=== PATIENT | female | born 1970 | race Caucasian/White ===

== ENCOUNTER 2022-06-21 19:34 | Emergency (ER) | payer SELFPAY ==
[2022-06-21 20:41] LABS: Absolute Lymphocytes (CBC) 1.6 K/uL (0.7-4.9); Hematocrit 36.1 % (36.0-45.0); Lymphocytes % 35.1 % (15.3-44.8); MCV 93.4 fL (80-100); MPV 9.2 fL (7.6-11.3); RBC Red Blood Cell Count 3.87 M/uL (3.86-4.86)
[2022-06-21 20:46] LABS: Protime INR 1.03
[2022-06-21 21:02] LABS: SARS-CoV-2 Antigen Rapid Res Negative (Negative)
[2022-06-21] MEDS ORDERED: NA CHLORIDE 0.9% 1,000 ML ONE (23:21)
[2022-06-22 01:25] LABS: ALT/SGPT 16 U/L (13-56); AST/SGOT 13 U/L (15-37); Albumin 3.2 g/dL (3.4-5.0); Alkaline Phosphatase 39 U/L (45-117); BUN Blood Urea Nitrogen 18 mg/dL (7-18); Bicarbonate 27 mmol/L (21-32); Bilirubin Direct 0.1 mg/dL (0-0.2); Bilirubin Total 0.6 mg/dL (0.2-1.0); Glomerular Filtration Rate 82 ml/min (=/>90); Glucose Level 106 mg/dL (74-106); Potassium 3.5 mmol/L (3.5-5.1); Sodium Level 141 mmol/L (136-145)
[2022-06-22 01:29] LABS: Urine Blood Negative (Negative); Urine Glucose Negative (Negative); Urine Protein Negative (Negative); Urine Specific Gravity >=1.030 (1.005-1.030); Urine pH 5.5 (5.0-7.0)
[2022-06-22 01:37] LABS: Barbiturates NEGATIVE (NEGATIVE); Benzodiazepines NEGATIVE (NEGATIVE); Cocaine NEGATIVE (NEGATIVE); METHAMPHETAM NEGATIVE (NEGATIVE); Methadone NEGATIVE (NEGATIVE); Opiates NEGATIVE (NEGATIVE); Phencyclidine NEGATIVE (NEGATIVE); THC Cannibis POSITIVE (NEGATIVE)
--- NOTE | 2022-06-22 07:23 | EDPHYS ---
Physician Documentation [facility] – [place], [place] Name: Ewelina Hines Age: 51 yrs Sex: Female : 1970 Arrival Date: 06/21/2022 Time: 19:59 Bed 17 Private MD: ED Physician Torres Gallardo HPI: 06/21 21:23 This 51 yrs old Female presents to ER via EMS with complaints of Intentional overdose. rt 21:23 The patient presents to the emergency department with suicide ideation. Patient rt presents to the ED with an intentional overdose of 0.6 mg of clonidine at about 5 PM. Patient states that this was a suicide attempt. Patient states that she wishes to get help. She denies any physical complaints at this time. Denies other aggravating alleviating factors. Symptoms are moderate in severity.. 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 - Social history:: Smoking status: Reported history of juuling and/or vaping. - Family history:: not pertinent. ROS: 21:23 Constitutional: Negative for fever, chills, and weight loss, Eyes: Negative for injury, rt pain, redness, and discharge, Cardiovascular: Negative for chest pain, palpitations, and edema, Respiratory: Negative for shortness of breath, cough, wheezing, and pleuritic chest pain, Abdomen/GI: Negative for abdominal pain, nausea, vomiting, diarrhea, and constipation, MS/Extremity: Negative for injury and deformity, Skin: Negative for injury, rash, and discoloration, Neuro: Negative for headache, weakness, numbness, tingling, and seizure. 21:23 Psych: Positive for depression, suicide gesture, suicidal ideation. Exam: 21:23 Constitutional: This is a well developed, well nourished patient who is awake, alert, rt and in no acute distress. Head/Face: Normocephalic, atraumatic. Chest/axilla: Normal chest wall appearance and motion. Nontender with no deformity. No lesions are appreciated. Cardiovascular: Regular rate and rhythm with a normal S1 and S2. No gallops, murmurs, or rubs. Normal PMI, no JVD. No pulse deficits. Respiratory: Lungs have equal breath sounds bilaterally, clear to auscultation and percussion. No rales, rhonchi or wheezes noted. No increased work of breathing, no retractions or nasal flaring. Abdomen/GI: Soft, non-tender, with normal bowel sounds. No distension or tympany. No guarding or rebound. No evidence of tenderness throughout. Skin: Warm, dry with normal turgor. Normal color with no rashes, no lesions, and no evidence of cellulitis. MS/ Extremity: Pulses equal, no cyanosis. Neurovascular intact. Full, normal range of motion. Neuro: Awake and alert, GCS 15, oriented to person, place, time, and situation. Cranial nerves II-XII grossly intact. Motor strength 5/5 in all extremities. Sensory grossly intact. Cerebellar exam normal. Normal gait. 21:23 ECG was reviewed by the Attending Physician. 21:23 Psych: Positive for suicidal ideation, calm, cooperative. Vital Signs: 19:59 BP 123 / 77; Pulse 78; Resp 12 S; Temp 98.2(O); Pulse Ox 97% on R/A; Weight 65.77 kg as6 (R); Height 4 ft. 11 in. (149.86 cm) (R); Pain 0/10; 21:03 BP 104 / 56; Pulse 49; Resp 10 S; Pulse Ox 95% on R/A; as6 22:50 BP 88 / 63; Pulse 45; Resp 19 S; Pulse Ox 97% on R/A; ha1 23:30 BP 93 / 60; Pulse 45; Resp 12 S; Pulse Ox 97% on R/A; ha1 03/03 00:30 BP 104 / 60; Pulse 45; Resp 13 S; Pulse Ox 97% on R/A; ha1 01:17 BP 121 / 63; Pulse 45; Resp 13; Pulse Ox 98% on R/A; ha1 02:30 BP 101 / 62; Pulse 44; Resp 12 S; Pulse Ox 97% on R/A; ha1 03:30 BP 106 / 69; Pulse 45; Resp 12 S; Pulse Ox 97% on R/A; ha1 04:30 BP 106 / 62; Pulse 48; Resp 15 S; Pulse Ox 97% on R/A; ha1 05:30 BP 114 / 58; Pulse 43; Resp 13 S; Pulse Ox 97% on R/A; ha1 06:30 BP 107 / 65; Pulse 48; Resp 12 S; Pulse Ox 96% on R/A; ha1 07:20 BP 105 / 64; Pulse 73; Resp 14; Temp 97.2; Pulse Ox 96% on R/A; Pain 0/10; ko1 07:55 BP 110 / 71; Pulse 55; Resp 17; Pulse Ox 96% on R/A; ko1 08:22 BP 126 / 70; Pulse 57; Resp 12; Pulse Ox 96% ; ko1 09:30 BP 110 / 64; Pulse 58; Resp 16; Pulse Ox 96% ; ko1 10:00 BP 102 / 63; Pulse 49; Resp 18; Pulse Ox 97% ; ko1 11:00 BP 115 / 63; Pulse 45; Resp 16; Pulse Ox 95% ; ko1 12:00 BP 130 / 66; Pulse 49; Resp 16; Pulse Ox 96% ; ko1 06/21 19:59 Body Mass Index 29.29 (65.77 kg, 149.86 cm) as6 MDM: 06/21 20:36 Patient medically screened. rt 06/22 07:12 Transition of care: Care assumed from Jacobo Justice MD. ms3 15:42 Differential diagnosis: acute psychotic break, depression, Suicide attempt vs Substance ms3 abuse. Data reviewed: vital signs, nurses notes, lab test result(s), and as a result, I will transfer patient to psychiatric facility. Consideration of Admission/Observation Transfer. I considered the following discharge prescriptions or medication management in the emergency department Medications were administered in the Emergency Department. See MAR. 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 Counseling: I had a detailed discussion with the patient and/or guardian regarding: the historical points, exam findings, and any diagnostic results supporting the discharge/admit diagnosis, lab results, radiology results, the need to transfer to another facility. ED course: Discussed case with Dr Alvarenga and he accepts patient.. 06/21 20:04 Order name: Acetaminophen as6 06/21 20:04 Order name: Basic Metabolic Panel as6 /02 20:04 Order name: CBC with Diff 06/21 20:04 Order name: ETOH Level 06/21 20:04 Order name: Hepatic Function 06/21 20:04 Order name: PT-INR 06/21 20:04 Order name: Ptt, Activated 06/21 20:04 Order name: Salicylate 06/21 20:04 Order name: Urine Drug Screen 06/21 20:04 Order name: EKG; Complete Time: 20:05 as06/21 20:04 Order name: EKG - Nurse/Tech; Complete Time: 20:36 as06/21 20:04 Order name: IV Saline Lock; Complete Time: 20:36 as06/21 20:04 Order name: Labs collected and sent; Complete Time: 20:36 as06/21 20:04 Order name: Suicide Precautions; Complete Time: 01:49 as06/21 20:04 Order name: Suicide Screening ([place]); Complete Time: 01:49 as06/21 20:04 Order name: Urine Dipstick-Ancillary (obtain specimen); Complete Time: 01:49 as06/21 20:04 Order name: Urine Test (obtain specimen); Complete Time: 01:49 as06/21 20:04 Order name: SARS RAPID 06/21 20:44 Order name: CBC with Automated Diff; Complete Time: 23:21 EDMS 06/21 20:46 Order name: Protime (+INR); Complete Time: 23:21 EDMS 06/21 20:46 Order name: PTT, Activated Partial Thromb; Complete Time: 23:21 EDMS 06/21 20:58 Order name: Alcohol Serum/Plasma; Complete Time: 23:21 EDMS 06/21 20:58 Order name: Salicylates Level; Complete Time: 23:21 EDMS 06/21 21:02 Order name: SARS-COV-2 Antigen Rapid; Complete Time: 23:21 EDMS 06/22 01:25 Order name: Basic Metabolic Panel; Complete Time: 07:54 EDMS 06/22 01:25 Order name: Liver (Hepatic) Function; Complete Time: 07:54 EDMS 06/22 01:25 Order name: Acetaminophen Level; Complete Time: 07:54 EDMS 06/22 01:29 Order name: Urine Dipstick-Ancillary; Complete Time: 07:54 EDMN 06/22 01:37 Order name: Urine Drug Screen; Complete Time: 07:54 [facility] 06/22 07:06 Order name: Diet Finger Food; Complete Time: 07:06 [facility] 06/22 10:44 Order name: Diet Finger Food; Complete Time: 10:45 1 06/22 16:10 Order name: Diet Finger Food; Complete Time: 16:10 ko1 EC/02 21:23 Rate is 67 beats/min. Rhythm is regular, Normal Sinus Rhythm with No ectopy. Left axis rt deviation noted. MS interval is normal. QRS interval is normal. QT interval is normal. No Q waves. T waves are Normal. No ST changes noted. Administered Medications: 23:10 Drug: NS 0.9% 1000 ml Route: IV; Rate: 1000 ml; Site: right antecubital; [facility] 06/22 00:00 Follow up: Response: No adverse reaction; Marked relief of symptoms; IV Status: pf1 Completed infusion; IV Intake: 1000ml Disposition Summary: 06/22/22 07:23 Transfer Ordered Transfer Location: [facility] ms3 Reason: Higher level of care ms3 Condition: Stable ms3 Problem: new ms3 Symptoms: are unchanged ms3 Accepting Physician: Dr Alvarenga/ [facility](06/22/22 17:42) ld1 Diagnosis - Suicide attempt ms3 - Intentional overdose ms3 - Cannabis abuse ms3 Forms: - Medication Reconciliation Form ms3 - SBAR form ms3 Signatures: Dispatcher [employer] [facility] Farnaz Lindsey Torres Gallardo DO DO ms3 Yolanda Olivas RN RN ld1 Flako Roa RN RN as6 Gely Hopper RN RN ha1 Jacobo Justice MD MD rt Ivana hull RN pf1 Corrections: (The following items were deleted from the chart) 07:54 07:23 Dr lake3 ms3 16:34 07:54 ms3 eb 17:42 16:34 Dr Alvarenga/ [facility] eb ld1
--- NOTE | 2022-06-22 07:23 | ER ---
Nurse's Notes [facility] Name: Ewelina Hines Age: 51 yrs Sex: Female : 1970 Arrival Date: 06/21/2022 Time: 19:59 Bed 17 Private MD: Diagnosis: Suicide attempt;Intentional overdose;Cannabis abuse Presentation: 06/21 19:59 Chief complaint: EMS states: pt took 0.6 mg of clonidine with intent to fall asleep and as6 not wake up. pt reports her family not really speaking to her and that making her very sad and feel like no one loves her. Coronavirus screen: At this time, the client does not indicate any symptoms associated with coronavirus-19. Ebola Screen: No symptoms or risks identified at this time. Initial Sepsis Screen: Does the patient meet any 2 criteria? No. Patient's initial sepsis screen is negative. Does the patient have a suspected source of infection? No. Patient's initial sepsis screen is negative. Risk Assessment: Do you want to hurt yourself or someone else? Patient reports desire/thoughts of hurting themselves or someone else. Provider notified. Onset of symptoms was June 21, 2022. 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 - Social history:: Smoking status: Reported history of juuling and/or vaping. - Family history:: not pertinent. Screenin:[facility] ED Fall Risk Assessment (Adult) Score/Fall Risk Level 0 - 2 = Low Risk. Abuse as6 screen: Denies threats or abuse. Denies injuries from another. Nutritional screening: No deficits noted. Tuberculosis screening: No symptoms or risk factors identified. Assessment: 20:09 General: Appears in no apparent distress. Behavior is calm, cooperative, flat. Pain: as6 Denies pain. Neuro: Level of Consciousness is awake, alert, obeys commands, Oriented to person, place, time, situation. Respiratory: Respiratory effort is even, unlabored. 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 22:50 Reassessment: received report from HARDEEP Arriola. ha1 22:50 General: Appears comfortable, Behavior is calm, cooperative. Pain: Denies pain. Neuro: ha1 Level of Consciousness is awake, alert, obeys commands, Oriented to person, place, time, situation. Neuro: Reports weakness in right leg and left leg. Cardiovascular: Heart tones S1 S2 present Capillary refill < 3 seconds Patient's skin is warm and dry. Rhythm is sinus bradycardia. GI: Abdomen is flat, non-distended. : Reports incontinence, since 2 years ago. EENT: No signs and/or symptoms were reported regarding the EENT system. Derm: Skin is pink, warm \\T\\ dry. Musculoskeletal: Circulation, motion, and sensation intact. 23:30 Reassessment: Patient and/or family updated on plan of care and expected duration. Pain ha1 level reassessed. Patient is alert, oriented x 3, equal unlabored respirations, skin warm/dry/pink. notified care provider of low BP. 03/03 01:30 Reassessment: eyes closed. Respiratory: Respiratory effort is even, unlabored, ha1 Respiratory pattern is regular, symmetrical. 02:30 Reassessment: eyes closed. Respiratory: Airway is patent Respiratory effort is even, ha1 unlabored, Respiratory pattern is regular, symmetrical. 03:30 Reassessment: eyes closed. Respiratory: Airway is patent Respiratory effort is even, ha1 unlabored, Respiratory pattern is regular, symmetrical. 04:18 Reassessment: spoke to poison control . [facility] 04:41 Reassessment: eyes closed. Respiratory: Airway is patent Respiratory effort is even, ha1 unlabored, Respiratory pattern is regular, symmetrical. 05:50 General: Spoke with Ivana with [facility] to arrange for a screener to pf1 evaluate the patient.. 06:30 Reassessment: relative that can be contact in case of emergency Moy Perdomo 1 [phone]. 06:40 General: Cortney Aguilar with [facility] called to speak with patient via [facility] er1 cell phone. Patient to call Cortney Aguilar at [phone] once the cell phone charges. . 06:42 Reassessment: eyes closed. Respiratory: Airway is patent Respiratory effort is even, ha1 unlabored, Respiratory pattern is regular, symmetrical. 07:20 Reassessment: Patient appears in no apparent distress at this time. No changes from ko1 previously documented assessment. Patient and/or family updated on plan of care and expected duration. Pain level reassessed. Patient is alert, oriented x 3, equal unlabored respirations, skin warm/dry/pink. 15:29 Reassessment:. ko1 Psych: 06/21 20:37 [place] Suicide Severity Screening: In the past month, have you wished you were as6 or wished you could go to sleep and not wake up? Patient responds "yes." Based off the client's responses additional C-SSRS screening is required. "In the past month, have you actually had any thoughts of killing yourself?" Patient responds "yes." Based off the client's response additional [place] suicide severity screening questions to be further documented on paper forms. "In your lifetime, have you ever done anything, started to do anything, or prepared to do anything to end your life?" Patient responds "yes." Patient reports suicidal intent within 3 past months. Patient reports suicidal intent occurred greater than 3 months prior. Subjective: Patient's mood is sad, Delusions are denied, Hallucinations are denied Having thoughts of suicide. Plan for suicide is take medication. Objective: Patient is cooperative, Speech is normal, Affect is appropriate. 22:18 Pt denies substance abuse. as6 22:50 Safety Checks: Personal items have been removed. ha1 Vital Signs: 19:59 BP 123 / 77; Pulse 78; Resp 12 S; Temp 98.2(O); Pulse Ox 97% on R/A; Weight 65.77 kg as6 (R); Height 4 ft. 11 in. (149.86 cm) (R); Pain 0/10; 21:03 BP 104 / 56; Pulse 49; Resp 10 S; Pulse Ox 95% on R/A; as6 22:50 BP 88 / 63; Pulse 45; Resp 19 S; Pulse Ox 97% on R/A; ha1 23:30 BP 93 / 60; Pulse 45; Resp 12 S; Pulse Ox 97% on R/A; ha1 06/22 00:30 BP 104 / 60; Pulse 45; Resp 13 S; Pulse Ox 97% on R/A; ha1 01:17 BP 121 / 63; Pulse 45; Resp 13; Pulse Ox 98% on R/A; ha1 02:30 BP 101 / 62; Pulse 44; Resp 12 S; Pulse Ox 97% on R/A; ha1 03:30 BP 106 / 69; Pulse 45; Resp 12 S; Pulse Ox 97% on R/A; ha1 04:30 BP 106 / 62; Pulse 48; Resp 15 S; Pulse Ox 97% on R/A; ha1 05:30 BP 114 / 58; Pulse 43; Resp 13 S; Pulse Ox 97% on R/A; ha1 06:30 BP 107 / 65; Pulse 48; Resp 12 S; Pulse Ox 96% on R/A; ha1 07:20 BP 105 / 64; Pulse 73; Resp 14; Temp 97.2; Pulse Ox 96% on R/A; Pain 0/10; ko1 07:55 BP 110 / 71; Pulse 55; Resp 17; Pulse Ox 96% on R/A; ko1 08:22 BP 126 / 70; Pulse 57; Resp 12; Pulse Ox 96% ; ko1 09:30 BP 110 / 64; Pulse 58; Resp 16; Pulse Ox 96% ; ko1 10:00 BP 102 / 63; Pulse 49; Resp 18; Pulse Ox 97% ; ko1 11:00 BP 115 / 63; Pulse 45; Resp 16; Pulse Ox 95% ; ko1 12:00 BP 130 / 66; Pulse 49; Resp 16; Pulse Ox 96% ; ko1 06/21 19:59 Body Mass Index 29.29 (65.77 kg, 149.86 cm) as6 ED Course: 02 19:59 Patient arrived in ED. as6 19:59 Flako Roa RN is Primary Nurse. as6 19:59 Jacobo Justice MD is Attending Physician. rt 19:59 Arm band placed on. as6 20:03 Triage completed. as6 20:35 SARS RAPID Sent. as6 20:35 Acetaminophen Sent. as6 20:36 Basic Metabolic Panel Sent. as6 20:36 CBC with Diff Sent. as6 20:36 ETOH Level Sent. as6 20:36 Hepatic Function Sent. as6 20:36 PT-INR Sent. as6 20:36 Ptt, Activated Sent. as6 20:36 Salicylate Sent. as6 20:36 Inserted saline lock: 20 gauge in right antecubital area, using aseptic technique. as6 Blood collected. 22:50 Patient has correct armband on for positive identification. Bed in low position. Call ha1 light in reach. Side rails up X 1. 0303 01:49 Urine Drug Screen Sent. vc1 07:12 Attending Physician role handed off by Jacobo Justice MD ms3 07:12 Torres Gallardo DO is Attending Physician. ms3 07:20 Client placed on continuous cardiac and pulse oximetry monitoring. NIBP monitoring ko1 applied. 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 08:04 attempted to connect patient with Cortney from [facility] for screening with no answer.eb 08:09 Cortney from [facility] called to let us now Hali is on her way to do a face to eb face screening. 08:21 Hali from [facility] here for patient screening. eb 08:22 Diet tray ordered. Assisted to bedside commode. Cleaned of incontinence. ko1 09:10 called and spoke with Felicia Lewis from [facility]/ She will wait for eb the fax but in the mean time will add patient to the board/. 09:11 faxed patient nathen to [facility] and [facility] in attempt to eb find placement. 09:23 called patient's cousin Moy to get patient information to update the patient eb facesheet. 12:00 No provider procedures requiring assistance completed. ko1 15:27 connected Dee Antunez from [facility] from the [facility]. eb 15:[address] Alvarenga the psychiatrist salesperson meats for [facility] with eb Dr. Gallardo for patient transfer consultation. 16:18 administrative approval given by Alexia Mullen/ patient has been accepted to [facility]. Administered Medications: 06/21 23:10 Drug: NS 0.9% 1000 ml Route: IV; Rate: 1000 ml; Site: right antecubital; ha1 06/22 00:00 Follow up: Response: No adverse reaction; Marked relief of symptoms; IV Status: pf1 Completed infusion; IV Intake: 1000ml Medication: 06/21 20:10 VIS not applicable for this client. as6 Intake: 06/22 00:00 IV: 1000ml; Total: 1000ml. pf1 Output: 08:22 Stool: 1ml (Loose Stool); Total: 1ml. ko1 Outcome: 07:23 ER care complete, transfer ordered by . ms3 17:42 Patient left the ED. ld1 Signatures: Farnaz Lindsey Marcus, DO RODRIGUEZ ms3 Yolanda Olivas RN RN ld1 Flako Roa RN RN as6 Tiffany Ramirez RN RN vc1 Gely Hopper, RN RN ha1 Brenda Goodwin RN RN ko1 Jacobo Justice MD MD rt finley, Pamala RN RN pf1
--- NOTE | 2022-06-22 14:30 | EKG ---
Test Date: 2022-06-21 Test Time: 20:24:24 Cna Ltc: MEASUREMENT RESULTS: Intervals: Rate: 67 PA: 142 QRSD: 94 QT: 456 QTc: 481 [place]: P: 58 PA: 142 QRS: -40 T: 109 INTERPRETIVE STATEMENTS: Normal sinus rhythm Possible Left atrial enlargement Left axis deviation Left ventricular hypertrophy with repolarization abnormality Prolonged QT Abnormal ECG No previous ECG available for comparison Electronically Signed On 06-22-22 14:28:22 CONVICT GUARD by See Irizarry
[2022-06-22 18:41] VITALS: BP 105/61; O2SAT 96
[2022-06-22 18:44] VITALS: TEMP 97.7
== END 2022-06-22 17:42 ==
LOC: EDBD 19:34 → ER 19:34
DX: T46.5X2A Poisoning by other antihypertensive drugs, intentional self-harm, initial encounter (principal); F12.10 Cannabis abuse, uncomplicated; Z20.822 Contact with and (suspected) exposure to COVID-19
CPT/HCPCS: 36415; 80048; 80076; 80307; 81003; 85025; 85610; 85730; 87811; 93005; 96360; 99285; G0480; J7030

== ENCOUNTER 2022-09-11 15:18 | Emergency (ER) | payer SELFPAY ==
--- OUTSIDE RECORDS SUMMARY | 2022-09-11 15:23 | XMS REPORT | Continuity of Care Document ---
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 hydrocephalus or midline shift. No extra-axial fluid collections. Paranasal sinuses are clear. Unfused posterior arch of C1 vertebral body. IMPRESSION: Acute hemorrhage within the left vermis and cerebellum measuring up to1.6 cm with severe vasogenic edema and mass effect on the ipsilateral quadrigeminal plate cistern and the left 4th ventricle. This may represent underlying mass with hemorrhage. Less likely hypertensive bleed. Correlate with postcontrast CT or MRI scanning for further evaluation. These findings were di scussed with Dr. Mistry at 10:29 AM. FOR INTERNAL CODING PURPOSES ONLY RESULT CODE: CVR at 1031 Reported and signed by: Nazario Jones M.D. CC: Adam Mistry MD Technologist:La Bell RT(R),CT; CTDI: DLP: Trnscb Date/Time: 12/03/2020 (1031) [email or web address] Orig Print D/T: S: 12/03/2020 (1034) PAGE 1 Signed ReportCBC W/AUTO [id number] 17:41:00 Test Item Value Reference Range Interpretation Comments WHITE BLOOD CELL (test 11.5 K/mm3 4.5-12.5 N code = WBC) RED BLOOD CELL (test code 3.45 mill/mm3 3.7-5.2 L = RBC) HEMOGLOBIN (test code = 8.7 gram/dL 11.5-15.5 L HGB) HEMATOCRIT (test code = 29.1 % 36.0-46.0 L HCT) MEAN CELL VOLUME (test 84.3 fL 80-98 N code = MCV) MEAN CELL HGB (test code 25.2 picogram 27.0-33.0 L = MCH) MEAN CELL HGB 29.9 gram/dL 33.0-36.0 L CONCETRATION (test code = MCHC) RED CELL DISTRIBUTION 19.3 % 11.6-16.2 H WIDTH (test code = RDW) RED CELL DISTRIBUTION 59.1 fL 37.0-51.0 H WIDTH SD (test code = RDW-SD) PLATELET COUNT (test code 283 K/mm3 150-450 N = PLT) MEAN PLATELET VOLUME 10.6 fL 6.7-11.0 N (test code = MPV) NEUTROPHIL % (test code = 74.5 % 39.0-69.0 H NT%) IMMATURE GRANULOCYTE % 0.2 % 0.0-5.0 N (test code = IG%) LYMPHOCYTE % (test code = 9.3 % 25.0-55.0 L LY%) MONOCYTE % (test code = 9.6 % 0.0-10.0 N MO%) EOSINOPHIL % (test code = 5.9 % 0.0-5.0 H EO%) BASOPHIL % (test code = 0.5 % 0.0-1.0 N BA%) NUCLEATED RBC % (test 0.0 % 0-0 N code = NRBC%) NEUTROPHIL # (test code = 8.57 K/mm3 1.8-7.7 H NT#) IMMATURE GRANULOCYTE # 0.02 x10 3/uL 0-0.03 N (test code = IG#) LYMPHOCYTE # (test code = 1.07 K/mm3 1.0-5.0 N LY#) MONOCYTE # (test code = 1.11 K/mm3 0-0.8 H MO#) EOSINOPHIL # (test code = 0.68 K/mm3 0.0-0.5 H EO#) BASOPHIL # (test code = 0.06 K/mm3 0.0-0.2 N BA#) NUCLEATED RBC # (test 0.00 K/mm3 0.0-0.1 N code = NRBC#) MANUAL DIFF REQUIRED NO, ONLY SCAN NEEDED (test code = MDIFF) DIFFERENTIAL [id number] 17:41:00 Test Item Value Reference Range Interpretation Comments STAIN ACCEPTABILITY (test STAIN ACCEPTABLE code = STN ACCEPTABLE) HYPOCHROMIA (test code = 1+ HYPO) PLATELET ESTIMATE (test code ADEQUATE = PLTEST) PLATELET MORPHOLOGY (test NORMAL code = PLTMORPH) CBC W/AUTO [id number] 16:03:00 Test Item Value Reference Range Interpretation Comments WHITE BLOOD CELL (test 11.5 K/mm3 4.5-12.5 N code = WBC) RED BLOOD CELL (test code 3.45 mill/mm3 3.7-5.2 L = RBC) HEMOGLOBIN (test code = 8.7 gram/dL 11.5-15.5 L HGB) HEMATOCRIT (test code = 29.1 % 36.0-46.0 L HCT) MEAN CELL VOLUME (test 84.3 fL 80-98 N code = MCV) MEAN CELL HGB (test code 25.2 picogram 27.0-33.0 L = MCH) MEAN CELL HGB 29.9 gram/dL 33.0-36.0 L CONCETRATION (test code = MCHC) RED CELL DISTRIBUTION 19.3 % 11.6-16.2 H WIDTH (test code = RDW) RED CELL DISTRIBUTION 59.1 fL 37.0-51.0 H WIDTH SD (test code = RDW-SD) PLATELET COUNT (test code 283 K/mm3 150-450 N = PLT) MEAN PLATELET VOLUME 10.6 fL 6.7-11.0 N (test code = MPV) NEUTROPHIL % (test code = 74.5 % 39.0-69.0 H NT%) IMMATURE GRANULOCYTE % 0.2 % 0.0-5.0 N (test code = IG%) LYMPHOCYTE % (test code = 9.3 % 25.0-55.0 L LY%) MONOCYTE % (test code = 9.6 % 0.0-10.0 N MO%) EOSINOPHIL % (test code = 5.9 % 0.0-5.0 H EO%) BASOPHIL % (test code = 0.5 % 0.0-1.0 N BA%) NUCLEATED RBC % (test 0.0 % 0-0 N code = NRBC%) NEUTROPHIL # (test code = 8.57 K/mm3 1.8-7.7 H NT#) IMMATURE GRANULOCYTE # 0.02 x10 3/uL 0-0.03 N (test code = IG#) LYMPHOCYTE # (test code = 1.07 K/mm3 1.0-5.0 N LY#) MONOCYTE # (test code = 1.11 K/mm3 0-0.8 H MO#) EOSINOPHIL # (test code = 0.68 K/mm3 0.0-0.5 H EO#) BASOPHIL # (test code = 0.06 K/mm3 0.0-0.2 N BA#) NUCLEATED RBC # (test 0.00 K/mm3 0.0-0.1 N code = NRBC#) MANUAL DIFF REQUIRED NO, ONLY SCAN NEEDED (test code = MDIFF) DIFFERENTIAL [id number] 16:03:00 Test Item Value Reference Range Interpretation Comments STAIN ACCEPTABILITY (test code = STN ACCEPTABLE) CABOT RINGS (test code = CAB) MORPHOLOGY COMMENT (test code = MOC) PLATELET ESTIMATE (test code = PLTEST) PLATELET MORPHOLOGY (test code = PLTMORPH) CBC W/AUTO [id number] 16:03:00 Test Item Value Reference Range Interpretation Comments WHITE BLOOD CELL (test 11.5 K/mm3 4.5-12.5 N code = WBC) RED BLOOD CELL (test code 3.45 mill/mm3 3.7-5.2 L = RBC) HEMOGLOBIN (test code = 8.7 gram/dL 11.5-15.5 L HGB) HEMATOCRIT (test code = 29.1 % 36.0-46.0 L HCT) MEAN CELL VOLUME (test 84.3 fL 80-98 N code = MCV) MEAN CELL HGB (test code 25.2 picogram 27.0-33.0 L = MCH) MEAN CELL HGB 29.9 gram/dL 33.0-36.0 L CONCETRATION (test code = MCHC) RED CELL DISTRIBUTION 19.3 % 11.6-16.2 H WIDTH (test code = RDW) RED CELL DISTRIBUTION 59.1 fL 37.0-51.0 H WIDTH SD (test code = RDW-SD) PLATELET COUNT (test code 283 K/mm3 150-450 N = PLT) MEAN PLATELET VOLUME 10.6 fL 6.7-11.0 N (test code = MPV) NEUTROPHIL % (test code = 74.5 % 39.0-69.0 H NT%) IMMATURE GRANULOCYTE % 0.2 % 0.0-5.0 N (test code = IG%) LYMPHOCYTE % (test code = 9.3 % 25.0-55.0 L LY%) MONOCYTE % (test code = 9.6 % 0.0-10.0 N MO%) EOSINOPHIL % (test code = 5.9 % 0.0-5.0 H EO%) BASOPHIL % (test code = 0.5 % 0.0-1.0 N BA%) NUCLEATED RBC % (test 0.0 % 0-0 N code = NRBC%) NEUTROPHIL # (test code = 8.57 K/mm3 1.8-7.7 H NT#) IMMATURE GRANULOCYTE # 0.02 x10 3/uL 0-0.03 N (test code = IG#) LYMPHOCYTE # (test code = 1.07 K/mm3 1.0-5.0 N LY#) MONOCYTE # (test code = 1.11 K/mm3 0-0.8 H MO#) EOSINOPHIL # (test code = 0.68 K/mm3 0.0-0.5 H EO#) BASOPHIL # (test code = 0.06 K/mm3 0.0-0.2 N BA#) NUCLEATED RBC # (test 0.00 K/mm3 0.0-0.1 N code = NRBC#) MANUAL DIFF REQUIRED NO, ONLY SCAN NEEDED (test code = MDIFF) DIFFERENTIAL [id number] 16:03:00 Test Item Value Reference Range Interpretation Comments STAIN ACCEPTABILITY (test code = STN ACCEPTABLE) CABOT RINGS (test code = CAB) MORPHOLOGY COMMENT (test code = MOC) PLATELET ESTIMATE (test code = PLTEST) PLATELET MORPHOLOGY (test code = PLTMORPH) CBC W/AUTO [id number] 16:03:00 Test Item Value Reference Range Interpretation Comments WHITE BLOOD CELL (test 11.5 K/mm3 4.5-12.5 N code = WBC) RED BLOOD CELL (test code 3.45 mill/mm3 3.7-5.2 L = RBC) HEMOGLOBIN (test code = 8.7 gram/dL 11.5-15.5 L HGB) HEMATOCRIT (test code = 29.1 % 36.0-46.0 L HCT) MEAN CELL VOLUME (test 84.3 fL 80-98 N code = MCV) MEAN CELL HGB (test code 25.2 picogram 27.0-33.0 L = MCH) MEAN CELL HGB 29.9 gram/dL 33.0-36.0 L CONCETRATION (test code = MCHC) RED CELL DISTRIBUTION 19.3 % 11.6-16.2 H WIDTH (test code = RDW) RED CELL DISTRIBUTION 59.1 fL 37.0-51.0 H WIDTH SD (test code = RDW-SD) PLATELET COUNT (test code 283 K/mm3 150-450 N = PLT) MEAN PLATELET VOLUME 10.6 fL 6.7-11.0 N (test code = MPV) NEUTROPHIL % (test code = 74.5 % 39.0-69.0 H NT%) IMMATURE GRANULOCYTE % 0.2 % 0.0-5.0 N (test code = IG%) LYMPHOCYTE % (test code = 9.3 % 25.0-55.0 L LY%) MONOCYTE % (test code = 9.6 % 0.0-10.0 N MO%) EOSINOPHIL % (test code = 5.9 % 0.0-5.0 H EO%) BASOPHIL % (test code = 0.5 % 0.0-1.0 N BA%) NUCLEATED RBC % (test 0.0 % 0-0 N code = NRBC%) NEUTROPHIL # (test code = 8.57 K/mm3 1.8-7.7 H NT#) IMMATURE GRANULOCYTE # 0.02 x10 3/uL 0-0.03 N (test code = IG#) LYMPHOCYTE # (test code = 1.07 K/mm3 1.0-5.0 N LY#) MONOCYTE # (test code = 1.11 K/mm3 0-0.8 H MO#) EOSINOPHIL # (test code = 0.68 K/mm3 0.0-0.5 H EO#) BASOPHIL # (test code = 0.06 K/mm3 0.0-0.2 N BA#) NUCLEATED RBC # (test 0.00 K/mm3 0.0-0.1 N code = NRBC#) MANUAL DIFF REQUIRED NO, ONLY SCAN NEEDED (test code = MDIFF) DIFFERENTIAL [id number] 16:03:00 Test Item Value Reference Range Interpretation Comments STAIN ACCEPTABILITY (test code = STN ACCEPTABLE) MORPHOLOGY COMMENT (test code = MOC) PLATELET ESTIMATE (test code = PLTEST) PLATELET MORPHOLOGY (test code = PLTMORPH) CBC W/AUTO [id number] 16:03:00 Test Item Value Reference Range Interpretation Comments WHITE BLOOD CELL (test 11.5 K/mm3 4.5-12.5 N code = WBC) RED BLOOD CELL (test code 3.45 mill/mm3 3.7-5.2 L = RBC) HEMOGLOBIN (test code = 8.7 gram/dL 11.5-15.5 L HGB) HEMATOCRIT (test code = 29.1 % 36.0-46.0 L HCT) MEAN CELL VOLUME (test 84.3 fL 80-98 N code = MCV) MEAN CELL HGB (test code 25.2 picogram 27.0-33.0 L = MCH) MEAN CELL HGB 29.9 gram/dL 33.0-36.0 L CONCETRATION (test code = MCHC) RED CELL DISTRIBUTION 19.3 % 11.6-16.2 H WIDTH (test code = RDW) RED CELL DISTRIBUTION 59.1 fL 37.0-51.0 H WIDTH SD (test code = RDW-SD) PLATELET COUNT (test code 283 K/mm3 150-450 N = PLT) MEAN PLATELET VOLUME 10.6 fL 6.7-11.0 N (test code = MPV) NEUTROPHIL % (test code = 74.5 % 39.0-69.0 H NT%) IMMATURE GRANULOCYTE % 0.2 % 0.0-5.0 N (test code = IG%) LYMPHOCYTE % (test code = 9.3 % 25.0-55.0 L LY%) MONOCYTE % (test code = 9.6 % 0.0-10.0 N MO%) EOSINOPHIL % (test code = 5.9 % 0.0-5.0 H EO%) BASOPHIL % (test code = 0.5 % 0.0-1.0 N BA%) NUCLEATED RBC % (test 0.0 % 0-0 N code = NRBC%) NEUTROPHIL # (test code = 8.57 K/mm3 1.8-7.7 H NT#) IMMATURE GRANULOCYTE # 0.02 x10 3/uL 0-0.03 N (test code = IG#) LYMPHOCYTE # (test code = 1.07 K/mm3 1.0-5.0 N LY#) MONOCYTE # (test code = 1.11 K/mm3 0-0.8 H MO#) EOSINOPHIL # (test code = 0.68 K/mm3 0.0-0.5 H EO#) BASOPHIL # (test code = 0.06 K/mm3 0.0-0.2 N BA#) NUCLEATED RBC # (test 0.00 K/mm3 0.0-0.1 N code = NRBC#) MANUAL DIFF REQUIRED NO, ONLY SCAN NEEDED (test code = MDIFF) DIFFERENTIAL [id number] 16:03:00 Test Item Value Reference Range Interpretation Comments STAIN ACCEPTABILITY (test code = STN ACCEPTABLE) CABOT RINGS (test code = CAB) MORPHOLOGY COMMENT (test code = MOC) PLATELET ESTIMATE (test code = PLTEST) PLATELET MORPHOLOGY (test code = PLTMORPH) BASIC METABOLIC [id number] 07:43:00 Test Item Value Reference Range Interpretation Comments SODIUM (test code = 140 mmol/L 136-145 N NA) POTASSIUM (test code 3.7 mmol/L 3.5-5.1 N = K) CHLORIDE (test code = 108.0 mmol/L 98-107 H CL) CARBON DIOXIDE (test 25.0 mmol/L 21-32 N code = CO2) ANION GAP (test code 10.7 10-20 N = GAP) GLUCOSE (test code = 94 mg/dL 74-106 N GLU) BLOOD UREA NITROGEN 15 mg/dL 7-18 N (test code = BUN) GLOMERULAR FILTRATION > 60 mL/min >=60 Estima emilee GFR by RATE (test code = using Bhavani fied MDRD GFR) formula.Chronic kidney disease is defined as eith er kidney damageor GFR <60 mL/min/1.73 m2 for >3 months. CREATININE (test code 0.60 mg/dL 0.55-1.02 N Note change in = CREAT) reference range due to change in reagent. BUN/CREATININE RATIO 24.1 10-20 H (test code = BUN/CREA) CALCIUM (test code = 8.7 mg/dL 8.5-10.1 N CA) [id number] 07:43:00 Test Item Value Reference Range Interpretation Comments PHOSPHORUS (test code = PHOS) 3.9 mg/dL 2.5-4.9 N [id number] 07:43:00 Test Item Value Reference Range Interpretation Comments MAGNESIUM (test code = MAG) 2.0 mg/dL 1.8-2.4 N BASIC METABOLIC [id number] 07:36:00 Test Item Value Reference Range Interpretation Comments SODIUM (test code = NA) 140 mmol/L 136-145 N POTASSIUM (test code = K) 3.7 mmol/L 3.5-5.1 N CHLORIDE (test code = CL) 108.0 mmol/L 98-107 H CARBON DIOXIDE (test code = CO2) mmol/L 21-32 ANION GAP (test code = GAP) 10-20 GLUCOSE (test code = GLU) mg/dL 74-106 BLOOD UREA NITROGEN (test code = mg/dL 7-18 BUN) GLOMERULAR FILTRATION RATE (test mL/min >=60 code = GFR) CREATININE (test code = CREAT) mg/dL 0.55-1.02 BUN/CREATININE RATIO (test code 10-20 = BUN/CREA) CALCIUM (test code = CA) mg/dL 8.5-10.1 [id number] 07:36:00 Test Item Value Reference Range Interpretation Comments PHOSPHORUS (test code = PHOS) mg/dL 2.5-4.9 [id number] 07:36:00 Test Item Value Reference Range Interpretation Comments MAGNESIUM (test code = MAG) mg/dL 1.8-2.4 CBC W/AUTO [id number] 07:04:00 Test Item Value Reference Range Interpretation Comments WHITE BLOOD CELL (test code = 10.4 K/mm3 4.5-12.5 N WBC) RED BLOOD CELL (test code = 3.58 mill/mm3 3.7-5.2 L RBC) HEMOGLOBIN (test code = HGB) 8.9 gram/dL 11.5-15.5 L HEMATOCRIT (test code = HCT) 29.3 % 36.0-46.0 L MEAN CELL VOLUME (test code = 81.8 fL 80-98 N MCV) MEAN CELL HGB (test code = MCH) 24.9 picogram 27.0-33.0 L MEAN CELL HGB CONCETRATION 30.4 gram/dL 33.0-36.0 L (test code = MCHC) RED CELL DISTRIBUTION WIDTH 19.2 % 11.6-16.2 H (test code = RDW) RED CELL DISTRIBUTION WIDTH SD 57.4 fL 37.0-51.0 H (test code = RDW-SD) PLATELET COUNT (test code = 272 K/mm3 150-450 N PLT) MEAN PLATELET VOLUME (test code 11.0 fL 6.7-11.0 N = MPV) NEUTROPHIL % (test code = NT%) 68.4 % 39.0-69.0 N IMMATURE GRANULOCYTE % (test 0.4 % 0.0-5.0 N code = IG%) LYMPHOCYTE % (test code = LY%) 16.4 % 25.0-55.0 L MONOCYTE % (test code = MO%) 8.9 % 0.0-10.0 N EOSINOPHIL % (test code = EO%) 5.5 % 0.0-5.0 H BASOPHIL % (test code = BA%) 0.4 % 0.0-1.0 N NUCLEATED RBC % (test code = 0.0 % 0-0 N NRBC%) NEUTROPHIL # (test code = NT#) 7.15 K/mm3 1.8-7.7 N IMMATURE GRANULOCYTE # (test 0.04 x10 3/uL 0-0.03 H code = IG#) LYMPHOCYTE # (test code = LY#) 1.71 K/mm3 1.0-5.0 N MONOCYTE # (test code = MO#) 0.93 K/mm3 0-0.8 H EOSINOPHIL # (test code = EO#) 0.57 K/mm3 0.0-0.5 H BASOPHIL # (test code = BA#) 0.04 K/mm3 0.0-0.2 N NUCLEATED RBC # (test code = 0.00 K/mm3 0.0-0.1 N NRBC#) BASIC METABOLIC [id number] 06:19:00 Test Item Value Reference Range Interpretation Comments SODIUM (test code = 138 mmol/L 136-145 N NA) POTASSIUM (test code 3.0 mmol/L 3.5-5.1 L = K) CHLORIDE (test code = 105.0 mmol/L 98-107 N CL) CARBON DIOXIDE (test 25.0 mmol/L 21-32 N code = CO2) ANION GAP (test code 11.0 10-20 N = GAP) GLUCOSE (test code = 105 mg/dL 74-106 N GLU) BLOOD UREA NITROGEN 15 mg/dL 7-18 N (test code = BUN) GLOMERULAR FILTRATION > 60 mL/min >=60 Estima emilee GFR by RATE (test code = using Bhavani fied MDRD GFR) formula.Chronic kidney disease is defined as [facility] kidney damageor GFR <60 mL/min/1.73 m2 for >3 months. CREATININE (test code 0.70 mg/dL 0.55-1.02 N Note change in = CREAT) reference range due to change in reagent. BUN/CREATININE RATIO 21.7 10-20 H (test code = BUN/CREA) CALCIUM (test code = 8.6 mg/dL 8.5-10.1 N CA) [id number] 06:19:00 Test Item Value Reference Range Interpretation Comments PHOSPHORUS (test code = PHOS) 2.5 mg/dL 2.5-4.9 N [id number] 06:19:00 Test Item Value Reference Range Interpretation Comments MAGNESIUM (test code = MAG) 2.0 mg/dL 1.8-2.4 N CBC W/AUTO [id number] 06:14:00 Test Item Value Reference Range Interpretation Comments WHITE BLOOD CELL (test code = 11.7 K/mm3 4.5-12.5 N WBC) RED BLOOD CELL (test code = 3.83 mill/mm3 3.7-5.2 N RBC) HEMOGLOBIN (test code = HGB) 9.6 gram/dL 11.5-15.5 L HEMATOCRIT (test code = HCT) 31.3 % 36.0-46.0 L MEAN CELL VOLUME (test code = 81.7 fL 80-98 N MCV) MEAN CELL HGB (test code = MCH) 25.1 picogram 27.0-33.0 L MEAN CELL HGB CONCETRATION 30.7 gram/dL 33.0-36.0 L (test code = MCHC) RED CELL DISTRIBUTION WIDTH 19.1 % 11.6-16.2 H (test code = RDW) RED CELL DISTRIBUTION WIDTH SD 56.8 fL 37.0-51.0 H (test code = RDW-SD) PLATELET COUNT (test code = 298 K/mm3 150-450 N PLT) MEAN PLATELET VOLUME (test code 10.4 fL 6.7-11.0 N = MPV) NEUTROPHIL % (test code = NT%) 72.0 % 39.0-69.0 H IMMATURE GRANULOCYTE % (test 0.4 % 0.0-5.0 N code = IG%) LYMPHOCYTE % (test code = LY%) 13.2 % 25.0-55.0 L MONOCYTE % (test code = MO%) 10.4 % 0.0-10.0 H EOSINOPHIL % (test code = EO%) 3.5 % 0.0-5.0 N BASOPHIL % (test code = BA%) 0.5 % 0.0-1.0 N NUCLEATED RBC % (test code = 0.0 % 0-0 N NRBC%) NEUTROPHIL # (test code = NT#) 8.42 K/mm3 1.8-7.7 H IMMATURE GRANULOCYTE # (test 0.05 x10 3/uL 0-0.03 H code = IG#) LYMPHOCYTE # (test code = LY#) 1.55 K/mm3 1.0-5.0 N MONOCYTE # (test code = MO#) 1.22 K/mm3 0-0.8 H EOSINOPHIL # (test code = EO#) 0.41 K/mm3 0.0-0.5 N BASOPHIL # (test code = BA#) 0.06 K/mm3 0.0-0.2 N NUCLEATED RBC # (test code = 0.00 K/mm3 0.0-0.1 N NRBC#) MANUAL DIFF REQUIRED (test code NO = MDIFF) BASIC METABOLIC [id number] 06:13:00 Test Item Value Reference Range Interpretation Comments SODIUM (test code = NA) 138 mmol/L 136-145 N POTASSIUM (test code = K) 3.0 mmol/L 3.5-5.1 L CHLORIDE (test code = CL) 105.0 mmol/L 98-107 N CARBON DIOXIDE (test code = CO2) mmol/L 21-32 ANION GAP (test code = GAP) 10-20 GLUCOSE (test code = GLU) mg/dL 74-106 BLOOD UREA NITROGEN (test code = mg/dL 7-18 BUN) GLOMERULAR FILTRATION RATE (test mL/min >=60 code = GFR) CREATININE (test code = CREAT) mg/dL 0.55-1.02 BUN/CREATININE RATIO (test code 10-20 = BUN/CREA) CALCIUM (test code = CA) mg/dL 8.5-10.1 [id number] 06:13:00 Test Item Value Reference Range Interpretation Comments PHOSPHORUS (test code = PHOS) mg/dL 2.5-4.9 [id number] 06:13:00 Test Item Value Reference Range Interpretation Comments MAGNESIUM (test code = MAG) mg/dL 1.8-2.4 BASIC METABOLIC [id number] 05:19:00 Test Item Value Reference Range Interpretation Comments SODIUM (test code = 136 mmol/L 136-145 N NA) POTASSIUM (test code 3.2 mmol/L 3.5-5.1 L = K) CHLORIDE (test code = 106.0 mmol/L 98-107 N CL) CARBON DIOXIDE (test 23.0 mmol/L 21-32 N code = CO2) ANION GAP (test code 10.2 10-20 N = GAP) GLUCOSE (test code = 97 mg/dL 74-106 N GLU) BLOOD UREA NITROGEN 17 mg/dL 7-18 N (test code = BUN) GLOMERULAR FILTRATION > 60 mL/min >=60 Estima emilee GFR by RATE (test code = using Bhavani fied MDRD GFR) formula.Chronic kidney disease is defined as eith er kidney damageor GFR <60 mL/min/1.73 m2 for >3 months. CREATININE (test code 0.90 mg/dL 0.55-1.02 N Note change in = CREAT) reference range due to change in reagent. BUN/CREATININE RATIO 19.8 10-20 N (test code = BUN/CREA) CALCIUM (test code = 8.4 mg/dL 8.5-10.1 L CA) [id number] 05:19:00 Test Item Value Reference Range Interpretation Comments PHOSPHORUS (test code = PHOS) 2.3 mg/dL 2.5-4.9 L [id number] 05:19:00 Test Item Value Reference Range Interpretation Comments MAGNESIUM (test code = MAG) 2.0 mg/dL 1.8-2.4 N BASIC METABOLIC [id number] 05:13:00 Test Item Value Reference Range Interpretation Comments SODIUM (test code = NA) 136 mmol/L 136-145 N POTASSIUM (test code = K) 3.2 mmol/L 3.5-5.1 L CHLORIDE (test code = CL) 106.0 mmol/L 98-107 N CARBON DIOXIDE (test code = CO2) mmol/L 21-32 ANION GAP (test code = GAP) 10-20 GLUCOSE (test code = GLU) mg/dL 74-106 BLOOD UREA NITROGEN (test code = mg/dL 7-18 BUN) GLOMERULAR FILTRATION RATE (test mL/min >=60 code = GFR) CREATININE (test code = CREAT) mg/dL 0.55-1.02 BUN/CREATININE RATIO (test code 10-20 = BUN/CREA) CALCIUM (test code = CA) mg/dL 8.5-10.1 [id number] 05:13:00 Test Item Value Reference Range Interpretation Comments PHOSPHORUS (test code = PHOS) mg/dL 2.5-4.9 [id number] 05:13:00 Test Item Value Reference Range Interpretation Comments MAGNESIUM (test code = MAG) mg/dL 1.8-2.4 CBC W/AUTO [id number] 05:04:00 Test Item Value Reference Range Interpretation Comments WHITE BLOOD CELL (test code = 13.1 K/mm3 4.5-12.5 H WBC) RED BLOOD CELL (test code = 4.40 mill/mm3 3.7-5.2 N RBC) HEMOGLOBIN (test code = HGB) 11.0 gram/dL 11.5-15.5 L HEMATOCRIT (test code = HCT) 35.9 % 36.0-46.0 L MEAN CELL VOLUME (test code = 81.6 fL 80-98 N MCV) MEAN CELL HGB (test code = MCH) 25.0 picogram 27.0-33.0 L MEAN CELL HGB CONCETRATION 30.6 gram/dL 33.0-36.0 L (test code = MCHC) RED CELL DISTRIBUTION WIDTH 19.1 % 11.6-16.2 H (test code = RDW) RED CELL DISTRIBUTION WIDTH SD 56.8 fL 37.0-51.0 H (test code = RDW-SD) PLATELET COUNT (test code = 311 K/mm3 150-450 N PLT) MEAN PLATELET VOLUME (test code 10.8 fL 6.7-11.0 N = MPV) NEUTROPHIL % (test code = NT%) 76.7 % 39.0-69.0 H IMMATURE GRANULOCYTE % (test 0.3 % 0.0-5.0 N code = IG%) LYMPHOCYTE % (test code = LY%) 10.6 % 25.0-55.0 L MONOCYTE % (test code = MO%) 10.6 % 0.0-10.0 H EOSINOPHIL % (test code = EO%) 1.5 % 0.0-5.0 N BASOPHIL % (test code = BA%) 0.3 % 0.0-1.0 N NUCLEATED RBC % (test code = 0.0 % 0-0 N NRBC%) NEUTROPHIL # (test code = NT#) 10.03 K/mm3 1.8-7.7 H IMMATURE GRANULOCYTE # (test 0.04 x10 3/uL 0-0.03 H code = IG#) LYMPHOCYTE # (test code = LY#) 1.39 K/mm3 1.0-5.0 N MONOCYTE # (test code = MO#) 1.39 K/mm3 0-0.8 H EOSINOPHIL # (test code = EO#) 0.19 K/mm3 0.0-0.5 N BASOPHIL # (test code = BA#) 0.04 K/mm3 0.0-0.2 N NUCLEATED RBC # (test code = 0.00 K/mm3 0.0-0.1 N NRBC#) [id number] 06:53:00 Test Item Value Reference Range Interpretation Comments GLYCOSYLATED HEMOGLOBIN 5.2 % HbA1 NANI ROONEY DIAGNOSIS: (HA1C) (test code = HbA1C GLYHGB) (%) ----- ----- Diab etic >6.4Prediabetes 5.7 - 6.4Normal <5. 7 ESTIMATED AVERAGE 103 MG/DL GLUCOSE (test code = EAG) BASIC METABOLIC [id number] 06:53:00 Test Item Value Reference Range Interpretation Comments SODIUM (test code = 139 mmol/L 136-145 N NA) POTASSIUM (test code 3.7 mmol/L 3.5-5.1 N = K) CHLORIDE (test code = 107.0 mmol/L 98-107 N CL) CARBON DIOXIDE (test 22.0 mmol/L 21-32 N code = CO2) ANION GAP (test code 13.7 10-20 N = GAP) GLUCOSE (test code = 99 mg/dL 74-106 N GLU) BLOOD UREA NITROGEN 15 mg/dL 7-18 N (test code = BUN) GLOMERULAR FILTRATION 40 mL/min >=60 Estima emilee GFR by RATE (test code = using Bhavani fied MDRD GFR) formula.Chronic kidney disease is defined as [facility] kidney damageor GFR <60 mL/min/1.73 m2 for >3 months. CREATININE (test code 1.40 mg/dL 0.55-1.02 H Note change in = CREAT) reference range due to change in reagent. BUN/CREATININE RATIO 10.6 10-20 N (test code = BUN/CREA) CALCIUM (test code = 8.6 mg/dL 8.5-10.1 N CA) [id number] 06:53:00 Test Item Value Reference Range Interpretation Comments PHOSPHORUS (test code = PHOS) 2.8 mg/dL 2.5-4.9 N [id number] 06:53:00 Test Item Value Reference Range Interpretation Comments MAGNESIUM (test code = MAG) 2.2 mg/dL 1.8-2.4 N BASIC METABOLIC [id number] 06:45:00 Test Item Value Reference Range Interpretation Comments SODIUM (test code = NA) 139 mmol/L 136-145 N POTASSIUM (test code = K) 3.7 mmol/L 3.5-5.1 N CHLORIDE (test code = CL) 107.0 mmol/L 98-107 N CARBON DIOXIDE (test code = CO2) mmol/L 21-32 ANION GAP (test code = GAP) 10-20 GLUCOSE (test code = GLU) mg/dL 74-106 BLOOD UREA NITROGEN (test code = mg/dL 7-18 BUN) GLOMERULAR FILTRATION RATE (test mL/min >=60 code = GFR) CREATININE (test code = CREAT) mg/dL 0.55-1.02 BUN/CREATININE RATIO (test code 10-20 = BUN/CREA) CALCIUM (test code = CA) mg/dL 8.5-10.1 [id number] 06:45:00 Test Item Value Reference Range Interpretation Comments PHOSPHORUS (test code = PHOS) mg/dL 2.5-4.9 [id number] 06:45:00 Test Item Value Reference Range Interpretation Comments MAGNESIUM (test code = MAG) mg/dL 1.8-2.4 CBC W/AUTO [id number] 06:38:00 Test Item Value Reference Range Interpretation Comments WHITE BLOOD CELL (test 12.5 K/mm3 4.5-12.5 N code = WBC) RED BLOOD CELL (test code 5.10 mill/mm3 3.7-5.2 N = RBC) HEMOGLOBIN (test code = 12.5 gram/dL 11.5-15.5 N HGB) HEMATOCRIT (test code = 42.4 % 36.0-46.0 N HCT) MEAN CELL VOLUME (test 83.1 fL 80-98 N code = MCV) MEAN CELL HGB (test code 24.5 picogram 27.0-33.0 L = MCH) MEAN CELL HGB 29.5 gram/dL 33.0-36.0 L CONCETRATION (test code = MCHC) RED CELL DISTRIBUTION 19.7 % 11.6-16.2 H WIDTH (test code = RDW) RED CELL DISTRIBUTION 57.4 fL 37.0-51.0 H WIDTH SD (test code = RDW-SD) PLATELET COUNT (test code 303 K/mm3 150-450 N = PLT) MEAN PLATELET VOLUME 10.0 fL 6.7-11.0 N (test code = MPV) NEUTROPHIL % (test code = 76.7 % 39.0-69.0 H NT%) IMMATURE GRANULOCYTE % 0.3 % 0.0-5.0 N (test code = IG%) LYMPHOCYTE % (test code = 10.9 % 25.0-55.0 L LY%) MONOCYTE % (test code = 9.1 % 0.0-10.0 N MO%) EOSINOPHIL % (test code = 2.7 % 0.0-5.0 N EO%) BASOPHIL % (test code = 0.3 % 0.0-1.0 N BA%) NUCLEATED RBC % (test 0.0 % 0-0 N code = NRBC%) NEUTROPHIL # (test code = 9.55 K/mm3 1.8-7.7 H NT#) IMMATURE GRANULOCYTE # 0.04 x10 3/uL 0-0.03 H (test code = IG#) LYMPHOCYTE # (test code = 1.36 K/mm3 1.0-5.0 N LY#) MONOCYTE # (test code = 1.13 K/mm3 0-0.8 H MO#) EOSINOPHIL # (test code = 0.33 K/mm3 0.0-0.5 N EO#) BASOPHIL # (test code = 0.04 K/mm3 0.0-0.2 N BA#) NUCLEATED RBC # (test 0.00 K/mm3 0.0-0.1 N code = NRBC#) MANUAL DIFF REQUIRED NO, ONLY SCAN NEEDED (test code = MDIFF) DIFFERENTIAL [id number]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 She states she feel s fine. Patient has a healing abrasion to the nose status post fall 3 days ago. Review of Systems ROS Statements All systems rev neg except as marked. Review of Systems Constitutional Denies: Chills, Fever. Respiratory Denies: Cough, productive, Shortness of breath. Cardiovascular Denies: Chest pain, Palpitations. GI Denies: Abdominal pain, Nausea, Vomiting. Neurologic Denies: Confusion, Dizziness, Focal weakness, He adache. Past Medical History - Adult Stated Complaint HTN WEAKNESS Allergies Coded Allergies: No Known Allergies (09/12/19) Home Medications Reported Medications No Known Home Medications Past Medical History: Reports: Hypertension. Past Surgical History: Reports: Cholecystectomy, Tonsillectomy. Additional Surgical History ovary removal Additional Family History denies Alcohol Use Denies EtOH use Drug Use Marijuana Physical Exam Vital Signs Vital Signs First Documented: Result Date Time Pulse Ox 97 06/11 1922 B/P 215/104 06/11 1922 B/P Mean 141 06/11 1922 O2 Delivery Room air 06/11 1922 Temp 36.8 06/11 1922 Pulse 83 06/11 1922 Resp 18 06/11 1922 Last Documented: Result Date Time Pulse Ox 97 06/11 2104 B/P 160/79 06/11 2104 B/P Mean 106 06/11 2104 O2 Delivery Room air 06/11 2104 Pulse 65 06/11 2104 Resp 17 06/11 2104 Temp 36.8 06/11 1922 Review of Vital Signs Reviewed Physical Exam General/Const General/Const Awake, Alert, No acute distress MS Head Head Normocephalic Text/Dict Notes Appearing abrasion with bruising to the forehead , nose, upper lip and chin. Mild soft tissue swelling infraorbital regions. No raccoons eyes. Eyes Eyes PERRL, EOMI, No scleral icterus MS Neck Neck Supple, No meningismus, Full range of hilario on Resp/Chest Respiratory/Chest Breath sounds NL, Breath soun ds = bilat, No respiratory distress Cardiovascular Cardiovascular Heart rate NL, Regular rhythm, H eart sounds NL Abdomen/GI Abdomen/GI Atraumatic, Soft, Non-tender MS Back Back Full range of motion, Painless range of mo tion, Non-tender Skin Skin Warm, Dry, Intact Neurologic Neurologic Oriented X3 Speech Slow. Interpretation Diagnostics Point of Care Testing Pulse Oximetry Pulse Ox % 97 On: Room air Interpretation Interpreted by me, Pulse oximetr y normal Re-Evaluation MDM Re-Evaluation/Progress #1 Text/Dict Note Patient given give her blood pressure medicine prescribed including hydralazine, Norvasc, Coreg. Blood pressure improved at this time. Currently 160/79. Patient still asymptomatic. She is safe to go ho me. Time of Re-Eval 2112 Re-Eval Status Improved ED Course Medication(s) Ordered Medication(s) Ordered: Cardiovascular Drugs Sig/Maria Teresa Start time Last Medication Dose Route Stop Time Status Admin Hydralazine HCl 50 MG X1ED STA 06/11 1951 DC PO 06/11 Amlodipine Besylate 10 MG X1ED STA 06/11 1946 D C 06/11 PO 06/11 Carvedilol 25 MG X1ED STA 06/11 1946 DC 06/11 PO 06/11 Additional Hx/Info Source Prior records reviewed , prior visit head bleed Patient Discharge Departure Vital Signs/Condition Vital Signs First Documented: Result Date Time Pulse Ox 97 06/11 1922 B/P 215/104 06/11 1922 B/P Mean 141 06/11 1922 O2 Delivery Room air 06/11 1922 Temp 36.8 06/11 1922 Pulse 83 06/11 1922 Resp 18 06/11 1922 Last Documented: Result Date Time Pulse Ox 97 06/11 2104 B/P 160/79 06/11 2104 B/P Mean 106 06/11 2104 O2 Delivery Room air 06/11 2104 Pulse 65 06/11 2104 Resp 17 06/11 2104 Temp 36.8 06/11 1922 All vital signs available at the time of this en try have been reviewed. Clinical Impression Clinical Impression Primary Impression: Uncontrolled hypertension Disposition Decision Discharge )( Discharged to Home Yes )( Time 2112 )( Date 06/11/21 Discharge/Care Plan Counseled Regarding Diagnosis, Need for follow-u p, When to return to ED (Auto) Prescriptions Current Visit Scripts No Known Home Medications Patient Instructions ED Hypertension, Establishe d Referrals Resource Referral: Eric Dunbar [facility] Follow-Up: 1-2 Days Address: [address] [place] [address] Quality Measures BP F/U for HTN Received immediate BP Tx at 2200 RPT #:[id number] END OF REPORT 2021-06-08 22:12:00-00:00 [facility] ([facility]) EMERGENCY PROVIDER REPORT REPORT#:[id number] REPORT STATUS: Signed DATE:06/08/21 TIME: 2211 PATIENT: RANJITH CURRIE UNIT #: [id number] ROOM/BED: AGE: 50 SEX: F PCP PHYS: No Primary or Family Ph ysician SERVICE AUTHOR: Mark Rodney MD * ALL edits or amendments must be made on the [employer]/computer document * HPI-Trauma Minor/Fall General Initial Greet Date/Time 06/08/21 2200 Presentation Chief Complaint Fall, Face injury Hx Obtained From Patient, EMS Onset Occurred Sudden, Today, Just prior to arri angelica Symptom Duration Since onset Progression since Onset Unchanged Caused by Accidental, Fall on ground Timing of Trauma Date of Trauma 06/08/21 Time of Trauma 2100 Location Face, Nose Quality Painful Severity: Onset Mild Severity: Current Mild Associated Other Pt denies other symptoms Free Text HPI Notes Free Text HPI Notes This is a 50-year-old female history of hypertension was walking with her walker and tripped over the [employer]. Patient has abrasion to nose. Patient denies loss of consciousness . Patient denies all other complaints at this time. Patient is not on blood thinner. Risk-Trauma Minor/Fall Risk Stratification Oswaldo Coma Score: Copyright Sir Cody Garza Copyright Sir Thomas Garza Eye opening: (4) Spontaneous Verbal response: (5) Oriented Best motor response: (6) Obeys commands GCS Score: 15 Intracranial Bleed Risk factors reviewed Bleeding Risk factors reviewed Spine Injury Risk factors reviewed Review of Systems Focused Review of Systems Constitutional Denies: Chills, Fever, Lethargy. Eyes Denies: Eye pain bilat, Redness bilat, Visual lo ss bilat. Respiratory Denies: Cough, non-productive, Cough, productive , Shortness of breath. Musculoskeletal Denies: Back pain, Extremity pain. Skin Reports: Abrasion. Denies: Laceration. Neurologic Denies: Change LOC, Dizziness, Focal weakness, H eadache, Numbness, Slurred speech. Past Medical History - Adult Stated Complaint FALL NO BLOOD THINNERS Allergies Coded Allergies: No Known Allergies (09/12/19) Review of Nursing Notes Rev avail, and agree Past Medical History: Reports: Hypertension. Past Surgical History: Reports: Cholecystectomy, Tonsillectomy. Additional Surgical History ovary removal Additional Family History denies Alcohol Use Denies EtOH use Drug Use Marijuana Smoking status: Smoking status for patients 13 years old or old er: Never Smoker Ambulatory Status Walker Physical Exam Vital Signs Vital Signs First Documented: Result Date Time Pulse Ox 100 06/08 2152 B/P 163/70 06/08 2152 B/P Mean 101 06/08 2152 O2 Delivery Room air 06/08 2152 Temp 98.6 06/08 2152 Pulse 83 06/08 2152 Resp 06/08 Last Documented: Result Date Time Pulse Ox 100 06/08 2152 B/P 163/70 06/08 2152 B/P Mean 101 06/08 2152 O2 Delivery Room air 06/08 2152 Temp 98.6 06/08 2152 Pulse 83 06/08 2152 Resp 06/08 Review of Vital Signs Reviewed Focused PE General/Const General/Const Awake, Alert, No acute distress, Cooperative, Not toxic appearing MS Head Head Normocephalic Text/Dict Notes Abrasion bridge of nose. No obvious deformity. Eyes Eyes Atraumatic, PERRL, EOMI, No perior bital redness, No periorbital swelling , No scleral icterus Ears/Nose/Throat Ears/Nose/Throat Atraumatic, Airway patent, Muc ous membranes moist Text/Dict Notes Abrasion bridge of nose no obvious deformity. MS Neck Neck Atraumatic, Supple, No meningismus , Full range of motion, No adenopathy, No swelling, Non-tender, No midline vertebral te nd Resp/Chest Respiratory/Chest Atraumatic, Breath sounds NL, Breath sounds = bilat, No respiratory distress, No ral es, No rhonchi, No wheezing, No chest tenderness, No chest wall deformity, No crepitus Cardiovascular Cardiovascular Heart rate NL, Regular rhythm, H eart sounds NL, No gallop, No murmurs, No rubs, Cap refill not delayed, Periph eral circulation NL Abdomen/GI Abdomen/GI Atraumatic, Soft, Non-tender, McBurn ey's non-tender, No guarding, No rebound, No distention MS Back Back Atraumatic, Inspection NL, Full range of m otion, Painless range of motion, Non-tender, No midli ne vertebral tend, No paraspinal tenderness, No CVA tenderness MS Upper Extrem Upper Extremity/MS Atraumatic, Inspection NL, F ull range of motion, No swelling, Non-tender, No erythema, No deformity, Neurologic intact, Vascular intact MS Wrist/Hand Wrist/Hand Atraumatic, Inspection NL, Full rang e of motion, No swelling, No erythema, Non-tender, No deformity, Neurologic i ntact, Vascular intact, No clubbing/cyanosis MS Lower Extrem Lower Ext/Pelvis/MS Atraumatic, Inspection NL, Full range of motion, No swelling, Non-tender, No erythema, No deformity, Neurologic intact, Vascular intact, No edema MS Ankle/Foot Ankle/Foot Atraumatic, Inspection NL, Full rang e of motion, No swelling, No erythema, Non-tender, No def ormity, Neurologic intact, Vascular intact, No edema Skin Skin Atraumatic, Color NL, No rash, Warm, Dry, Intact, Turgor NL Neurologic Neurologic Oriented X3, Speech NL, No m otor deficits, No sensory deficits, CN II - XII intact, Memory NL Additional PE Lymphatic Lymphatic No gross adenopathy, No cervical brown opathy Genitourinary General Exam deferred Rectum Rectum/Perineum Exam deferred Psychiatric Psychiatric Affect NL, Mood NL, Cognitive funct ion NL Interpretation Diagnostics Lab Results Interpretation Considerations Independ review imaging, Reviewed prior records Results Recent Impressions: CAT SCAN - CT HEAD/BRAIN W/O CONT 06/08 2209 Report Impression - Status: SIGNED Entered: 06/08/20212252 IMPRESSION: 1. Resolution of previously seen posterior fossa hemorrhage. No acute hemorrhage or other acute intracranial abn ormality identified. 2. Interval development of remote right MAINTENANCE MGR dist ribution infarction. Remote bilateral lacunar infarctions are again n oted. Impression By: [email or web address] - Godfrey Luna MD CAT SCAN - CT C-SPINE W/O CONTRAST 06/08 2219 Report Impression - Status: SIGNED Entered: 06/08/20212249 IMPRESSION: There are no acute injury seen in this patient's cervical spine on this CT examination. There is mild multilevel de generative disc disease demonstrated along with multilevel uncov ertebral joint arthropathy in the cervical spine as outlined ab ove. Impression By: [email or web address] - Godfrey Rendon M.D. Imaging Statement Radiographic studies reviewed and considered in the medical decision-making. Point of Care Testing Pulse Oximetry Pulse Ox % 99 On: Room air Interpretation Interpreted by me, Pulse oximetr y normal Time 2216 Re-Evaluation MDM Re-Evaluation/Progress #1 Time of Re-Eval 2254 Re-Eval Status Improved Fall/Minor Trauma MDM Note The patient presented with a complaint of a fall or minor trauma. The patient is now resting comfortably and feels better, is qian rt and in no distress. The patient has a normal mental status and is neurol ogically intact. The history, exam, diagnostic testing (if any) and current condition do not demonstrate signs of clinically significant intra-cranial, intra-t horacic, intra-abdominal, or musculoskeletal trauma. The vital signs have bee n stable. The patient's condition is stable and appropriate for discharg e. The patient will pursue further outpatient evaluation with the primary c are physician or other designated or consulting physician as in dicated in the discharge instructions. Tissue Perfusion Reassessment Patient tissue perfusion reassessment completed. Differential Diagnosis Differential Diagnosis Abrasion, Abuse, physical, Abuse, sexual, Ankle injury, Asphyxiation, Bowel injury, Burn injury, Burn, chemical, Burn, thermal, Cardiac injury, Closed head injury, Compartment syndrome, Concussion, Contusion, Corneal abrasion, Dislocation, Dislocation, hip, Disloca tion, shoulder, Flail chest, Foot injury, Foreign body, Foreign body, eye, Fracture, Fracture(s), Fracture, basilar skull, Fracture, blow out, Fract ure, c-spine, Fracture, hip, Fracture, long bone, Fracture, nasal, Gun shot wound, Hand injury, Head injury, Hematoma, Intra-abdominal injury, Intracranial hemorrhage, Laceration, Liver injury, Myocardial contusion, Neck injury, Pelvic injury , Penetrating injury, Pericardial tamponade, Pneumoperitoneum, Pneumot horax, Pulmonary contusion, Renal injury, Respiratory ar rest, SCIWORA, Spine injury, Splenic injury, Sprain, Strain, Tracheal injury, Traum brain inj , mild, Traum brain inj, sev, Urethral injury, Urological injury, Vascular injury, Whip lash, Wrist injury Patient Discharge Departure Vital Signs/Condition Vital Signs First Documented: Result Date Time Pulse Ox 100 06/08 2152 B/P 163/70 06/08 2152 B/P Mean 101 06/08 2152 O2 Delivery Room air 06/08 2152 Temp 98.6 06/08 2152 Pulse 83 06/08 2152 Resp 06/08 Last Documented: Result Date Time Pulse Ox 100 06/08 2152 B/P 163/70 06/08 2152 B/P Mean 101 06/08 2152 O2 Delivery Room air 06/08 2152 Temp 98.6 06/08 2152 Pulse 83 06/08 2152 Resp 17 06/08 2152 All vital signs available at the time of this en try have been reviewed. Clinical Impression Clinical Impression Primary Impression: CHI (closed head injury) Secondary Impressions: Fall, Nose abrasion Disposition Decision Discharge )( Discharged to Home Yes )( Time 2256 )( Date 06/08/21 COVID-19 Discharge Plan CDC Criteria Met for Testing No Test Performed No CDC Recom for Isol Retest https://www.cdc.gov/coronavirus/2019-ncov/infec tion-control/control- recommendations.html Criteria Not Met for Testing The patient did not meet criteria for acute COVI D19 testing today in the emergency department. The patient has received C OVID19 precautions and home quarantine information. Discharge/Care Plan Counseled Regarding Diagnosis, Imaging studies, Need for follow-up, When to return to ED Patient Instructions ED Abrasions, ED Head Injur y (Adult), ED Nasal Contusion Additional Instructions May return for any reason or worsening of condit ion. Referrals Provider Group: PRIMARY CARE Follow-Up: 1 Week Departure Forms PCP LIST WORK/SCHOOL EXCUSE VARIABLE Any Restrictions Off work/school 2 days Discharge Note I have spoken with the patie nt and/or caregivers. I have explained the patient's condition, diagnoses and lucas atment plan based on the information available to me at this time. I have answered the patient's and/ or caregiver's questions and addressed any concerns. The patient and/or careg mable have as good an understanding of the patient 's diagnosis, condition and treatment plan as can be expected at this point. The vital signs have bee n stable. The patient's condition is stable and appr opriate for discharge from the emergency department. The patient will pursue further outpatient evalu ation with the primary care physician or other designated or consulting phys ician as outlined in the discharge instructions. The patient and/or caregivers are agreeable to this plan of care and follow-up instructions have been exp lained in detail. The patient and/or caregivers have received these instructio ns in written format and have expressed an understanding of the discharge inst ructions. The patient and/or caregivers are aware that any significant change in condition or worsening of symptoms should prompt an immediate return to [facility] or the closest emergency department or a call to 911. Fall/Minor Trauma Dispo Note The patient is discharged home with supportive c are, a plan for pain control, and follow-up instructions t hat detail what to expect over the next 48 hours and what symptoms should prompt immediate re turn to the ED. Follow-up instructions have been explained in detail to the patient, xavier clifton the instructions have been provided in written format. The patient is comfortable with the plan of care and has expressed an understandi ng of the discharge instructions. The patient and/or caregivers are aware that any significant change in condition or worsening of symptoms should prompt an immediate return to [facility] or the closest emergency department or a call to 911. Quality Measures BP F/U for HTN Pre-existing HTN Minor Blunt Head Trauma CT GCS 15, NO LO C OR AMNESIA, Dangerous mech of injury Smoking Cessation Screened, non user Electronically Signed by Mark Rodney MD 06/08/21 at 2257 RPT #:[id number] END OF REPORT 2020-12-03 10:00:00-00:00 [facility] ([facility]) EMERGENCY PROVIDER REPORT REPORT#:[id number] REPORT STATUS: Signed DATE:12/03/20 TIME: 1000 PATIENT: RANJITH CURRIE UNIT #: [id number] ROOM/BED: AGE: 50 SEX: F PCP PHYS: No Primary or Family Ph ysician SERVICE AUTHOR: Adam Mistry * ALL edits or amendments must be made on the el [employer]/computer document * HPI-Altered Mental Status General Initial Greet Date/Time 12/03/20 0958 Presentation Chief Complaint Decreased responsiveness Hx Obtained From Patient, EMS Sudden in Onset? No Onset Occurred Unknown Progression since Onset Gradually improving Associated with Denies: Diarrhea, Fever, Headache. Free Text HPI Notes Free Text HPI Notes Patient is a 50-year-old fem qian presenting to the emergency room via EMS from a house with a chief complaint of altered mental s tatus. I will was called by occupants when patient was found unresponsive in the bathtub. Upon medic arrival patient was with a GCS of 13 but awakene d with sternal rub. Patient admitted to smoking methamphetamines and marijua na last night. She denies any other ingestions. Patient wa s found to be severely hypertensive with a systolic blood pressure in the 260s. She was give n 40 mg in total of labetalol en route with mild improvement. At this time patient stat es she has not been on her blood pressure medications for a while because s he ran out. She denies any headache, chest pain, shortn ess of breath. Patient this laying on the stretcher with her eyes closed. Review of Systems ROS Statements All systems rev neg except as marked. Focused Review of Systems Constitutional Denies: Chills, Fever. Respiratory Denies: Cough, productive, Shortness of breath. Cardiovascular Denies: Chest pain, Palpitations. GI Denies: Abdominal pain, Nausea. Neurologic Denies: Headache. Past Medical History - Adult Stated Complaint AMS, HTN CRISIS Allergies Coded Allergies: No Known Allergies (09/12/19) Home Medications Discontinued Scripts CARVEDILOL (COREG) 25 MG PO Q12HR CARVEDILOL (COREG) 25 MG PO Q12HR #60 TAB Prov: 09/16/19 DC: 12/03/20 1116 Patient stopped taking ISOSORBIDE MONONITRATE SR (IMDUR) 60 MG PO DAILY ISOSORBIDE MONONITRATE SR (IMDUR) 60 MG PO HIMA Y #60 TAB Prov: 09/16/19 DC: 12/03/20 1116 Patient stopped taking hydrALAZINE (APRESOLINE) 50 MG PO Q8HR hydrALAZINE (APRESOLINE) 50 MG PO Q8HR #90 TAB Prov: 09/16/19 DC: 12/03/20 1116 Patient stopped taking DOXYCYCLINE HYCLATE (VIBRAMYCIN) 100 MG PO BID DOXYCYCLINE HYCLATE (VIBRAMYCIN) 100 MG PO BID #10 CAPS Prov: 09/15/19 DC: 12/03/20 1116 Patient stopped taking Past Medical History: Reports: Hypertension. Past Surgical History: Reports: Cholecystectomy, Tonsillectomy. Additional Surgical History ovary removal Additional Family History denies Alcohol Use Denies EtOH use Drug Use Marijuana Physical Exam Vital Signs Vital Signs First Documented: Result Date Time Pulse Ox 97 12/03 957 B/P 223/124 12/03 957 B/P Mean 157 12/03 957 O2 Delivery Room air 12/03 957 Temp 37.3 12/03 957 Pulse 76 12/03 957 Resp 14 12/03 957 Last Documented: Result Date Time Pulse Ox 98 12/03 1123 B/P 170/92 12/03 1123 B/P Mean 118 12/03 112 O2 Delivery Room air 12/03 1122 Pulse 67 12/03 1122 Resp 14 12/03 1122 Temp 37.3 12/03 0958 Review of Vital Signs Reviewed Focused PE General/Const General/Const No acute distress, Well appearing Alertness Sleeping but arousable. MS Head Head Atraumatic, Normocephalic Eyes Eyes PERRL, EOMI, No nystagmus Ears/Nose/Throat Ears/Nose/Throat Airway patent, Mucous membrane s moist, Pharynx NL MS Neck Neck Supple, No meningismus, No swelling Resp/Chest Respiratory/Chest Breath sounds NL, Breath soun ds = bilat, No respiratory distress Cardiovascular Cardiovascular Heart rate NL, Regular rhythm, H eart sounds NL Abdomen/GI Abdomen/GI Soft, Non-tender Skin Skin Warm, Dry Text/Dict Notes Ringworm rash noted to the posterior thigh and l eft leg Neurologic Neurologic Oriented X3, No motor deficits, No s ensory deficits, CN II - XII intact Speech Slow. Interpretation Diagnostics Lab Results Interpretation Results Laboratory Tests 12/03/20 1018: [Embedded Image Not Available] Laboratory Tests: 12/03 12/03 12/03 1018 1018 1018 Chemistry Sodium (136 - 145 mmol/L) 140 Potassium (3.5 - 5.1 mmol/L) 3.2 L Chloride (98 - 107 mmol/L) 104.0 Carbon Dioxide (21 - 32 mmol/L) 26.0 Anion Gap (10 - 20) 13.2 BUN (7 - 18 mg/dL) 24 H Creatinine (0.55 - 1.02 mg/dL) 1.00 Glomerular Filtr Rate (>=60 mL/min) 58 BUN/Creatinine Ratio (10 - 20) 24.5 H Glucose (74 - 106 mg/dL) 165 H Calcium (8.5 - 10.1 mg/dL) 10.0 Magnesium (1.8 - 2.4 mg/dL) 1.9 Total Bilirubin (0.0 - 1.0 mg/dL) 0.80 Direct Bilirubin (0.0 - 0.20 mg/dL) 0.20 AST (15 - 37 IUnit/L) 21 ALT (12 - 78 IUnit/L) 11 L Total Alk Phosphatase (45 - 117 IUnit/L) 62 Ammonia (11 - 32 umol/L) < 10 L Total Creatine Kinase (26 - 208 IUnit/L) 48 Troponin I (0 - 0.045 ng/mL) 0.041 Total Protein (6.4 - 8.2 gram/dL) 6.9 Albumin (3.4 - 5.0 g/dL) 4.1 Globulin (2.7 - 4.2 gram/dL) 2.8 Albumin/Globulin Ratio (0.75 - 1.50) 1.5 Hematology WBC (4.5 - 12.5 K/mm3) 14.3 H RBC (3.7 - 5.2 mill/mm3) 4.80 Hgb (11.5 - 15.5 gram/dL) 14.3 Hct (36.0 - 46.0 %) 44.7 MCV (80 - 98 fL) 93.1 MCH (27.0 - 33.0 picogram) 29.8 MCHC (33.0 - 36.0 gram/dL) 32.0 L RDW (11.6 - 16.2 %) 13.1 RDW Std Deviation (37.0 - 51.0 fL) 44.7 Plt Count (150 - 450 K/mm3) 258 MPV (6.7 - 11.0 fL) 10.3 Neut % (Auto) (39.0 - 69.0 %) 90.0 H Lymph % (Auto) (25.0 - 55.0 %) 4.7 L Powell % (Auto) (0.0 - 10.0 %) 4.6 Eos % (Auto) (0.0 - 5.0 %) 0.0 Baso % (Auto) (0.0 - 1.0 %) 0.2 Neut # (Auto) (1.8 - 7.7 K/mm3) 12.89 H Lymph # (Auto) (1.0 - 5.0 K/mm3) 0.68 L Powell # (Auto) (0 - 0.8 K/mm3) 0.66 Eos # (Auto) (0.0 - 0.5 K/mm3) 0.00 Baso # (Auto) (0.0 - 0.2 K/mm3) 0.03 Add Manual Diff NO Nucleated RBC % (0 - 0 %) 0.0 Nucleated RBCs # (Man) (0.0 - 0.1 K/mm3) 0.00 Serology SARS-CoV-2 Ag (Rapid) (NEGATIVE) NEGATIVE Toxicology Salicylates (2.8 - 20.0 mg/dL) < 3.0 Acetaminophen (1.0 - 3.0 mg/dL) < 0.2 L Ethyl Alcohol (0.0 - 3.0 mg/dL) < 3 Recent Impressions: CAT SCAN - CT HEAD/BRAIN W/O CONT 12/03 1015 Report Impression - Status: SIGNED Entered: 12/03/2020 1034 IMPRESSION: Acute hemorrhage within the left vermis and cere bellum measuring up to 1.6 cm with severe vasogenic edema and mass effe ct on the ipsilateral quadrigeminal plate cistern and the left 4th leigh tricle. This may represent underlying mass with hemorrhage. Less likely hypertensive bleed. Correlate with postcontrast CT or MRI sca nning for further evaluation. These findings were discussed with Dr. Mistry at 10:29 AM. FOR INTERNAL CODING PURPOSES ONLY RESULT CODE: CVR Impression By: Loreta Jones M.D. CAT SCAN - CT HEAD/BRAIN W/CONT 12/03 1040 Report Impression - Status: SIGNED Entered: 12/03/2020 1119 IMPRESSION: Hemorrhage noted again measuring 1.6 cm within t he left vermis and cerebellum with mass effect on the 4th ventricle and the quadrigeminal plate cistern. No abnormal enhancement is noted however follow-up with postcontrast MRI scan scan history recommen ded. No other areas of abnormal enhancement either. Impression By: Loreta Jones M.D. RADIOLOGY - XR CHEST 1 V 12/03 1100 Report Impression - Status: SIGNED Entered: 12/03/2020 1114 IMPRESSION: No acute infiltrates, effusion or congestion. Impression By: Loreta Jones M.D. Lab Imaging Statement Laboratory radiographic studies reviewed and con sidered in the medical decision-making. Point of Care Testing Pulse Oximetry Pulse Ox % 97 On: Room air Interpretation Interpreted by me, Pulse oximetr y normal ECG #1 Interpretation Text/Dict Note T wave inversion in the lateral leads. Date 12/03/20 Time 1043 Interpreted by and reviewed by me, ED physician NL ECG Interpretation No STEMI Rate 56 Rhythm Bradycardia Conduction/Metz Left axis deviation, QT segment prolonged (497) Atrium and Vent Size Ventricle enlarged - L Re-Evaluation MDM )( Re-Evaluation/Progress #1 Text/Dict Note Received a call from radiology stating patient h as a one-point centimeter hemorrhage in the left cereb ellum/vermis. He reports quite a bit of mass-effect and suspects possible mass. Recommends postcontr ast CT of the head. Will give patient Decadron and Keppra for seizure prophyla xis as well as swelling. Time of Re-Eval 1031 )( Re-Eval Status Unchanged Re-Evaluation/Progress #2 Text/Dict Note Patient still sitting with eyes closed. She foll ows commands appropriately. Able to move all extremities freely without any noticeable focal weakness. Cranial nerves II through XII still grossly inta ct. Patient speech is slow. Pupils are equal and reactive. Patient's blood p ressure noted to still be severely elevated in the 220s systolic. Ordered Cardene drip to be started. Time of Eval 1055 Re-Eval Status Unchanged Re-Evaluation/Progress #3 Text/Dict Note Transport team is here to tr carlos patient to [facility]. Time of Eval 1107 Re-Evaluation/Progress #4+ Addl Re-Evaluation/Progress Text/Dict Note Patient on Cardene drip. Blood pressure improved now is 170/82. Patient oriented to self and date. Time of Eval 1131 ED Course Medication(s) Ordered Medication(s) Ordered: Cardiovascular Drugs Sig/Maria Teresa Start time Last Medication Dose Route Stop Time Status Admin Nicardipine HCl 25 MG X1ED STA 12/03 1035 AC Sodium Chloride 250 ML IV 12/13 Carvedilol 25 MG X1ED STA 12/03 1004 CAN PO 12/03 1005 Isosorbide 60 MG X1ED STA 12/03 1004 CAN Mononitrate PO 12/03 1005 Hydralazine HCl 10 MG X1ED STA 12/03 0958 CAN IV 12/03 0959 Central Nervous System Agents Sig/Maria Teresa Start time Last Medication Dose Route Stop Time Status Admin Levetiracetam 100 ML X1ED STA 12/03 1034 DC IV 12/03 1048 1050 Diagnostic Agents Sig/Maria Teresa Start time Last Medication Dose Route Stop Time Status Admin Iopamidol 0 .STK-MED ONE 12/03 1050 DC 12/03 .ROUTE 1053 Electrolytic, Caloric, And Sam Sig/Maria Teresa Start time Last Medication Dose Route Stop Time Status Admin Sodium Chloride 1,000 ML X1ED STA 12/03 0958 C AN IV 12/03 1057 Eye, Ear, Nose And Throat (Een Sig/Maria Teresa Start time Last Medication Dose Route Stop Time Status Admin Dexamethasone Sodium 4 MG X1ED STA 12/03 1034 D C 12/03 Phosphate IV 12/03 1035 1050 Patient Discharge Departure Vital Signs/Condition Vital Signs First Documented: Result Date Time Pulse Ox 97 12/03 0958 B/P 223/124 12/03 0958 B/P Mean 157 12/03 0958 O2 Delivery Room air 12/03 0958 Temp 37.3 12/03 0958 Pulse 76 12/03 0958 Resp 14 12/03 0958 Last Documented: Result Date Time Pulse Ox 98 12/03 1123 B/P 170/92 12/03 1123 B/P Mean 118 12/03 1123 O2 Delivery Room air 12/03 1123 Pulse 67 12/03 1123 Resp 14 12/03 1123 Temp 37.3 12/03 0958 All vital signs available at the time of this en try have been reviewed. Clinical Impression Clinical Impression Primary Impression: Hemorrhagic stroke Disposition Decision Transfer )( Request Time 1035 )( Request Date 12/03/20 Call Returned Time 1035 Spoke with: Attending physician Receiving [facility] [place] Transfer Accepted Yes Accepted by: DR. SAUNDERS )( Acceptance Time 1115 )( Acceptance Date 12/03/20 Transfer Reason Higher level of care Patient Status Stable w/in capabilities Critical Care Time Spent (minutes): 45 Services Performed Patient management by Ahsan mendez spent at bedside, Reviewing test results, Reviewing imaging, Discussing red ent care, Documentation in record at 1131 [facility] #:[id number] END OF REPORT 2019-09-16 18:37:00-00:00 [facility] ([facility]) Hospitalist Discharge Summary REPORT#:[id number] REPORT STATUS: Signed DATE:09/16/19 TIME: 1836 PATIENT: RANJITH CURRIE UNIT #: [id number] ROOM/BED: 4039-A : 69 AGE: 49 SEX: F ATTEND: Paula Aguilar MD ADM AUTHOR: Tahira Aguilar MD * ALL edits or amendments must be made on the [employer]/computer document * PCP PCP Discharge to: home General Information Date of admission: Observation Start Date: 09/12/19 Date of admission: 09/13/19 Discharge date: 09/16/19 Discharge diagnosis: Right pyosalpinx/hydrosalpinx: Probable cause of right lower quadrant pain, resolving Accelerated hypertension: Improving KENNETH: Resolved Hyperglycemia: Likely reactive, A1c 5.2 Substance abuse: With marijuana. Counseling Hospital course: 49yo female with PMH of HTN, off meds X 2months presented with elevated BP and RLQ pain. CT abd/pelvis show ed cystic changes in the pelvis posterior to uterus may represent a hydrosalpinx or ovarian cyst. She was started antihypertensives and adjusted accordingly. ambulance driver was consulted, was started on antibiotics . Pelvic/ transvaginal ultrastound showed comples t hick-walled tubular cystic mass measuring 8.9 X 4 cm in the right adnexa concerning for hydrocele or pyosalpinx Once improved, stable and cleared, she was disch arged home. Strict follow up instructions and ER precautions were given. Verb alized understanding Time spent: 31 minutes Pt. condition on discharge: improved, stable Med Rec Med Rec Discharge meds: Stop taking the following medications: cloNIDine (CATAPRES) 0.2 MG TAB 0.2 MILLIGRAM ORAL TWICE DAILY. Start taking the following new medications: ISOSORBIDE MONONITRATE SR (IMDUR) 30 MG TAB.SR.2 4H 60 MILLIGRAM ORAL DAILY. Qty = 60 No Refills CARVEDILOL (COREG) 25 MG TAB 25 MILLIGRAM ORAL EVERY 12 HOURS. Qty = 60 No Refills hydrALAZINE (APRESOLINE) 50 MG TAB 50 MILLIGRAM ORAL EVERY 8 HOURS. Qty = 90 No Refills DOXYCYCLINE HYCLATE (VIBRAMYCIN) 100 MG CAP 100 MILLIGRAM ORAL TWICE DAILY. Qty = 10 No Refills Free Text Med Rec Notes Free Text Med Rec Notes: please see med rec Discharge Instructions Diet: cardiac, low fat Activity: as tolerated F/U labs/procedures/tests: cbc in 1 week Notify provider of these s/s: Please call your MD if you have any fever, chest pain, shortness of breath, intractable nausea, vomiti ng or any other concerns Discharge management: greater than 30 mins Follow-up Appointments PCP: PCP (free text): Your PCP in 1week Consulting provider 1: Provider 1: Beata Carrasquillo MD Specialty: OBSTETRICS/TRACK MACHINE OPERATOR REPAIRER Follow up timeframe: 1-2 weeks Objective General VS/I O: Vital Signs: Date Time Temp Pulse Resp B/P B/P Pulse O2 O2 F low FiO2 Mean Ox Delivery Rate 09/15 1538 98.4 77 18 132/64 86.6 94 Room air 09/15 1200 98.2 72 18 134/69 90.6 93 Room air 09/15 0755 98.2 89 18 162/81 107.7 99 Room air 09/15 0305 98.4 77 18 111/67 81.4 96 Room air 09/15 0004 99.3 88 18 151/72 98.0 95 Room air 09/14 1955 98.6 99 18 150/74 99.2 97 Room air 24 hour I O ending at 0700: 09/15 0700 09/14 1900 Intake Total Output Total Balance Number Voids 3 2 Physical Exam General appearance: alert, awake, orient ed, no acute distress, conversational, mental status normal, no respiratory distress Head/Eyes: atraumatic, EOMI, normocephalic Neck: full range of motion Cardiovascular: normal heart sounds, regular rat e rhythm, no murmur Respiratory: aerating well, clear to auscultatio n, symmetric expansion, no distress Abdomen: non-tender, normal bowel sounds , soft, no distention, no guarding, no hernial, no rebound Extremities: moves all, normal range of motion, no clubbing, no cyanosis, no edema Musculoskeletal: normal insp ection, painless range of motion, no CVA tenderness Skin: dry, normal temperature Psychiatry: normal affect, normal judgment/insig ht, normal mood Electronically Signed by Tahira Aguilar MD 09/18/19 at 1127 [facility] #:[id number] END OF REPORT 2019-09-15 13:31:00-00:00 [facility] ([facility]) OB-TRACK MACHINE OPERATOR REPAIRER Progress Note REPORT#:[id number] REPORT STATUS: Signed DATE:09/15/19 TIME: 1331 PATIENT: RANJITH CURRIE UNIT #: [id number] ROOM/BED: [address] : [address] AGE: 49 SEX: F ATTEND: Virginie Gonzalez MD ADM AUTHOR: Beata Carrasquillo MD * ALL edits or amendments must be made on the [email or web address] document * Subjective Chief Complaint: PELVIC PAIN AND ELEVATED BP Patient reports: Patient reports: Yes abdominal pain, Yes ambulating, Yes pain controlled, Yes pelvic pain, Yes tolerating diet, No back pain, No fever, No head ache, No nausea, No pelvic pressure, No vaginal bleeding Objective General VS/I O: Last Documented: Result Date Time Pulse Ox 95 09/14 1106 B/P 122/62 09/14 1106 B/P Mean 82.0 09/14 1106 O2 Delivery Room air 09/14 1106 Temp 98.1 09/14 1106 Pulse 82 09/14 1106 Resp 18 09/14 1106 Vital Signs Date Temp Pulse Resp B/P B/P Mean Pulse Ox FiO2 09/13-09/14 98.1-99.0 82-102 17-18 122-186/62-9 2 82.0-121.4 95-99 Patient Weight Weight (lb): Weight (oz): Weight (kg): 68.182 Current Medications Medications: Active Meds + DC'd Last 24 Hrs Isosorbide Mononitrate 120 MG DAILY PO Carvedilol 25 MG Q12HR PO Potassium Chloride 20 MEQ Q4H PO Carvedilol 12.5 MG ONCE ONE PO (DC) Isosorbide Mononitrate 30 MG ONCE ONE PO (DC) Potassium Chloride/Water 100 ML ONCE ONE IV (DC) Isosorbide Mononitrate 90 MG DAILY PO (DC) Carvedilol 6.25 MG Q12HR PO (DC) Potassium Phosphate 500 MG Q4H PO (DC) Hydralazine HCl 100 MG Q8HR PO Enoxaparin Sodium 40 MG DAILY SUBQ Acetaminophen 500 MG Q6H PRN PRN PO Acetaminophen/Codeine Phosphate 1 UDTAB Q6H PRN PRN PO Doxycycline Monohydrate 100 MG Q12HR PO (DC) Ondansetron HCl 4 MG Q6H PRN PRN IV Physical Exam General Appearance: alert, awake, no acute distr ess, conversant HEENT: normocephalic Cardiovascular: normal heart sounds, normal S1/S 2 Respiratory: no distress Abdomen: normal bowel sounds, non-tender, soft, no guarding, no rebound Extremities: no calf tnederness, no edema Neuro/AGRICULTURE DEPARTMENT CHAIR: alert, oriented x 3, normal gait, nor mal speech Psychiatry: normal affect, normal judgment/insig ht, normal mood Results Findings/Data: Laboratory Tests 09/14 536 Chemistry Sodium (136 - 145 mmol/L) 138 Potassium (3.5 - 5.1 mmol/L) 3.0 L Chloride (98 - 107 mmol/L) 105.0 Carbon Dioxide (21 - 32 mmol/L) 25.0 Anion Gap (10 - 20) 11.0 BUN (7 - 18 mg/dL) 15 Creatinine (0.55 - 1.02 mg/dL) 0.70 Glomerular Filtr Rate (>=60 mL/min) > 60 BUN/Creatinine Ratio (10 - 20) 21.7 H Glucose (74 - 106 mg/dL) 105 Calcium (8.5 - 10.1 mg/dL) 8.6 Phosphorus (2.5 - 4.9 mg/dL) 2.5 Magnesium (1.8 - 2.4 mg/dL) 2.0 Laboratory Tests 09/14 536 Hematology WBC (4.5 - 12.5 K/mm3) 11.7 RBC (3.7 - 5.2 mill/mm3) 3.83 Hgb (11.5 - 15.5 gram/dL) 9.6 L Hct (36.0 - 46.0 %) 31.3 L MCV (80 - 98 fL) 81.7 MCH (27.0 - 33.0 picogram) 25.1 L MCHC (33.0 - 36.0 gram/dL) 30.7 L RDW (11.6 - 16.2 %) 19.1 H RDW Std Deviation (37.0 - 51.0 fL) 56.8 H Plt Count (150 - 450 K/mm3) 298 MPV (6.7 - 11.0 fL) 10.4 Neut % (Auto) (39.0 - 69.0 %) 72.0 H Lymph % (Auto) (25.0 - 55.0 %) 13.2 L Powell % (Auto) (0.0 - 10.0 %) 10.4 H Eos % (Auto) (0.0 - 5.0 %) 3.5 Baso % (Auto) (0.0 - 1.0 %) 0.5 Neut # (Auto) (1.8 - 7.7 K/mm3) 8.42 H Lymph # (Auto) (1.0 - 5.0 K/mm3) 1.55 Powell # (Auto) (0 - 0.8 K/mm3) 1.22 H Eos # (Auto) (0.0 - 0.5 K/mm3) 0.41 Baso # (Auto) (0.0 - 0.2 K/mm3) 0.06 Add Manual Diff NO Nucleated RBC % (0 - 0 %) 0.0 Nucleated RBCs # (Man) (0.0 - 0.1 K/mm3) 0.00 Diagnosis, Assessment Plan Problem List/A P: 1. Right pyosalpinx Free Text A P: HD # 4 49 yr old perimenopausal female adm itted for management of hypertensive crisis by Medicine Service and OB H ospitalist consulted for RLQ pain and findings of right p yosalpinx/hydrosalpinx with acute RLQ pain. Patient continues to improve clinically receiving cefoxi tin/doxycycline IV. Her abdominal exam is non-tender. WBC is decreasing to normal range. Patient has a hx of endometriosis, s/p LSO 21 yr s ago. Enlarged right ovary Her last pap smear 5 years ago. Patient's chronic HTN control has improved. Plan: discussed with patient that she will need further outpatient gynecological management. I gave her a lis t of clinics to contact for follow-up in 1-2 weeks. I also recommended that she apply for a Gold Card to access services at [facility] and [facility]. I recommend that she continue on antibio tics outpatient. I sent a prescription for doxycycline 100 mg BID # 20 to her pharmacy. OTC Tylenol or Ibuprofen should be adequate for pain management. OB Hospitalist Service is signing off. Thank you for the Consultation. Code status: full code Plan discussed with: patient at 1348 RPT #:[id number] END OF REPORT 2019-09-15 10:09:00-00:00 [facility] ([facility]) Hospitalist Progress Note REPORT#:[id number] REPORT STATUS: Signed DATE:09/15/19 TIME: 1009 PATIENT: RANJITH CURRIE UNIT #: [id number] ROOM/BED: [facility]- : 69 AGE: 49 SEX: F ATTEND: Virginie Gonzalez MD ADM AUTHOR: Ewelina Gonzalez MD * ALL edits or amendments must be made on the [employer]/computer document * Subjective Free Text Subj Notes Free Subj Notes: feeling better overall. stil l some pain across the mid and lower abdomen , no n/ v, emanuel diet Review of Systems GI: Reports: abdominal pain. All systems rev neg: except as marked Objective General VS/I O: Vital Signs: Date Time Temp Pulse Resp B/P B/P Pulse O2 O2 Flow FiO2 Mean Ox Delivery Rate 09/14 1954 98.6 99 18 150/74 99.2 97 Room air 09/14 1520 98.2 89 18 136/75 95.6 97 Room air 09/14 1345 79 130/70 89.7 97 09/14 1106 98.1 82 18 122/62 82.0 95 Room air 09/14 0743 98.2 95 18 186/89 121.4 97 Room air 09/14 0442 98.1 86 17 181/80 113.9 96 Room air 09/14 0000 98.2 87 17 149/92 111.1 98 Room air Patient Weight Weight (lb): Weight (oz): Weight (kg): 68.182 Medications: Active Meds + DC'd Last 24 Hrs Isosorbide Mononitrate 120 MG DAILY PO Carvedilol 25 MG Q12HR PO Potassium Chloride 20 MEQ Q4H PO (DC) Carvedilol 12.5 MG ONCE ONE PO (DC) Isosorbide Mononitrate 30 MG ONCE ONE PO (DC) Potassium Chloride/Water 100 ML ONCE ONE IV (DC) Isosorbide Mononitrate 90 MG DAILY PO (DC) Carvedilol 6.25 MG Q12HR PO (DC) Hydralazine HCl 100 MG Q8HR PO Enoxaparin Sodium 40 MG DAILY SUBQ Acetaminophen 500 MG Q6H PRN PRN PO Acetaminophen/Codeine Phosphate 1 UDTAB Q6H PRN PRN PO Ondansetron HCl 4 MG Q6H PRN PRN IV Physical Exam General appearance: alert, awake, no acute distr ess Head/Eyes: atraumatic, clear cornea, nor mal conjunctiva/sclera, normocephalic, PERRL ENT: moist mucosal membranes, normal pharynx, no rmal sinus Neck: full range of motion, non-tender, normal thyroid, supple/no meningismus, no bruit/NL carotids, no JVD, no masses or swell ing Cardiovascular: normal capillary refill, normal heart sounds, regular rate rhythm, no murmur Respiratory: aerating well, clear to auscultatio n, symmetric expansion, no distress Abdomen: normal bowel sounds, soft, no d istention, no guarding, no hernial, no rebound, ttp across lower abdomen Extremities: moves all, normal capillary refill, normal range of motion, no edema Musculoskeletal: normal inspection Skin: dry, intact Psychiatry: normal affect, n ormal judgment/insight, normal mood, not homicidal, not suicidal, no hallucinations Results Findings/Data: Laboratory Tests 09/14 0537 Chemistry Sodium (136 - 145 mmol/L) 138 Potassium (3.5 - 5.1 mmol/L) 3.0 L Chloride (98 - 107 mmol/L) 105.0 Carbon Dioxide (21 - 32 mmol/L) 25.0 Anion Gap (10 - 20) 11.0 BUN (7 - 18 mg/dL) 15 Creatinine (0.55 - 1.02 mg/dL) 0.70 Glomerular Filtr Rate (>=60 mL/min) > 60 BUN/Creatinine Ratio (10 - 20) 21.7 H Glucose (74 - 106 mg/dL) 105 Calcium (8.5 - 10.1 mg/dL) 8.6 Phosphorus (2.5 - 4.9 mg/dL) 2.5 Magnesium (1.8 - 2.4 mg/dL) 2.0 Laboratory Tests 09/14 0537 Hematology WBC (4.5 - 12.5 K/mm3) 11.7 RBC (3.7 - 5.2 mill/mm3) 3.83 Hgb (11.5 - 15.5 gram/dL) 9.6 L Hct (36.0 - 46.0 %) 31.3 L MCV (80 - 98 fL) 81.7 MCH (27.0 - 33.0 picogram) 25.1 L MCHC (33.0 - 36.0 gram/dL) 30.7 L RDW (11.6 - 16.2 %) 19.1 H RDW Std Deviation (37.0 - 51.0 fL) 56.8 H Plt Count (150 - 450 K/mm3) 298 MPV (6.7 - 11.0 fL) 10.4 Neut % (Auto) (39.0 - 69.0 %) 72.0 H Lymph % (Auto) (25.0 - 55.0 %) 13.2 L Powell % (Auto) (0.0 - 10.0 %) 10.4 H Eos % (Auto) (0.0 - 5.0 %) 3.5 Baso % (Auto) (0.0 - 1.0 %) 0.5 Neut # (Auto) (1.8 - 7.7 K/mm3) 8.42 H Lymph # (Auto) (1.0 - 5.0 K/mm3) 1.55 Powell # (Auto) (0 - 0.8 K/mm3) 1.22 H Eos # (Auto) (0.0 - 0.5 K/mm3) 0.41 Baso # (Auto) (0.0 - 0.2 K/mm3) 0.06 Add Manual Diff NO Nucleated RBC % (0 - 0 %) 0.0 Nucleated RBCs # (Man) (0.0 - 0.1 K/mm3) 0.00 Diagnosis, Assessment Plan Free Text DxA P Notes Free text DxA P notes: 49 y/o woman with h/o HTN off her meds x 2 month s presents with c/o elevated blood pressures and right lower quadrant pain. Right pyosalpinx / hydrosalpinx , RLQ pain -CT suspicious for hydrosalpinx or ovarian cysts , appendix not identified -U/S - complex 8.9x4cm mass in right adnexa sugg estive of hydrocele or pyosalpinx -TRACK MACHINE OPERATOR REPAIRER consulted, abx started for PID -- doxycycli ne and cefoxitin -mild new leukocytosis and 100.0 temp today, hem odynamically stable , pain stable, tolerating diet - test neg , LFTs wnls, lipase not elev ated -UA with white blood cells and bacteria, however contaminated many epithelial cells ; repeat clean-catch UA ordered -morphine prn for pain , zofran prn for nausea Uncontrolled, untreated HTN -BPs 200s systolic on admiss ion, off her meds (including clonidine for 2 months) -given hydralazine 30 mg iv total in ED. -Started lisinopril on admission, however develo ped KENNETH , stop lisinopril -started hydralazine and Imdur , titrate up and add coreg -- titrate up to hydralazine 100 q8h, coreg 25 bid, imdur 90 hima y -Monitor blood pressures and continue to titrate KENNETH -Cr 0.8 --> 1.4 --> 0.9 today -Likely due to hypertensive episode -UA contaminated, repeat UA pending -Stopped ketorolac and lisinopril -Trial of fluid bolus -Avoid nephrotoxic agents Hyperglycemia -A1c 5.2 DVT ppx -SCDs + lovenox sc Substance abuse -MJ use, counselled on cessation Dispo : pending stable BPs and TRACK MACHINE OPERATOR REPAIRER clearance . donna garsia dc home tomorrow Electronically Signed by Ewelina Gonzalez MD 09/15/19 at 2218 RPT #:[id number] END OF REPORT 2019-09-14 10:30:00-00:00 [facility] ([facility]) Hospitalist Progress Note REPORT#:[id number] REPORT STATUS: Signed DATE:09/14/19 TIME: 1030 PATIENT: RANJITH CURRIE UNIT #: [id number] ROOM/BED: [address] : 68 AGE: 49 SEX: F ATTEND: Virginie Gonzalez MD ADM AUTHOR: Ewelina Gonzalez MD * ALL edits or amendments must be made on the el [employer]/computer document * Subjective Free Text Subj Notes Free Subj Notes: feeling about the same , abdominal pain is diffu se, toleration diet , no n/v Review of Systems GI: Reports: abdominal pain. All systems rev neg: except as marked Objective General VS/I O: Vital Signs: Date Time Temp Pulse Resp B/P B/P Pulse O2 O2 F low FiO2 Mean Ox Delivery Rate 09/13 2014 99.0 102 17 160/72 101.3 99 Room air 09/13 1055 98.6 97 18 155/70 98.4 97 Room air 09/13 0843 102 18 150/73 98.4 96 Room air 09/13 0418 99.1 96 18 195/96 128.7 98 Room air 09/13 0135 100.0 107 18 162/84 110.2 96 Patient Weight Weight (lb): Weight (oz): Weight (kg): 68.182 Medications: Active Meds + DC'd Last 24 Hrs Isosorbide Mononitrate 90 MG DAILY PO Carvedilol 6.25 MG Q12HR PO Isosorbide Mononitrate 30 MG ONCE ONE PO (DC) Potassium Phosphate 500 MG Q4H PO (DC) Hydralazine HCl 100 MG Q8HR PO Isosorbide Mononitrate 60 MG DAILY PO (DC) Enoxaparin Sodium 40 MG DAILY SUBQ Acetaminophen 500 MG Q6H PRN PRN PO Acetaminophen/Codeine Phosphate 1 UDTAB Q6H PRN PRN PO Doxycycline Monohydrate 100 MG Q12HR PO Ondansetron HCl 4 MG Q6H PRN PRN IV Cefoxitin Sodium 2,000 MG Q6HR IV (DC) Sterile Water 20 ML Physical Exam General appearance: alert, awake, no acute distr ess Head/Eyes: atraumatic, clear cornea, nor mal conjunctiva/sclera, normocephalic, PERRL ENT: moist mucosal membranes, normal pharynx, no rmal sinus Neck: full range of motion, non-tender, normal thyroid, supple/no meningismus, no bruit/NL carotids, no JVD, no masses or swell ing Cardiovascular: normal capillary refill, normal heart sounds, regular rate rhythm, no murmur Respiratory: aerating well, clear to auscultatio n, symmetric expansion, no distress Abdomen: normal bowel sounds, soft, no d istention, no guarding, no hernial, no rebound, ttp right lower quadrant and diffusely Extremities: moves all, normal capillary refill, normal range of motion, no edema Musculoskeletal: normal inspection Skin: dry, intact Psychiatry: normal affect, n ormal judgment/insight, normal mood, not homicidal, not suicidal, no hallucinations Results Findings/Data: Laboratory Tests 09/13 352 Chemistry Sodium (136 - 145 mmol/L) 136 Potassium (3.5 - 5.1 mmol/L) 3.2 L Chloride (98 - 107 mmol/L) 106.0 Carbon Dioxide (21 - 32 mmol/L) 23.0 Anion Gap (10 - 20) 10.2 BUN (7 - 18 mg/dL) 17 Creatinine (0.55 - 1.02 mg/dL) 0.90 Glomerular Filtr Rate (>=60 mL/min) > 60 BUN/Creatinine Ratio (10 - 20) 19.8 Glucose (74 - 106 mg/dL) 97 Calcium (8.5 - 10.1 mg/dL) 8.4 L Phosphorus (2.5 - 4.9 mg/dL) 2.3 L Magnesium (1.8 - 2.4 mg/dL) 2.0 Laboratory Tests 09/13 035 Hematology WBC (4.5 - 12.5 K/mm3) 13.1 H RBC (3.7 - 5.2 mill/mm3) 4.40 Hgb (11.5 - 15.5 gram/dL) 11.0 L Hct (36.0 - 46.0 %) 35.9 L MCV (80 - 98 fL) 81.6 MCH (27.0 - 33.0 picogram) 25.0 L MCHC (33.0 - 36.0 gram/dL) 30.6 L RDW (11.6 - 16.2 %) 19.1 H RDW Std Deviation (37.0 - 51.0 fL) 56.8 H Plt Count (150 - 450 K/mm3) 311 MPV (6.7 - 11.0 fL) 10.8 Neut % (Auto) (39.0 - 69.0 %) 76.7 H Lymph % (Auto) (25.0 - 55.0 %) 10.6 L Powell % (Auto) (0.0 - 10.0 %) 10.6 H Eos % (Auto) (0.0 - 5.0 %) 1.5 Baso % (Auto) (0.0 - 1.0 %) 0.3 Neut # (Auto) (1.8 - 7.7 K/mm3) 10.03 H Lymph # (Auto) (1.0 - 5.0 K/mm3) 1.39 Powell # (Auto) (0 - 0.8 K/mm3) 1.39 H Eos # (Auto) (0.0 - 0.5 K/mm3) 0.19 Baso # (Auto) (0.0 - 0.2 K/mm3) 0.04 Nucleated RBC % (0 - 0 %) 0.0 Nucleated RBCs # (Man) (0.0 - 0.1 K/mm3) 0.00 Diagnosis, Assessment Plan Free Text DxA P Notes Free text DxA P notes: 49 y/o woman with h/o HTN off her meds x 2 month s presents with c/o elevated blood pressures and right lower quadrant pain. Right pyosalpinx / hydrosalpinx , RLQ pain -CT suspicious for hydrosalpinx or ovarian cysts , appendix not identified -U/S - complex 8.9x4cm mass in right adnexa sugg estive of hydrocele or pyosalpinx -TRACK MACHINE OPERATOR REPAIRER consulted, abx started for PID -- doxycycli ne and cefoxitin -mild new leukocytosis and 100.0 temp today, hem odynamically stable , pain stable, tolerating diet - test neg , LFTs wnls, lipase not elev ated -UA with white blood cells and bacteria, however contaminated many epithelial cells ; repeat clean-catch UA ordered -morphine prn for pain , zofran prn for nausea Uncontrolled, untreated HTN -BPs 200s systolic on admiss ion, off her meds (including clonidine for 2 months) -given hydralazine 30 mg iv total in ED. -Started lisinopril on admission, however KENNETH to day, stop lisinopril -starte hydralazine and Imdur , titrate up and a dd coreg today -Monitor blood pressures and continue to titrate KENNETH -Cr 0.8 --> 1.4 --> 0.9 today -Likely due to hypertensive episode -UA contaminated, repeat UA pending -Stopped ketorolac and lisinopril -Trial of fluid bolus -Avoid nephrotoxic agents Hyperglycemia -A1c 5.2 DVT ppx -SCDs + lovenox sc Substance abuse -MJ use, counselled on cessation Electronically Signed by Ewelina Gonzalez MD 09/14/19 at 205 RPT #:[id number] END OF REPORT 2019-09-14 09:11:00-00:00 [facility] ([facility]-TRACK MACHINE OPERATOR REPAIRER Progress Note REPORT#:[id number] REPORT STATUS: Signed DATE:09/14/19 TIME: 910 PATIENT: RANJITH CURRIE UNIT #: [id number] ROOM/BED: [address] : [birth year] AGE: 49 SEX: F ATTEND: Virginie Gonzalez MD ADM AUTHOR: Christie Arreaga MD * ALL edits or amendments must be made on the [employer]/computer document * Subjective Chief Complaint: PELVIC PAIN AND ELEVATED BP Patient reports: Patient reports: Yes abdominal pain (BETTER. FROM 10 TO 5 TODAY) , Yes ambulating, Yes pelvic pain (BETTER), Yes tolerating diet, No c omplaints, No blurry vision, No fever, No headache, No nausea, No vaginal bleeding Nursing reports: Nursing reports: Yes abdominal pain (BETTER), Yes ambula ting, Yes flatus, Yes pain controlled, Yes pelvic pain (BETTER), Yes tolerating diet, Y es voiding, Yes vomiting, No complaints, No blurry vision, No chills, No feve r, No nausea, No vaginal bleeding Objective General VS/I O: Last Documented: Result Date Time Pulse Ox 96 09/13 0843 B/P 150/73 09/13 0843 B/P Mean 98.4 09/13 0843 O2 Delivery Room air 09/13 0843 Pulse 102 09/13 0843 Resp 18 09/13 0843 Temp 99.1 09/13 0418 Vital Signs Date Temp Pulse Resp B/P B/P Mean Pulse Ox FiO2 /24-/ 98.4-100.0 96-107 17-18 150-195/67-9 96.1-128.7 96-98 9 Patient Weight Weight (lb): Weight (oz): Weight (kg): 68.182 Nutrition assessment: The data set between the solid lines has been im ported from the dietitian's assessment. Any exceptions have been noted under Provider comments. BMI Calculated: 26.6 Nutrition related diagnosis: Nutrition diagnosis details: Nutrition problem: Nutrition etiology: Nutrition signs and symptoms: Nutrition prescription: Dietitian name: Assessment completed: Provider comments on imported dietitian assessme nt: Current Medications Medications: Active Meds + DC'd Last 24 Hrs Hydralazine HCl 100 MG Q8HR PO Hydralazine HCl 75 MG Q8HR PO (DC) Isosorbide Mononitrate 60 MG DAILY PO Sodium Chloride 1,000 ML BOLUS ONCE ONE IV (DC) Enoxaparin Sodium 40 MG DAILY SUBQ Lisinopril 10 MG DAILY PO (DC) Acetaminophen 500 MG Q6H PRN PRN PO Acetaminophen/Codeine Phosphate 1 UDTAB Q6H PRN PRN PO Ketorolac Tromethamine 30 MG Q6H PRN PRN IV (DC) Doxycycline Monohydrate 100 MG Q12HR PO Ondansetron HCl 4 MG Q6H PRN PRN IV Cefoxitin Sodium 2,000 MG Q6HR IV Sterile Water 20 ML Physical Exam HEENT: ANICTERIC, PINK [place] Respiratory: no distress Abdomen: tenderness (RIGHT PELVIC-SORE PER PX), normal bowel sounds, soft, no guarding, no rebound Extremities: no calf tnederness, no edema Neuro/AGRICULTURE DEPARTMENT CHAIR: alert, oriented x 3, normal gait, nor mal speech Psychiatry: normal affect, normal judgment/insig ht, normal mood Results Findings/Data: Laboratory Tests 09/13 352 Chemistry Sodium (136 - 145 mmol/L) 136 Potassium (3.5 - 5.1 mmol/L) 3.2 L Chloride (98 - 107 mmol/L) 106.0 Carbon Dioxide (21 - 32 mmol/L) 23.0 Anion Gap (10 - 20) 10.2 BUN (7 - 18 mg/dL) 17 Creatinine (0.55 - 1.02 mg/dL) 0.90 Glomerular Filtr Rate (>=60 mL/min) > 60 BUN/Creatinine Ratio (10 - 20) 19.8 Glucose (74 - 106 mg/dL) 97 Calcium (8.5 - 10.1 mg/dL) 8.4 L Phosphorus (2.5 - 4.9 mg/dL) 2.3 L Magnesium (1.8 - 2.4 mg/dL) 2.0 Laboratory Tests 09/13 352 Hematology WBC (4.5 - 12.5 K/mm3) 13.1 H RBC (3.7 - 5.2 mill/mm3) 4.40 Hgb (11.5 - 15.5 gram/dL) 11.0 L Hct (36.0 - 46.0 %) 35.9 L MCV (80 - 98 fL) 81.6 MCH (27.0 - 33.0 picogram) 25.0 L MCHC (33.0 - 36.0 gram/dL) 30.6 L RDW (11.6 - 16.2 %) 19.1 H RDW Std Deviation (37.0 - 51.0 fL) 56.8 H Plt Count (150 - 450 K/mm3) 311 MPV (6.7 - 11.0 fL) 10.8 Neut % (Auto) (39.0 - 69.0 %) 76.7 H Lymph % (Auto) (25.0 - 55.0 %) 10.6 L Powell % (Auto) (0.0 - 10.0 %) 10.6 H Eos % (Auto) (0.0 - 5.0 %) 1.5 Baso % (Auto) (0.0 - 1.0 %) 0.3 Neut # (Auto) (1.8 - 7.7 K/mm3) 10.03 H Lymph # (Auto) (1.0 - 5.0 K/mm3) 1.39 Powell # (Auto) (0 - 0.8 K/mm3) 1.39 H Eos # (Auto) (0.0 - 0.5 K/mm3) 0.19 Baso # (Auto) (0.0 - 0.2 K/mm3) 0.04 Nucleated RBC % (0 - 0 %) 0.0 Nucleated RBCs # (Man) (0.0 - 0.1 K/mm3) 0.00 Results: labs reviewed, vital signs stable, cath . personally reviewed, US personally reviewed Diagnosis, Assessment Plan Free Text A P: 49 YR OLD P2L2 PATIENT WITH ACUTE RLQ PAIN RIGHT PYOSALPINX / HYDROSALP INX- CLINICALLY BETTER. PATIENT REPORTS NOT NEEDING PAIN MEDICATION OVERNIGHT. WILL CONTINUE ANTIBIO TICS. WATCH OUT FOR WORSENING PAIN OR FEVER. WILL NEED BLOOD CULTURE IF WITH FEVER. NEED FOR SURGERY VS INTERVENTIONAL RADI OLOGY CONSULT NOT TOTALLY RULED OUT AT THIS TIME. ELEVATED WBC-WILL FOLLOW PATIENT REPORTS FEEL ING BETTER. UNCONTROLLED HYPERTENSION ON HYDRALAZINE AND SEE MS TO BE RESPONDING BETTER. at 0929 RPT #:[id number] END OF REPORT 2019-09-13 10:42:00-00:00 [facility] ([facility]) Hospitalist Progress Note REPORT#:[id number] REPORT STATUS: Signed DATE:09/13/19 TIME: 104 PATIENT: RANJITH CURRIE UNIT #: [id number] ROOM/BED: [address] : [birth year] AGE: 49 SEX: F ATTEND: Virginie Gonzalez MD ADM AUTHOR: Ewelina Gonzalez MD * ALL edits or amendments must be made on the [employer]/computer document * Subjective Free Text Subj Notes Free Subj Notes: Right lower quadrant abdominal pain and generali zed abdominal tenderness, no nausea vomiting, tolerating regular diet Review of Systems GI: Reports: abdominal pain. All systems rev neg: except as marked Objective General VS/I O: Vital Signs: Date Time Temp Pulse Resp B/P B/P Pulse O2 O2 F low FiO2 Mean Ox Delivery Rate 09/12 1549 98.4 98 18 154/67 96.1 98 Room air 09/12 1151 98.8 102 17 179/99 125.7 98 Room air 09/12 0746 98.2 100 18 176/91 119.1 99 Room air 09/12 0317 98.8 83 18 157/82 0.0 97 09/11 2339 97.9 83 18 162/87 112 97 09/11 2004 98.4 78 18 154/83 0.0 96 Patient Weight Weight (lb): Weight (oz): Weight (kg): 68.182 Medications: Active Meds + DC'd Last 24 Hrs Hydralazine HCl 75 MG Q8HR PO Isosorbide Mononitrate 60 MG DAILY PO Sodium Chloride 1,000 ML BOLUS ONCE ONE IV (DC) Enoxaparin Sodium 40 MG DAILY SUBQ Lisinopril 10 MG DAILY PO (DC) Acetaminophen 500 MG Q6H PRN PRN PO Acetaminophen/Codeine Phosphate 1 UDTAB Q6H PRN PRN PO Ketorolac Tromethamine 30 MG Q6H PRN PRN IV (DC) Doxycycline Monohydrate 100 MG Q12HR PO Hydralazine HCl 50 MG Q8H PO (DC) Morphine Sulfate 2 MG Q6H PRN PRN IV (DC) Ondansetron HCl 4 MG Q6H PRN PRN IV Cefoxitin Sodium 2,000 MG Q6HR IV Sterile Water 20 ML Lisinopril 5 MG DAILY PO (DC) Hydrocodone Bitart/Acetaminophen 1 TAB Q4H PRN P RN PO (DC) Morphine Sulfate 4 MG Q4H PRN PRN IV (DC) Ondansetron HCl 4 MG Q6H PRN PRN IV (DC) Sodium Chloride 1,000 ML .Q10H IV (DC) Physical Exam General appearance: alert, awake, no acute distr ess Head/Eyes: atraumatic, clear cornea, nor mal conjunctiva/sclera, normocephalic, PERRL ENT: moist mucosal membranes, normal pharynx, no rmal sinus Neck: full range of motion, non-tender, normal thyroid, supple/no meningismus, no bruit/NL carotids, no JVD, no masses or swell ing Cardiovascular: normal capillary refill, normal heart sounds, regular rate rhythm, no murmur Respiratory: aerating well, clear to auscultatio n, symmetric expansion, no distress Abdomen: normal bowel sounds, soft, no d istention, no guarding, no hernial, no rebound, ttp right lower quadrant Extremities: moves all, normal capillary refill, normal range of motion, no edema Musculoskeletal: normal inspection Skin: dry, intact Psychiatry: normal affect, n ormal judgment/insight, normal mood, not homicidal, not suicidal, no hallucinations Results Findings/Data: Laboratory Tests 09/12 09/12 0549 0549 Chemistry Sodium (136 - 145 mmol/L) 139 Potassium (3.5 - 5.1 mmol/L) 3.7 Chloride (98 - 107 mmol/L) 107.0 Carbon Dioxide (21 - 32 mmol/L) 22.0 Anion Gap (10 - 20) 13.7 BUN (7 - 18 mg/dL) 15 Creatinine (0.55 - 1.02 mg/dL) 1.40 H Glomerular Filtr Rate (>=60 mL/min) 40 BUN/Creatinine Ratio (10 - 20) 10.6 Glucose (74 - 106 mg/dL) 99 Hemoglobin A1c (% HbA1) 5.2 Estim Average Glucose (MG/DL) 103 Calcium (8.5 - 10.1 mg/dL) 8.6 Phosphorus (2.5 - 4.9 mg/dL) 2.8 Magnesium (1.8 - 2.4 mg/dL) 2.2 Laboratory Tests 09/12 0549 Hematology WBC (4.5 - 12.5 K/mm3) 12.5 RBC (3.7 - 5.2 mill/mm3) 5.10 Hgb (11.5 - 15.5 gram/dL) 12.5 Hct (36.0 - 46.0 %) 42.4 MCV (80 - 98 fL) 83.1 MCH (27.0 - 33.0 picogram) 24.5 L MCHC (33.0 - 36.0 gram/dL) 29.5 L RDW (11.6 - 16.2 %) 19.7 H RDW Std Deviation (37.0 - 51.0 fL) 57.4 H Plt Count (150 - 450 K/mm3) 303 MPV (6.7 - 11.0 fL) 10.0 Neut % (Auto) (39.0 - 69.0 %) 76.7 H Lymph % (Auto) (25.0 - 55.0 %) 10.9 L Powell % (Auto) (0.0 - 10.0 %) 9.1 Eos % (Auto) (0.0 - 5.0 %) 2.7 Baso % (Auto) (0.0 - 1.0 %) 0.3 Neut # (Auto) (1.8 - 7.7 K/mm3) 9.55 H Lymph # (Auto) (1.0 - 5.0 K/mm3) 1.36 Powell # (Auto) (0 - 0.8 K/mm3) 1.13 H Eos # (Auto) (0.0 - 0.5 K/mm3) 0.33 Baso # (Auto) (0.0 - 0.2 K/mm3) 0.04 Add Manual Diff NO, ONLY SCAN NEEDED Nucleated RBC % (0 - 0 %) 0.0 Nucleated RBCs # (Man) (0.0 - 0.1 K/mm3) 0.00 Platelet Estimate ADEQUATE Plt Morphology Comment NORMAL Hypochromasia 1+ Laboratory Tests 09/12 0515 Urines Urine Color (YELLOW) YELLOW Urine Appearance (CLEAR) CLEAR Urine pH (5.0 - 8.0) 6.0 Ur Specific [place] (1.001 - 1.035) 1.043 Urine Protein (NEGATIVE mg/dL) 30 (1+) H Urine Glucose (UA) (NEGATIVE mg/dL) 150 (1+) H Urine Ketones (NEGATIVE mg/dL) 20 (1+) H Urine Blood (NEGATIVE mg/dL) Negative Urine Nitrite (NEGATIVE) NEGATIVE Urine Bilirubin (NEGATIVE mg/dL) NEGATIVE Urine Urobilinogen (NEGATIVE mg/dL) Normal Ur Leukocyte Esterase (NEGATIVE Aryan/uL) NEGATIV E Urine RBC (0 - 5 #/HPF) 0-2 Urine WBC (0 - 5 per HPF) 6-10 H Ur Epithelial Cells (FEW per HPF) MANY Urine Bacteria (NONE #/HPF) FEW H Hyaline Casts (0 - 5 #/LPF) 6-10 H Urine Mucus (FEW #/LPF) FEW Diagnosis, Assessment Plan Free Text DxA P Notes Free text DxA P notes: 49 y/o woman with h/o HTN off her meds x 2 month s presents with c/o elevated blood pressures and right lower quadrant pain. Right pyosalpinx / hydrosalpinx , RLQ pain -CT suspicious for hydrosalpinx or ovarian cysts , appendix not identified -U/S - complex 8.9x4cm mass in right adnexa sugg estive of hydrocele or pyosalpinx -TRACK MACHINE OPERATOR REPAIRER consulted, abx started for PID -- doxycycli ne and cefoxitin -no leukocytosis, afebrile, hemodynamically stab le - test neg , LFTs wnls, lipase not elev ated -UA with white blood cells and bacteria, however contaminated many epithelial cells ; will get a repeat clean-catch UA -morphine prn for pain , zofran prn for nausea Uncontrolled, untreated HTN -BPs 200s systolic on admiss ion, off her meds (including clonidine for 2 months) -given hydralazine 30 mg iv total in ED. -Started lisinopril on admission, however KENNETH to day, stop lisinopril -start hydralazine and Imdur -Monitor blood pressures and continue to titrate KENNETH -Cr 0.8 --> 1.4 today -Likely due to hypertensive episode -UA contaminated, will repeat UA -Stop ketorolac and lisinopril -Trial of fluid bolus -Avoid nephrotoxic agents Hyperglycemia -A1c 5.2 DVT ppx -SCDs + lovenox sc Substance abuse -MJ use, counselled on cessation Electronically Signed by Ewelina Gonzalez MD 09/13/19 at 1815 [facility] #:[id number] END OF REPORT 2019-09-12 20:34:00-00:00 [facility] ([facility]) Hospitalist History Physical REPORT#:[id number] REPORT STATUS: Signed DATE:09/12/19 TIME: 2033 PATIENT: RANJITH CURRIE UNIT #: [id number] ROOM/BED: [address] : [birth year] AGE: 49 SEX: F ATTEND: Virginie Gonzalez MD ADM AUTHOR: Ewelina Gonzalez MD * ALL edits or amendments must be made on the [employer]/computer document * History of Present Illness HPI Informant/historian: patient Free Text HPI Notes Free Text HPI Notes: 49 y/o woman with h/o HTN off her meds x 2 month s presents with c/o elevated blood pressures and right lo wer quadrant pain. Pain started last night , sharp, constant, 10/10, nonradiatio n, no relieving factors, worse with movement. denies any fevers chills, nausea, vomiting, diarrhea, c onstipation. patient also has been running high BPs , ran out of her meds at h ome 2 mon ago, says takes 3 different BP meds, including clonidine. denies a ny cp, sob, palpitations, dizziness. History Past medical history: Reports: Hypertension. Past surgical history: Reports: Cholecystectomy, Tonsillectomy. Additional surgical history: ovary removal Additional family history: denies Alcohol use: Denies EtOH use Drug use: Marijuana Smoking status for patients 13 years old or olde r: Never Smoker Medication/Allergy-Vaccine Hx Home Medications: cloNIDine (CATAPRES) 0.2 MG PO BID Allergies: Coded Allergies: No Known Allergies (09/12/19) Review of Systems GI: Reports: abdominal pain. All systems rev neg: except as marked Objective General VS/I O: Vital Signs: Date Time Temp Pulse Resp B/P B/P Pulse O2 O2 F low FiO2 Mean Ox Delivery Rate 09/11 2004 98.4 78 18 154/83 0.0 96 09/11 1458 97.7 88 20 164/88 113.3 98 09/11 1241 98.0 94 16 165/74 104 98 09/11 0919 98.2 98 18 169/77 107 98 09/11 0811 98.0 102 18 193/89 123 99 09/11 0736 98.0 90 18 239/117 157 99 09/11 0514 92 18 188/84 118 99 Room air 09/11 0436 101 16 233/122 159 100 09/11 0410 75 18 277/142 187 98 09/11 0346 97.4 74 18 256/143 180 97 Room air 24 hour I O ending at 0700: 09/11 0700 09/10 1900 Intake Total Output Total Balance Patient 68.182 kg Weight Weight Stated/Reported Measurement Method Patient Weight Weight (lb): Weight (oz): Weight (kg): 68.182 Medications: Active Meds + DC'd Last 24 Hrs Doxycycline Monohydrate 100 MG Q12HR PO Cefoxitin Sodium 2,000 MG Q6HR IV Sterile Water 20 ML Lisinopril 5 MG DAILY PO Hydralazine HCl 10 MG Q2H PRN PRN IV (DC) Hydrocodone Bitart/Acetaminophen 1 TAB Q4H PRN P RN PO (DC) Morphine Sulfate 4 MG Q4H PRN PRN IV (DC) Ondansetron HCl 4 MG Q6H PRN PRN IV (DC) Sodium Chloride 1,000 ML .Q10H IV (DC) Cefoxitin Sodium 0 .STK-MED ONE IV (DC) Sodium Chloride 20 ML .STK-MED ONE IV (DC) Cefoxitin Sodium 1,000 MG X1ED STA IV (DC) Sodium Chloride 10 ML Morphine Sulfate 4 MG X1ED STA IV (DC) Hydralazine HCl 10 MG X1ED STA IV (DC) Iopamidol 0 .STK-MED ONE .ROUTE (DC) Labetalol HCl 10 MG X1ED STA IV (DC) Morphine Sulfate 4 MG X1ED STA IV (DC) Ondansetron HCl 4 MG X1ED PRN PRN IV (DC) Hydralazine HCl 20 MG X1ED STA IV (DC) Sodium Chloride 1,000 ML X1ED STA IV (DC) Physical Exam General appearance: alert, awake, no respiratory distress, in distress due to pain Head/Eyes: atraumatic, clear cornea, nor mal conjunctiva/sclera, normocephalic, PERRL ENT: moist mucosal membranes, normal pharynx, no rmal sinus Neck: full range of motion, non-tender, normal thyroid, supple/no meningismus, no bruit/NL carotids, no JVD, no masses or swell ing Cardiovascular: normal capillary refill, normal heart sounds, regular rate rhythm, no murmur Respiratory: aerating well, clear to auscultatio n, symmetric expansion, no distress Abdomen: normal bowel sounds, soft, no d istention, no hernial, no rebound, ttp right lower quadrant Extremities: moves all, normal capillary refill, normal range of motion, no edema Musculoskeletal: normal inspection Skin: dry, intact Psychiatry: normal affect, n ormal judgment/insight, normal mood, not homicidal, not suicidal, no hallucinations Results Findings/Data: Laboratory Tests 05/23 0405 Chemistry Sodium (136 - 145 mmol/L) 136 Potassium (3.5 - 5.1 mmol/L) 3.1 L Chloride (98 - 107 mmol/L) 101.0 Carbon Dioxide (21 - 32 mmol/L) 27.0 Anion Gap (10 - 20) 11.1 BUN (7 - 18 mg/dL) 11 Creatinine (0.55 - 1.02 mg/dL) 0.80 Glomerular Filtr Rate (>=60 mL/min) > 60 BUN/Creatinine Ratio (10 - 20) 13.8 Glucose (74 - 106 mg/dL) 149 H Calcium (8.5 - 10.1 mg/dL) 8.8 Total Bilirubin (0.0 - 1.0 mg/dL) 0.80 Direct Bilirubin (0.0 - 0.20 mg/dL) 0.15 AST (15 - 37 IUnit/L) 21 ALT (12 - 78 IUnit/L) 20 Total Alk Phosphatase (45 - 117 IUnit/L) 56 Troponin I (0 - 0.045 ng/mL) <0.015 Total Protein (6.4 - 8.2 gram/dL) 8.9 H Albumin (3.4 - 5.0 g/dL) 4.2 Globulin (2.7 - 4.2 gram/dL) 4.7 H Albumin/Globulin Ratio (0.75 - 1.50) 0.9 Lipase (73.0 - 393.0 U/L) 40 L Serum , Qual (NEGATIVE) NEGATIVE Laboratory Tests 09/11 404 Hematology WBC (4.5 - 12.5 K/mm3) 10.2 RBC (3.7 - 5.2 mill/mm3) 5.05 Hgb (11.5 - 15.5 gram/dL) 12.5 Hct (36.0 - 46.0 %) 40.3 MCV (80 - 98 fL) 79.8 L MCH (27.0 - 33.0 picogram) 24.8 L MCHC (33.0 - 36.0 gram/dL) 31.0 L RDW (11.6 - 16.2 %) 18.4 H Plt Count (150 - 450 K/mm3) 340 MPV (6.7 - 11.0 fL) 9.9 Radiology data: Recent Impressions: CAT SCAN - CT ABD PELVIS W WO CONT 09/11 0506 Report Impression - Status: SIGNED Entered: 09/12/2019 0543 IMPRESSION: Cystic changes in pelvis posterior to the uterus may represent a hydrosalpinx or ovarian cysts. Small uterine fibroid. Small left renal cyst. The appendix is not identified. Impression By: [email or web address] Candelario Rodriguez MD ULTRASOUND - US TRANSVAGINAL NON OB 09/11 608 Report Impression - Status: SIGNED Entered: 09/12/2019732 IMPRESSION: Complex thick-walled tubular cystic mass (8.9 x 4 cm) in the right adnexa suggestive of hydrocele or pyos alpinx. Dr. Garcia was informed of the findings by telephone at 7:25 AM FOR INTERNAL CODING PURPOSES ONLY RESULT CODE: CVR Impression By: Mohsen Escalante M.D. ULTRASOUND - US PELVIS COMPLETE 09/11 608 Report Impression - Status: SIGNED Entered: 09/12/2019732 IMPRESSION: Complex thick-walled tubular cystic mass (8.9 x 4 cm) in the right adnexa suggestive of hydrocele or pyos alpinx. Dr. Garcia was informed of the findings by telephone at 7:25 AM FOR INTERNAL CODING PURPOSES ONLY RESULT CODE: CVR Impression By: Mohsen Escalante M.D. ULTRASOUND - DUP AB/PEL/SC COMP 09/11 608 Report Impression - Status: SIGNED Entered: 09/12/2019732 IMPRESSION: Complex thick-walled tubular cystic mass (8.9 x 4 cm) in the right adnexa suggestive of hydrocele or pyos alpinx. Dr. Garcia was informed of the findings by telephone at 7:25 AM FOR INTERNAL CODING PURPOSES ONLY RESULT CODE: CVR Impression By: Kayli Cosby.D. Results: labs reviewed, vital signs stable Diagnosis, Assessment Plan Free Text DxA P Notes Free text DxA P notes: 49 y/o woman with h/o HTN off her meds x 2 month s presents with c/o elevated blood pressures and right lower quadrant pain. Right pyosalpinx / hydrosalpinx , RLQ pain -CT suspicious for hydrosalpinx or ovarian cysts , appendix not identified -U/S - complex 8.9x4cm mass in right adnexa sugg estive of hydrocele or pyosalpinx -TRACK MACHINE OPERATOR REPAIRER consulted, abx started for PID -no leukocytosis, afebrile, hemodynamically stab le - test neg , LFTs wnls, lipase not elev ated -UA pending -morphine prn for pain , zofran prn for nausea Uncontrolled, untreated HTN -BPs 200s systolic on admiss ion, off her meds (including clonidine for 2 months) -given hydralazine 30 mg iv total in ED. -start lisinopril and titrate Hypokalemia -K 3.1 , replace -likely due to no po intake Hyperglycemia -no h/o known DM, check A1c DVT ppx -SCDs + lovenox sc Substance abuse -MJ use, counselled on cessation Electronically Signed by Ewelina Gonzalez MD n 09/12/19 at 2055 RPT #:[id number] END OF REPORT 2019-09-12 09:08:00-00:00 [facility] ([facility]) CASTING MOLDER Consultation Note REPORT#:[id number] REPORT STATUS: Signed DATE:09/12/19 TIME: 907 PATIENT: RANJITH CURRIE UNIT #: [id number] ROOM/BED: [place] [address] : 68 AGE: 49 SEX: F ATTEND: Virginie Gonzalez MD ADM AUTHOR: Yue Otero MD * ALL edits or amendments must be made on the el KP [employer]/computer document * History of Present Illness HPI Requesting clinician: ER DOCTOR Reason for consult: RIGHT SIDE PYOSALPINX Chief complaint: Pt complaints of right sided lower quadrant pain - started last night . HPI: Patient states that the RLQ pain started yesterday evening and got progressively worse its about 8/10 no aggravating or relieving factors pt states that she has never had this pain befor e her last period was 2 months ago - up until then her periods were regular no dysmenorrhea no hx of painful sexual intercourse mildly nauseous ; no vomiting no urinary tract or other GI complaints no fever last pap done several years ago patient doesnt remember P2L2 X 2- LAST CHILD 20 YRS AGO HX OF LAPARATOMY DONE AND HAD HER LEFT SIDE OVAR Y AND TUBE REMOVED FOR ENDOMETRIOSIS - AT AGE 20 History Past History Past medical history: hypertension Past OB history: : 2 Living children: 2 Past TRACK MACHINE OPERATOR REPAIRER history: No abnormal pap-smear, No previous cervical surg nayeli, No previous STD, No fibroids, No previous uterine surgery, No other Past surgical history: LAPARATOMY AND REMOVAL OF LEFT OVARY AND TUBE FOR ENDOMETRIOSIS Past social history: does not smoke, no alcohol use, no drug abuse Allergies: Coded Allergies: No Known Allergies (09/12/19) Review of Systems GI: Reports: abdominal pain, anorexia, nausea. Denie s: constipation, diarrhea, dysphagia, GERD, hematemesis , hematochezia, hiatal hernia, melena, rectal pain, vomiting, other. All systems rev neg: except as marked Objective Physical Exam VS/I O: Last Documented: Result Date Time Pulse Ox 99 09/11 0811 B/P 193/89 09/11 0811 B/P Mean 123 09/11 0811 Temp 98.0 09/11 0811 Pulse 102 09/11 0811 Resp 18 09/11 0811 O2 Delivery Room air 09/11 0514 Vital Signs Date Temp Pulse Resp B/P B/P Mean Pulse Ox FiO2 09/11 97.4-98.0 74-102 16-18 188-277/84-143 118 -187 97-100 24 hour I O ending at 0700: 09/11 0700 09/10 1900 Intake Total Output Total Balance Patient 150 lb Weight Weight Stated/Reported Measurement Method Patient Weight Weight (lb): Weight (oz): Weight (kg): 68.182 General appearance: sleeping comfortably, alert, awake, oriented HEENT: normal dentition, nor mal ear left, normal ear right, normal nose, normal pharynx, normal fundi, normocephalic, PERRLA Breast: asymmetrical (DEFERRED ) Cardiovascular: regular rate and rhythm Respiratory: clear to auscultation, no distress, no tenderness Abdomen: soft, no distention, no guarding, no ma ss/organomegaly, no rebound, TENDERNESS ON DEEP PALPATION IN THE RLQ Extremities: full range of motion, moves all, no calf tnederness, no edema Neuro/AGRICULTURE DEPARTMENT CHAIR: alert, oriented x 3, normal gait Vagina: normal Cervix: normal Uterus: normal, NOT TENDER Adnexal: Right - Tender (MILD RIGHT ADNEXAL TEND ERNESS ) Diagnosis, Assessment Plan Diagnosis, Assessment Plan Assessment/Plan: 49 YR OLD P2L2 PATIENT WITH ACUTE RLQ PAIN RIGHT PYOSALPINX / HYDROSALPINX NO INCREASED WBC COUNT OR FEVER PT ADMITTED BECAUSE OF UNCONTROLLED HYPERTENSION AND INTENSE PAIN WILL START PATIENT ON ANTIBIOTICS FOR PELVIC INF LAMMATORY DISEASE HUEY FOR CONSULTING US ON THIS PATIENT . Electronically Signed by Yue Otero MD on at 1319 RPT #:[id number] END OF REPORT 2019-09-12 03:55:00-00:00 [facility] ([facility]) EMERGENCY PROVIDER REPORT REPORT#:[id number] REPORT STATUS: Signed DATE:09/12/19 TIME: 354 PATIENT: RANJITH CURRIE UNIT #: [id number] ROOM/BED: [facility] AGE: 49 SEX: F PCP PHYS: No Primary or Family Ph ysician SERVICE AUTHOR: Adam Mistry MD * ALL edits or amendments must be made on the el intelworks/computer document * HPI-Abd Pain F 40 and Over General Initial Greet Date/Time 09/12/19 0350 Presentation Chief Complaint Abdominal pain Hx Obtained From Patient, EMS Sudden in Onset? Yes Progression since Onset Constant Location RLQ Quality Painful Radiation Does not radiate. Associated with Reports: Nausea. Denies: Jose k pain, Chest pain, Constipation, Diarrhea, Dysuria , Fever, Shortness of breath. Free Text HPI Notes Free Text HPI Notes Patient is a 49-year-old female with past medica l history of hypertension presented with chief complai nt of right lower quadrant abdominal pain onset last night. Patient states pain is been constant sinc e onset. She reports associated nausea but denies vomiting, diarrhea, constipation, hematuria. She states initially it was difficult to uri ngoc but she has been able to urinate. Patient noted to be hypertensive upon EMS arriva l. Patient states she has not had her medication for 3 months. She further den ies any recent fever, chest pain, productive cough, dizziness, headache or s hortness of breath. Patient denies any recent exposure to persons po sitive for COVID-19 or travel. Patient was given 100 mcg of fentanyl en route to ED wit h improvement in pain. Risk-Abd Pain F 40 and Over )( Abdominal Aortic Aneurysm Risk factors review ed Review of Systems Focused Review of Systems Constitutional Denies: Chills, Fever. Respiratory Denies: Cough, productive, Shortness of breath. Cardiovascular Denies: Chest pain, Palpitations. Female Denies: Dysuria, Flank pain, Hematuria. Additional Review of Systems Neurologic Denies: Dizziness, Headache. Past Medical History - Adult Stated Complaint ABD PAIN Allergies Coded Allergies: No Known Allergies (09/12/19) Home Medications Reported Medications cloNIDine (CATAPRES) 0.2 MG PO BID Past Medical History: Reports: Hypertension. Alcohol Use Denies EtOH use Drug Use Marijuana Smoking status for patients 13 years old or olde r: Current every day smoker Physical Exam Vital Signs Vital Signs First Documented: Result Date Time Pulse Ox 97 09/11 0346 B/P 256/143 09/11 0346 B/P Mean 180 09/11 0346 O2 Delivery Room air 09/11 0346 Temp 36.3 09/11 0346 Pulse 74 09/11 0346 Resp 18 09/11 0346 Last Documented: Result Date Time Pulse Ox 99 09/11 0811 B/P 193/89 09/11 0811 B/P Mean 123 09/11 0811 Temp 36.7 09/11 0811 Pulse 102 09/11 0811 Resp 18 09/11 0811 O2 Delivery Room air 09/11 0514 Review of Vital Signs Reviewed Focused PE General/Const General/Const Awake, Alert MS Head Head Atraumatic, Normocephalic Eyes Eyes PERRL, EOMI, No scleral icterus Ears/Nose/Throat Ears/Nose/Throat Airway patent, Mucous membrane s moist Resp/Chest Respiratory/Chest Breath sounds NL, Breath soun ds = bilat, No respiratory distress Cardiovascular Cardiovascular Heart rate NL, Regular rhythm, H eart sounds NL Abdomen/GI Abdomen/GI Soft, Non-tender, No guarding, No re bound, BS normoactive, No distention MS Back Back Full range of motion, Painless range of mo tion Skin Skin No rash, Warm, Dry Genitourinary General Dinkey Mechanic present Female Genitourinary Atraumatic, External genit shelia NL, No bleeding, No discharge Neurologic Neurologic Oriented X3, Speech NL, No m otor deficits, No sensory deficits, CN II - XII intact Interpretation Diagnostics Lab Results Interpretation Results Laboratory Tests 09/12/19404: [Embedded Image Not Available] Laboratory Tests: 09/11 404 Chemistry Sodium (136 - 145 mmol/L) 136 Potassium (3.5 - 5.1 mmol/L) 3.1 L Chloride (98 - 107 mmol/L) 101.0 Carbon Dioxide (21 - 32 mmol/L) 27.0 Anion Gap (10 - 20) 11.1 BUN (7 - 18 mg/dL) 11 Creatinine (0.55 - 1.02 mg/dL) 0.80 Glomerular Filtr Rate (>=60 mL/min) > 60 BUN/Creatinine Ratio (10 - 20) 13.8 Glucose (74 - 106 mg/dL) 149 H Calcium (8.5 - 10.1 mg/dL) 8.8 Total Bilirubin (0.0 - 1.0 mg/dL) 0.80 Direct Bilirubin (0.0 - 0.20 mg/dL) 0.15 AST (15 - 37 IUnit/L) 21 ALT (12 - 78 IUnit/L) 20 Total Alk Phosphatase (45 - 117 IUnit/L) 56 Troponin I (0 - 0.045 ng/mL) <0.015 Total Protein (6.4 - 8.2 gram/dL) 8.9 H Albumin (3.4 - 5.0 g/dL) 4.2 Globulin (2.7 - 4.2 gram/dL) 4.7 H Albumin/Globulin Ratio (0.75 - 1.50) 0.9 Lipase (73.0 - 393.0 U/L) 40 L Serum , Qual (NEGATIVE) NEGATIVE Hematology WBC (4.5 - 12.5 K/mm3) 10.2 RBC (3.7 - 5.2 mill/mm3) 5.05 Hgb (11.5 - 15.5 gram/dL) 12.5 Hct (36.0 - 46.0 %) 40.3 MCV (80 - 98 fL) 79.8 L MCH (27.0 - 33.0 picogram) 24.8 L MCHC (33.0 - 36.0 gram/dL) 31.0 L RDW (11.6 - 16.2 %) 18.4 H Plt Count (150 - 450 K/mm3) 340 MPV (6.7 - 11.0 fL) 9.9 Recent Impressions: CAT SCAN - CT ABD PELVIS W WO CONT 09/11 0506 Report Impression - Status: SIGNED Entered: 09/12/2019 0543 IMPRESSION: Cystic changes in pelvis posterior to the uterus may represent a hydrosalpinx or ovarian cysts. Small uterine fibroid. Small left renal cyst. The appendix is not identified. Impression By: [email or web address] Candelario Rodriguez MD ULTRASOUND - US TRANSVAGINAL NON OB 09/11 608 Report Impression - Status: SIGNED Entered: 09/12/201933 IMPRESSION: Complex thick-walled tubular cystic mass (8.9 x 4 cm) in the right adnexa suggestive of hydrocele or pyos alpinx. Dr. Garcia was informed of the findings by telephone at 7:25 AM FOR INTERNAL CODING PURPOSES ONLY RESULT CODE: CVR Impression By: Mohsen Escalante M.D. ULTRASOUND - US PELVIS COMPLETE 09/11 608 Report Impression - Status: SIGNED Entered: 09/12/2019732 IMPRESSION: Complex thick-walled tubular cystic mass (8.9 x 4 cm) in the right adnexa suggestive of hydrocele or pyos alpinx. Dr. Garcia was informed of the findings by telephone at 7:25 AM FOR INTERNAL CODING PURPOSES ONLY RESULT CODE: CVR Impression By: t.ELVER Escalante M.D. ULTRASOUND - DUP AB/PEL/SC COMP 09/11 0609 Report Impression - Status: SIGNED Entered: 09/12/2019 0733 IMPRESSION: Complex thick-walled tubular cystic mass (8.9 x 4 cm) in the right adnexa suggestive of hydrocele or pyos alpinx. Dr. Garcia was informed of the findings by telephone at 7:25 AM FOR INTERNAL CODING PURPOSES ONLY RESULT CODE: CVR Impression By: Mohsen Escalante M.D. Lab Imaging Statement Laboratory radiographic studies reviewed and con sidered in the medical decision-making. Point of Care Testing Pulse Oximetry Pulse Ox % 97 On: Room air Interpretation Interpreted by me, Pulse oximetr y normal ECG #1 Interpretation Date 09/12/19 Time 0404 Interpreted by and reviewed by me, ED physician NL ECG Interpretation Normal sinus rhyth m, No acute ischemic changes, No STEMI Conduction/Metz QT segment prolonged, LAFB Atrium and Vent Size Ventricle enlarged - L Re-Evaluation MDM )( Re-Evaluation/Progress #1 Text/Dict Note Patient appears more comfortable. States she sti ll has pain in the abdomen. Blood pressure initially imp roved after hydralazine and labetalol were given and now has spiked back up again to the 200s . Will repeat hydralazine. I discussed results and ultrasound showing possible hydrosal pinx versus pyosalpinx and patient does report she has had some abn ormal vaginal discharge recently. Will do pelvic exam at this time. Time of Re-Eval 0735 )( Re-Eval Status Improved Re-Evaluation/Progress #2 Text/Dict Note No bleeding or discharge on exam. Discus sed with OB. Recommended to start atbx for possible pyosalpinx vs.TOA. Time of Eval 0800 ED Course Medication(s) Ordered Medication(s) Ordered: Anti-Infective Agents Sig/Maria Teresa Start time Last Medication Dose Route Stop Time Status Admin Cefoxitin Sodium 1,000 MG X1ED STA 09/11 0758 D C 09/11 Sodium Chloride 10 ML IV 09/11 0800 0809 Cardiovascular Drugs Sig/Maria Teresa Start time Last Medication Dose Route Stop Time Status Admin Hydralazine HCl 10 MG Q2H PRN PRN 09/11 0815 DC IV 09/11 2007 Hydralazine HCl 10 MG X1ED STA 09/11 0731 DC IV 09/11 0732 0740 Labetalol HCl 10 MG X1ED STA 09/11 0436 DC 05/ 3 IV 09/11 0437 0440 Hydralazine HCl 20 MG X1ED STA 09/11 0359 DC IV 09/11 0400 0408 Central Nervous System Agents Sig/Maria Teresa Start time Last Medication Dose Route Stop Time Status Admin Hydrocodone Bitart/ 1 TAB Q4H PRN PRN 09/11 081 5 AC 09/11 Acetaminophen PO 09/11 2007 1813 Morphine Sulfate 4 MG Q4H PRN PRN 09/11 0815 AC IV 09/11 2007 Morphine Sulfate 4 MG X1ED STA 09/11 0751 DC IV 09/11 0752 0809 Morphine Sulfate 4 MG X1ED STA 09/11 0436 DC IV 09/11 0437 0440 Diagnostic Agents Sig/Maria Teresa Start time Last Medication Dose Route Stop Time Status Admin Iopamidol 0 .STK-MED ONE 09/11 0504 DC 09/11 .ROUTE 0512 Electrolytic, Caloric, And Sam Sig/Maria Teresa Start time Last Medication Dose Route Stop Time Status Admin Sodium Chloride 1,000 ML .Q10H 09/11 0815 AC IV 09/11 2007 1801 Sodium Chloride 20 ML .STK-MED ONE 09/11 0804 D C IV Sodium Chloride 1,000 ML X1ED STA 09/11 0351 DC 09/11 IV 09/11 0450 0403 Gastrointestinal Drugs Sig/Maria Teresa Start time Last Medication Dose Route Stop Time Status Admin Ondansetron HCl 4 MG Q6H PRN PRN 09/11 0815 AC IV 09/11 2007 Ondansetron HCl 4 MG X1ED PRN PRN 09/11 0400 DC 09/11 IV 0810 Additional Hx/Info Source Prior records reviewed (none) Consultation Consultation Referral/Consult Name Yue Otero MD Electric Meter Repairer Apprentice Called [employer]ING [employer]DER Requested Call Time 0758 Requested Call Date 09/12/19 Call Returned Call returned Call Returned Time 0758 Call Returned Date 09/12/19 Electric Meter Repairer Apprentice Will see patient, Agrees with eval, Agrees with plan, requests Cefoxitin and Flagyl Patient Discharge Departure Vital Signs/Condition Vital Signs First Documented: Result Date Time Pulse Ox 97 09/11 0346 B/P 256/143 09/11 0346 B/P Mean 180 09/11 0346 O2 Delivery Room air 09/11 0346 Temp 36.3 09/11 0346 Pulse 74 09/11 0346 Resp 18 09/11 0346 Last Documented: Result Date Time Pulse Ox 99 09/11 0811 B/P 193/89 09/11 0811 B/P Mean 123 09/11 0811 Temp 36.7 09/11 0811 Pulse 102 09/11 0811 Resp 18 09/11 0811 O2 Delivery Room air 09/11 0514 All vital signs available at the time of this en try have been reviewed. Clinical Impression Clinical Impression Primary Impression: Hypertensive urgency Secondary Impressions: Hydrosalpinx Disposition Decision Admit Admit Physician Name Ewelina Gonzalez MD Admit Physician Hospitalist Request Time 0801 Request Date 09/12/19 )( Admission Accepts Yes )( Accepted Time 08 )( Accepted Date 09/12/19 Call Information will see patient, agrees with eval, agrees with plan Discharge/Care Plan Counseled Regarding Diagnosi s, Lab results, Imaging studies, Need for admission Critical Care Time Spent (minutes): 35 Services Performed Patient management by Ahsan mendez spent at bedside, Reviewing test results, Reviewing imaging, Discussing red ent care, Documentation in record Quality Measures BP F/U for HTN Received immediate BP Tx at [address] [facility] #:[id number] END OF REPORT
[2022-09-11 16:02] LABS: Absolute Lymphocytes (CBC) 1.3 K/uL (0.7-4.9); Hematocrit 38.7 % (36.0-45.0); Lymphocytes % 23.8 % (15.3-44.8); MPV 8.8 fL (7.6-11.3); RBC Red Blood Cell Count 4.16 M/uL (3.86-4.86)
[2022-09-11 16:05] LABS: Protime INR 1.03
[2022-09-11 16:16] LABS: Barbiturates NEGATIVE (NEGATIVE); Benzodiazepines NEGATIVE (NEGATIVE); Cocaine NEGATIVE (NEGATIVE); METHAMPHETAM NEGATIVE (NEGATIVE); Methadone NEGATIVE (NEGATIVE); Opiates NEGATIVE (NEGATIVE); Phencyclidine NEGATIVE (NEGATIVE); THC Cannibis POSITIVE (NEGATIVE)
[2022-09-11 16:21] LABS: ALT/SGPT 15 U/L (13-56); AST/SGOT 10 U/L (15-37); Albumin 3.6 g/dL (3.4-5.0); Alkaline Phosphatase 45 U/L (45-117); BUN Blood Urea Nitrogen 17 mg/dL (7-18); Bicarbonate 29 mEq/L (21-32); Bilirubin Direct 0.1 mg/dL (0-0.2); Bilirubin Indirect, Calculated 0.3 mg/dL (0.2-0.8); Bilirubin Total 0.4 mg/dL (0.2-1.0); Glomerular Filtration Rate 71 ml/min (=/>90); Glucose Level 129 mg/dL (74-106); Potassium 3.4 mEq/L (3.5-5.1); Protein, Total 7.1 g/dL (6.4-8.2); Sodium Level 138 mEq/L (136-145)
--- NOTE | 2022-09-11 19:38 | EDPHYS ---
Physician Documentation [facility] Name: Ewelina Hines Age: 52 yrs Sex: Female : 1970 Arrival Date: 09/11/2022 Time: 15:18 Bed 18 Private MD: ED Physician Cayetano De La Vega HPI: 09/11 15:21 This 52 yrs old Female presents to ER via EMS with complaints of Suicidal Ideation. jmm 15:21 The patient presents to the emergency department with depression, suicide ideation. jmm Onset: The symptoms/episode began/occurred today. This is a 52 year old female with a history of cba, htn, bipolar, that presents to the ED with complaints of suicidal ideation. patient denies a gesture. plan would be to overdose. patient did attempt to overdose on clonidine in june. . Historical: - Allergies: 15:22 No Known Allergies; ld1 - Home Meds: 15:24 lisinopril 40 mg Oral tablet daily [Active]; hydralazine 25 mg Oral tablet 4 times per ld1 day [Active]; nifedipine 30 mg Oral tablet, extended release every 12 hours [Active]; escitalopram oxalate 20 mg oral tablet daily [Active]; - PMHx: 15:22 Cerebrovascular accident; Hypertensive disorder; Bipolar disorder; ld1 - PSHx: 15:22 Cholecystectomy; ld1 - Immunization history:: Adult Immunizations up to date. - Social history:: Smoking status: Patient denies any tobacco usage or history of. Patient/guardian denies using alcohol. ROS: 15:21 Constitutional: Negative for fever, chills, and weight loss, Cardiovascular: Negative jmm for chest pain, palpitations, and edema, Respiratory: Negative for shortness of breath, cough, wheezing, and pleuritic chest pain. 15:21 Psych: Positive for suicidal ideation. 15:21 All other systems are negative. Exam: 15:21 Constitutional: This is a well developed, well nourished patient who is awake, alert, jmm and in no acute distress. 15:21 Eyes: EOMI, no conjunctival erythema appreciated ENT: Moist Mucus Membranes Neck: Trachea midline, Supple Chest/axilla: Normal chest wall appearance and motion. Cardiovascular: Regular rate and rhythm. No edema appreciated Respiratory: Normal respirations, no respiratory distress appreciated Abdomen/GI: Non distended Back: Normal ROM Skin: General appearance color normal 15:21 Head/face: left eyelid swelling. patient states this has been ongoing since her cva. 15:21 Neuro: Orientation: is normal, Mentation: is normal, Memory: is normal. 15:21 Psych: Behavior/mood is anxious, suicidal. Vital Signs: 15:20 BP 158 / 90; Pulse 70; Resp 18; Temp 98.7(O); Pulse Ox 98% on R/A; Weight 68.04 kg; ld1 Height 4 ft. 11 in. ; Pain 0/10; 19:00 BP 155 / 90; Pulse 65; Resp 16 S; Pulse Ox 98% on R/A; ha1 15:20 Body Mass Index 30.30 (68.04 kg, 149.86 cm) ld1 15:20 Pain Scale: Adult ld1 MDM: 15:21 Patient medically screened. norma 22:07 Differential diagnosis: Suicidal ideation. Data reviewed: vital signs, nurses notes, [facility] lab test result(s). Consideration of Admission/Observation Escalation of care including admission/observation considered. Management of patient was discussed with the following: Recreation Technician: Joel hammer. ED course: Patient was evaluated by Tristan hammer whom recommended outpatient follow-up.. 09/11 15:21 Order name: Acetaminophen; Complete Time: 16:28 [facility] 09/11 15:21 Order name: Basic Metabolic Panel; Complete Time: 16:28 [facility] 09/11 15:21 Order name: CBC with Diff; Complete Time: 16:15 [facility] 09/11 15:21 Order name: ETOH Level; Complete Time: 16:28 [facility] 09/11 15:21 Order name: Hepatic Function; Complete Time: 16:28 [facility] 09/11 15:21 Order name: PT-INR; Complete Time: 16:11 [facility] 09/11 15:21 Order name: Ptt, Activated; Complete Time: 16:11 [facility] 09/11 15:21 Order name: Salicylate; Complete Time: 16:38 [facility] 09/11 15:21 Order name: Urine Drug Screen; Complete Time: 16:17 [facility] 09/11 15:21 Order name: EKG; Complete Time: 15:21 [facility] 09/11 15:49 Order name: Diet Finger Food; Complete Time: 15:49 [facility] 09/11 15:21 Order name: IV Saline Lock; Complete Time: 16:08 [facility] 09/11 15:21 Order name: Labs collected and sent; Complete Time: 16:08 [facility] 09/11 15:21 Order name: Suicide Screening ([place]); Complete Time: 19:10 [facility] Administered Medications: No medications were administered Disposition Summary: 09/11/22 19:38 Discharge Ordered Location: Home [facility] Condition: Stable jm Diagnosis - Suicidal ideations [facility] Followup: [facility] - With: Private Physician - When: 2 - 3 days - Reason: Recheck today's complaints, Continuance of care, Re-evaluation by your physician Discharge Instructions: - Discharge Summary Sheet [facility] - Suicidal Feelings: How to Help Yourself [facility] Forms: - Family Work Release [facility] - Medication Reconciliation Form [facility] - Thank You Letter [facility] - Antibiotic Education [facility] - Prescription Opioid Use [facility] Signatures: Dispatcher [employer] Cayetano Cagle MD MD cha Mickail, Joel, PA PA Yolanda Cat, RN RN ld1
--- NOTE | 2022-09-11 19:38 | ER ---
Nurse's Notes [facility] Name: Ewelina Hines Age: 52 yrs Sex: Female : 1970 Arrival Date: 09/11/2022 Time: 15:18 Bed 18 Private MD: Diagnosis: Suicidal ideations Presentation: 09/11 15:20 Chief complaint: EMS states: toned out to patient home for SI. Pt reports "I don't plan ld1 to hurt myself today, I figured I would try to get help first." Pt attempted overdose this past June. Coronavirus screen: At this time, the client does not indicate any symptoms associated with coronavirus-19. Ebola Screen: No symptoms or risks identified at this time. Initial Sepsis Screen: Does the patient meet any 2 criteria? No. Patient's initial sepsis screen is negative. Does the patient have a suspected source of infection? No. Patient's initial sepsis screen is negative. Risk Assessment: Do you want to hurt yourself or someone else? Patient reports desire/thoughts of hurting themselves or someone else. Provider notified. Onset of symptoms was September 11, 2022. 15:20 Method Of Arrival: EMS: [facility] ld1 15:20 Acuity: KASSI 2 ld1 Triage Assessment: 15:22 General: Appears in no apparent distress. comfortable, Behavior is cooperative, ld1 anxious. Pain: Denies pain. EENT: No signs and/or symptoms were reported regarding the EENT system. Neuro: Level of Consciousness is awake, alert, obeys commands, Oriented to person, place, time, situation. Cardiovascular: Capillary refill < 3 seconds Patient's skin is warm and dry. Rhythm is regular. Respiratory: Airway is patent Respiratory effort is even, unlabored. GI: Abdomen is round non-distended. : No signs and/or symptoms were reported regarding the genitourinary system. Derm: No signs and/or symptoms reported regarding the dermatologic system. Musculoskeletal: No signs and/or symptoms reported regarding the musculoskeletal system. Historical: - Allergies: 15:22 No Known Allergies; ld1 - Home Meds: 15:24 lisinopril 40 mg Oral tablet daily [Active]; hydralazine 25 mg Oral tablet 4 times per ld1 day [Active]; nifedipine 30 mg Oral tablet, extended release every 12 hours [Active]; escitalopram oxalate 20 mg oral tablet daily [Active]; - PMHx: 15:22 Cerebrovascular accident; Hypertensive disorder; Bipolar disorder; ld1 - PSHx: 15:22 Cholecystectomy; ld1 - Immunization history:: Adult Immunizations up to date. - Social history:: Smoking status: Patient denies any tobacco usage or history of. Patient/guardian denies using alcohol. Screenin:06 [facility] ED Fall Risk Assessment (Adult) History of falling in the last 3 months, ko1 including since admission No falls in past 3 months (0 pts) Confusion or Disorientation No (0 pts) Intoxicated or Sedated No (0 pts) Impaired Gait No (0 pts) Mobility Assist Device Used No (0 pt) Altered Elimination No (0 pt) Score/Fall Risk Level 0 - 2 = Low Risk Oriented to surroundings, Maintained a safe environment, Educated pt \\T\\ family on fall prevention, incl call for assistance when getting out of bed, Assessed \\T\\ reinforced patient's understanding of fall precautions, Provided non-skid footwear, Hourly rounding (assess needs \\T\\ fall precautionary measures) done, Used ambulatory aids as needed (educated on \\T\\ assisted with), Used gait belt as appropriate. Abuse screen: Denies threats or abuse. Denies injuries from another. Nutritional screening: No deficits noted. Tuberculosis screening: No symptoms or risk factors identified. Assessment: 15:27 Reassessment: Pt attempted to call [facility] contact prior to calling EMS. [facility] ld1 arrived 10 min after arrival. [facility] contact at bedside discussing care with patient. 16:45 Reassessment: Patient appears in no apparent distress at this time. No changes from ko1 previously documented assessment. Patient and/or family updated on plan of care and expected duration. Pain level reassessed. Patient is alert, oriented x 3, equal unlabored respirations, skin warm/dry/pink. Patient denies pain at this time. 17:45 Reassessment: Patient is alert, oriented x 3, equal unlabored respirations, skin ko1 warm/dry/pink. Patient states feeling better. 18:24 Reassessment: [facility] at bedside with patient. ko1 19:00 General: Appears comfortable, Behavior is calm, cooperative. Pain: Denies pain. Neuro: ha1 Level of Consciousness is awake, alert, obeys commands, Oriented to person, place, time, situation. Cardiovascular: Capillary refill < 3 seconds Patient's skin is warm and dry. Respiratory: Airway is patent Respiratory effort is even, unlabored. GI: No signs and/or symptoms were reported involving the gastrointestinal system. : No signs and/or symptoms were reported regarding the genitourinary system. Derm: Skin is pink, warm \\T\\ dry. Musculoskeletal: Circulation, motion, and sensation intact. 19:00 Reassessment: [facility] executive director in the room. ha1 20:00 Reassessment: Patient and/or family updated on plan of care and expected duration. Pain ha1 level reassessed. Patient is alert, oriented x 3, equal unlabored respirations, skin warm/dry/pink. Psych: 15:20 [place] Suicide Severity Screening: In the past month, have you wished you were ko1 or wished you could go to sleep and not wake up? Patient responds "yes." Based off the client's responses additional C-SSRS screening is required. "In the past month, have you actually had any thoughts of killing yourself?" Patient responds "yes." Based off the client's response additional [place] suicide severity screening questions to be further documented on paper forms. "In your lifetime, have you ever done anything, started to do anything, or prepared to do anything to end your life?" Patient responds "yes." Patient reports suicidal intent occurred greater than 3 months prior. Subjective: Patient's mood is sad, Delusions are denied, Hallucinations are denied Having thoughts of suicide. Plan for suicide is "take pills". Objective: Patient is cooperative, Speech is normal, Affect is appropriate. Interventions: Removed personal items and placed in bag. Patient placed in hospital gown. Searched person for dangerous items. Urine collected and sent for urine drug test. Belonging list filled out. Safety Checks: Personal items have been removed. Door is open. No visitors are present at this time. Pt denies substance abuse. 19:00 Commitment: Patient will be a voluntary commitment. ha1 Vital Signs: 15:20 BP 158 / 90; Pulse 70; Resp 18; Temp 98.7(O); Pulse Ox 98% on R/A; Weight 68.04 kg; ld1 Height 4 ft. 11 in. ; Pain 0/10; 19:00 BP 155 / 90; Pulse 65; Resp 16 S; Pulse Ox 98% on R/A; ha1 15:20 Body Mass Index 30.30 (68.04 kg, 149.86 cm) ld1 15:20 Pain Scale: Adult ld1 ED Course: 15:20 Patient arrived in ED. ld1 15:20 David Zavala PA is PHCP. [facility] 15:20 Cayetano De La Vega MD is Attending Physician. [facility] 15:22 Triage completed. ld1 15:22 Arm band placed on right wrist. ld1 15:39 Brenda Goodwin, RN is Primary Nurse. ko1 15:48 Patient is placed in psych hold. ko1 16:06 Patient has correct armband on for positive identification. Bed in low position. Call ko1 light in reach. Side rails up X2. Lights dimmed. Warm blanket given. 16:07 Inserted saline lock: 20 gauge in right wrist, using aseptic technique. Blood collected. 16:08 Urine Drug Screen Sent. 16:08 Salicylate Sent. 16:08 ETOH Level Sent. zm 16:08 Hepatic Function Sent. zm 16:08 CBC with Diff Sent. zm 16:08 Basic Metabolic Panel Sent. zm 16:08 Acetaminophen Sent. zm 16:40 notified [facility] to have pt evaluated by screener. bd 20:21 No provider procedures requiring assistance completed. ha1 20:21 IV discontinued, intact, bleeding controlled, No redness/swelling at site. Pressure ha1 dressing applied. Administered Medications: No medications were administered Medication: 16:06 VIS not applicable for this client. ko1 Outcome: 19:38 Discharge ordered by . [facility] 20:21 Patient left the ED. ha1 20:21 Discharged to home ambulatory, with family. ha1 20:21 Condition: stable 20:21 Discharge instructions given to patient, family, Instructed on discharge instructions, follow up and referral plans. safety practices, Demonstrated understanding of instructions, follow-up care. Signatures: Alexa Burnett Joel, PA PA [facility] Yolanda Gallardo, RN RN ld1 Salud Ayon Heidy, RN RN ha1 Brenda Goodwin, HARDEEP RN ko
[2022-09-11 20:45] VITALS: BP 158/90; TEMP 98.7; O2SAT 98
== END 2022-09-11 20:21 | disposition home or self-care (01) ==
LOC: ER 15:18
DX: R45.851 Suicidal ideations (principal); F31.9 Bipolar disorder, unspecified
CPT/HCPCS: 36415; 80048; 80076; 80307; 85025; 85610; 85730; G0480

== ENCOUNTER 2023-02-13 21:08 | Emergency (ER) | payer OTHER ==
--- OUTSIDE RECORDS SUMMARY | 2023-02-13 21:15 | XMS REPORT | Continuity of Care Document ---
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 Medical morning Branch and 1 tablet in the evening. NIFEdipine 2023-0 Yes 30mg Take 1 Unive rs ER 30 mg 6-14 tablet by ity of tablet 00:00: mouth in [place] 00 the Medical morning Branch and 1 tablet in the evening. NIFEdipine 2023-0 Yes 30mg Take 1 Unive rs ER 30 mg 6-14 tablet by ity of tablet 00:00: mouth in [place] 00 the Medical morning Branch and 1 tablet in the evening. NIFEdipine 2023-0 Yes 30mg Take 1 Unive rs ER 30 mg 6-14 tablet by ity of tablet 00:00: mouth in [place] 00 the Medical morning Branch and 1 tablet in the evening. NIFEdipine 2023-0 Yes 30mg Take 1 Unive rs ER 30 mg 6-14 tablet by ity of tablet 00:00: mouth in [place] [address] the Medical morning Branch and 1 tablet in the evening. NIFEdipine 2023-0 Yes 30mg Take 1 Unive rs ER 30 mg 6-14 tablet by ity of tablet 00:00: mouth in [place] [address] the Medical morning Branch and 1 tablet in the evening. NIFEdipine 2023-0 Yes 30mg Take 1 Unive rs ER 30 mg 6-14 tablet by ity of tablet 00:00: mouth in [place] [address] the Medical morning Branch and 1 tablet in the evening. NIFEdipine 2023-0 Yes 30mg Take 1 Unive rs ER 30 mg 6-14 tablet by ity of tablet 00:00: mouth in [place] [address] the Medical morning Branch and 1 tablet in the evening. NIFEdipine 2023-0 Yes 30mg Take 1 Unive rs ER 30 mg 6-14 tablet by ity of tablet 00:00: mouth in [place] [address] the Medical morning Branch and 1 tablet in the evening. NIFEdipine 2023-0 Yes 30mg Take 1 Unive rs ER 30 mg 6-14 tablet by ity of tablet 00:00: mouth in [place] [address] the Medical morning Branch and 1 tablet in the evening. NIFEdipine 2023-0 Yes 30mg Take 1 Unive rs ER 30 mg 6-14 tablet by ity of tablet 00:00: mouth in [place] [address] the Medical morning Branch and 1 tablet in the evening. NIFEdipine 2023-0 Yes 30mg Take 1 Unive rs ER 30 mg 6-14 tablet by ity of tablet 00:00: mouth in [place] [address] the Medical morning Branch and 1 tablet in the evening. cloNIDine 2023-0 Yes Univers 0.1 mg 5-22 ity of tablet 00:00: [place] [facility] cloNIDine 2023-0 Yes Univers 0.1 mg 5-22 ity of tablet 00:00: [place] [facility] cloNIDine 2023-0 Yes Univers 0.1 mg 5-22 ity of tablet 00:00: [place] [facility] cloNIDine 2023-0 Yes Univers 0.1 mg 5-22 ity of tablet 00:00: [place] [facility] cloNIDine 2023-0 Yes Univers 0.1 mg 5-22 ity of tablet 00:00: [place] [facility] cloNIDine 2023-0 Yes Univers 0.1 mg 5-22 ity of tablet 00:00: [place] [facility] cloNIDine 2023-0 Yes Univers 0.1 mg 5-22 ity of tablet 00:00: [place] [facility] Branch cloNIDine 2023-0 Yes Univers 0.1 mg 5-22 ity of tablet 00:00: [place] [facility] Branch cloNIDine 2023-0 Yes Univers 0.1 mg 5-22 ity of tablet 00:00: [place] [facility] Branch cloNIDine 2023-0 Yes Univers 0.1 mg 5-22 ity of tablet 00:00: [place] [facility] cloNIDine 2023-0 Yes Univers 0.1 mg 5-22 ity of tablet 00:00: [place] [facility] Branch cloNIDine 2023-0 Yes Univers 0.1 mg 5-22 ity of tablet 00:00: [place] [facility] Branch cloNIDine 2023-0 Yes Univers 0.1 mg 5-22 ity of tablet 00:00: [place] [facility] Branch cloNIDine 2023-0 Yes Univers 0.1 mg 5-22 ity of tablet 00:00: [place] [facility] cloNIDine 2023-0 Yes Univers 0.1 mg 5-22 ity of tablet 00:00: [place] [address] Medical Branch cloNIDine 2023-0 Yes Univers 0.1 mg 5-22 ity of tablet 00:00: [place] [address] Medical Branch cloNIDine 2023-0 Yes Univers 0.1 mg 5-22 ity of tablet 00:00: [place] [address] Medical Branch cloNIDine 2023-0 Yes Univers 0.1 mg 5-22 ity of tablet 00:00: [place] [address] Medical Branch cloNIDine 2023-0 Yes Univers 0.1 mg 5-22 ity of tablet 00:00: [address] cloNIDine 2023-0 Yes Univers 0.1 mg 5-22 ity of tablet 00:00: [place] [facility] cloNIDine 2022-0 Yes Univers 0.1 mg 5-22 ity of tablet 00:00: [place] [facility] cloNIDine 2022-0 Yes Univers 0.1 mg 5-22 ity of tablet 00:00: [place] [facility] cloNIDine 2022-0 Yes Univers 0.1 mg 5-22 ity of tablet 00:00: [place] [facility] cloNIDine 2022-0 Yes Univers 0.1 mg 5-22 ity of tablet 00:00: [place] [facility] cloNIDine 2022-0 Yes Univers 0.1 mg 5-22 ity of tablet 00:00: [place] [facility] cloNIDine 2022-0 Yes Univers 0.1 mg 5-22 ity of tablet 00:00: [place] [facility] cloNIDine 2022-0 Yes Univers 0.1 mg 5-22 ity of tablet 00:00: [address] lamoTRIgine 2022-0 Yes 150mg QD Take 150 H arris (LAMICTAL) 4-02 mg by Health 150 mg 21:44: mouth tablet 00 daily. QUEtiapine 0 Yes 25mg Take 25 mg H arris (SEROQUEL) 4-02 by mouth 3 Hea lth 25 mg 21:44: times tablet 00 daily. QUEtiapine 0 Yes 600mg Take 600 [place] (SEROQUEL) 4-02 mg by Health 300 mg 21:44: mouth at tablet 00 bedtime. busPIRone 2022-0 Yes 15mg Q.5D Take 15 mg [place] (BUSPAR) 15 4-02 by mouth 2 He alth mg tablet 21:44: times 00 daily. sertraline 0 Yes 200mg Take 200 [place] (ZOLOFT) 4-02 mg by Health 100 mg 21:44: mouth at tablet 00 bedtime. cloNIDine 2021-0 2021- No .2mg 0.2 mg, Univ ers (CATAPRES) 11-14- Oral, ity of tablet 0.2 23:15: 23:56 ONCE, 1 Víctor as mg 00 :00 dose, On [facility] 11/14/21 at 1815, STAT hydroCHLORO 2021-0 Yes [id number] 12.5mg Take 0.5 Univers thiazide 25 7-26 tablets by it y of mg tablet 00:00: mouth [place] 00 every Medical morning. Branch lisinopriL 2021-0 Yes [id number] 40mg Take 1 U nivers 40 mg 7-26 tablet by ity of tablet 00:00: mouth at [place] 00 bedtime. Medical Branch hydroCHLORO 2021-0 Yes [id number] 12.5mg Take 0.5 Univers thiazide 25 7-26 tablets by it y of mg tablet 00:00: mouth [place] 00 every Medical morning. Branch lisinopriL 2021-0 Yes [id number] 40mg Take 1 U nivers 40 mg 7-26 tablet by ity of tablet 00:00: mouth at [place] 00 bedtime. Medical Branch hydroCHLORO 2021-0 Yes [id number] 12.5mg Take 0.5 Univers thiazide 25 7-26 tablets by it y of mg tablet 00:00: mouth [place] 00 every Medical morning. Branch lisinopriL 2021-0 Yes [id number] 40mg Take 1 U nivers 40 mg 7-26 tablet by ity of tablet 00:00: mouth at [place] 00 bedtime. Medical Branch hydroCHLORO 2021-0 Yes [id number] 12.5mg Take 0.5 Univers thiazide 25 7-26 tablets by it y of mg tablet 00:00: mouth [place] 00 every Medical morning. Branch lisinopriL 2021-0 Yes [id number] 40mg Take 1 U nivers 40 mg 7-26 tablet by ity of tablet 00:00: mouth at [place] 00 bedtime. Medical Branch hydroCHLORO 2021-0 Yes [id number] 12.5mg Take 0.5 Univers thiazide 25 7-26 tablets by it y of mg tablet 00:00: mouth [place] 00 every Medical morning. Branch lisinopriL 2021-0 Yes [id number] 40mg Take 1 U nivers 40 mg 7-26 tablet by ity of tablet 00:00: mouth at [place] 00 bedtime. Medical Branch hydroCHLORO 2021-0 Yes [id number] 12.5mg Take 0.5 Univers thiazide 25 7-26 tablets by it y of mg tablet 00:00: mouth [place] 00 every Medical morning. Branch lisinopriL 2021-0 Yes [id number] 40mg Take 1 U nivers 40 mg 7-26 tablet by ity of tablet 00:00: mouth at [place] 00 bedtime. Medical Branch hydroCHLORO 2-0 Yes [id number] 12.5mg Take 0.5 Univers thiazide 25 7-26 tablets by it y of mg tablet 00:00: mouth [place] 00 every Medical morning. Branch lisinopriL 2021-0 Yes [id number] 40mg Take 1 U nivers 40 mg 7-26 tablet by ity of tablet 00:00: mouth at [place] 00 bedtime. Medical Branch hydroCHLORO 2021-0 Yes [id number] 12.5mg Take 0.5 Univers thiazide 25 7-26 tablets by it y of mg tablet 00:00: mouth [place] 00 every Medical morning. Branch lisinopriL 2021-0 Yes [id number] 40mg Take 1 U nivers 40 mg 7-26 tablet by ity of tablet 00:00: mouth at [place] 00 bedtime. Medical Branch hydroCHLORO 2021-0 Yes [id number] 12.5mg Take 0.5 Univers thiazide 25 7-26 tablets by it y of mg tablet 00:00: mouth [place] 00 every Medical morning. Branch lisinopriL 2021-0 Yes [id number] 40mg Take 1 U nivers 40 mg 7-26 tablet by ity of tablet 00:00: mouth at [place] 00 bedtime. Medical Branch hydroCHLORO 2021-0 Yes [id number] 12.5mg Take 0.5 Univers thiazide 25 7-26 tablets by it y of mg tablet 00:00: mouth [place] 00 every Medical morning. Branch lisinopriL 2021-0 Yes [id number] 40mg Take 1 U nivers 40 mg 7-26 tablet by ity of tablet 00:00: mouth at [place] 00 bedtime. Medical Branch hydroCHLORO 2021-0 Yes [id number] 12.5mg Take 0.5 Univers thiazide 25 7-26 tablets by it y of mg tablet 00:00: mouth [place] 00 every Medical morning. Branch lisinopriL 2021-0 Yes [id number] 40mg Take 1 U nivers 40 mg 7-26 tablet by ity of tablet 00:00: mouth at [place] 00 bedtime. Medical Branch hydroCHLORO 2021-0 Yes [id number] 12.5mg Take 0.5 Univers thiazide 25 7-26 tablets by it y of mg tablet 00:00: mouth [place] 00 every Medical morning. Branch lisinopriL 2021-0 Yes [id number] 40mg Take 1 U nivers 40 mg 7-26 tablet by ity of tablet 00:00: mouth at [place] 00 bedtime. Medical Branch hydroCHLORO 2-0 Yes [id number] 12.5mg Take 0.5 Univers thiazide 25 7-26 tablets by it y of mg tablet 00:00: mouth [place] 00 every Medical morning. Branch lisinopriL 2021-0 Yes [id number] 40mg Take 1 U nivers 40 mg 7-26 tablet by ity of tablet 00:00: mouth at [place] 00 bedtime. Medical Branch hydroCHLORO 2021-0 Yes [id number] 12.5mg Take 0.5 Univers thiazide 25 7-26 tablets by it y of mg tablet 00:00: mouth [place] 00 every Medical morning. Branch lisinopriL 2021-0 Yes [id number] 40mg Take 1 U nivers 40 mg 7-26 tablet by ity of tablet 00:00: mouth at [place] 00 bedtime. Medical Branch hydroCHLORO 2021-0 Yes [id number] 12.5mg Take 0.5 Univers thiazide 25 7-26 tablets by it y of mg tablet 00:00: mouth [place] 00 every Medical morning. Branch lisinopriL 2021-0 Yes [id number] 40mg Take 1 U nivers 40 mg 7-26 tablet by ity of tablet 00:00: mouth at [place] 00 bedtime. Medical Branch hydroCHLORO 2021-0 Yes [id number] 12.5mg Take 0.5 Univers thiazide 25 7-26 tablets by it y of mg tablet 00:00: mouth [place] 00 every Medical morning. Branch lisinopriL 2021-0 Yes [id number] 40mg Take 1 U nivers 40 mg 7-26 tablet by ity of tablet 00:00: mouth at [place] 00 bedtime. Medical Branch hydroCHLORO 2-0 Yes [id number] 12.5mg Take 0.5 Univers thiazide 25 7-26 tablets by it y of mg tablet 00:00: mouth [place] 00 every Medical morning. Branch lisinopriL 2-0 Yes [id number] 40mg Take 1 U nivers 40 mg 7-26 tablet by ity of tablet 00:00: mouth at [place] 00 bedtime. Medical Branch hydroCHLORO 2-0 Yes [id number] 12.5mg Take 0.5 Univers thiazide 25 7-26 tablets by it y of mg tablet 00:00: mouth [place] 00 every Medical morning. Branch lisinopriL 2021-0 Yes [id number] 40mg Take 1 U nivers 40 mg 7-26 tablet by ity of tablet 00:00: mouth at [place] 00 bedtime. Medical Branch hydroCHLORO 2021-0 Yes [id number] 12.5mg Take 0.5 Univers thiazide 25 7-26 tablets by it y of mg tablet 00:00: mouth [place] 00 every Medical morning. Branch lisinopriL 2021-0 Yes [id number] 40mg Take 1 U nivers 40 mg 7-26 tablet by ity of tablet 00:00: mouth at [place] 00 bedtime. Medical Branch hydroCHLORO 2021-0 Yes [id number] 12.5mg Take 0.5 Univers thiazide 25 7-26 tablets by it y of mg tablet 00:00: mouth [place] 00 every Medical morning. Branch lisinopriL 2021-0 Yes [id number] 40mg Take 1 U nivers 40 mg 7-26 tablet by ity of tablet 00:00: mouth at [place] [address] bedtime. Medical Branch hydroCHLORO 2021-0 Yes [id number] 12.5mg Take 0.5 Univers thiazide 25 7-26 tablets by it y of mg tablet 00:00: mouth [place] 00 every Medical morning. Branch lisinopriL 2021-0 Yes [id number] 40mg Take 1 U nivers 40 mg 7-26 tablet by ity of tablet 00:00: mouth at [place] [address] bedtime. Medical Branch hydroCHLORO 2021-0 Yes [id number] 12.5mg Take 0.5 Univers thiazide 25 7-26 tablets by it y of mg tablet 00:00: mouth [place] 00 every Medical morning. Branch lisinopriL 2021-0 Yes [id number] 40mg Take 1 U nivers 40 mg 7-26 tablet by ity of tablet 00:00: mouth at [place] [address] bedtime. Medical Branch hydroCHLORO 2021-0 Yes [id number] 12.5mg Take 0.5 Univers thiazide 25 7-26 tablets by it y of mg tablet 00:00: mouth [place] 00 every Medical morning. Branch lisinopriL 2021-0 Yes [id number] 40mg Take 1 U nivers 40 mg 7-26 tablet by ity of tablet 00:00: mouth at [place] [address] bedtime. Medical Branch hydroCHLORO 2021-0 Yes [id number] 12.5mg Take 0.5 Univers thiazide 25 7-26 tablets by it y of mg tablet 00:00: mouth [place] 00 every Medical morning. Branch lisinopriL 2021-0 Yes [id number] 40mg Take 1 U nivers 40 mg 7-26 tablet by ity of tablet 00:00: mouth at [place] 00 bedtime. Medical Branch hydroCHLORO 2021-0 Yes [id number] 12.5mg Take 0.5 Univers thiazide 25 7-26 tablets by it y of mg tablet 00:00: mouth [place] 00 every Medical morning. Branch hydroCHLORO 2021-0 Yes [id number] 12.5mg Take 0.5 Univers thiazide 25 7-26 tablets by it y of mg tablet 00:00: mouth [place] 00 every Medical morning. Branch lisinopriL 2021-0 Yes [id number] 40mg Take 1 U nivers 40 mg 7-26 tablet by ity of tablet 00:00: mouth at [place] 00 bedtime. Medical Branch lisinopriL 2021-0 Yes [id number] 40mg Take 1 U nivers 40 mg 7-26 tablet by ity of tablet 00:00: mouth at [place] 00 bedtime. Medical Branch hydroCHLORO 2021-0 Yes [id number] 12.5mg Take 0.5 Univers thiazide 25 7-26 tablets by it y of mg tablet 00:00: mouth [place] 00 every Medical morning. Branch lisinopriL 2021-0 Yes [id number] 40mg Take 1 U nivers 40 mg 7-26 tablet by ity of tablet 00:00: mouth at [place] 00 bedtime. Medical Branch hydroCHLORO 2021-0 Yes [id number] 12.5mg Take 0.5 Univers thiazide 25 7-26 tablets by it y of mg tablet 00:00: mouth [place] 00 every Medical morning. Branch lisinopriL 2-0 Yes [id number] 40mg Take 1 U nivers 40 mg 7-26 tablet by ity of tablet 00:00: mouth at [place] 00 bedtime. Medical Branch hydroCHLORO 2022-0 Yes [id number] 12.5mg Take 0.5 Univers thiazide 25 7-26 tablets by it y of mg tablet 00:00: mouth [place] 00 every Medical morning. Branch lisinopriL 2022-0 Yes [id number] 40mg Take 1 U nivers 40 mg 7-26 tablet by ity of tablet 00:00: mouth at [place] 00 bedtime. Medical Branch hydroCHLORO 2022-0 Yes [id number] 12.5mg Take 0.5 Univers thiazide 25 7-26 tablets by it y of mg tablet 00:00: mouth [place] 00 every Medical morning. Branch lisinopriL Yes [id number] 40mg Take 1 U nivers 40 mg 7-26 tablet by ity of tablet 00:00: mouth at [place] [address] bedtime. Medical Branch hydroCHLORO Yes [id number] 12.5mg Take 0.5 Univers thiazide 25 7-26 tablets by it y of mg tablet 00:00: mouth [place] 00 every Medical morning. Branch lisinopriL Yes [id number] 40mg Take 1 U nivers 40 mg 7-26 tablet by ity of tablet 00:00: mouth at [place] [address] bedtime. Medical Branch hydroCHLORO Yes [id number] 12.5mg Take 0.5 Univers thiazide 25 7-26 tablets by it y of mg tablet 00:00: mouth [place] [address] every Medical morning. Branch lisinopriL Yes [id number] 40mg Take 1 U nivers 40 mg 7-26 tablet by ity of tablet 00:00: mouth at [place] [address] bedtime. Medical Branch lisinopriL 2021- No [id number] 40mg Take 1 Univers 40 mg 7-26 07-26 tablet by ity of tablet 00:00: 00:00 mouth at [place] 00 :00 bedtime Medical for 90 Branch days. hydroCHLORO 2021- No [id number] 12.5mg Take 0.5 Univers thiazide 25 7-26 07-26 tablets by i ty of mg tablet 00:00: 00:00 mouth [place] 00 :00 every Medical morning Branch for 90 days. hydroCHLORO 2021- No [id number] 12.5mg Take 0.5 Univers thiazide 25 7-26 07-26 tablets by i ty of mg tablet 00:00: 00:00 mouth [place] 00 :00 every Medical morning. Branch lisinopriL 2021- No [id number] 40mg Take 1 Univers 40 mg 7-26 07-26 tablet by ity of tablet 00:00: 00:00 mouth at [place] 00 :00 bedtime. Medical Branch lamoTRIgine 0 Yes 150mg QD Take 150 H arris (LAMICTAL) 2-09 mg by [facility] 150 mg 13:30: mouth tablet 01 daily. QUEtiapine 2017-0 Yes 25mg Take 25 mg H arris (SEROQUEL) 2-09 by mouth 3 [facility]a [facility]th 25 mg 13:30: times tablet 01 daily. QUEtiapine 2016-0 Yes 600mg Take 600 [place] (SEROQUEL) 2-09 mg by [facility] 300 mg 13:30: mouth at tablet 01 bedtime. busPIRone 2017-0 Yes 15mg Q.5D Take 15 mg [place] (BUSPAR) 15 2-09 by mouth 2 He alth mg tablet 13:30: times 01 daily. sertraline 2016- Yes 200mg Take 200 [place] (ZOLOFT) 2-09 mg by [facility] 100 mg 13:30: mouth at tablet 01 bedtime. lisinopril Yes Essential 10mg QD Take 1 [place] (PRINIVIL) 2-09 hypertensio tablet by [facility] 10 mg 00:00: n mouth tablet 00 daily. lisinopril Yes Essential 10mg QD Take 1 [place] (PRINIVIL) 2-09 hypertensio tablet by [facility] 10 mg 00:00: n mouth tablet 00 daily. cloNIDine 2013- Yes Uncontrolle .2mg Q.5D Take 1 [place] (CATAPRES) 3-31 d tablet by [facility] 0.2 mg 00:00: hypertensio mouth 2 tablet 00 n times daily. cloNIDine 2013-0 Yes Uncontrolle .2mg Q.5D Take 1 [place] (CATAPRES) 3-31 d tablet by [facility] 0.2 mg 00:00: hypertensio mouth 2 tablet 00 n times daily. hydrochloro 2012-0 Yes Uncontrolle 25mg QD Take 1 [place] thiazide 7-17 d tablet by [facility] (HYDRODIURI 00:00: hypertensio mouth L) 25 mg 00 n daily. tablet atenolol 2012-0 Yes Uncontrolle 50mg QD Take 1 [place] (TENORMIN) 7-17 d tablet by [facility] 50 mg 00:00: hypertensio mouth tablet 00 n daily. hydrochloro 2012-0 Yes Uncontrolle 25mg QD Take 1 [place] thiazide 7-17 d tablet by [facility] (HYDRODIURI 00:00: hypertensio mouth L) 25 mg 00 n daily. tablet atenolol 2013-0 Yes Uncontrolle 50mg QD Take 1 [place] (TENORMIN) 7-17 d tablet by Heal th 50 mg 00:00: hypertensio mouth tablet 00 n daily. butenafine butenafine No butenafine [place] 1 % topical 1 % topical 1 % d a cream APPLY cream APPLY topical [facility] TO THE TO THE cream al AFFECTED AFFECTED APPLY TO [facility] AND AND THE Outreac SURROUNDING SURROUNDING AFFECTED h AREAS OF AREAS OF AND Program SKIN BY SKIN BY SURROUNDIN TOPICAL TOPICAL G AREAS OF ROUTE ONCE ROUTE ONCE SKIN BY DAILY DAILY TOPICAL ROUTE ONCE DAILY labetalol labetalol No 1 Q8H labetalol [place] 200 mg 200 mg 200 mg da tablet Take tablet Take tablet [facility] 1 tablet 1 tablet Take 1 al every 8 every 8 tablet Health hours by hours by every 8 Outr eac oral route oral route hours by h as as oral route Program directed. directed. as directed. lisinopril lisinopril No 1 Q12H lisinopril [place] 20 mg 20 mg 20 mg da tablet Take tablet Take tablet [facility] 1 tablet 1 tablet Take 1 al every 12 every 12 tablet Healt h hours by hours by every 12 Out reac oral route. oral route. hours by h oral Program route. nifedipine nifedipine No nifedipine [place] 80 mg daily 80 mg daily 80 mg da daily [facility] Vital Signs Vital Name Observation Time Observation Value Comments Source Systolic blood 2023-01-01 14:53:00 123 mm[Hg[facility] [place] [facility] 2023-01-01 14:53:00 75 mm[Hg] Unive rsity [facility] Heart rate 2023-01-01 14:51:00 61 /min [facility] Body height 2023-01-01 14:51:00 149.9 cm [facility] Body weight 2023-01-01 14:51:00 51.393 kg [facility] BMI 2023-01-01 14:51:00 22.88 kg/m2 [facility] Systolic blood 2022-10-26 13:13:00 151 mm[Hg] Univer sity [facility] Diastolic blood 2022-10-26 13:13:00 86 mm[Hg] Unive rsity of pressure [place] [facility] Heart rate 2022-10-26 13:11:00 54 /min [facility] [place] [facility] Body height 2022-10-26 13:11:00 149.9 cm [facility] [place] [facility] Body weight 2022-10-26 13:11:00 67.087 kg [facility] [place] [facility] BMI 2022-10-26 13:11:00 29.87 kg/m2 [facility] [place] [facility] Oxygen saturation in 2022-10-26 13:11:00 97 /min [facility] of Arterial blood by [place] [facility] Pulse oximetry Branch Systolic blood 2022-10-18 19:44:00 112 mm[Hg] Univer sity of pressure [place] [facility] Diastolic blood 2022-10-18 19:44:00 74 mm[Hg] Unive rsity of pressure [place] [facility] Heart rate 2022-10-18 19:44:00 93 /min [facility] [place] [facility] Body temperature 2022-10-18 19:44:00 37.67 [place] Univ [facility] [place] [facility] Respiratory rate 2022-10-18 19:44:00 20 /min [facility] [place] [facility] Body height 2022-10-18 19:44:00 149.9 cm [facility] [place] [facility] Body weight 2022-10-18 19:44:00 66.679 kg [facility] [place] [facility] BMI 2022-10-18 19:44:00 29.69 kg/m2 [facility] [place] [facility] Oxygen saturation in 2022-10-18 19:44:00 95 /min University of Arterial blood by [place] [facility] Pulse oximetry Branch Systolic blood 2021-11-15 01:00:00 179 mm[Hg] Univer sity of pressure [place] [facility] Diastolic blood 2021-11-15 01:00:00 105 mm[Hg] Unive rsity of pressure [place] [facility] Heart rate 2021-11-15 01:00:00 68 /min [facility] [place] [facility] Respiratory rate 2021-11-15 01:00:00 16 /min [facility] [place] [facility] Oxygen saturation in 2021-11-15 01:00:00 99 /min [facility] Arterial blood by [place] [facility]les Pulse oximetry Branch Body temperature 2021-11-14 22:54:00 37 [facility] Body height 2021-11-14 22:54:00 149.9 cm [facility] Body weight 2021-11-14 22:54:00 63.504 kg [facility] BMI 2021-11-14 22:54:00 28.28 kg/m2 [facility] BP Diastolic 2021-08-30 00:00:00 100 mm[Hg] [place] [facility] Height 2021-08-30 00:00:00 59 [in_i] [place] [facility] BMI (Body Mass 2021-08-30 00:00:00 26.5 kg/m2 [facility] 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) [facility] BP Systolic 2021-08-30 00:00:00 178 mm[Hg] [place] [facility] Body Weight 2021-08-30 00:00:00 2096 [oz_av] [place] [facility] Procedures Procedure Date / Time Performing Clinician Source Performed PHYSICIAN CERTIFICATION 2023-01-29 05:01:00 Doctor Jonathan [facility] STATEMENT [facility] REFERRAL- REQUEST/RESPONSE 2022-11-13 05:01:00 Doctor Jonathan , [facility] Name Medical [place] THYROID STIMULATING 2022-10-18 21:02:00 Sp Horan [facility] HORMONE [facility] LIPID PANEL ([id number])(TOTAL 2022-10-18 21:02:00 Sp Horan [facility] CHOLESTEROL, Medical Branch TRIGLYCERIDES, HDL) GLYCOSYLATED HEMOGLOBIN 2022-10-18 21:02:00 Aung Sp [facility] (A1C) [facility] HCV ANTIBODY 2022-10-18 21:02:00 Aung Sp [place] [facility] VITAMIN D, 25-[place] 2022-10-18 21:02:00 Aung Sp [facility] [place] ASSIGNMENT OF BENEFITS 2022-10-18 19:30:39 Doctor Jonathan [facility] Name Medical Branch NOTICE OF PRIVACY 2021-11-14 22:53:14 Doctor Unassigned, [facility] PRACTICES [facility] CONSENT/REFUSAL FOR 2021-11-14 22:48:56 Doctor Unassigned, [facility] DIAGNOSIS AND TREATMENT [facility] MAMMO, screening, digital, 2021-08-30 00:00:00 [place] [facility] bilateral Health Outreach Program Cholecystectomy [facility] Health Outreach Program Plan of Care Planned Activity Planned Date Details Comments Source Diagnostic Test 2021-08-30 lipid panel, serum [place] [employer] 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 Taoism Pending 00:00:00 [code = lipid Health Outreac h panel, serum] Program Diagnostic Test 2021-08-30 CBC w/ auto diff [place] [facility] Pending 00:00:00 [code = CBC w/ auto Health O utreach diff] Program Diagnostic Test 2021-08-30 CMP, serum or [facility] Pending 00:00:00 plasma [code = CMP, Health O [facility] serum or plasma] Program Diagnostic Test 2021-08-30 TSH, [facility] Ep iscopal Pending 00:00:00 ultra-sensitive, Health Outr each serum [code = TSH, Program ultra-sensitive, serum] Diagnostic Test 2021-08-30 HbA1c (hemoglobin [place] [facility] Pending 00:00:00 A1c), blood [code = [facility] (hemoglobin Program A1c), blood] Diagnostic Test 2021-08-30 fecal occult blood, [place] [facility] Pending 00:00:00 stool [code = fecal Health O [facility] occult blood, Program stool] Future Scheduled Test 2019-08-02 Screening [facility] 00:00:00 malignant neoplasm of colon (procedure) [code = 756411164] Future Scheduled Test 2019-08-02 [facility]ening [facility] 00:00:00 malignant neoplasm of colon (procedure) [code = 526058813] Future Scheduled Test 2017-11-05 [facility]ening [facility] 00:00:00 malignant neoplasm of cervix (procedure) [code = 329720368] Future Scheduled Test 2017-11-05 [facility]ening [facility] 00:00:00 malignant neoplasm of cervix (procedure) [code = 423279506] Future Scheduled Test 2009 Breast Cancer Scrn [facility] 00:00:00 (Yearly) [code = Breast Cancer Scrn (Yearly)] Future Scheduled Test 2009 Breast Cancer Scrn [facility] 00:00:00 (Yearly) [code = Breast Cancer Scrn (Yearly)] Future Scheduled Test 1999-08-02 Screening [facility] 00:00:00 malignant neoplasm of cervix (procedure) [code = 503178420] Future Scheduled Test 1999-08-02 [facility]ening [facility] 00:00:00 malignant neoplasm of cervix (procedure) [code = 224164480] Future Scheduled Test 1970-01-31 COVID-19 Vaccine [facility] 00:00:00 (#1) [code = COVID-19 Vaccine (#1)] Future Scheduled Test 1970-01-31 COVID-19 Vaccine [facility] 00:00:00 (#1) [code = COVID-19 Vaccine (#1)] Encounters Start End Encounter Admission Attending Care Care Encounter Source Date/Time Date/Time Type Type Clinicians Facility Department ID 2021-09-13 Outpatient [facility] [id number] [place] 12:21:48 [id number] [facility] 2019-09-13 Inpatient EM Lisa, [facility] [id number] [facility] 13:51:[address] 2023-02-11 2023-02-11 Patient FORD Farris 1..840.114 [id number] Univers 00:00:00 00:00:00 Outreach Charito WEEKS 350.1.13.10 i ty of [place] 4.2.7.2.686 Víctor as CENTER [id number] [facility] 403 Branch 2023-01-29 2023-01-29 Orders Doctor SHIRIN 1..840.114 [id number] Univers 00:00:00 00:00:00 Only Unassigned, MIGUELITO 350.1.13.10 ity of [place] [facility] 4.2.7.2.686 Víctor as [id number] [facility] 009 Branch 2023-01-24 2023-01-24 Telephone CHRIS Horan 1.2.794.167 [id number] Univers 00:00:00 00:00:00 [facility] 350.1.13.10 it y of [place] 4.2.7.2.686 Víctor as JUANA?BLEA [phone] Ok dottie FULLER [address] [facility] 2023-01-15 2023-01-15 Patient Shira Clayton 1.2.840.114 [id number] Univers 10:00:00 11:00:00 Outreach E CONTRERAS 350.1.13.10 [place] [id number] [address] 2023-01-15 2023-01-15 Patient FORD Farris 1.2.840.114 [id number] Univers 00:00:00 00:00:00 Outreach Charito WEEKS 350.1.13.10 i ty of [place] 4.2.7.2.686 Víctor as CENTER [id number] [address] 2023-01-10 2023-01-10 Patient Shira ClaytonStella 1.2.840.114 [id number] Univers 00:00:00 00:00:00 Outreach E CONTRER[place] 350.1.13.10 [place] [id number] [address] 2023-01-01 2023-01-01 Outpatient R JAY MATHUR [facility] [id number] Univers 09:40:00 10:11:02 JAY MATHUR ity of [facility] 2023-01-01 2023-01-01 Office Kareen [facility] 1.2.840.114 [id number] Univers 09:40:00 10:11:02 Visit [facility] 350.1.13.10 ity of [place] 4.2.7.2.686 Víctor as JUANA?BLEA [id number] Ok dottie YOMI [address] [facility] 2022-12-21 2022-12-21 Patient FORD Farris 1.2.840.114 [id number] Univers 00:00:00 00:00:00 Outreach Charito WEEKS 350.1.13.10 i ty of [place] 4.2.7.2.686 Víctor as CENTER [id number] [address] 2022-12-21 2022-12-21 Patient Shira Clayton 1.2.840.114 10 [id number] Univers 00:00:00 00:00:00 Outreach Elvira CONTRERAS 350.1.13.10 [place] [id number] [facility] [address] 2022-12-18 2022-12-18 Patient FORD Farris 1.2.840.114 [id number] Univers 00:00:00 00:00:00 Outreach Charito WEEKS 350.1.13.10 i ty of [place] 4.2.7.2.686 Víctor as CENTER [id number] [address] 2022-12-17 2022-12-17 Patient FORD Farris 1.2.840.114 [id number] Univers 00:00:00 00:00:00 Outreach Charito WEEKS 350.1.13.10 i ty of [place] 4.2.7.2.686 Víctor as CENTER [id number] [facility] [address] 2022-11-26 2022-11-26 Outpatient R JAY MATHUR [facility] [id number] Univers 14:20:00 14:20:00 JAY MATHUR ity of [facility] 2022-11-20 2022-11-20 Patient FORD Farris 1.2.840.114 [id number] Univers 00:00:00 00:00:00 Outreach Charito WEEKS 350.1.13.10 i ty of [place] 4.2.7.2.686 Víctor as CENTER [id number] [facility] [address] 2022-11-13 2022-11-13 Orders Doctor SHIRIN 1.2.840.114 [id number] Univers 00:00:00 00:00:00 Only Unassigned, MIGUELITO 350.1.13.10 ity of [place] [facility] 4.2.7.2.686 Víctor as [id number] [address] 2022-11-06 2022-11-06 Telephone Ngoc COSTELLO 1.2.209.237 [id number] Univers 00:00:00 00:00:00 BEN Brown 350.1.13.10 ity of [place] [id number] [facility] 086 Branch 2022-11-06 2022-11-06 Patient Carl, [facility] 1.2.840.114 [id number] Univers 00:00:00 00:00:00 Outreach Lydia PICKARD 350.1.13.10 i ty [facility] 4.2.7.2.686 Víctor as JUANA?BLEA [phone] Ok dottie RAIN [address] MEDICAL OFF[facility] 2022-11-01 2022-11-01 Patient FORD Farris 1.2.840.114 [id number] Univers 00:00:00 00:00:00 Outreach Charito WEEKS 350.1.13.10 i ty of [place] 4.2.7.2.686 Víctor as CENTER [id number] [facility] [address] 2022-10-26 2022-10-26 Outpatient JAY BURLESON [facility] [id number] Univers 08:00:00 09:06:[address] [facility] 2022-10-26 2022-10-26 [facility] 1.2.840.114 [id number] Univers 08:00:00 09:06:29 Visit [facility] 350.1.13.10 ity of [place] 4.2.7.2.686 Víctor as JUANA?BLEA [phone] Ok dottie RAIN 092 [facility] OFFICE [facility] 2022-10-19 2022-10-19 Patient Carl [facility] 1.2.840.114 [id number] Univers 00:00:00 00:00:00 Outreach Lydia Teague [facility] 350.1.13.10 i ty of [facility] 4.2.7.2.686 Víctor as JUANA?BLEA [id number] Ok dottie RAIN 044 [facility] OFFICE [facility] 2022-10-18 2022-10-18 Outpatient Nhung HORAN [facility] [id number] Univers 16:15:00 16:16:[address] [facility] 2022-10-18 2022-10-18 Body Presser Lab, Haresh - Carlos Manuel [facility] 1.2.840.1 14 [id number] Univers 16:15:00 16:16:40 Visit Sp Horan 350.1.13.10 ity of [place] 4.2.7.2.686 Víctor as JUANA?BLEA [id number] [facility] Y[facility] [address] [facility] 2022-10-18 2022-10-18 Office TARYN Horan 1.2.840.114 [id number] Univers 14:30:00 15:33:24 Visit Sp [facility] 350.1.13.10 it y of [place] 4.2.7.2.686 Víctor as JUANA?BLEA [id number] [facility] [address] [facility] 2022-10-18 2022-10-18 Orders Doctor SHIRIN 1.2.840.114 [id number] Univers 00:00:00 00:00:00 Only Unassigned, MIGUELITO 350.1.13.10 ity of [place] [facility] 4.2.7.2.686 Víctor as [id number] [address] 2022-07-17 2022-07-17 [facility]patient [facility] [place] [address] [facility] 00:00:00 00:00:00 [address] [facility] 2022-06-22 2022-06-22 [place] [address].2.840.114 [id number] [facility] 17:19:00 23:59:00 Encounter Reji NGUYỄN'S 350.1.13.10 [place] [id number] [address] 2022-06-22 2022-06-22 [place] [address].2.840.114 [id number] Univers 15:06:00 23:59:00 Encounter Reji NGUYỄN'S 350.1.13.10 [place] [id number] [address] 2021-12-05 2021-12-05 Letter SHIRIN La 1.2.840.114 [id number] Univers 00:00:00 00:00:00 (Out) Romero FARLEY 350.1.13.10 it y of HOSPITAL 4.2.7.2.686 [facility] [id number] [facility] 043 Branch 2021-11-14 2021-11-14 Emergency X DANYA, [facility] ERT [id number] Univers 18:17:00 20:19:[address] [facility] 2021-11-14 2021-11-14 Emergency Danya, [facility] 1.2.840.114 [id number] Univers 18:17:00 20:19:00 Pb HUIZAR 350.1.13.[address] [facility] 4.2.7.2.686 [facility] [id number] [facility] 0[address] Branch 2021-09-20 2021-09-20 Outpatient Nguyen_o [facility] 119 [place] 11:31:00 11:31:00 [facility] 2021-09-14 2021-09-14 Outpatient Nguyen_o [facility] 1194 [place] 04:19:00 04:19:00 [facility] 2021-09-05 2021-09-05 Outpatient Nguyen_Tho [facility] 1194 [place] 12:08:00 12:08:00 [id number] [facility] 2021-08-30 2021-08-30 Outpatient Nguyen_o [facility] 1194 [place] 04:36:00 04:36:00 [facility] 2021-08-30 2021-08-30 [facility] [place] - [id number] [place] 00:00:00 00:00:00 Roxana Richey da 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 2021-08-29 2021-08-29 Outpatient Nguyen_o [facility] 1194 [place] 11:27:00 11:27:00 958[address] [facility] 2021-08-28 2021-08-28 Outpatient Meagan [facility] 1194 [id number] [place] 04:39:00 04:39:00 [facility] 2021-06-11 2021-06-11 Emergency EM Fede, [facility] EMELYN [id number] [facility] 19:22:00 22:50:00 Tinuola 65 [facility] 2021-06-08 2021-06-09 Emergency [facility] [id number] [facility] 21:52:00 01:14:00 Mark 68 [facility] 2020-12-03 2020-12-03 Emergency EM Fede[facility] EM[facility] [id number] [facility] 09:56:00 12:00:00 Tinuola 31 [facility] 2019-09-13 2019-09-13 Outpatient Lisa [facility]O [id number] 249 [facility] 08:16:00 08:16:00 Pelin 89 [facility] Results Test Description Test Time Test Comments Results Result Comments Source VITAMIN D, 25-OH 2022-10-19 07:10:55 Test Item Value Reference Range Interpretation Comme nts VIT D 25OH (test code = 56304-2) 25 ng/mL 25-80 JACEY (test code = JACEY) Deficiency: <20 ng/mLInsufficiency: 20-24 ng/mLOptimal: 25-80 ng/mL Lab Interpretation (test code = 27641-4) [facility] [id number] 06:19:02 Test Item Value Reference Range Interpretation Comments HCV Ab (test code = 66469-0) Negative HCV Semi-Quantitative (test code = 0.01 02074-0) [facility] [id number] 00:00:15 Test Item Value Reference Range Interpretation Comments TSH (test code = 0.83 See_Comment [Automated message] [id number]) The system Status4 generated this result transmitted ref erence range: 0.45 - 4 .70 mIU/L. The refe rence range was not u sed to interpret this result as normal/abnor mal. Lab Interpretation (test Normal code = 66369-2) [facility] (77340)(TOTAL CHOLESTEROL, TRIGLYCERIDES, HDL)2022-10-18 23:33:09 Test Item Value Reference Range Interpretation Comments CHOL (test code = 4034468514) 174 mg/dL 120-200 HDL (test code = 3269323650) 69 mg/dL >=50 HDLC RATIO (test code = 1751030718) 2.5 <=4.5 TRIG (test code = 9867846789) 63 mg/dL 30-170 LDL CHOL (test code = 21036-0) 92 mg/dL <=160 VLDL (test code = 9234764585) 13 mg/dL 5-60 Lab Interpretation (test code = Normal 56088-1) [facility] (A1C)2022-10-18 23:12:37 Test Item Value Reference Range Interpretation Comments HGB A1C (test code = 4.9 % 4.0-5.7 4548-4) JACEY (test code = JACEY) Reference RangesNormal: <5.7%Prediabetes: 5.7 - 6.4%Diabetes: > 6.5% Lab Interpretation (test Normal code = 88302-7) [facility], serum 2021-08-31 00:00:00 Test Item Value Reference Range Interpretation Comments Interpretation and review of laboratory note results (test code = 79472-8) Report (test code = 60300-6) . [facility] Outreach Program- CT HEAD/BRAIN W/O [id number] 22:50:00[facility]Name: RANJITH CURRIE : 1970 Sex: F Name: RANJITH CURRIE [facility] : 1970 Age/S: 50 / F [address] Unit #: [id number] Loc: [place] [address] Phys: Mark Rodney MD Acct: [id number] Dis Date: Status: REG ER PHONE #: [phone] Exam Date: 06/08/20212219 FAX #: [phone] Reason: fall EXAMS: CPT CODE: [id number] CT HEAD/BRAIN W/O CONT 87918 EXAM: - CT HEAD/BRAIN W/O CONT Location code:C3 HIS TORY: 50 years -old Female with fall TECHNIQUE: Axial CT images from the skull base to the vertex without intravenous contrast. Coronal and sagittal reformatted images were created from the data set.One or more of the following dose reduction techniques were used: Automated exposure control, adjustment of the mA and/or kV according to patient size, and/or utilization of iterative reconstruction technique. 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 Remote lacunar infarctions are noted in the basal ganglia bilaterally. Previously seen hemorrhage involving the left cerebellum adjacent to the 4th ventricle has resolved. No evidence of acute infarction, intracranial hemorrhage, mass or mass effect, or abnormal extra-axial fluid collection. The ventricular system and sulci are prominent compatible cerebral volumeloss. There is mild diminished attenuation involving the periventricular and subcortical white matter compatible with mild microvascular chronic ischemic changes. The density in the larger dural sinuses is grossly normal. Bones: There is no evidence of acute displaced calvarial fracture. Sinuses: The visualized portions of the paranasal sinuses demonstrate no significant opacification.The mastoid aircells are clear. Orbits/Soft Tissues: The visualized orbits show no significant abnormalities. The visualized soft tissues are unremarkable. IMPRESSION: PAGE 1 Signed Report (CONTINUED) Name: RANJITH CURRIE [facility] : 1970 Age/S: 50 / F [address] Unit #: [id number] Loc: [place] [address] Phys: Mark Rodney MD Acct: [id number] Dis Date: Status: REG ER PHONE #: [phone] Exam Date: 06/08/20212219 FAX #: [phone] Reason: fall EXAMS: CPT CODE: [id number] CT HEAD/BRAIN W/O CONT 76307 (Continued) 1. Resolution of previously seen posterior fossa hemorrhage. Noacute hemorrhage or other acute intracranial abnormality identified. 2. Interval development of remote right UPHOLSTERY MECHANIC distribution infarction. 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 at 2250 Reported and signed by: Godfrey Luan,[facility]: Mark Rodney MD Technologist:Jodi Dumont RT(R) CTDI: DLP: Trnscb Date/Time: 06/08/2021(2249) [email or web address].[email or web address] Orig Print D/T: S: 06/08/2021 (2252) PAGE 2 Signed Report- CT C-SPINE W/O [id number] 22:47:00 [facility] 1970 Sex: F Name: RANJITH CURRIE [facility] : 1970 Age/S: 50 / F [address] [facility] Unit #: [id number] Loc: [place] [address] Phys: Mark Rodney MD Acct: [id number] Dis Date: Status: REG ER PHONE #: [phone] Exam Date: 06/08/20212229 FAX #: [phone] Reason: fall EXAMS: CPT CODE: [id number] CT C-SPINE W/O CONTRAST 81848 LOCATION: Q15 HISTORY: 50-year-old female who edward ffered a fall and complains of neck pain. [...] uncovertebral joint arthropathy in the cervical spine asoutlined above. at 8034 Reported and signed by: Godfrey Rendon M.D. PAGE 1 Signed Report (CONTINUED) Name: RANJITH CURRIE [facility] : 1970 Age/S: 50 / F [address] [facility] Unit #: [id number] Loc: [place] [address] Phys: Mark Rodney MD Acct: [id number] Dis Date: Status: REG ER PHONE #: [phone] ExamDate: 06/08/20212229 FAX #: [phone] Reason: fall EXAMS: CPT CODE: [id number] CT C-SPINE W/O CONTRAST 66503 (Continued) CC: Mark Rodney MD Technologist:Jodi Dumont RT(R) CTDI: DLP: Trnscb Date/Time: 06/08/2021 (224) tVICTOR [email or web address] Orig Print D/T: S: 06/08/2021 (225) PAGE 2 Signed ReportPROTHROMBIN [id number] 11:33:00 Test Item Value Reference Range Interpretation Comments PROTHROMBIN TIME 12.2 seconds 9.0-14.0 N PATIENT (test code = PTP) INTERNATIONAL NORMAL 1.1 0.8-1.2 N The the rapeutic range RATIO (test code = for oral INR) anticoagulant t herapy formost indicat ions is an internati onal normalized rati o (INR)of between 2.0 and 3.0. The recommended therapeutic INR range for various cli nical situations is l isted below: Clinical Situat ion INR range Pulmonary embol ism treatment (2.0-3.0)Venous thrombosis treatmentVenous thrombosis prophylaxis (hi gh risk surgery)Prevent ion of systemic emboli sm from: Acute myocardial infa rction Valvular heart disease Atrial fibrillation Mechanical pros thetic heart valves (2.5-3.5) IS PATIENT ON ANTICOAGULANTS? NTHROMBOPLASTIN TIME [id number] 11:33:00 Test Item Value Reference Range Interpretation Comments THROMBOPLASTIN TIME PARTIAL 33.7 seconds 23.0-37.0 N (test code = PTT) IS PATIENT ON ANTICOAGULANTS? NCOVID 19 INHOUSE [id number] 11:20:00 Test Item Value Reference Range Interpretation Comments COVID 19 INHOUSE AG (test code = NEGATIVE NEGATIVE [id number]) - CT HEAD/BRAIN [id number] 11:16:00 [facility])Name: RANJITH CURRIE : 1970 Sex: F Name: RANJITH CURRIE [facility] : 1970 Age/S: 50 / F [address] [facility] Unit #: [id number] Loc: [place] [address] Phys: Adam Mistry MD Acct: [id number] Dis Date: Status: REG ER PHONE #: [phone] Exam Date: 12/03/2020 1050 FAX #: [phone] Reason: HEMORRHAGE, AMS EXAMS: CPT CODE: [id number] CT HEAD/BRAIN W/CONT 89403 HISTORY: Hemorrhage and confusion. DEEPTI RISON: CT scan from same day. CT brain [...] cells are clear. No lytic or blastic lesionsnoted within the bony skeleton. IMPRESSION: Hemorrhage noted again measuring 1.6 cm within the left vermis and cerebellum with mass effect on the 4th ventricle and the quadrigeminal plate cistern. No abnormal enhancement is noted however follow-up with postcontrast MRI scan scan history recommended. No other areas of abnormal enhancement either. at 1116 Reported and signed by: Nazario Jones M.D. CC: Adam Mistry MD Technologist:La Bell RT(R),CT CTDI: DLP: Trnscb Date/Time: 12/03/2020 (1116) t.HAMMADR.TH4 Orig Print D/T: S:12/03/2020 (6950) PAGE 1 Signed ReportBASIC METABOLIC [id number] 11:11:00 Test Item Value Reference Range Interpretation [...] Modifi ed MDRD (test code = GFR) formula.Ch ronic kidney disease is defined as eith er kidney damageor GFR <60 mL/min/1.73 m2 for >3 months. [Automated mess age] The system Status4 generated this result transmitted ref erence range: [...] 10.0 mg/dL 8.5-10.1 N CA) HEPATIC FUNCTION [id number] 11:11:00 Test Item Value Reference Range Interpretation [...] code = 48 IUnit/L 26-208 N CK) [id number] 11:11:00 Test Item Value Reference Range Interpretation Comments TROPONIN-I (test code = TROPI) 0.041 ng/mL 0-0.045 N [id number] 11:11:00 Test Item Value Reference Range Interpretation Comments ACETAMINOPHEN (test code = ACET) < 0.2 mg/dL 1.0-3.0 L [id number] 11:11:00 Test Item Value Reference Range Interpretation Comments SALICYLATE (test code = JULIENNE) < 3.0 mg/dL 2.8-20.0 N [id number] 11:11:00 Test Item Value Reference Range Interpretation [...] AN ADDITIONAL CHARGE TO THE P ATIENT. [id number] 11:11:00 Test Item Value Reference Range Interpretation Comments MAGNESIUM (test code = MAG) 1.9 mg/dL 1.8-2.4 N [id number] 11:11:00 Test Item Value Reference Range Interpretation Comments AMMONIA (test code = AMM) < 10 umol/L 11-32 L - XR CHEST 1 [id number] 11:11:00 [facility])Name: RANJITH CURRIE : 1970 Sex: F FAX: Adam Lopez [phone] [place]: St: REG Name: RANJITH CURRIE [facility] : 1970 Age/S: 50/F [address] [facility] Unit #: [id number] Loc: [place] [address] Phys: Adam Mistry MD Acct: [id number] Dis Date: Status: REG ER PHONE #: [phone] Exam Date: 12/03/2020 1103FAX #: [phone] Reason: Altered Mental Status EXAMS: CPT CODE: [id number] XR CHEST 1 V 09171 HISTORY: Confusion. COMPARISON: None available. Location: TH. No acute infiltrates, effusion or congestion is noted. Mild cardiomegaly. IMPRESSION: No acute infiltrates, effusion or congestion. at 1111 Reported and signed by: Nazario Jones M.D. CC: Adam Mistry MD Technologist: FERN ARIAS RT; Carolyn Payne(R) Trnscrd Date/Time/By: 12/03/2020 (1111) : By: [email or web address] Orig Print D/T: S: 12/03/2020 (1114) PAGE 1 Signed ReportCBC W/AUTO [id number] 10:51:00 Test Item Value Reference Range Interpretation [...] NO = MDIFF) - CT HEAD/BRAIN W/O [id number] 10:31:00 [facility] : 1970 Sex: F Name: RANJITH CURRIE [facility] : 1970 Age/S: 50 / F [address] [facility] [id number] Loc: [place], [place] [address] Phys: Adam Mistry MD Acct: [id number] Dis Date: Status: REG ER PHONE #: [phone] Exam Date: 12/03/2020 1025 FAX #: [phone] Reason: Altered Mental Status EXAMS: CPT CODE: [id number] CT HEAD/BRAIN W/O CONT 87182 HISTORY: Confusion and hypertensiv e crisis. COMPARISON: None available. Location: TH. CT [...] RT(R),CT; CTDI: DLP: Trnscb Date/Time: 12/03/2020 (1031) t.SDR.TH4 Orig Print D/T: S: 12/03/2020 (4892) PAGE 1 Signed Report[facility] W/AUTO [id number] 17:41:00 Test Item Value Reference Range Interpretation [...] SCAN NEEDED (test code = MDIFF) DIFFERENTIAL [id number] 17:41:00 Test Item Value Reference Range Interpretation Comments STAIN ACCEPTABILITY (test STAIN ACCEPTABLE code = STN ACCEPTABLE) HYPOCHROMIA (test code = 1+ HYPO) PLATELET ESTIMATE (test code ADEQUATE = PLTEST) PLATELET MORPHOLOGY (test NORMAL code = PLTMORPH) CBC W/AUTO [id number] 16:03:00 Test Item Value Reference Range Interpretation [...] SCAN NEEDED (test code = MDIFF) DIFFERENTIAL [id number] 16:03:00 Test Item Value Reference Range Interpretation Comments STAIN ACCEPTABILITY (test code = STN ACCEPTABLE) CABOT RINGS (test code = CAB) MORPHOLOGY COMMENT (test code = MOC) PLATELET ESTIMATE (test code = PLTEST) PLATELET MORPHOLOGY (test code = PLTMORPH) CBC W/AUTO [id number] 16:03:00 Test Item Value Reference Range Interpretation [...] SCAN NEEDED (test code = MDIFF) DIFFERENTIAL [id number] 16:03:00 Test Item Value Reference Range Interpretation Comments STAIN ACCEPTABILITY (test code = STN ACCEPTABLE) CABOT RINGS (test code = CAB) MORPHOLOGY COMMENT (test code = MOC) PLATELET ESTIMATE (test code = PLTEST) PLATELET MORPHOLOGY (test code = PLTMORPH) CBC W/AUTO [id number] 16:03:00 Test Item Value Reference Range Interpretation [...] SCAN NEEDED (test code = MDIFF) DIFFERENTIAL [id number] 16:03:00 Test Item Value Reference Range Interpretation Comments STAIN ACCEPTABILITY (test code = STN ACCEPTABLE) MORPHOLOGY COMMENT (test code = MOC) PLATELET ESTIMATE (test code = PLTEST) PLATELET MORPHOLOGY (test code = PLTMORPH) CBC W/AUTO [id number] 16:03:00 Test Item Value Reference Range Interpretation [...] SCAN NEEDED (test code = MDIFF) DIFFERENTIAL [id number] 16:03:00 Test Item Value Reference Range Interpretation Comments STAIN ACCEPTABILITY (test code = STN ACCEPTABLE) CABOT RINGS (test code = CAB) MORPHOLOGY COMMENT (test code = MOC) PLATELET ESTIMATE (test code = PLTEST) PLATELET MORPHOLOGY (test code = PLTMORPH) BASIC METABOLIC [id number] 07:43:00 Test Item Value Reference Range Interpretation [...] GFR) formula.Chronic kidney disease is defined as [facility] er kidney damageor GFR <60 mL/min/1.73 m2 for >3 months. CREATININE (test code 0.60 mg/dL 0.55-1.02 N Note change in = CREAT) reference range due to change in reagent. BUN/CREATININE RATIO 24.1 10-20 H (test code = BUN/CREA) CALCIUM (test code = 8.7 mg/dL 8.5-10.1 N CA) [id number] 07:43:00 Test Item Value Reference Range Interpretation Comments PHOSPHORUS (test code = PHOS) 3.9 mg/dL 2.5-4.9 N [id number] 07:43:00 Test Item Value Reference Range Interpretation Comments MAGNESIUM (test code = MAG) 2.0 mg/dL 1.8-2.4 N BASIC METABOLIC [id number] 07:36:00 Test Item Value Reference Range Interpretation [...] CALCIUM (test code = CA) mg/dL 8.5-10.1 [id number] 07:36:00 Test Item Value Reference Range Interpretation Comments PHOSPHORUS (test code = PHOS) mg/dL 2.5-4.9 [id number] 07:36:00 Test Item Value Reference Range Interpretation Comments MAGNESIUM (test code = MAG) mg/dL 1.8-2.4 CBC W/AUTO [id number] 07:04:00 Test Item Value Reference Range Interpretation [...] 0.00 K/mm3 0.0-0.1 N NRBC#) BASIC METABOLIC [id number] 06:19:00 Test Item Value Reference Range Interpretation [...] code = 8.6 mg/dL 8.5-10.1 N CA) [id number] 06:19:00 Test Item Value Reference Range Interpretation Comments PHOSPHORUS (test code = PHOS) 2.5 mg/dL 2.5-4.9 N [id number] 06:19:00 Test Item Value Reference Range Interpretation Comments MAGNESIUM (test code = MAG) 2.0 mg/dL 1.8-2.4 N CBC W/AUTO [id number] 06:14:00 Test Item Value Reference Range Interpretation [...] (test code NO = MDIFF) BASIC METABOLIC [id number] 06:13:00 Test Item Value Reference Range Interpretation [...] CALCIUM (test code = CA) mg/dL 8.5-10.1 [id number] 06:13:00 Test Item Value Reference Range Interpretation Comments PHOSPHORUS (test code = PHOS) mg/dL 2.5-4.9 [id number] 06:13:00 Test Item Value Reference Range Interpretation Comments MAGNESIUM (test code = MAG) mg/dL 1.8-2.4 BASIC METABOLIC [id number] 05:19:00 Test Item Value Reference Range Interpretation [...] code = 8.4 mg/dL 8.5-10.1 L CA) [id number] 05:19:00 Test Item Value Reference Range Interpretation Comments PHOSPHORUS (test code = PHOS) 2.3 mg/dL 2.5-4.9 L [id number] 05:19:00 Test Item Value Reference Range Interpretation Comments MAGNESIUM (test code = MAG) 2.0 mg/dL 1.8-2.4 N BASIC METABOLIC [id number] 05:13:00 Test Item Value Reference Range Interpretation [...] CALCIUM (test code = CA) mg/dL 8.5-10.1 [id number] 05:13:00 Test Item Value Reference Range Interpretation Comments PHOSPHORUS (test code = PHOS) mg/dL 2.5-4.9 [id number] 05:13:00 Test Item Value Reference Range Interpretation Comments MAGNESIUM (test code = MAG) mg/dL 1.8-2.4 CBC W/AUTO [id number] 05:04:00 Test Item Value Reference Range Interpretation [...] code = 0.00 K/mm3 0.0-0.1 N NRBC#) [id number] 06:53:00 Test Item Value Reference Range Interpretation Comments GLYCOSYLATED HEMOGLOBIN 5.2 % HbA1 NANI ROONEY DIAGNOSIS: (HA1C) (test code = HbA1C GLYHGB) (%) ----- ----- Diab etic >6.4Prediabetes 5.7 - 6.4Normal <5. 7 ESTIMATED AVERAGE 103 MG/DL GLUCOSE (test code = EAG) BASIC METABOLIC [id number] 06:53:00 Test Item Value Reference Range Interpretation [...] code = 8.6 mg/dL 8.5-10.1 N CA) [id number] 06:53:00 Test Item Value Reference Range Interpretation Comments PHOSPHORUS (test code = PHOS) 2.8 mg/dL 2.5-4.9 N [id number] 06:53:00 Test Item Value Reference Range Interpretation Comments MAGNESIUM (test code = MAG) 2.2 mg/dL 1.8-2.4 N BASIC METABOLIC [id number] 06:45:00 Test Item Value Reference Range Interpretation [...] CALCIUM (test code = CA) mg/dL 8.5-10.1 [id number] 06:45:00 Test Item Value Reference Range Interpretation Comments PHOSPHORUS (test code = PHOS) mg/dL 2.5-4.9 [id number] 06:45:00 Test Item Value Reference Range Interpretation Comments MAGNESIUM (test code = MAG) mg/dL 1.8-2.4 CBC W/AUTO [id number] 06:38:00 Test Item Value Reference Range Interpretation [...] SCAN NEEDED (test code = MDIFF) DIFFERENTIAL [id number] 06:38:00 Test Item Value Reference Range Interpretation Comments STAIN ACCEPTABILITY (test STAIN ACCEPTABLE code = STN ACCEPTABLE) HYPOCHROMIA (test code = 1+ HYPO) PLATELET ESTIMATE (test code ADEQUATE = PLTEST) PLATELET MORPHOLOGY (test NORMAL code = PLTMORPH) CBC W/AUTO [id number] 06:08:00 Test Item Value Reference Range Interpretation [...] SCAN NEEDED (test code = MDIFF) DIFFERENTIAL [id number] 06:08:00 Test Item Value Reference Range Interpretation Comments STAIN ACCEPTABILITY (test code = STN ACCEPTABLE) CABOT RINGS (test code = CAB) MORPHOLOGY COMMENT (test code = MOC) PLATELET ESTIMATE (test code = PLTEST) PLATELET MORPHOLOGY (test code = PLTMORPH) CBC W/AUTO [id number] 06:08:00 Test Item Value Reference Range Interpretation [...] SCAN NEEDED (test code = MDIFF) DIFFERENTIAL [id number] 06:08:00 Test Item Value Reference Range Interpretation Comments STAIN ACCEPTABILITY (test code = STN ACCEPTABLE) MORPHOLOGY COMMENT (test code = MOC) PLATELET ESTIMATE (test code = PLTEST) PLATELET MORPHOLOGY (test code = PLTMORPH) CBC W/AUTO [id number] 06:07:00 Test Item Value Reference Range Interpretation [...] SCAN NEEDED (test code = MDIFF) DIFFERENTIAL [id number] 06:07:00 Test Item Value Reference Range Interpretation Comments STAIN ACCEPTABILITY (test code = STN ACCEPTABLE) CABOT RINGS (test code = CAB) MORPHOLOGY COMMENT (test code = MOC) PLATELET ESTIMATE (test code = PLTEST) PLATELET MORPHOLOGY (test code = PLTMORPH) CBC W/AUTO [id number] 06:07:00 Test Item Value Reference Range Interpretation [...] SCAN NEEDED (test code = MDIFF) DIFFERENTIAL [id number] 06:07:00 Test Item Value Reference Range Interpretation Comments STAIN ACCEPTABILITY (test code = STN ACCEPTABLE) CABOT RINGS (test code = CAB) MORPHOLOGY COMMENT (test code = MOC) PLATELET ESTIMATE (test code = PLTEST) PLATELET MORPHOLOGY (test code = PLTMORPH) URINALYSIS [id number] 05:52:00 Test Item Value Reference Range Interpretation [...] Urine Source? Clean Catch- US TRANSVAGINAL NON [id number] 07:30:00 Name: RANJITH CURRIE [facility] : 1970 Age/S: 49 / F [address] Unit #: [id number] Loc: [place], [place] [address] Phys: Adam Mistry MD Acct: [id number] Dis Date: Status: REG ER PHONE #: [phone] Exam Date: 09/12/2019639 FAX #: [phone] Reason: lower abd pain EXAMS:CPT CODE: [id number] [place] [address] REASON FOR EXAM: lower abd pain EXAM ORDER DATE: 09/12/2019 5:45 AM Attending:Adam Mistry MD Ordering:Adam Mistry MD Location:[facility] COMPARISON: CT of the abdomen 09/12/2019 PROCEDURE: - US PELVIS COMPLETE, - US TRANSVAGINAL NON OB, - DUP AB/PEL/SC COMP FINDINGS: The transabdominal ultrasound shows the uterus measured 12.1 x 5.5 cm. The trans vaginal ultrasound shows a 3.8 x 3.6 cm [...] adnexa suggestive of hydrocele or pyosalpinx. Dr. Medley was informed of the findings by telephone at 7:25 AM FOR INTERNAL CODING PURPOSES ONLY RESULT CODE: CVR at 0730 Reported and signed by: Jason Escalante M.D. CC: Adam Mistry MD Technologist: Daniela Stevens RDMS Trnscb Date/Time: 09/12/2019 (729) tVICTOR MANUELVTL Orig Print D/T: S: 09/12/2019 (732) Probe: [id number] PAGE 1 Signed Report- DUP AB/PEL/SC [id number] 07:30:00 Name: RANJITH CURRIE [facility] : 1970 Age/S: 49 / F [address] [facility] Unit #: [id number] Loc: [place] [address] Phys: Adam Mistry MD Acct: [id number] Dis Date: Status: REG ER PHONE #: [phone] Exam Date: 09/12/2019 0640 FAX #: [phone] Reason: lower abd pain EXAMS: CPT CODE: [id number] DUP AB/PEL/SC COMP [id number] REASON FOR EXAM: lower abd pain EXAM ORDER DATE: 09/12/2019 5:45 AM Attending:Adam Mistry MD Ordering:Adam Mistry MD Location:[facility] COMPARISON:CT of the abdomen 09/12/2019 PROCEDURE: - US PELVIS COMPLETE, - US TRANSVAGINAL NON OB, - DUP AB/PEL/SC COMP FINDINGS: The transabdominal ultrasound shows the uterus measured 12.1 x 5.5 cm. The transvagi nal ultrasound shows a 3.8 x 3.6 cm submucosal fibroid . A complex thick walled cystic mass in the right adnexa measuring 8.9 x 4 cm. The mass shows internal debris and septation suggestive of hydro orpyosalpinx. The right ovary measured 7.1 x 3.5cm. The left ovary was not seen. Unremarkable ovarian flow is seen. Duplex scans of the ovarian arteries were performed. Lennon scale images were supplemented with color-flow Doppler. Doppler flow velocity analysis (duplex Doppler) was performed. No fluid seen in the cul-de-sac. No evidence of IUP. IMPRESSION: Complex thick-walled tubular cystic mass (8.9 x4 cm) in the right adnexa suggestive of hydrocele or pyosalpinx. Dr. Medley was informed of the findings by telephone at 7:25 AM FOR INTERNAL CODING PURPOSES ONLY RESULT CODE: CVR at 0730 Reported and signed by: Jason Escalante M.D. CC: Adam Mistry MD Technologist: Daniela Stevens RDMS Trnscb Date/Time: 09/12/2019 (729) tAURYL Orig Print D/T: S: 09/12/2019 (1643) Probe: PAGE 1 Signed Report- US PELVIS [id number] 07:30:00 Name: RANJITH CURRIE [facility] : 1970 Age/S: 49 / F [address] [facility] Unit #: [id number] Loc: [place] [address] Phys: Adam Mistry MD Acct: [id number] Dis Date: Status: REG ER PHONE #: [phone] Exam Date: 09/12/2019 0640 FAX #: [phone] Reason: lower abd pain EXAMS: CPT CODE: [id number] US PELVIS COMPLETE 05644 REASON FOR EXAM: lower abd pain EXAM ORDER DATE: 09/12/2019 5:45 AM Attending:Adam Mistry MD Ordering:Adam Mistry MD Location:[facility] COMPARISON: CT of the abdomen 09/12/2019 PROCEDURE: [...] adnexa suggestive of hydrocele or pyosalpinx. Dr. Medley was informed of the findings by telephone at 7:25 AM FOR INTERNAL CODING PURPOSES ONLY RESULT CODE: CVR at 0730 Reported and signed by: Jason Escalante M.D. CC: Adam Mistry MD Technologist: Daniela Stevens RDMS Trnmnb Date/Time: 09/12/2019(729) t.MORELIAL Orig Print D/T: S: 09/12/2019 (0733) Probe: PAGE 1 Signed Report- CT ABD PELVIS W WO [id number] 05:39:00 Name: RANJITH CURRIE [facility] : 1970 Age/S: 49 / F [address] [facility] Unit #: [id number] Loc: [place] [address] Phys: Adam Mistry MD Acct: [id number] Dis Date: Status: REG ER PHONE #: [phone] Exam Date: 09/12/2019 050 FAX #: [phone] Reason: rlq pain EXAMS: CPT CODE: [id number] CT ABD PELVIS W WO CONT 65145 EXAM: - CT ABD PELVIS W WO CONT HISTORY: Lower abdominalpain. TECHNIQUE: Axial tomograms through the abdomen and pelvis were obtained after intravenous contrast. Coronal and sagittal reformatted images are provided. This exam was performed according to our departmental dose-optimization program, which includes automated exposure control, adjustment of the mA and/or kV according to patient size and/or use of iterative reconstruction technique. COMPARISON:None available time of interpretation. FINDINGS: The visualized lung bases are clear. The liver, spleen, pancreas, adrenal glands and kidneys demonstrate no significant abnormalities. There is a 1.6 cmleft renal cyst. The gallbladder is surgically absent. [...] x 2 cm fibroid in upper uterus at the fundus posteriorly. There is no acute osseous abnormality. IMPRESSION: Cystic changes in pelvis posterior to the uterus may represent a hydrosalpinx or ovarian cysts. Small uterine fibroid. PAGE 1 Signed Report (CONTINUED) Name: RANJITH CURRIE [facility] : 1970 Age/S: 49 / F [address] [facility] Unit #: [id number] Loc: [place] [address] Phys: Adam Mistry MD Acct: [id number] Dis Date: Status: REG ER PHONE #: [phone] Exam Date: 09/12/2019 0506 FAX #: [phone] Reason:rlq pain EXAMS: CPT CODE: [id number] CT ABD PELVIS W WO CONT 87432 (Continued) Small left renal cyst. The appendix is not identified. at 0539 Reported and signed by: Candelario Charlton MD CC: Adam Mistry MD Technologist:Mark Holden, RT(R)(CT) CTDI: DLP: Trnscb Date/Time: 09/12/2019 (538) [email or web address] Orig Print D/T: S: 09/12/2019 (0522) PAGE 2 Signed ReportBASIC METABOLIC PANEL 2019-09-12 04:46:00 Test Item Value Reference Range Interpretation [...] GFR) formula.Chronic kidney disease is defined as [facility] er kidney damageor GFR <60 mL/min/1.73 m2 for >3 months. CREATININE (test code 0.80 mg/dL 0.55-1.02 N Note change in = CREAT) reference range due to change in reagent. BUN/CREATININE RATIO 13.8 10-20 N (test code = BUN/CREA) CALCIUM (test code = 8.8 mg/dL 8.5-10.1 N CA) HEPATIC FUNCTION [id number] 04:46:00 Test Item Value Reference Range Interpretation [...] range due ALKP) to change in reagent. [id number] 04:46:00 Test Item Value Reference Range Interpretation Comments LIPASE (test code = LIP) 40 U/L 73.0-393.0 L HCG SERUM [id number] 04:46:00 Test Item Value Reference Range Interpretation Comments HCG SERUM QUAL (test NEGATIVE NEGATIVE This HC GQL test is NOT code = HCGQL) applicable for MALE patients.Check with nurse about probable order error.If Tumor Marker Test needed, nu rse should order test "HCG TU"(Test #550.80065)---- - [id number] 04:46:00 Test Item Value Reference Range Interpretation Comments TROPONIN-I (test code = TROPI) <0.015 ng/mL 0-0.045 N BASIC METABOLIC [id number] 04:39:00 Test Item Value Reference Range Interpretation [...] code = CA) mg/dL 8.5-10.1 HEPATIC FUNCTION [id number] 04:39:00 Test Item Value Reference Range Interpretation [...] TOTAL (test IUnit/L 45-117 code = ALKP) [id number] 04:39:00 Test Item Value Reference Range Interpretation Comments LIPASE (test code = LIP) U/L 73.0-393.0 HCG SERUM [id number] 04:39:00 Test Item Value Reference Range Interpretation Comments HCG SERUM QUAL (test NEGATIVE NEGATIVE This HC GQL test is NOT code = HCGQL) applicable for MALE patients.Check with nurse about probable order error.If Tumor Marker Test needed, nu rse should order test "HCG TU"(Test #550.52658)---- - [id number] 04:39:00 Test Item Value Reference Range Interpretation Comments TROPONIN-I (test code = TROPI) ng/mL 0-0.045 BASIC METABOLIC [id number] 04:34:00 Test Item Value Reference Range Interpretation [...] code = CA) mg/dL 8.5-10.1 HEPATIC FUNCTION [id number] 04:34:00 Test Item Value Reference Range Interpretation [...] TOTAL (test IUnit/L 45-117 code = ALKP) [id number] 04:34:00 Test Item Value Reference Range Interpretation Comments LIPASE (test code = LIP) U/L 73.0-393.0 HCG SERUM [id number] 04:34:00 Test Item Value Reference Range Interpretation Comments HCG SERUM QUAL (test NEGATIVE NEGATIVE This HC GQL test is NOT code = HCGQL) applicable for MALE patients.Check with nurse about probable order error.If Tumor Marker Test needed, nu rse should order test "HCG TU"(Test #550.64082)---- - [id number] 04:34:00 Test Item Value Reference Range Interpretation Comments TROPONIN-I (test code = TROPI) ng/mL 0-0.045 CBC W/O [id number] 04:18:00 Test Item Value Reference Range Interpretation [...] fL 6.7-11.0 N = MPV) CBC W/O [id number] 04:17:00 Test Item Value Reference Range Interpretation [...]
[2023-02-13 21:50] LABS: Absolute Lymphocytes (CBC) 1.5 K/uL (0.7-4.9); Hematocrit 39.9 % (36.0-45.0); Lymphocytes % 25.5 % (15.3-44.8); MCV 95.7 fL (80-100); MPV 8.8 fL (7.6-11.3); Platelets 251 thou/uL (152-406); RBC Red Blood Cell Count 4.18 M/uL (3.86-4.86)
[2023-02-13] MEDS ORDERED: ONDANSETRON 4 MG/2 ML VIAL ONE (21:59)
[2023-02-13] MEDS ORDERED: ACETAMINOPHEN 500 MG TAB ONE (21:59)
[2023-02-13] MEDS ORDERED: FAMOTIDINE 20 MG/2 ML VIAL IV ONE (21:59)
[2023-02-13] MEDS ORDERED: NA CHLORIDE 0.9% 1,000 ML ONE (21:59)
[2023-02-13] MEDS ORDERED: DIPHENOX/ATROP SULF 1 TAB PO ONE (21:59)
[2023-02-13 22:07] LABS: Albumin 3.6 g/dL (3.4-5.0); Bilirubin Total 0.5 mg/dL (0.2-1.0); Potassium 3.3 mEq/L (3.5-5.1); Protein, Total 7.3 g/dL (6.4-8.2)
[2023-02-13 23:41] LABS: Calcium Oxalate Crystals- Ur Few /HPF (None Seen); Specific Gravity > 1.030 (1.005-1.030); Urine Bacteria <20 /HPF (<20); Urine Bilirubin NEGATIVE (Negative); Urine Blood Negative (Negative); Urine Clarity Turbid (Clear); Urine Color Yellow (Yellow); Urine Glucose TRACE (Negative); Urine Mucus 4+ /HPF (None Seen); Urine Protein 1+ (Negative); Urine Urobilinogen 1+ (Normal)
[2023-02-14] MEDS ORDERED: NA CHLORIDE 0.9% 50 ML ONE (00:15)
[2023-02-14] MEDS ORDERED: CEFTRIAXONE 1000 MG/VIAL ONE (00:15)
[2023-02-14] MEDS ORDERED: IBUPROFEN 200 MG TAB PO ONE (00:49)
[2023-02-14] MEDS ORDERED: DICYCLOMINE HCL 10 MG CAP ONE (00:50)
[2023-02-14] MEDS ORDERED: IBUPROFEN 400 MG TAB ONE ×2 (00:50→00:52)
--- NOTE | 2023-02-14 01:16 | EDPHYS ---
Physician Documentation [facility] Name: Ewelina Hines Age: 52 yrs Sex: Female : 1970 Arrival Date: 02/13/2023 Time: 21:08 Bed 16 Private MD: ED Physician Dick Carrington HPI: 02/13 21:18 This 52 yrs old Female presents to ER via Unassigned with complaints of sp4 Nausea/Vomiting/Diarrhea, Fever, High Blood Pressure. 21:19 PMH - Historical: Allergies: No Known Allergies Home Meds: lisinopril 40 mg Oral tablet sp4 daily; hydralazine 25 mg Oral tablet 4 times per day; nifedipine 30 mg Oral tablet, extended release every 12 hours; escitalopram oxalate 20 mg oral tablet daily PMHx: Cerebrovascular accident; Hypertensive disorder; Bipolar disorder PSHx: Cholecystectomy;. 02/14 01:09 This is a very pleasant 52-year-old female with history of bipolar disorder, CVA, sp4 hypertensive disorder , urinary incontinence, presents with 3 days of nausea vomiting and diarrhea associated with watery diarrhea and patient also reports that she has chronic urinary incontinence.. 01:10 Associated symptoms include subjective fever. sp4 Historical: - Allergies: 02/13 21:36 No Known Allergies; cm10 - PMHx: 21:36 Bipolar disorder; Cerebrovascular accident; Hypertensive disorder; cm10 - PSHx: 21:36 Cholecystectomy; cm10 - Immunization history:: Adult Immunizations unknown. - Social history:: Smoking status: Patient denies any tobacco usage or history of. - Family history:: not pertinent. ROS: 02/14 01:09 Constitutional: Negative for chills, and weight loss, positive abdominal cramping, sp4 nausea, vomiting, diarrhea, also positive fever at home that was subjective All other systems are negative, Exam: 01:10 Constitutional: This is a well developed, well nourished patient who is awake, alert, sp4 and in no acute distress. Frail female with dysarthria secondary to prior CVA with difficult mobility. Nontoxic-appearing Head/Face: Normocephalic, atraumatic. Eyes: Pupils equal round and reactive to light, extra-ocular motions intact. Lids and lashes normal. Conjunctiva and sclera are not injected. Cornea within normal limits. Periorbital areas with no swelling, redness, or edema. ENT: Nares patent. No nasal discharge, no septal abnormalities noted. Tympanic membranes are normal and external auditory canals are clear. Oropharynx with no redness, swelling, or masses, exudates, or evidence of obstruction, uvula midline. Mucous membranes moist. Neck: Trachea midline, no thyromegaly or masses palpated, and no cervical lymphadenopathy. Supple, full range of motion without nuchal rigidity, or vertebral point tenderness. Chest/axilla: Normal chest wall appearance and motion. Nontender with no deformity. No lesions are appreciated. Cardiovascular: Regular rate and rhythm with a normal S1 and S2. No gallops, murmurs, or rubs. Normal PMI, no JVD. No pulse deficits. Respiratory: Lungs have equal breath sounds bilaterally, clear to auscultation and percussion. No rales, rhonchi or wheezes noted. No increased work of breathing, no retractions or nasal flaring. Abdomen/GI: Soft, non-tender, with normal bowel sounds. No distension or tympany. No guarding or rebound. No evidence of tenderness throughout. Back: No spinal tenderness. No costovertebral tenderness. Skin: Warm, dry with normal turgor. Normal color with no rashes, no lesions, and no evidence of cellulitis. MS/ Extremity: Pulses equal, no cyanosis. Neurovascular intact. Full, normal range of motion. Neuro: Awake and alert, GCS 15, oriented to person, place, time, and situation. Sensory grossly intact. Positive dysarthria secondary to prior CVA, ambulates with assistance Psych: Awake, alert, with orientation to person, place and time. Behavior, mood, and affect are within normal limits Vital Signs: 02/13 21:35 Weight 58.97 kg; Height 4 ft. 11 in. ; cm10 21:42 BP 173 / 93; Pulse 67; Resp 16; Pulse Ox 97% ; cm10 22:30 BP 176 / 90; Pulse 58; Resp 18 S; Pulse Ox 98% on R/A; jw7 23:00 BP 173 / 94; Pulse 50; Resp 17 S; Pulse Ox 98% on R/A; jw7 02/14 00:30 BP 176 / 98; Pulse 60; Resp 17 S; Pulse Ox 95% on R/A; jw7 01:30 BP 158 / 89; Pulse 55; Resp 16 S; Pulse Ox 95% on R/A; jw7 02/13 21:35 Body Mass Index 26.26 (58.97 kg, 149.86 cm) cm10 MDM: 02/13 21:21 Patient medically screened. sp4 02/14 01:12 Differential diagnosis: gastritis, pancreatitis, diverticulitis, viral gastroenteritis, sp4 gastroenteritis. Data reviewed: vital signs, nurses notes, old medical records, lab test result(s). Consideration of Admission/Observation Escalation of care including admission/observation considered. ED course: Patient feels improved after IV hydration Lomotil and other symptomatic medications. Patient is stable for discharge home with as needed Bentyl, Lomotil, clear liquid diet for 24 hours. . 01:13 ED course: Mild UTI based on urinalysis results -we will prescribe Macrobid twice a day sp4 for 10 days. 02/13 21:20 Order name: CBC with Diff; Complete Time: 22:49 sp4 02/13 21:20 Order name: CMP; Complete Time: 22:49 sp4 02/13 21:20 Order name: Lipase; Complete Time: 22:49 sp4 02/13 21:20 Order name: Urinalysis w/ reflexes; Complete Time: 23:44 sp4 02/13 23:48 Order name: SARS-COV-2 RT PCR; Complete Time: 01:09 EDMS 02/13 23:48 Order name: Influenza Screen (A ; Complete Time: 00:23 EDMS 02/13 21:20 Order name: IV Saline Lock; Complete Time: 21:44 sp4 02/13 21:20 Order name: Labs collected and sent; Complete Time: 21:44 sp4 02/13 22:09 Order name: Straight Cath - Urine; Complete Time: 22:46 sp4 Administered Medications: 02/13 22:00 Drug: Diphenoxylate-Atropine PO 2 tabs PO once Route: PO; jw7 23:56 Follow up: Response: No adverse reaction jw7 22:00 Drug: Acetaminophen PO 1000 mg PO once Route: PO; jw7 23:56 Follow up: Response: No adverse reaction jw7 22:01 Drug: NS 0.9% IV 1000 ml IV at 1 bolus Per protocol; 1000 mL bolus Route: IV; Rate: 1 jw7 bolus; Site: left antecubital; 23:55 Follow up: Response: No adverse reaction; IV Status: Completed infusion; IV Intake: jw7 1000ml 22:01 Drug: Famotidine IVP 20 mg IVP once; dilute with 10 mL 0.9% NaCl; give over 2 minutes jw7 Route: IVP; Site: left antecubital; 23:56 Follow up: Response: No adverse reaction jw7 22:01 Drug: Ondansetron IVP 8 mg IVP once; over 2 minutes Route: IVP; Site: left antecubital; jw7 23:55 Follow up: Response: No adverse reaction jw7 02/14 00:09 Drug: Rocephin - Rocephin (cefTRIAXone) IVPB 1 grams IVPB once over 30 mins; (mix in 50 jw7 mL NS) Route: IVPB; Infused Over: 30 mins; Site: left antecubital; 00:44 Follow up: Response: No adverse reaction; IV Status: Completed infusion; IV Intake: [id number] 00:43 Drug: Dicyclomine PO 20 mg PO once Route: PO; jw7 01:23 Follow up: Response: No adverse reaction jw7 00:43 Drug: Ibuprofen PO 800 mg PO once Route: PO; jw7 01:23 Follow up: Response: No adverse reaction jw7 01:23 Drug: cloNIDine PO 0.2 mg PO once Route: PO; jw7 01:57 Follow up: Response: No adverse reaction jw7 Disposition Summary: 02/14/23 01:15 Discharge Ordered Notes: We advise clear liquid diet for next 24 hours Location: Home sp4 Problem: new sp4 Symptoms: have improved sp4 Condition: Stable sp4 Diagnosis - Diarrhea, unspecified sp4 - Acute viral gastroenteritis, nausea vomiting, sp4 - Acute urinary tract infection sp4 Followup: sp4 - With: Private Physician - When: 7 - 10 days - Reason: Recheck today's complaints Discharge Instructions: - Discharge Summary Sheet sp4 - Diarrhea, Adult sp4 Forms: - Patient Portal Instructions sp4 Prescriptions: - Ibuprofen 800 mg Oral Tablet - take 1 tablet ORAL route every 8 hours As needed take with food; 30 tablet; sp4 Refills: 0, Product Selection Permitted - Macrobid 100 mg Oral Capsule - take 1 capsule ORAL route every 12 hours for 10 days; 20 capsule; Refills: 0, sp4 Product Selection Permitted - Lomotil 2.5-0.025 mg Oral tablet - take 1 tablet ORAL route every 6 hours As needed PRN diarrhea; 30 tablet; sp4 Refills: 0, Product Selection Permitted - dicyclomine 20 mg Oral tablet - take 1 tablet ORAL route every 6 hours PRN cramps; 30 tablet; Refills: 0, sp4 Product Selection Permitted Signatures: Dispatcher [employer] Hilary De La O, HARDEEP RN jw7 Dick Carrington MD MD sp4 Marylin Ayon RN RN cm10 Corrections: (The following items were deleted from the chart) 02/13 23:48 21:27 COVID-19/FLU A+[id number] ordered. EDRI EDMS
--- NOTE | 2023-02-14 01:16 | ER ---
Nurse's Notes [facility] Name: Ewelina Hines Age: 52 yrs Sex: Female : 1970 Arrival Date: 02/13/2023 Time: 21:08 Bed 16 Private MD: Diagnosis: Diarrhea, unspecified;Acute viral gastroenteritis, nausea vomiting,;Acute urinary tract infection Presentation: 02/13 21:35 Chief complaint: Patient states: vomiting and diarrhea onset 2 days ago. Pt states that cm10 her blood pressure has also been elevated. Denies any sick contacts. Coronavirus screen: Vaccine status: Patient reports being unvaccinated. Client denies travel out of the [place] in the last 14 days. Ebola Screen: Patient denies travel to an Ebola-affected area in the 21 days before illness onset. No symptoms or risks identified at this time. Initial Sepsis Screen: Does the patient meet any 2 criteria? No. Patient's initial sepsis screen is negative. Does the patient have a suspected source of infection? No. Patient's initial sepsis screen is negative. Risk Assessment: Do you want to hurt yourself or someone else? Patient reports no desire to harm self or others. Onset of symptoms was February 13, 2023. 21:35 Method Of Arrival: Wheelchair cm10 21:35 Acuity: KASSI 3 cm10 Triage Assessment: 22:45 GI: Reports diarrhea, nausea, vomiting. jw7 Historical: - Allergies: 21:36 No Known Allergies; cm10 - PMHx: 21:36 Bipolar disorder; Cerebrovascular accident; Hypertensive disorder; cm10 - PSHx: 21:36 Cholecystectomy; cm10 - Immunization history:: Adult Immunizations unknown. - Social history:: Smoking status: Patient denies any tobacco usage or history of. - Family history:: not pertinent. Screenin:44 [facility] ED Fall Risk Assessment (Adult) History of falling in the last 3 months, jw7 including since admission No falls in past 3 months (0 pts) Confusion or Disorientation No (0 pts) Intoxicated or Sedated No (0 pts) Impaired Gait Yes (1 pt) Mobility Assist Device Used Yes (1 pt) Altered Elimination No (0 pt) Score/Fall Risk Level 0 - 2 = Low Risk Oriented to surroundings, Maintained a safe environment, Educated pt \T\ family on fall prevention, incl call for assistance when getting out of bed. Abuse screen: Denies threats or abuse. Denies injuries from another. Nutritional screening: No deficits noted. Tuberculosis screening: No symptoms or risk factors identified. Assessment: 22:43 General: Appears in no apparent distress. comfortable, Behavior is calm, cooperative. jw7 Pain: Denies pain. Neuro: Lozano Agitation-Sedation Scale (RASS): 0 - Alert and Calm Level of Consciousness is awake, alert, obeys commands, Oriented to person, place, time, situation. Cardiovascular: Reports nausea, vomiting, high blood pressure Heart tones S1 S2 present Capillary refill < 3 seconds Clubbing of nail beds is absent JVD is absent Patient's skin is warm and dry. Respiratory: No deficits noted. GI: Abdomen is flat, non-distended. : No deficits noted. No signs and/or symptoms were reported regarding the genitourinary system. EENT: No deficits noted. No signs and/or symptoms were reported regarding the EENT system. Derm: No deficits noted. No signs and/or symptoms reported regarding the dermatologic system. Musculoskeletal: No deficits noted. No signs and/or symptoms reported regarding the musculoskeletal system. 23:40 Reassessment: Patient appears in no apparent distress at this time. No changes from jw7 previously documented assessment. Patient and/or family updated on plan of care and expected duration. Pain level reassessed. Patient is alert, oriented x 3, equal unlabored respirations, skin warm/dry/pink. 02/14 00:44 Reassessment: Patient appears in no apparent distress at this time. No changes from jw7 previously documented assessment. Patient and/or family updated on plan of care and expected duration. Pain level reassessed. Patient is alert, oriented x 3, equal unlabored respirations, skin warm/dry/pink. 01:30 Reassessment: Patient appears in no apparent distress at this time. No changes from jw7 previously documented assessment. Patient and/or family updated on plan of care and expected duration. Pain level reassessed. Patient is alert, oriented x 3, equal unlabored respirations, skin warm/dry/pink. Vital Signs: 02/13 21:35 Weight 58.97 kg; Height 4 ft. 11 in. ; cm10 21:42 BP 173 / 93; Pulse 67; Resp 16; Pulse Ox 97% ; cm10 22:30 BP 176 / 90; Pulse 58; Resp 18 S; Pulse Ox 98% on R/A; jw7 23:00 BP 173 / 94; Pulse 50; Resp 17 S; Pulse Ox 98% on R/A; jw7 02/14 00:30 BP 176 / 98; Pulse 60; Resp 17 S; Pulse Ox 95% on R/A; jw7 01:30 BP 158 / 89; Pulse 55; Resp 16 S; Pulse Ox 95% on R/A; jw7 02/13 21:35 Body Mass Index 26.26 (58.97 kg, 149.86 cm) cm10 ED Course: 02/13 21:13 Patient arrived in ED. jj6 21:18 Dick Carrington MD is Attending Physician. sp4 21:30 Hilary Leo RN is Primary Nurse. jw7 21:36 Triage completed. cm10 21:36 Arm band placed on Patient placed in an exam room, on a stretcher. cm10 21:44 Inserted saline lock: 20 gauge in right antecubital area, using aseptic technique. ls5 Blood collected. 22:44 Patient has correct armband on for positive identification. Placed in gown. Bed in low jw7 position. Call light in reach. Side rails up X2. 22:45 Straight cath inserted, using sterile technique, 16 Fr. Specimen obtained. Returned jw7 dennis urine. Patient tolerated well. 02/14 01:57 Provided Education on: discharge instructions and medications. jw7 01:57 No provider procedures requiring assistance completed. IV discontinued, intact, jw7 bleeding controlled, No redness/swelling at site. Pressure dressing applied. Administered Medications: 02/13 22:00 Drug: Diphenoxylate-Atropine PO 2 tabs PO once Route: PO; jw7 23:56 Follow up: Response: No adverse reaction jw7 22:00 Drug: Acetaminophen PO 1000 mg PO once Route: PO; jw7 23:56 Follow up: Response: No adverse reaction jw7 22: Drug: NS 0.9% IV 1000 ml IV at 1 bolus Per protocol; 1000 mL bolus Route: IV; Rate: 1 jw7 bolus; Site: left antecubital; 23:55 Follow up: Response: No adverse reaction; IV Status: Completed infusion; IV Intake: jw7 1000ml 22:01 Drug: Famotidine IVP 20 mg IVP once; dilute with 10 mL 0.9% NaCl; give over 2 minutes jw7 Route: IVP; Site: left antecubital; 23:56 Follow up: Response: No adverse reaction jw7 22:01 Drug: Ondansetron IVP 8 mg IVP once; over 2 minutes Route: IVP; Site: left antecubital; jw7 23:55 Follow up: Response: No adverse reaction jw7 02/14 00:09 Drug: Rocephin - Rocephin (cefTRIAXone) IVPB 1 grams IVPB once over 30 mins; (mix in 50 jw7 mL NS) Route: IVPB; Infused Over: 30 mins; Site: left antecubital; 00:44 Follow up: Response: No adverse reaction; IV Status: Completed infusion; IV Intake: [id number] 00:43 Drug: Dicyclomine PO 20 mg PO once Route: PO; jw7 01:23 Follow up: Response: No adverse reaction jw7 00:43 Drug: Ibuprofen PO 800 mg PO once Route: PO; jw7 01:23 Follow up: Response: No adverse reaction jw7 01:23 Drug: cloNIDine PO 0.2 mg PO once Route: PO; jw7 01:57 Follow up: Response: No adverse reaction jw7 Medication: 01:58 VIS not applicable for this client. jw7 Intake: 02/13 23:55 IV: 1000ml; Total: 1000ml. jw7 02/14 00:44 IV: 50ml; Total: 1050ml. jw7 Outcome: 01:15 Discharge ordered by . sp4 01:57 Discharged to home via wheelchair, with family, jw7 01:57 Condition: stable 01:57 Discharge instructions given to patient, Instructed on discharge instructions, follow up and referral plans. medication usage, Demonstrated understanding of instructions, follow-up care, medications, Prescriptions given X 4, 01:58 Patient left the ED. jw7 Signatures: La [email or web address] Hilary Leo, RN RN jw7 Virgilio [email or web address] Dick Carrington MD MD sp4 Marylin Ayon RN RN cm10 Corrections: (The following items were deleted from the chart) 02/13 21:44 21:43 Inserted saline lock: 20 gauge in left ls5 ls5
[2023-02-14] MEDS ORDERED: cloNIDine HCL 0.1 MG TAB ONE (01:33)
[2023-02-14 16:17] VITALS: BP 158/89; O2SAT 95
== END 2023-02-14 01:58 | disposition home or self-care (01) ==
LOC: ER 21:08
DX: K52.9 Noninfective gastroenteritis and colitis, unspecified (principal); A08.4 Viral intestinal infection, unspecified; R11.2 Nausea with vomiting, unspecified; N39.0 Urinary tract infection, site not specified; Z20.822 Contact with and (suspected) exposure to COVID-19
CPT/HCPCS: 96365; 96361; 85025; 81001; 36415; 83690; 80053; 87635; 87804 ×2; 51702; 96375; 99285; J2405; J7030; J0696

== ENCOUNTER 2023-03-20 09:11 | Emergency (ER) | payer OTHER ==
--- OUTSIDE RECORDS SUMMARY | 2023-03-20 09:21 | XMS REPORT | Continuity of Care Document ---
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 risperidone Yes Take by [facility] vers (RISPERDAL 6-29 mouth. ity of ORAL) 14:43: [address] Branch trazodone Yes Take by Unive rs HCl 6-29 mouth. ity of (TRAZODONE 14:43: [place] ORAL) [address] [place] [address] Branch risperidone Yes Take by [facility] vers (RISPERDAL 6-29 mouth. ity of ORAL) 14:43: [address] Branch trazodone Yes Take by Unive rs HCl 6-29 mouth. ity of (TRAZODONE 14:43: [place] ORAL) Medical Branch risperidone Yes Take by [facility] vers (RISPERDAL 6-29 mouth. ity of ORAL) 14:43: [address] Branch trazodone Yes Take by Unive rs HCl 6-29 mouth. ity of (TRAZODONE 14:43: [place] ORAL) Medical Branch risperidone Yes Take by [facility] vers (RISPERDAL 6-29 mouth. ity of ORAL) 14:43: [address] Branch trazodone Yes Take by Unive rs HCl 6-29 mouth. ity of (TRAZODONE 14:43: [place] ORAL) Medical Branch risperidone Yes Take by [facility] vers (RISPERDAL 6-29 mouth. ity of ORAL) 14:43: [address] Branch trazodone Yes Take by Unive rs HCl 6-29 mouth. ity of (TRAZODONE 14:43: [place] ORAL) Medical Branch risperidone Yes Take by [facility] vers (RISPERDAL 6-29 mouth. ity of ORAL) 14:43: [place] [address] Medical Branch trazodone Yes Take by Unive rs HCl 6-29 mouth. ity of (TRAZODONE 14:43: [place] ORAL) Medical Branch risperidone Yes Take by [facility] vers (RISPERDAL 6-29 mouth. ity of ORAL) 14:43: [address] Branch trazodone Yes Take by Unive rs HCl 6-29 mouth. ity of (TRAZODONE 14:43: [place] ORAL) Medical Branch risperidone Yes Take by [facility] vers (RISPERDAL 6-29 mouth. ity of ORAL) 14:43: [address] Branch trazodone Yes Take by Unive rs HCl 6-29 mouth. ity of (TRAZODONE 14:43: [place] ORAL) Medical Branch risperidone Yes Take by [facility] vers (RISPERDAL 6-29 mouth. ity of ORAL) 14:43: [address] Branch trazodone Yes Take by Unive rs HCl 6-29 mouth. ity of (TRAZODONE 14:43: [place] ORAL) Medical Branch risperidone Yes Take by [facility] vers (RISPERDAL 6-29 mouth. ity of ORAL) 14:43: [address] Branch trazodone Yes Take by Unive rs HCl 6-29 mouth. ity of (TRAZODONE 14:43: [place] ORAL) Medical Branch risperidone Yes Take by [facility] vers (RISPERDAL 6-29 mouth. ity of ORAL) 14:43: [address] Branch trazodone Yes Take by Unive rs HCl 6-29 mouth. ity of (TRAZODONE 14:43: [place] ORAL) Medical Branch risperidone Yes Take by [facility] vers (RISPERDAL 6-29 mouth. ity of ORAL) 14:43: [address] Branch trazodone Yes Take by Unive rs HCl 6-29 mouth. ity of (TRAZODONE 14:43: [place] ORAL) [address] [place] [address] risperidone Yes Take by [facility] vers (RISPERDAL 6-29 mouth. ity of ORAL) 14:43: [address] trazodone Yes Take by Unive rs HCl 6-29 mouth. ity of (TRAZODONE 14:43: [place] ORAL) [address] [place] [address] hydroCHLORO Yes 1/2 tablet Univers thiazide 25 6-29 in the ity of mg tablet 14:42: morning [address] lisinopriL Yes 1 tablet Uni vers 40 mg 6-29 ity of tablet 14:42: [address] hydrALAZINE Yes 1 tablet Un mable 25 mg 6-29 ity of tablet 14:42: [address] hydroCHLORO Yes 1/2 tablet [facility] thiazide 25 6-29 in the ity of mg tablet 14:42: morning [address] lisinopriL Yes 1 tablet Uni vers 40 mg 6-29 ity of tablet 14:42: [address] hydrALAZINE Yes 1 tablet Un mable 25 mg 6-29 ity of tablet 14:42: [address] hydroCHLORO Yes 1/2 tablet Univers thiazide 25 6-29 in the ity of mg tablet 14:42: morning [address] lisinopriL Yes 1 tablet Uni vers 40 mg 6-29 ity of tablet 14:42: [address] hydrALAZINE Yes 1 tablet Un mable 25 mg 6-29 ity of tablet 14:42: [address] hydroCHLORO Yes 1/2 tablet Univers thiazide 25 6-29 in the ity of mg tablet 14:42: morning [address] lisinopriL Yes 1 tablet Uni vers 40 mg 6-29 ity of tablet 14:42: [address] hydrALAZINE Yes 1 tablet Un mable 25 mg 6-29 ity of tablet 14:42: [address] hydroCHLORO Yes 1/2 tablet Univers thiazide 25 6-29 in the ity of mg tablet 14:42: morning [address] lisinopriL Yes 1 tablet Uni vers 40 mg 6-29 ity of tablet 14:42: [address] hydrALAZINE Yes 1 tablet Un mable 25 mg 6-29 ity of tablet 14:42: [address] hydroCHLORO Yes 1/2 tablet Univers thiazide 25 6-29 in the ity of mg tablet 14:42: morning [address] lisinopriL Yes 1 tablet Uni vers 40 mg 6-29 ity of tablet 14:42: [address] hydrALAZINE Yes 1 tablet Un mable 25 mg 6-29 ity of tablet 14:42: [address] hydroCHLORO Yes 1/2 tablet Univers thiazide 25 6-29 in the ity of mg tablet 14:42: morning [address] lisinopriL Yes 1 tablet Uni vers 40 mg 6-29 ity of tablet 14:42: [address] hydrALAZINE Yes 1 tablet Un mable 25 mg 6-29 ity of tablet 14:42: [address] hydroCHLORO Yes 1/2 tablet Univers thiazide 25 6-29 in the ity of mg tablet 14:42: morning [address] lisinopriL Yes 1 tablet Uni vers 40 mg 6-29 ity of tablet 14:42: [address] hydrALAZINE Yes 1 tablet Un mable 25 mg 6-29 ity of tablet 14:42: [address] hydroCHLORO Yes 1/2 tablet Univers thiazide 25 6-29 in the ity of mg tablet 14:42: morning [address] lisinopriL Yes 1 tablet Uni vers 40 mg 6-29 ity of tablet 14:42: [address] hydrALAZINE Yes 1 tablet Un mable 25 mg 6-29 ity of tablet 14:42: [address] hydroCHLORO Yes 1/2 tablet Univers thiazide 25 6-29 in the ity of mg tablet 14:42: morning [address] lisinopriL Yes 1 tablet Uni vers 40 mg 6-29 ity of tablet 14:42: [address] hydrALAZINE Yes 1 tablet Un mable 25 mg 6-29 ity of tablet 14:42: [address] hydroCHLORO Yes 1/2 tablet Univers thiazide 25 6-29 in the ity of mg tablet 14:42: morning [address] lisinopriL Yes 1 tablet Uni vers 40 mg 6-29 ity of tablet 14:42: [address] hydrALAZINE Yes 1 tablet Un mable 25 mg 6-29 ity of tablet 14:42: [address] hydroCHLORO Yes 1/2 tablet Univers thiazide 25 6-29 in the ity of mg tablet 14:42: morning [address] lisinopriL Yes 1 tablet Uni vers 40 mg 6-29 ity of tablet 14:42: [address] hydrALAZINE Yes 1 tablet Un mable 25 mg 6-29 ity of tablet 14:42: [address] hydroCHLORO Yes 1/2 tablet Univers thiazide 25 6-29 in the ity of mg tablet 14:42: morning [address] lisinopriL Yes 1 tablet Uni vers 40 mg 6-29 ity of tablet 14:42: [address] hydrALAZINE Yes 1 tablet Un mable 25 mg 6-29 ity of tablet 14:42: [address] hydroCHLORO Yes 1/2 tablet Univers thiazide 25 6-29 in the ity of mg tablet 14:42: morning [address] lisinopriL Yes 1 tablet Uni vers 40 mg 6-29 ity of tablet 14:42: [address] hydrALAZINE Yes 1 tablet Un mable 25 mg 6-29 ity of tablet 14:42: [address] hydroCHLORO Yes 1/2 tablet Univers thiazide 25 6-29 in the ity of mg tablet 14:42: morning [address] lisinopriL Yes 1 tablet Uni vers 40 mg 6-29 ity of tablet 14:42: [address] hydrALAZINE Yes 1 tablet Un mable 25 mg 6-29 ity of tablet 14:42: [address] hydroCHLORO Yes 1/2 tablet Univers thiazide 25 6-29 in the ity of mg tablet 14:42: morning [address] lisinopriL Yes 1 tablet Uni vers 40 mg 6-29 ity of tablet 14:42: [address] hydrALAZINE Yes 1 tablet Un mable 25 mg 6-29 ity of tablet 14:42: [address] hydroCHLORO 2022- Yes 1/2 tablet Univers thiazide 25 6-29 in the ity of mg tablet 14:42: morning [address] lisinopriL Yes 1 tablet Uni vers 40 mg 6-29 ity of tablet 14:42: [address] hydrALAZINE Yes 1 tablet Un mable 25 mg 6-29 ity of tablet 14:42: [address] hydroCHLORO Yes 1/2 tablet Univers thiazide 25 6-29 in the ity of mg tablet 14:42: morning [address] lisinopriL Yes 1 tablet Uni vers 40 mg 6-29 ity of tablet 14:42: [address] hydrALAZINE Yes 1 tablet Un mable 25 mg 6-29 ity of tablet 14:42: [address] hydroCHLORO Yes 1/2 tablet Univers thiazide 25 6-29 in the ity of mg tablet 14:42: morning [address] lisinopriL Yes 1 tablet Uni vers 40 mg 6-29 ity of tablet 14:42: [address] hydrALAZINE Yes 1 tablet Un mable 25 mg 6-29 ity of tablet 14:42: [address] hydroCHLORO 2022-0 Yes 1/2 tablet Univers thiazide 25 6-29 in the ity of mg tablet 14:42: morning [address] lisinopriL Yes 1 tablet Uni vers 40 mg 6-29 ity of tablet 14:42: [address] hydrALAZINE Yes 1 tablet Un mable 25 mg 6-29 ity of tablet 14:42: [address] hydroCHLORO 2022- Yes 1/2 tablet Univers thiazide 25 6-29 in the ity of mg tablet 14:42: morning [address] lisinopriL Yes 1 tablet Uni vers 40 mg 6-29 ity of tablet 14:42: [address] hydrALAZINE Yes 1 tablet Un mable 25 mg 6-29 ity of tablet 14:42: [address] hydroCHLORO Yes 1/2 tablet Univers thiazide 25 6-29 in the ity of mg tablet 14:42: morning [address] lisinopriL Yes 1 tablet Uni vers 40 mg 6-29 ity of tablet 14:42: [address] hydrALAZINE Yes 1 tablet Un mable 25 mg 6-29 ity of tablet 14:42: [address] hydroCHLORO Yes 1/2 tablet Univers thiazide 25 6-29 in the ity of mg tablet 14:42: morning [address] lisinopriL Yes 1 tablet Uni vers 40 mg 6-29 ity of tablet 14:42: [address] hydrALAZINE Yes 1 tablet Un mable 25 mg 6-29 ity of tablet 14:42: [address] hydroCHLORO Yes 1/2 tablet Univers thiazide 25 6-29 in the ity of mg tablet 14:42: morning [address] lisinopriL Yes 1 tablet Uni vers 40 mg 6-29 ity of tablet 14:42: [address] hydrALAZINE Yes 1 tablet Un mable 25 mg 6-29 ity of tablet 14:42: [address] hydroCHLORO Yes 1/2 tablet Univers thiazide 25 6-29 in the ity of mg tablet 14:42: morning [address] lisinopriL Yes 1 tablet Uni vers 40 mg 6-29 ity of tablet 14:42: [address] hydrALAZINE Yes 1 tablet Un mable 25 mg 6-29 ity of tablet 14:42: [address] hydroCHLORO Yes 1/2 tablet Univers thiazide 25 6-29 in the ity of mg tablet 14:42: morning [address] lisinopriL 2023-0 Yes 1 tablet Uni vers 40 mg 6-29 ity of tablet 14:42: [address] hydrALAZINE Yes 1 tablet Un mable 25 mg 6-29 ity of tablet 14:42: [address] hydroCHLORO Yes 1/2 tablet [facility] thiazide 25 6-29 in the ity of mg tablet 14:42: morning [address] lisinopriL Yes 1 tablet Uni vers 40 mg 6-29 ity of tablet 14:42: [address] hydrALAZINE Yes 1 tablet Un mable 25 mg 6-29 ity of tablet 14:42: [address] hydroCHLORO Yes 1/2 tablet [facility] thiazide 25 6-29 in the ity of mg tablet 14:42: morning [address] lisinopriL Yes 1 tablet Uni vers 40 mg 6-29 ity of tablet 14:42: [address] hydrALAZINE Yes 1 tablet Un mable 25 mg 6-29 ity of tablet 14:42: [address] hydroCHLORO Yes 1/2 tablet Univers thiazide 25 6-29 in the ity of mg tablet 14:42: morning [address] lisinopriL Yes 1 tablet Uni vers 40 mg 6-29 ity of tablet 14:42: [address] hydrALAZINE Yes 1 tablet Un mable 25 mg 6-29 ity of tablet 14:42: [address] hydroCHLORO Yes 1/2 tablet Univers thiazide 25 6-29 in the ity of mg tablet 14:42: morning [address] lisinopriL Yes 1 tablet Uni vers 40 mg 6-29 ity of tablet 14:42: [address] hydrALAZINE Yes 1 tablet Un mable 25 mg 6-29 ity of tablet 14:42: [address] hydroCHLORO Yes 1/2 tablet Univers thiazide 25 6-29 in the ity of mg tablet 14:42: morning [address] lisinopriL Yes 1 tablet Uni vers 40 mg 6-29 ity of tablet 14:42: [address] hydrALAZINE 2023-0 Yes 1 tablet Un mable 25 mg 6-29 ity of tablet 14:42: [address] hydroCHLORO 2022-0 Yes 1/2 tablet [facility] thiazide 25 6-29 in the ity of mg tablet 14:42: morning [address] lisinopriL 2022-0 Yes 1 tablet Uni vers 40 mg 6-29 ity of tablet 14:42: [address] hydrALAZINE 3-0 Yes 1 tablet Un mable 25 mg 6-29 ity of tablet 14:42: [address] oxyBUTYnin 2023-0 Yes [id number] 5mg Take 1 [facility] chloride 5 6-29 tablet by ity of mg tablet 00:00: [place] [facility] morning Branch and 1 tablet in the evening. oxyBUTYnin 3-0 Yes [id number] 5mg Take 1 [facility] chloride 5 6-29 tablet by ity of mg tablet 00:00: [place] the [facility] morning Branch and 1 tablet in the evening. oxyBUTYnin 3-0 Yes [id number] 5mg Take 1 [facility] chloride 5 6-29 tablet by ity of mg tablet 00:00: [place] the [facility] morning Branch and 1 tablet in the evening. oxyBUTYnin 3-0 Yes [id number] 5mg Take 1 [facility] chloride 5 6-29 tablet by ity of mg tablet 00:00: [place] the [facility] morning Branch and 1 tablet in the evening. oxyBUTYnin 3-0 Yes [id number] 5mg Take 1 [facility] chloride 5 6-29 tablet by ity of mg tablet 00:00: [place] the [facility] morning Branch and 1 tablet in the evening. oxyBUTYnin 2023-0 Yes [id number] 5mg Take 1 [facility] chloride 5 6-29 tablet by ity of mg tablet 00:00: mouth [place] the [facility] morning Branch and 1 tablet in the evening. oxyBUTYnin 2023-0 Yes [id number] 5mg Take 1 [facility] chloride 5 6-29 tablet by ity of mg tablet 00:00: [place] 00 the [facility] morning Branch and 1 tablet in the evening. oxyBUTYnin 2023-0 Yes [id number] 5mg Take 1 [facility] chloride 5 6-29 tablet by ity of mg tablet 00:00: mouth [place] the [facility] morning Branch and 1 tablet in the evening. oxyBUTYnin 2023-0 Yes [id number] 5mg Take 1 [facility] chloride 5 6-29 tablet by ity of mg tablet 00:00: mouth [place] the [facility] morning Branch and 1 tablet in the evening. oxyBUTYnin 2023-0 Yes [id number] 5mg Take 1 [facility] chloride 5 6-29 tablet by ity of mg tablet 00:00: mouth [place] the [facility] morning Branch and 1 tablet in the evening. oxyBUTYnin 2023-0 Yes [id number] 5mg Take 1 [facility] chloride 5 6-29 tablet by ity of mg tablet 00:00: mouth [place] the [facility] morning Branch and 1 tablet in the evening. oxyBUTYnin 2023-0 Yes [id number] 5mg Take 1 [facility] chloride 5 6-29 tablet by ity of mg tablet 00:00: mouth [place] the [facility] morning Branch and 1 tablet in the evening. oxyBUTYnin 2023-0 Yes [id number] 5mg Take 1 [facility] chloride 5 6-29 tablet by ity of mg tablet 00:00: mouth [place] the [facility] morning Branch and 1 tablet in the evening. oxyBUTYnin 2023-0 Yes [id number] 5mg Take 1 [facility] chloride 5 6-29 tablet by ity of mg tablet 00:00: mouth [place] the Medical morning Branch and 1 tablet in the evening. oxyBUTYnin 2023-0 Yes [id number] 5mg Take 1 [facility] chloride 5 6-29 tablet by ity of mg tablet 00:00: mouth [place] the Medical morning Branch and 1 tablet in the evening. oxyBUTYnin 2023-0 Yes [id number] 5mg Take 1 [facility] chloride 5 6-29 tablet by ity of mg tablet 00:00: mouth [place] 00 the Medical morning Branch and 1 tablet in the evening. oxyBUTYnin 2023-0 Yes [id number] 5mg Take 1 [facility] chloride 5 6-29 tablet by ity of mg tablet 00:00: mouth [place] the Medical morning Branch and 1 tablet in the evening. oxyBUTYnin 2023-0 Yes [id number] 5mg Take 1 [facility] chloride 5 6-29 tablet by ity of mg tablet 00:00: mouth [place] 00 the Medical morning Branch and 1 tablet in the evening. oxyBUTYnin 2023-0 Yes [id number] 5mg Take 1 [facility] chloride 5 6-29 tablet by ity of mg tablet 00:00: mouth [place] the [facility] morning Branch and 1 tablet in the evening. oxyBUTYnin 2023-0 Yes [id number] 5mg Take 1 [facility] chloride 5 6-29 tablet by ity of mg tablet 00:00: mouth [place] 00 the [facility] morning Branch and 1 tablet in the evening. oxyBUTYnin 2023-0 Yes [id number] 5mg Take 1 [facility] chloride 5 6-29 tablet by ity of mg tablet 00:00: mouth [place] 00 the Medical morning Branch and 1 tablet in the evening. oxyBUTYnin 2023-0 Yes [id number] 5mg Take 1 [facility] chloride 5 6-29 tablet by ity of mg tablet 00:00: mouth [place] 00 the Medical morning Branch and 1 tablet in the evening. oxyBUTYnin 2023-0 Yes [id number] 5mg Take 1 [facility] chloride 5 6-29 tablet by ity of mg tablet 00:00: mouth [place] 00 the Medical morning Branch and 1 tablet in the evening. oxyBUTYnin 2023-0 Yes [id number] 5mg Take 1 [facility] chloride 5 6-29 tablet by ity of mg tablet 00:00: mouth [place] the [facility] morning Branch and 1 tablet in the evening. oxyBUTYnin 2023-0 Yes [id number] 5mg Take 1 [facility] chloride 5 6-29 tablet by ity of mg tablet 00:00: mouth [place] the [facility] morning Branch and 1 tablet in the evening. oxyBUTYnin 2023-0 Yes [id number] 5mg Take 1 [facility] chloride 5 6-29 tablet by ity of mg tablet 00:00: mouth [place] 00 the Medical morning Branch and 1 tablet in the evening. oxyBUTYnin 2023-0 Yes [id number] 5mg Take 1 [facility] chloride 5 6-29 tablet by ity of mg tablet 00:00: mouth [place] the Medical morning Branch and 1 tablet in the evening. oxyBUTYnin 2023-0 Yes [id number] 5mg Take 1 [facility] chloride 5 6-29 tablet by ity of mg tablet 00:00: mouth [place] the Medical morning Branch and 1 tablet in the evening. oxyBUTYnin 2023-0 Yes [id number] 5mg Take 1 [facility] chloride 5 6-29 tablet by ity of mg tablet 00:00: mouth [place] the Medical morning Branch and 1 tablet in the evening. oxyBUTYnin 2023-0 Yes [id number] 5mg Take 1 [facility] chloride 5 6-29 tablet by ity of mg tablet 00:00: mouth [place] 00 the Medical morning Branch and 1 tablet in the evening. oxyBUTYnin 2023-0 Yes [id number] 5mg Take 1 [facility] chloride 5 6-29 tablet by ity of mg tablet 00:00: mouth [place] the Medical morning Branch and 1 tablet in the evening. oxyBUTYnin 3-0 Yes [id number] 5mg Take 1 [facility] chloride 5 6-29 tablet by ity of mg tablet 00:00: mouth [place] the [facility] morning Branch and 1 tablet in the evening. oxyBUTYnin 3-0 3- No [id number] 5mg Take 1 [facility] chloride 5 6-29 11-16 tablet by ity of mg tablet 00:00: 00:00 mouth in [place] :00 the Medical morning Branch and 1 tablet in the evening. oxyBUTYnin 3-0 3- No [id number] 5mg Take 1 [facility] chloride 5 6-29 11-16 tablet by ity of mg tablet 00:00: 00:00 mouth in [place] :00 the Medical morning Branch and 1 tablet in the evening. oxyBUTYnin 3-0 3- No [id number] 5mg Take 1 [facility] chloride 5 6-29 11-16 tablet by ity of mg tablet 00:00: 00:00 mouth in [place] :00 the Medical morning Branch and 1 tablet in the evening. oxyBUTYnin 2023-0 3- No [id number] 5mg Take 1 [facility] chloride 5 6-29 11-16 tablet by ity of mg tablet 00:00: 00:00 mouth in [place] :00 the Medical morning Branch and 1 tablet in the evening. NIFEdipine 2023-0 Yes 30mg Take 1 Unive rs ER 30 mg 6-14 tablet by ity of tablet 00:00: mouth in [place] 00 the Medical morning Branch and 1 tablet in the evening. NIFEdipine 2023-0 Yes 30mg Take 1 Unive rs ER 30 mg 6-14 tablet by ity of tablet 00:00: mouth in [place] 00 the Medical morning Branch and 1 tablet in the evening. NIFEdipine 2023-0 Yes 30mg Take 1 Unive rs ER 30 mg 6-14 tablet by ity of tablet 00:00: mouth in [place] 00 the Medical morning Branch and 1 tablet in the evening. NIFEdipine 2023-0 Yes 30mg Take 1 Unive rs ER 30 mg 6-14 tablet by ity of tablet 00:00: mouth in [place] 00 the Medical morning Branch and 1 tablet in the evening. NIFEdipine 2023-0 Yes 30mg Take 1 Unive rs ER 30 mg 6-14 tablet by ity of tablet 00:00: mouth in [place] 00 the Medical morning Branch and 1 tablet in the evening. NIFEdipine 2023-0 Yes 30mg Take 1 Unive rs ER 30 mg 6-14 tablet by ity of tablet 00:00: mouth in [place] [address] the Medical morning Branch and 1 tablet in the evening. NIFEdipine 2023-0 Yes 30mg Take 1 Unive rs ER 30 mg 6-14 tablet by ity of tablet 00:00: mouth in [place] [address] the Medical morning Branch and 1 tablet in the evening. NIFEdipine 2023-0 Yes 30mg Take 1 Unive rs ER 30 mg 6-14 tablet by ity of tablet 00:00: mouth in [place] 00 the Medical morning Branch and 1 tablet in the evening. NIFEdipine 2023-0 Yes 30mg Take 1 Unive rs ER 30 mg 6-14 tablet by ity of tablet 00:00: mouth in [place] [address] the Medical morning Branch and 1 tablet in the evening. NIFEdipine 2023-0 Yes 30mg Take 1 Unive rs ER 30 mg 6-14 tablet by ity of tablet 00:00: mouth in [place] [address] the Medical morning Branch and 1 tablet in the evening. NIFEdipine 2023-0 Yes 30mg Take 1 Unive rs ER 30 mg 6-14 tablet by ity of tablet 00:00: mouth in [place] [address] the Medical morning Branch and 1 tablet in the evening. NIFEdipine 2023-0 Yes 30mg Take 1 Unive rs ER 30 mg 6-14 tablet by ity of tablet 00:00: mouth in [place] 00 the Medical morning Branch and 1 tablet in the evening. NIFEdipine 2023-0 Yes 30mg Take 1 Unive rs ER 30 mg 6-14 tablet by ity of tablet 00:00: mouth in [place] 00 the Medical morning Branch and 1 tablet in the evening. NIFEdipine 2023-0 Yes 30mg Take 1 Unive rs ER 30 mg 6-14 tablet by ity of tablet 00:00: mouth in [place] 00 the Medical morning Branch and 1 tablet in the evening. NIFEdipine 2023-0 Yes 30mg Take 1 Unive rs ER 30 mg 6-14 tablet by ity of tablet 00:00: mouth in [place] 00 the Medical morning Branch and 1 tablet in the evening. NIFEdipine 2023-0 Yes 30mg Take 1 Unive rs ER 30 mg 6-14 tablet by ity of tablet 00:00: mouth in [place] [address] the Medical morning Branch and 1 tablet in the evening. NIFEdipine 2023-0 Yes 30mg Take 1 Unive rs ER 30 mg 6-14 tablet by ity of tablet 00:00: mouth in [place] [address] the Medical morning Branch and 1 tablet in the evening. NIFEdipine 2023-0 Yes 30mg Take 1 Unive rs ER 30 mg 6-14 tablet by ity of tablet 00:00: mouth in [place] 00 the Medical morning Branch and 1 tablet in the evening. NIFEdipine 2023-0 Yes 30mg Take 1 Unive rs ER 30 mg 6-14 tablet by ity of tablet 00:00: mouth in [place] 00 the Medical morning Branch and 1 tablet in the evening. NIFEdipine 2023-0 Yes 30mg Take 1 Unive rs ER 30 mg 6-14 tablet by ity of tablet 00:00: mouth in [place] 00 the Medical morning Branch and 1 tablet in the evening. NIFEdipine 2023-0 Yes 30mg Take 1 Unive rs ER 30 mg 6-14 tablet by ity of tablet 00:00: mouth in [place] 00 the Medical morning Branch and 1 tablet in the evening. NIFEdipine 2023-0 Yes 30mg Take 1 Unive rs ER 30 mg 6-14 tablet by ity of tablet 00:00: mouth in [place] [address] the Medical morning Branch and 1 tablet in the evening. NIFEdipine 2023-0 Yes 30mg Take 1 Unive rs ER 30 mg 6-14 tablet by ity of tablet 00:00: mouth in [place] 00 the Medical morning Branch and 1 tablet in the evening. NIFEdipine 2023-0 Yes 30mg Take 1 Unive rs ER 30 mg 6-14 tablet by ity of tablet 00:00: mouth in [place] 00 the Medical morning Branch and 1 tablet in the evening. NIFEdipine 2023-0 Yes 30mg Take 1 Unive rs ER 30 mg 6-14 tablet by ity of tablet 00:00: mouth in [place] 00 the Medical morning Branch and 1 tablet in the evening. NIFEdipine 2023-0 Yes 30mg Take 1 Unive rs ER 30 mg 6-14 tablet by ity of tablet 00:00: mouth in [place] [address] the Medical morning Branch and 1 tablet in the evening. NIFEdipine 2023-0 Yes 30mg Take 1 Unive rs ER 30 mg 6-14 tablet by ity of tablet 00:00: mouth in [place] [address] the Medical morning Branch and 1 tablet in the evening. NIFEdipine 2023-0 Yes 30mg Take 1 Unive rs ER 30 mg 6-14 tablet by ity of tablet 00:00: mouth in [place] [address] the Medical morning Branch and 1 tablet in the evening. NIFEdipine 2023-0 Yes 30mg Take 1 Unive rs ER 30 mg 6-14 tablet by ity of tablet 00:00: mouth in [place] [address] the Medical morning Branch and 1 tablet in the evening. NIFEdipine 2023-0 Yes 30mg Take 1 Unive rs ER 30 mg 6-14 tablet by ity of tablet 00:00: mouth in [place] [address] the Medical morning Branch and 1 tablet in the evening. NIFEdipine 2023-0 Yes 30mg Take 1 Unive rs ER 30 mg 6-14 tablet by ity of tablet 00:00: mouth in [place] [address] the Medical morning Branch and 1 tablet in the evening. NIFEdipine 2023-0 Yes 30mg Take 1 Unive rs ER 30 mg 6-14 tablet by ity of tablet 00:00: mouth in [place] [address] the Medical morning Branch and 1 tablet in the evening. NIFEdipine 2023-0 2023- No 30mg Take 1 Univ ers ER 30 mg 6-14 11-16 tablet by ity o f tablet 00:00: 00:00 mouth in [place] 00 :00 the Medical morning Branch and 1 tablet in the evening. NIFEdipine 2023-0 2023- No 30mg Take 1 Univ ers ER 30 mg 6-14 11-16 tablet by ity o f tablet 00:00: 00:00 mouth in [place] 00 :00 the Medical morning Branch and 1 tablet in the evening. NIFEdipine 2023-0 2023- No 30mg Take 1 Univ ers ER 30 mg 6-14 11-16 tablet by ity o f tablet 00:00: 00:00 mouth in [place] 00 :00 the Medical morning Branch and 1 tablet in the evening. NIFEdipine 2023-0 2023- No 30mg Take 1 Univ ers ER 30 mg 6-14 11-16 tablet by ity o f tablet 00:00: 00:00 mouth in [place] 00 :00 the Medical morning Branch and 1 tablet in the evening. cloNIDine 2023-0 Yes Univers 0.1 mg 5-22 ity of tablet 00:00: [place] [facility] Branch cloNIDine 2023-0 Yes Univers 0.1 mg 5-22 ity of tablet 00:00: [address] cloNIDine 2023-0 Yes Univers 0.1 mg 5-22 ity of tablet 00:00: [address] Branch cloNIDine 2023-0 Yes Univers 0.1 mg 5-22 ity of tablet 00:00: [address] Branch cloNIDine 2023-0 Yes Univers 0.1 mg 5-22 ity of tablet 00:00: [address] Branch cloNIDine 2023-0 Yes Univers 0.1 mg 5-22 ity of tablet 00:00: [address] Branch cloNIDine 2023-0 Yes Univers 0.1 mg 5-22 ity of tablet 00:00: [address] cloNIDine 2023-0 Yes Univers 0.1 mg 5-22 ity of tablet 00:00: [address] Branch cloNIDine 2023-0 Yes Univers 0.1 mg 5-22 ity of tablet 00:00: [place] [facility] Branch cloNIDine 2023-0 Yes Univers 0.1 mg 5-22 ity of tablet 00:00: [address] Branch cloNIDine 2023-0 Yes Univers 0.1 mg 5-22 ity of tablet 00:00: [address] cloNIDine 2023-0 Yes Univers 0.1 mg 5-22 ity of tablet 00:00: [address] Branch cloNIDine 2023-0 Yes Univers 0.1 mg 5-22 ity of tablet 00:00: [address] cloNIDine 2023-0 Yes Univers 0.1 mg 5-22 ity of tablet 00:00: [address] cloNIDine 2023-0 Yes Univers 0.1 mg 5-22 ity of tablet 00:00: [place] [facility] cloNIDine 2023-0 Yes Univers 0.1 mg 5-22 ity of tablet 00:00: [place] [facility] cloNIDine 2023-0 Yes Univers 0.1 mg 5-22 ity of tablet 00:00: [place] [facility] cloNIDine 2023-0 Yes Univers 0.1 mg 5-22 ity of tablet 00:00: [place] [facility] Branch cloNIDine 2023-0 Yes Univers 0.1 mg 5-22 ity of tablet 00:00: [place] [facility] Branch cloNIDine 2023-0 Yes Univers 0.1 mg 5-22 ity of tablet 00:00: [place] [address] Medical Branch cloNIDine 2023-0 Yes Univers 0.1 mg 5-22 ity of tablet 00:00: [place] [address] Medical Branch cloNIDine 2023-0 Yes Univers 0.1 mg 5-22 ity of tablet 00:00: [place] [address] Medical Branch cloNIDine 2023-0 Yes Univers 0.1 mg 5-22 ity of tablet 00:00: [place] [address] Medical Branch cloNIDine 2023-0 Yes Univers 0.1 mg 5-22 ity of tablet 00:00: [place] [address] Medical Branch cloNIDine 2023-0 Yes Univers 0.1 mg 5-22 ity of tablet 00:00: [place] [address] Medical Branch cloNIDine 2023-0 Yes Univers 0.1 mg 5-22 ity of tablet 00:00: [place] [address] Medical Branch cloNIDine 2023-0 Yes Univers 0.1 mg 5-22 ity of tablet 00:00: [place] [address] Medical Branch cloNIDine 2023-0 Yes Univers 0.1 mg 5-22 ity of tablet 00:00: [place] [address] Medical Branch cloNIDine 2023-0 Yes Univers 0.1 mg 5-22 ity of tablet 00:00: [place] [address] Medical Branch cloNIDine 2023-0 Yes Univers 0.1 mg 5-22 ity of tablet 00:00: [place] [address] Medical Branch cloNIDine 2023-0 Yes Univers 0.1 mg 5-22 ity of tablet 00:00: [place] [address] Medical Branch cloNIDine 2023-0 Yes Univers 0.1 mg 5-22 ity of tablet 00:00: [place] [address] Medical Branch cloNIDine 2023-0 Yes Univers 0.1 mg 5-22 ity of tablet 00:00: [place] [address] Medical Branch cloNIDine 2023-0 Yes Univers 0.1 mg 5-22 ity of tablet 00:00: [address] cloNIDine 2023-0 Yes Univers 0.1 mg 5-22 ity of tablet 00:00: [address] cloNIDine 2023-0 Yes Univers 0.1 mg 5-22 ity of tablet 00:00: [address] cloNIDine 2023-0 Yes Univers 0.1 mg 5-22 ity of tablet 00:00: [address] cloNIDine 2023-0 Yes Univers 0.1 mg 5-22 ity of tablet 00:00: [address] cloNIDine 2023-0 Yes Univers 0.1 mg 5-22 ity of tablet 00:00: [address] cloNIDine 2023-0 Yes Univers 0.1 mg 5-22 ity of tablet 00:00: [address] cloNIDine 2023-0 Yes Univers 0.1 mg 5-22 ity of tablet 00:00: [address] cloNIDine 3-0 Yes Univers 0.1 mg 5-22 ity of tablet 00:00: [address] cloNIDine 2023-0 Yes Univers 0.1 mg 5-22 ity of tablet 00:00: [address] cloNIDine 2023-0 Yes Univers 0.1 mg 5-22 ity of tablet 00:00: [address] cloNIDine 2023-0 Yes Univers 0.1 mg 5-22 ity of tablet 00:00: [address] cloNIDine 2023-0 Yes Univers 0.1 mg 5-22 ity of tablet 00:00: [address] lamoTRIgine 3-0 Yes 150mg QD Take 150 [facility] (LAMICTAL) 4-02 mg by Health 150 mg 21:44: mouth tablet 00 daily. QUEtiapine 2022-0 Yes 25mg Take 25 mg [facility] (SEROQUEL) 4-02 by mouth 3 Hea lth 25 mg 21:44: times tablet 00 daily. QUEtiapine 3-0 Yes 600mg Take 600 [place] [facility] (SEROQUEL) 4-02 mg by Health 300 mg 21:44: mouth at tablet 00 bedtime. busPIRone 3-0 Yes 15mg Q.5D Take 15 mg [place] (BUSPAR) 15 4-02 by mouth 2 He alth mg tablet 21:44: times 00 daily. sertraline 2022-0 Yes 200mg Take 200 [place] (ZOLOFT) 4-02 mg by Health 100 mg 21:44: mouth at tablet 00 bedtime. lamoTRIgine 0 Yes 150mg QD Take 150 [...] 21:44: mouth at tablet 00 bedtime. busPIRone 0 Yes 15mg Q.5D Take 15 mg [place] (BUSPAR) 15 4-02 by mouth 2 He alth mg tablet 21:44: times 00 daily. sertraline 0 Yes 200mg Take 200 [place] (ZOLOFT) 4-02 mg by Health 100 mg 21:44: mouth at tablet 00 bedtime. cloNIDine 2021- No .2mg 0.2 mg, Univ ers (CATAPRES) 11-14 07-26 Oral, ity of tablet 0.2 23:15: 23:56 ONCE, 1 Víctor as mg 00 :00 dose, On [facility] Branch 11/14/21 at 1815, STAT hydroCHLORO Yes [id number] 12.5mg Take 0.5 Univers thiazide 25 7-26 tablets by it y of mg tablet 00:00: mouth [place] 00 every Medical morning. Branch lisinopriL 0 Yes [id number] 40mg Take 1 U nivers 40 mg 7-26 tablet by ity of tablet 00:00: mouth at [place] 00 bedtime. Medical Branch hydroCHLORO 0 Yes [id number] 12.5mg Take 0.5 Univers thiazide 25 7-26 tablets by it y of mg tablet 00:00: mouth [place] 00 every Medical morning. Branch lisinopriL 0 Yes [id number] 40mg Take 1 U nivers 40 mg 7-26 tablet by ity of tablet 00:00: mouth at [place] 00 bedtime. Medical Branch hydroCHLORO Yes [id number] 12.5mg Take 0.5 Univers thiazide 25 7-26 tablets by it y of mg tablet 00:00: mouth [place] 00 every Medical morning. Branch lisinopriL 2021-0 Yes [id number] 40mg Take 1 U nivers 40 mg 7-26 tablet by ity of tablet 00:00: mouth at [place] 00 bedtime. Medical Branch hydroCHLORO 2021-0 Yes [id number] 12.5mg Take 0.5 Univers thiazide 25 7-26 tablets by it y of mg tablet 00:00: mouth [place] 00 every Medical morning. Branch lisinopriL 2021-0 Yes [id number] 40mg Take 1 U nivers 40 mg 7-26 tablet by ity of tablet 00:00: mouth at [place] 00 bedtime. Medical Branch hydroCHLORO 2021-0 Yes [id number] 12.5mg Take 0.5 Univers thiazide 25 7-26 tablets by it y of mg tablet 00:00: mouth [place] 00 every Medical morning. Branch lisinopriL 2021-0 Yes [id number] 40mg Take 1 U nivers 40 mg 7-26 tablet by ity of tablet 00:00: mouth at [place] 00 bedtime. Medical Branch hydroCHLORO 2021-0 Yes [id number] 12.5mg Take 0.5 Univers thiazide 25 7-26 tablets by it y of mg tablet 00:00: mouth [place] 00 every Medical morning. Branch lisinopriL 2021-0 Yes [id number] 40mg Take 1 U nivers 40 mg 7-26 tablet by ity of tablet 00:00: mouth at [place] 00 bedtime. Medical Branch hydroCHLORO 2021-0 Yes [id number] 12.5mg Take 0.5 Univers thiazide 25 7-26 tablets by it y of mg tablet 00:00: mouth [place] 00 every Medical morning. Branch lisinopriL 2021-0 Yes [id number] 40mg Take 1 U nivers 40 mg 7-26 tablet by ity of tablet 00:00: mouth at [place] 00 bedtime. Medical Branch hydroCHLORO 2021-0 Yes [id number] 12.5mg Take 0.5 Univers thiazide 25 7-26 tablets by it y of mg tablet 00:00: mouth [place] 00 every Medical morning. Branch lisinopriL 2021-0 Yes [id number] 40mg Take 1 U nivers 40 mg 7-26 tablet by ity of tablet 00:00: mouth at [place] 00 bedtime. Medical Branch hydroCHLORO 2021-0 Yes [id number] 12.5mg Take 0.5 Univers thiazide 25 7-26 tablets by it y of mg tablet 00:00: mouth [place] 00 every Medical morning. Branch lisinopriL 2021-0 Yes [id number] 40mg Take 1 U nivers 40 mg 7-26 tablet by ity of tablet 00:00: mouth at [place] 00 bedtime. Medical Branch hydroCHLORO 2021-0 Yes [id number] 12.5mg Take 0.5 Univers thiazide 25 7-26 tablets by it y of mg tablet 00:00: mouth [place] 00 every Medical morning. Branch lisinopriL 2021-0 Yes [id number] 40mg Take 1 U nivers 40 mg 7-26 tablet by ity of tablet 00:00: mouth at [place] 00 bedtime. Medical Branch hydroCHLORO 2021-0 Yes [id number] 12.5mg Take 0.5 Univers thiazide 25 7-26 tablets by it y of mg tablet 00:00: mouth [place] 00 every Medical morning. Branch lisinopriL 2021-0 Yes [id number] 40mg Take 1 U nivers 40 mg 7-26 tablet by ity of tablet 00:00: mouth at [place] 00 bedtime. Medical Branch hydroCHLORO 2021-0 Yes [id number] 12.5mg Take 0.5 Univers thiazide 25 7-26 tablets by it y of mg tablet 00:00: mouth [place] 00 every Medical morning. Branch lisinopriL 2021-0 Yes [id number] 40mg Take 1 U nivers 40 mg 7-26 tablet by ity of tablet 00:00: mouth at [place] 00 bedtime. Medical Branch hydroCHLORO 2021-0 Yes [id number] 12.5mg Take 0.5 Univers thiazide 25 7-26 tablets by it y of mg tablet 00:00: mouth [place] 00 every Medical morning. Branch lisinopriL 2021-0 Yes [id number] 40mg Take 1 U nivers 40 mg 7-26 tablet by ity of tablet 00:00: mouth at [place] 00 bedtime. Medical Branch hydroCHLORO 2021-0 Yes [id number] 12.5mg Take 0.5 Univers thiazide 25 7-26 tablets by it y of mg tablet 00:00: mouth [place] 00 every Medical morning. Branch lisinopriL 2021-0 Yes [id number] 40mg Take 1 U nivers 40 mg 7-26 tablet by ity of tablet 00:00: mouth at [place] 00 bedtime. Medical Branch hydroCHLORO 2021-0 Yes [id number] 12.5mg Take 0.5 Univers thiazide 25 7-26 tablets by it y of mg tablet 00:00: mouth [place] 00 every Medical morning. Branch lisinopriL 2021-0 Yes [id number] 40mg Take 1 U nivers 40 mg 7-26 tablet by ity of tablet 00:00: mouth at [place] 00 bedtime. Medical Branch hydroCHLORO 2021-0 Yes [id number] 12.5mg Take 0.5 Univers thiazide 25 7-26 tablets by it y of mg tablet 00:00: mouth [place] 00 every Medical morning. Branch lisinopriL 2021-0 Yes [id number] 40mg Take 1 U nivers 40 mg 7-26 tablet by ity of tablet 00:00: mouth at [place] 00 bedtime. Medical Branch hydroCHLORO 2021-0 Yes [id number] 12.5mg Take 0.5 Univers thiazide 25 7-26 tablets by it y of mg tablet 00:00: mouth [place] 00 every Medical morning. Branch lisinopriL 2021-0 Yes [id number] 40mg Take 1 U nivers 40 mg 7-26 tablet by ity of tablet 00:00: mouth at [place] 00 bedtime. Medical Branch hydroCHLORO 2021-0 Yes [id number] 12.5mg Take 0.5 Univers thiazide 25 7-26 tablets by it y of mg tablet 00:00: mouth [place] 00 every Medical morning. Branch lisinopriL 2021-0 Yes [id number] 40mg Take 1 U nivers 40 mg 7-26 tablet by ity of tablet 00:00: mouth at [place] 00 bedtime. Medical Branch hydroCHLORO 2021-0 Yes [id number] 12.5mg Take 0.5 Univers thiazide 25 7-26 tablets by it y of mg tablet 00:00: mouth [place] 00 every Medical morning. Branch lisinopriL 2021-0 Yes [id number] 40mg Take 1 U nivers 40 mg 7-26 tablet by ity of tablet 00:00: mouth at [place] 00 bedtime. Medical Branch hydroCHLORO 2-0 Yes [id number] 12.5mg Take 0.5 Univers thiazide 25 7-26 tablets by it y of mg tablet 00:00: mouth [place] 00 every Medical morning. Branch lisinopriL 2021-0 Yes [id number] 40mg Take 1 U nivers 40 mg 7-26 tablet by ity of tablet 00:00: mouth at [place] 00 bedtime. Medical Branch hydroCHLORO 2021-0 Yes [id number] 12.5mg Take 0.5 Univers thiazide 25 7-26 tablets by it y of mg tablet 00:00: mouth [place] 00 every Medical morning. Branch lisinopriL 2021-0 Yes [id number] 40mg Take 1 U nivers 40 mg 7-26 tablet by ity of tablet 00:00: mouth at [place] 00 bedtime. Medical Branch hydroCHLORO 2021-0 Yes [id number] 12.5mg Take 0.5 Univers thiazide 25 7-26 tablets by it y of mg tablet 00:00: mouth [place] 00 every Medical morning. Branch lisinopriL 2021-0 Yes [id number] 40mg Take 1 U nivers 40 mg 7-26 tablet by ity of tablet 00:00: mouth at [place] 00 bedtime. Medical Branch hydroCHLORO 2021-0 Yes [id number] 12.5mg Take 0.5 Univers thiazide 25 7-26 tablets by it y of mg tablet 00:00: mouth [place] 00 every Medical morning. Branch lisinopriL 2021-0 Yes [id number] 40mg Take 1 U nivers 40 mg 7-26 tablet by ity of tablet 00:00: mouth at [place] 00 bedtime. Medical Branch hydroCHLORO 2021-0 Yes [id number] 12.5mg Take 0.5 Univers thiazide 25 7-26 tablets by it y of mg tablet 00:00: mouth [place] 00 every Medical morning. Branch lisinopriL 2021-0 Yes [id number] 40mg Take 1 U nivers 40 mg 7-26 tablet by ity of tablet 00:00: mouth at [place] 00 bedtime. Medical Branch hydroCHLORO 2021-0 Yes [id number] 12.5mg Take 0.5 Univers thiazide 25 7-26 tablets by it y of mg tablet 00:00: mouth [place] 00 every Medical morning. Branch hydroCHLORO 2021-0 Yes [id number] 12.5mg Take 0.5 Univers thiazide 25 7-26 tablets by it y of mg tablet 00:00: mouth [place] 00 every Medical morning. Branch lisinopriL 2021-0 Yes [id number] 40mg Take 1 U nivers 40 mg 7-26 tablet by ity of tablet 00:00: mouth at [place] 00 bedtime. Medical Branch lisinopriL 2021-0 Yes [id number] 40mg Take 1 U nivers 40 mg 7-26 tablet by ity of tablet 00:00: mouth at [place] 00 bedtime. Medical Branch hydroCHLORO 2021-0 Yes [id number] 12.5mg Take 0.5 Univers thiazide 25 7-26 tablets by it y of mg tablet 00:00: mouth [place] 00 every Medical morning. Branch lisinopriL 2021-0 Yes [id number] 40mg Take 1 U nivers 40 mg 7-26 tablet by ity of tablet 00:00: mouth at [place] [address] bedtime. Medical Branch hydroCHLORO 2021-0 Yes [id number] 12.5mg Take 0.5 Univers thiazide 25 7-26 tablets by it y of mg tablet 00:00: mouth [place] 00 every Medical morning. Branch lisinopriL 2021-0 Yes [id number] 40mg Take 1 U nivers 40 mg 7-26 tablet by ity of tablet 00:00: mouth at [place] [address] bedtime. Medical Branch hydroCHLORO 2021-0 Yes [id number] 12.5mg Take 0.5 Univers thiazide 25 7-26 tablets by it y of mg tablet 00:00: mouth [place] 00 every Medical morning. Branch lisinopriL 2021-0 Yes [id number] 40mg Take 1 U nivers 40 mg 7-26 tablet by ity of tablet 00:00: mouth at [place] [address] bedtime. Medical Branch hydroCHLORO 2021-0 Yes [id number] 12.5mg Take 0.5 Univers thiazide 25 7-26 tablets by it y of mg tablet 00:00: mouth [place] 00 every Medical morning. Branch hydroCHLORO 2021-0 Yes [id number] 12.5mg Take 0.5 Univers thiazide 25 7-26 tablets by it y of mg tablet 00:00: mouth [place] 00 every Medical morning. Branch lisinopriL 2021-0 Yes [id number] 40mg Take 1 U nivers 40 mg 7-26 tablet by ity of tablet 00:00: mouth at [place] [address] bedtime. Medical Branch lisinopriL 2-0 Yes [id number] 40mg Take 1 U nivers 40 mg 7-26 tablet by ity of tablet 00:00: mouth at [place] [address] bedtime. Medical Branch hydroCHLORO 2022-0 Yes [id number] 12.5mg Take 0.5 Univers thiazide 25 7-26 tablets by it y of mg tablet 00:00: mouth [place] 00 every Medical morning. Branch lisinopriL 2021-0 Yes [id number] 40mg Take 1 U nivers 40 mg 7-26 tablet by ity of tablet 00:00: mouth at [place] 00 bedtime. Medical Branch hydroCHLORO 2021-0 Yes [id number] 12.5mg Take 0.5 Univers thiazide 25 7-26 tablets by it y of mg tablet 00:00: mouth [place] 00 every Medical morning. Branch lisinopriL 2021-0 Yes [id number] 40mg Take 1 U nivers 40 mg 7-26 tablet by ity of tablet 00:00: mouth at [place] 00 bedtime. Medical Branch hydroCHLORO 2021-0 Yes [id number] 12.5mg Take 0.5 Univers thiazide 25 7-26 tablets by it y of mg tablet 00:00: mouth [place] 00 every Medical morning. Branch lisinopriL 2021-0 Yes [id number] 40mg Take 1 U nivers 40 mg 7-26 tablet by ity of tablet 00:00: mouth at [place] 00 bedtime. Medical Branch hydroCHLORO 2021-0 Yes [id number] 12.5mg Take 0.5 Univers thiazide 25 7-26 tablets by it y of mg tablet 00:00: mouth [place] 00 every Medical morning. Branch lisinopriL 2021-0 Yes [id number] 40mg Take 1 U nivers 40 mg 7-26 tablet by ity of tablet 00:00: mouth at [place] 00 bedtime. Medical Branch hydroCHLORO 2021-0 Yes [id number] 12.5mg Take 0.5 Univers thiazide 25 7-26 tablets by it y of mg tablet 00:00: mouth [place] 00 every Medical morning. Branch lisinopriL 2021-0 Yes [id number] 40mg Take 1 U nivers 40 mg 7-26 tablet by ity of tablet 00:00: mouth at [place] 00 bedtime. Medical Branch hydroCHLORO 2021-0 Yes [id number] 12.5mg Take 0.5 Univers thiazide 25 7-26 tablets by it y of mg tablet 00:00: mouth [place] 00 every Medical morning. Branch lisinopriL 2021-0 Yes [id number] 40mg Take 1 U nivers 40 mg 7-26 tablet by ity of tablet 00:00: mouth at [place] 00 bedtime. Medical Branch hydroCHLORO 2021-2022- No [id number] 12.5mg Take 0.5 Univers thiazide 25 7-26 11-16 tablets by i ty of mg tablet 00:00: 00:00 mouth [place] 00 :00 every Medical morning. Branch lisinopriL 2022- No [id number] 40mg Take 1 Univers 40 mg 7-26 11-16 tablet by ity of tablet 00:00: 00:00 mouth at [place] 00 :00 bedtime. Medical Branch hydroCHLORO 2022- No [id number] 12.5mg Take 0.5 Univers thiazide 25 7-26 11-16 tablets by i ty of mg tablet 00:00: 00:00 mouth [place] 00 :00 every Medical morning. Branch lisinopriL 2021-2022- No [id number] 40mg Take 1 Univers 40 mg 7-26 11-16 tablet by ity of tablet 00:00: 00:00 mouth at [place] 00 :00 bedtime. Medical Branch hydroCHLORO 2022- No [id number] 12.5mg Take 0.5 Univers thiazide 25 7-26 11-16 tablets by i ty of mg tablet 00:00: 00:00 mouth [place] 00 :00 every Medical morning. Branch lisinopriL 2022- No [id number] 40mg Take 1 Univers 40 mg 7-26 11-16 tablet by ity of tablet 00:00: 00:00 mouth at [place] 00 :00 bedtime. Medical Branch hydroCHLORO 2022- No [id number] 12.5mg Take 0.5 Univers thiazide 25 7-26 11-16 tablets by i ty of mg tablet 00:00: 00:00 mouth [place] 00 :00 every Medical morning. Branch lisinopriL 2021-2022- No [id number] 40mg Take 1 Univers 40 mg 7-26 11-16 tablet by ity of tablet 00:00: 00:00 mouth at [place] 00 :00 bedtime. Medical Branch lisinopriL 2021-2021- No [id number] 40mg Take 1 Univers 40 mg 7-26 07-26 tablet by ity of tablet 00:00: 00:00 mouth at [place] 00 :00 bedtime Medical for 90 Branch days. hydroCHLORO 2021- No [id number] 12.5mg Take 0.5 Univers thiazide 25 7- 07-26 tablets by i ty of mg tablet 00:00: 00:00 mouth [place] 00 :00 every Medical morning Branch for 90 days. hydroCHLORO 2021- No [id number] 12.5mg Take 0.5 Univers thiazide 25 7-26 07-26 tablets by i ty of mg tablet 00:00: 00:00 mouth [place] 00 :00 every Medical morning. Branch lisinopriL 2021- No [id number] 40mg Take 1 Univers 40 mg -14 11- tablet by ity of tablet 00:00: 00:00 mouth at [place] 00 :00 bedtime. Medical Branch lamoTRIgine Yes 150mg QD Take 150 [facility] (LAMICTAL) 2-09 mg by Health 150 mg 13:30: mouth tablet 01 daily. QUEtiapine Yes 25mg Take 25 mg [facility] (SEROQUEL) 2-09 by mouth 3 Hea lth 25 mg 13:30: times tablet 01 daily. QUEtiapine Yes 600mg Take 600 [place] [facility] (SEROQUEL) 2-09 mg by Health 300 mg 13:30: mouth at tablet 01 bedtime. busPIRone Yes 15mg Q.5D Take 15 mg [place] (BUSPAR) 15 2-09 by mouth 2 He alth mg tablet 13:30: times 01 daily. sertraline Yes 200mg Take 200 [place] (ZOLOFT) 2-09 mg by Health 100 mg 13:30: mouth at tablet 01 bedtime. lisinopril Yes Essential 10mg QD Take 1 [place] (PRINIVIL) 2-09 hypertensio tablet by Health 10 mg 00:00: n mouth tablet 00 daily. lisinopril Yes Essential 10mg QD Take 1 [place] (PRINIVIL) 2-09 hypertensio tablet by Health 10 mg 00:00: n mouth tablet 00 daily. lisinopril Yes Essential 10mg QD Take 1 [place] (PRINIVIL) 2-09 hypertensio tablet by Health 10 mg 00:00: n mouth tablet 00 daily. cloNIDine Yes Uncontrolle .2mg Q.5D Take 1 [place] (CATAPRES) 3-31 d tablet by [facility] 0.2 mg 00:00: hypertensio mouth 2 tablet 00 n times daily. cloNIDine Yes Uncontrolle .2mg Q.5D Take 1 [place] (CATAPRES) 3-31 d tablet by [facility] 0.2 mg 00:00: hypertensio mouth 2 tablet 00 n times daily. cloNIDine Yes Uncontrolle .2mg Q.5D Take 1 [place] (CATAPRES) 3-31 d tablet by [facility] 0.2 mg 00:00: hypertensio mouth 2 tablet 00 n times daily. hydrochloro Yes Uncontrolle 25mg QD Take 1 [place] thiazide 7-17 d tablet by Health (HYDRODIURI 00:00: hypertensio mouth L) 25 mg 00 n daily. tablet atenolol Yes Uncontrolle 50mg QD Take 1 [place] (TENORMIN) 7-17 d tablet by [facility] 50 mg 00:00: hypertensio mouth tablet 00 n daily. hydrochloro Yes Uncontrolle 25mg QD Take 1 [place] thiazide 7-17 d tablet by [facility] (HYDRODIURI 00:00: hypertensio mouth L) 25 mg 00 n daily. tablet atenolol Yes Uncontrolle 50mg QD Take 1 [place] (TENORMIN) 7-17 d tablet by [facility] 50 mg 00:00: hypertensio mouth tablet 00 n daily. hydrochloro Yes Uncontrolle 25mg QD Take 1 [place] thiazide 7-17 d tablet by [facility] (HYDRODIURI 00:00: hypertensio mouth L) 25 mg 00 n daily. tablet atenolol Yes Uncontrolle 50mg QD Take 1 [place] (TENORMIN) 7-17 d tablet by [facility] 50 mg 00:00: hypertensio mouth tablet [...] Time Observation Value Comments Source Systolic blood 2023-03-07 15:51:00 148 mm[Hg] Univer [facility]ity of [facility] Diastolic blood 2023-03-07 15:51:00 84 mm[facility]Hg[facility]23-[facility]-07 15:51:00 60 /min [facility] Body temperature 2023-03-07 15:51:00 37 Britany [facility] Respiratory rate 2023-03-07 15:51:00 18 /min [facility] Body weight 2023-03-07 15:51:00 54.568 kg [facility] BMI 2023-03-07 15:51:00 24.30 kg/m2 [facility] Oxygen saturation in 2023-03-07 15:51:00 99 /min [facility] Arterial blood by [facility] Pulse oximetry Branch Systolic blood 2023-01-01 14:53:00 123 mm[Hg] [facility] 2023-01-01 14:53:00 75 mm[Hg] [facility] 2023-01-01 14:51:00 61 /min [facility] Body height 2023-01-01 14:51:00 149.9 cm [facility] Body weight 2023-01-01 14:51:00 51.393 kg [facility] BMI 2023-01-01 14:51:00 22.88 kg/m2 [facility] [place] [facility] Systolic blood 2022-10-26 13:13:00 151 mm[Hg] Univer sity of pressure [place] [facility] Diastolic blood 2022-10-26 13:13:00 86 mm[Hg] Unive rsity of pressure [place] [facility] Heart rate 2022-10-26 13:11:00 54 /min [facility] [place] [facility] Body height 2022-10-26 13:11:00 149.9 cm [facility] [place] [facility] Body weight 2022-10-26 13:11:00 67.087 kg [facility] [place] [facility] BMI 2022-10-26 13:11:00 29.87 kg/m2 [facility] [place] [facility] Oxygen saturation in 2022-10-26 13:11:00 97 /min [facility] Arterial blood by [place] [facility] Pulse oximetry Branch Systolic blood 2022-10-18 19:44:00 112 mm[Hg] Univer sity of pressure [facility] Diastolic blood 2022-10-18 19:44:00 74 mm[Hg] Unive rsity of pressure [facility] Heart rate 2022-10-18 19:44:00 93 /min [facility] Body temperature 2022-10-18 19:44:00 37.67 Britany [facility] Respiratory rate 2022-10-18 19:44:00 20 /min [facility] Body height 2022-10-18 19:44:00 149.9 cm [facility] Body weight 2022-10-18 19:44:00 66.679 kg [facility] BMI 2022-10-18 19:44:00 29.69 kg/m2 [facility] Oxygen saturation in 2022-10-18 19:44:00 95 /min [facility] Arterial blood by [place] [facility] Pulse oximetry Branch Systolic blood 2021-11-15 01:00:00 179 mm[Hg] [facility] Diastolic blood 2021-11-15 01:00:00 105 mm[Hg] Unive rsity of pressure [facility] Heart rate 2021-11-15 01:00:00 68 /min [facility] Respiratory rate 2021-11-15 01:00:00 16 /min [facility] Oxygen saturation in 2021-11-15 01:00:00 99 /min [facility] Arterial blood by [facility] Pulse oximetry Branch Body temperature 2021-11-14 22:54:00 37 Britany [facility] Body height 2021-11-14 22:54:00 149.9 cm [facility] Body weight 2021-11-14 22:54:00 63.504 kg [facility] BMI 2021-11-14 22:54:00 28.28 kg/m2 [facility] BP Diastolic 2021-08-30 00:00:00 100 mm[Hg] [place] [facility] Height 2021-08-30 00:00:00 59 [in_i] [place] [facility] BMI (Body Mass 2021-08-30 00:00:00 26.5 kg/m2 [facility] cook box filler Index) [facility] BP Systolic 2021-08-30 00:00:00 178 mm[Hg] [place] [facility] Body Weight 2021-08-30 00:00:00 2096 [oz_av] [place] [facility] Procedures Procedure Date / Time Performing Clinician Source Performed REFERRAL- REQUEST/RESPONSE 2023-03-08 06:01:00 Doctor Unassigned , [facility] PHYSICIAN CERTIFICATION 2023-01-29 05:01:00 Doctor Unassigned, [facility] STATEMENT [facility] REFERRAL- REQUEST/RESPONSE 2022-11-13 05:01:00 Doctor Unassigned , [facility] [place] THYROID STIMULATING 2022-10-18 21:02:00 Sp Horan [facility] HORMONE [facility] Branch LIPID PANEL (06766)(TOTAL 2022-10-18 21:02:00 Sp Horan [facility] CHOLESTEROL, Medical Branch TRIGLYCERIDES, HDL) GLYCOSYLATED HEMOGLOBIN 2022-10-18 21:02:00 Sp Horan [facility] (A1C) Medical Branch HCV ANTIBODY 2022-10-18 21:02:00 Aung [facility] o f [facility] VITAMIN D, 25-OH 2022-10-18 21:02:00 Sp Horan [facility] [place] ASSIGNMENT OF BENEFITS 2022-10-18 19:30:39 Doctor Unassigned, [facility] NOTICE OF PRIVACY 2021-11-14 22:53:14 Doctor Unassigned, [facility] PRACTICES [facility] CONSENT/REFUSAL FOR 2021-11-14 22:48:56 Doctor Unassigned, [facility] DIAGNOSIS AND TREATMENT [facility] MAMMO, screening, digital, 2021-08-30 00:00:00 [place] [facility] Cholecystectomy [facility] Plan of Care Planned Activity Planned Date Details Comments Source Diagnostic Test 2021-08-30 HbA1c (hemoglobin [place] [facility] Pending 00:00:00 A1c), blood [code = [facility] HbA1c (hemoglobin Program A1c), blood] Diagnostic Test 2021-08-30 fecal occult blood, [place] [facility] Pending 00:00:00 stool [code = fecal Health O utreach occult blood, Program stool] Diagnostic Test 2021-08-30 lipid panel, serum [place] cook box filler [facility] Pending 00:00:00 [code = lipid Health Outreac h panel, serum] Program Diagnostic Test 2021-08-30 CBC w/ auto diff [place] [facility] Pending 00:00:00 [code = CBC w/ auto Health O utreach diff] Program Diagnostic Test 2021-08-30 CMP, serum or [facility] Pending 00:00:00 plasma [code = CMP, Health O utreach serum or plasma] Program Diagnostic Test 2021-08-30 TSH, [facility] Pending 00:00:00 ultra-sensitive, Health Outr each serum [code = TSH, Program ultra-sensitive, serum] Future Scheduled Test 2019-08-02 Screening for [facility] 00:00:00 malignant neoplasm of colon (procedure) [code = 786918210] Future Scheduled Test 2019-08-02 Screening for [facility] 00:00:00 malignant neoplasm of colon (procedure) [code = 807795993] Future Scheduled Test 2019-08-02 Screening [facility] 00:00:00 malignant neoplasm of colon (procedure) [code = 592503993] Future Scheduled Test 2017-11-05 Screening for [facility] 00:00:00 malignant neoplasm of cervix (procedure) [code = 525018713] Future Scheduled Test 2017-11-05 Screening [facility] 00:00:00 malignant neoplasm of cervix (procedure) [code = 107690449] Future Scheduled Test 2017-11-05 Screening [facility] 00:00:00 malignant neoplasm of cervix (procedure) [code = 269394951] Future Scheduled Test 2009 Breast Cancer Scrn [facility] 00:00:00 (Yearly) [code = Breast Cancer Scrn (Yearly)] Future Scheduled Test 2009 Breast Cancer Scrn [facility] 00:00:00 (Yearly) [code = Breast Cancer Scrn (Yearly)] Future Scheduled Test 2009 Breast Cancer Scrn [facility] 00:00:00 (Yearly) [code = Breast Cancer Scrn (Yearly)] Future Scheduled Test 1999-08-02 Screening for [facility] 00:00:00 malignant neoplasm of cervix (procedure) [code = 772726711] Future Scheduled Test 1999-08-02 Screening for [facility] 00:00:00 malignant neoplasm of cervix (procedure) [code = 070337887] Future Scheduled Test 1999-08-02 Screening for [facility] 00:00:00 malignant neoplasm of cervix (procedure) [code = 689828291] Future Scheduled Test 1970-01-31 COVID-19 Vaccine Greco [...] Type Clinicians Facility Department ID 2021-09-13 Outpatient [facility] [id number] [place] 12:21:48 [id number] [facility] 2019-09-13 [id number] 13:51:00 Ewelina Plasencia [facility] 2023-09-05 2023-09-05 [facility] [id number] Univers 11:00:00 11:00:00 SP monreal [facility] 2023-03-28 2023-03-28 [facility] [id number] Univers 10:30:00 10:30:00 MANJU cristiansofi o f [facility] 2023-03-13 2023-03-13 Telephone [facility] 1.2.192.014 [id number] [facility] 00:00:00 00:00:00 Sp Beats Music 350.1.13.10 it y of [place] 4.2.7.2.686 Víctor as JUANA?BLEA [id number] [place] [address] OFFICE [facility] 2023-03-11 2023-03-11 Outpatient Nhung [facility] [id number] Univers 13:00:00 13:20:08 SP monreal [facility] 2023-03-11 2023-03-11 Manager Beverage Lab, Ang - Db [facility] 1.2.840.1 14 [id number] Univers 13:00:00 13:15:00 Visit RumaRonit pattonthijose PICKARD 350.1.13.10 ity of [place] 4.2.7.2.686 Víctor as JUANA?BLEA [id number] [place] [address] MEDICAL OFFICE [facility] 2023-03-11 2023-03-11 Telephone PRAVIN Trevino 1.2.840.114 1 [id number] Univers 00:00:00 00:00:00 Kalie A CONTRERAS 350.1.13.10 [place] [phone] [address] 2023-03-11 2023-03-11 Telephone Uriel SHEARN 1.2.840.114 1 [id number] Univers 00:00:00 00:00:00 Kalie A CONTRERAS 350.1.13.10 [place] [id number] [address] 2023-03-11 2023-03-11 Telephone Aung NECHINEDU 1.2.584.892 [id number] Univers 00:00:00 00:00:00 Sp HEALTH 350.1.13.10 it y of [facility] 4.2.7.2.686 Víctor as JUANA?BLEA [id number] [address] MEDICAL OFFICE BUILDING 2023-03-11 2023-03-11 Telephone PRAVIN Trevino 1.2.840.114 1 [id number] Univers 00:00:00 00:00:00 Kalie A CONTRERAS 350.1.13.10 [place] [id number] [address] 2023-03-11 2023-03-11 Telephone PRAVIN Trevino 1.2.840.114 1 [id number] Univers 00:00:00 00:00:00 Kalie A CONTRERAS 350.1.13.10 [place] [id number] [address] 2023-03-08 2023-03-08 Telephone PRAVIN Trevino 1.2.840.114 1 [id number] Univers 00:00:00 00:00:00 Kalie A CONTRERAS 350.1.13.10 [place] [id number] [address] 2023-03-08 2023-03-08 Orders Doctor SHIRIN 1.2.840.114 [id number] Univers 00:00:00 00:00:00 Only Unassigned, MIGUELITO 350.1.13.10 ity of [place] [facility] 4.2.7.2.686 Víctor as [id number] [address] 2023-03-07 2023-03-07 Outpatient R AUNG [facility] [id number] Univers 09:30:00 10:26:35 SP ity [facility] 2023-03-07 2023-03-07 Office Aung [facility] 1.2.840.114 [id number] Univers 09:30:00 10:26:35 Visit Sp HEALTH 350.1.13.10 it y of [place] 4.2.7.2.686 Víctor as JUANA?BLEA [id number] [address] OFFICE [facility] 2023-03-07 2023-03-07 Telephone Aung [facility] 1.2.434.222 [id number] Univers 00:00:00 00:00:00 Sp HEALTH 350.1.13.10 it y of [place] 4.2.7.2.686 Víctor as JUANA?BLEA [id number] [address] OFFICE [facility] 2023-02-25 2023-02-25 Patient PRAVIN Gonzales 1.2.840.114 [id number] Univers 00:00:00 00:00:00 Outreach Chrissy Elvira HOODY 350.1.13.10 [place] [id number] [facility] [address] [place] 2023-02-21 2023-02-21 Patient Shira Clayton 1.2.840.114 10 [id number] Univers 00:00:00 00:00:00 Outreach Elvira CONTRERAS 350.1.13.10 [place] [id number] [facility] [address] [place] 2023-02-20 2023-02-20 Patient FORD Farris 1.2.840.114 [id number] Univers 00:00:00 00:00:00 Outreach Charito WEEKS 350.1.13.10 i ty of [place] 4.2.7.2.686 Víctor as CENTER [id number] [facility] [address] [place] 2023-02-18 2023-02-18 Telephone Ngoc COSTELLO 1.2.180.314 [id number] Univers 00:00:00 00:00:00 BEN Brown 350.1.13.10 it[place] [id number] [facility] [address] [place] 2023-02-12 2023-02-12 Patient Shira Clayton 1.2.840.114 10 [id number] Univers 00:00:00 00:00:00 Outreach E CONTRERAS 350.1.13.10 [place] [id number] [facility] [address] 2023-02-11 2023-02-11 Patient FORD Farris 1.2.840.114 [id number] Univers 00:00:00 00:00:00 Outreach Charito WEEKS 350.1.13.10 i ty of [place] 4.2.7.2.686 Víctor as CENTER [id number] [facility] [address] 2023-01-29 2023-01-29 Orders Doctor SHIRIN 1.2.840.114 [id number] Univers 00:00:00 00:00:00 Only Unassigned, MIGUELITO 350.1.13.10 ity of [place] [facility] 4.2.7.2.686 Víctor as [id number] [facility] [address] [place] 2023-01-24 2023-01-24 Telephone Aung NECHINEDU 1.2.951.454 [id number] Univers 00:00:00 00:00:00 SpAct-On Software 350.1.13.10 it y of [place] 4.2.7.2.686 Víctor as JUANA?BLEA [id number] [address] MEDICAL OFFICE BUILDING 2023-01-15 2023-01-15 Patient Shira Clayton 1.2.840.114 10 [id number] Univers 10:00:00 11:00:00 Outreach E CONTRERAS 350.1.13.10 [place] [id number] [facility] [address] 2023-01-15 2023-01-15 Patient FORD Farris 1.2.840.114 [id number] Univers 00:00:00 00:00:00 Outreach Charito WEEKS 350.1.13.10 i ty of [place] 4.2.7.2.686 Víctor as CENTER [id number] [facility] [address] 2023-01-10 2023-01-10 Patient Shira Clayton 1.2.840.114 10 [id number] Univers 00:00:00 00:00:00 Outreach E CONTRERAS 350.1.13.10 [place] [id number] [address] 2023-01-01 2023-01-01 Outpatient R BELINDAJAY [facility] [id number] Univers 09:40:00 10:11:02 JAY TREVINO itsofi of [facility] 2023-01-01 2023-01-01 Office Belinda [facility] 1.2.840.114 [id number] Univers 09:40:00 10:11:02 Visit Jay [facility] 350.1.13.10 ity jarad [place] 4.2.7.2.686 Víctor as JUANA?BLEA [phone] [address] OFFICE [facility] 2022-12-21 2022-12-21 Patient FORD Farris 1.2.840.114 [id number] Univers 00:00:00 00:00:00 Outreach Chairto WEEKS 350.1.13.10 i ty of [place] 4.2.7.2.686 Víctor as CENTER [id number] [address] 2022-12-21 2022-12-21 Patient Shira Clayton 1.2.840.114 10 [id number] Univers 00:00:00 00:00:00 Outreach E CONTRERAS 350.1.13.10 [place] [id number] [address] 2022-12-18 2022-12-18 Patient FORD Farris 1.2.840.114 [id number] Univers 00:00:00 00:00:00 Outreach Charito WEEKS 350.1.13.10 i ty of [place] 4.2.7.2.686 Víctor as CENTER [id number] [address] 2022-12-17 2022-12-17 Patient FORD Farris 1.2.840.114 [id number] Univers 00:00:00 00:00:00 Outreach Charito WEEKS 350.1.13.10 i ty of [place] 4.2.7.2.686 Víctor as CENTER [id number] [facility] [address] 2022-11-26 2022-11-26 Outpatient JAY BURLESON [facility] [id number] Univers 14:20:00 14:20:00 JAY TREVINO itsofi of [facility] 2022-11-20 2022-11-20 Patient OFRD Farris 1.2.840.114 [id number] Univers 00:00:00 00:00:00 Outreach Charito WEEKS 350.1.13.10 i ty of [place] 4.2.7.2.686 Víctor as CENTER [id number] [facility] [address] 2022-11-13 2022-11-13 Orders Doctor SHIRIN 1.2.840.114 [id number] Univers 00:00:00 00:00:00 Only Unassigned, MIGUELITO 350.1.13.10 ity of [place] [facility] 4.2.7.2.686 Víctor as [phone] [facility] [address] 2022-11-06 2022-11-06 Telephone Ngoc COSTELLO 1.2.312.543 [id number] Univers 00:00:00 00:00:00 BEN Brown 350.1.13.10 ity of [facility] 4.2.7.2.[place] [id number] [facility] [address] 2022-11-06 2022-11-06 Patient Carl [facility] 1.2.840.114 [id number] Univers 00:00:00 00:00:00 Outreach Lydia Teague [facility] 350.1.13.10 i ty of [place] 4.2.7.2.686 Víctor as JUANA?BLEA [phone] [address] MEDICAL OFFICE BUILDING 2022-11-01 2022-11-01 Patient FORD Farris 1.2.840.114 [id number] Univers 00:00:00 00:00:00 Outreach Charito WEEKS 350.1.13.10 i ty of [place] 4.2.7.2.686 Víctor as CENTER [id number] [facility] [address] 2022-10-26 2022-10-26 Outpatient JAY BURLESON [facility] [id number] Univers 08:00:00 09:06:29 JAY TREVINO [facility] 2022-10-26 2022-10-26 Office [facility] 1.2.840.114 [id number] Univers 08:00:00 09:06:29 Visit Jay Cooper [facility] 350.1.13.10 ity of [place] 4.2.7.2.686 Víctor as JUANA?BLEA [id number] [place] RAIN 092 [facility] OFFICE [facility] 2022-10-19 2022-10-19 Patient [facility] 1.2.840.114 [id number] Univers 00:00:00 00:00:00 Outreach Lydia Teague [facility] 350.1.13.10 i ty of [facility] 4.2.7.2.686 Víctor as JUANA?BLEA [id number] [facility] JONNY 044 [facility] OFFICE [facility] 2022-10-18 2022-10-18 Outpatient R AUNG [facility] [id number] Univers 16:15:00 16:16:40 SP monreal [facility] 2022-10-18 2022-10-18 Manager Beverage Lab, Ang - Db [facility] 1.2.840.1 14 [id number] Univers 16:15:00 16:16:40 Visit Sp Horan MELLY 350.1.13.10 ity of [facility] 4.2.7.2.686 Víctor as JUANA?BLEA [id number] [facility] 353 [facility] OFFICE [facility] 2022-10-18 2022-10-18 Office Aung [facility] 1.2.840.114 [id number] Univers 14:30:00 15:33:24 Visit Sp HEALTH 350.1.13.10 it y of [place] 4.2.7.2.686 Víctor as JUANA?BLEA [id number] [facility] 044 [facility] OFFICE [facility] 2022-10-18 2022-10-18 Orders Doctor SHIRIN 1.2.840.114 [id number] Univers 00:00:00 00:00:00 Only Unassigned, MIGUELITO 350.1.13.10 ity of [place] [address]686 Víctor as [id number] [facility] [address] 2022-07-17 2022-07-17 Outpatient [place] [id number] [place] 00:00:00 00:00:00 [id number] [facility] 2022-06-22 2022-06-22 [facility] 1.2.840.114 [id number] Univers 17:19:00 23:59:00 Encounter Reji GARLAND 350.1.13.10 ity [place] [address].7.2.686 [facility] [id number] [facility] [address] 2022-06-22 2022-06-[address]840[address]114 [id number] Univers 15:06:00 23:59:00 Encounter Reji GARLAND 350.1.13.10 ity [place] [address].7.2.68[facility] [id number] [facility] [address] 2021-12-05 2021-12-05 Letter SHIRIN La 1.2.840.114 [id number] Univers 00:00:00 00:00:00 (Out) Romero FARLEY 350.1.13.10 it y of [place] [address].2.7.2.686 Víctor as [id number] [facility] [address]43 [address] 2021-11-14 2021-11-14 Emergency X [facility] ERT [id number] Univers 18:17:00 20:19:00 PB monreal [facility] 2021-11-14 2021-11-14 Emergency [facility] 1.2.840.114 [id number] Univers 18:17:00 20:19:00 Pb HUIZAR 350.1.13.10 [place] [address]2.686 [facility] [id number] [facility] [address] 2021-09-20 2021-09-20 Outpatient Meagan [place] [id number] [place] 11:31:00 11:31:00 [id number] [facility] 2021-09-142021-09-14 Outpatient Meagan [facility] [id number] [place] 04:19:00 04:19:00 [facility] 2021-09-05 2021-09-05 Outpatient Meagan [facility] [id number] [place] 12:08:00 12:08:00 [id number] [facility] 2021-08-30 2021-08-30 Outpatient Meagan [facility] [id number] [place] 04:36:00 04:36:00 [facility] 2021-08-30 2021-08-30 o [facility] [place] - [id number] M [place] 00:00:00 00:00:00 Roxana Richey da 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 2021-08-29 2021-08-29 Outpatient Meagan [facility] [id number] [place] 11:27:00 11:27:00 [id number] [facility] 2021-08-28 2021-08-28 Outpatient Meagan [facility] [id number] 45 [place] 04:39:00 04:39:00 [id number] [facility] 2021-06-11 2021-06-11 Emergency EM Fede, [facility] [id number] [facility] 19:22:00 22:50:00 Adam 65 [facility] 2021-06-08 2021-06-09 Emergency EM Rashaun, [facility] [id number] [facility] 21:52:00 01:14:00 Mark Can [facility] 2020-12-03 2020-12-03 Emergency EM Fede, [facility] [id number] [facility] 09:56:00 12:00:00 Adam 31 [facility] 2019-09-13 2019-09-13 Outpatient SAHRA Gonzalez LABO [id number] [facility] 08:16:00 08:16:00 Pelin 89 [facility] Results Test Description Test Time Test Comments Results Result Comments Source VITAMIN D, 25-OH 2022-10-19 07:10:55 Test Item Value Reference Range Interpretation Comme nts VIT D 25OH (test code = 45868-4) 25 ng/mL 25-80 JACEY (test code = JACEY) Deficiency: <20 ng/mLInsufficiency: 20-24 ng/mLOptimal: 25-80 ng/mL Lab Interpretation (test code = 25893-8) Normal [facility] [id number] 06:19:02 Test Item Value Reference Range Interpretation Comments HCV Ab (test code = 97523-8) Negative HCV Semi-Quantitative (test code = 0.01 86070-6) [facility]ville[facility] STIMULATING [id number] 00:00:15 Test Item Value Reference Range Interpretation Comments TSH (test code = 0.83 See_Comment [Automated message] [id number]) The system [employer] generated this result transmitted ref erence range: 0.45 - 4 .70 mIU/L. The refe rence range was not u sed to interpret this result as normal/abnor mal. Lab Interpretation (test Normal code = 35932-2) [facility]ville[facility]IP[facility] PAN[facility] (10477)(TOTAL CHOLESTEROL, TRIGLYCERIDES, HDL)2022-10-18 23:33:09 Test Item Value Reference Range Interpretation Comments CHOL (test code = 3542435177) 174 mg/dL 120-200 HDL (test code = 1172818589) 69 mg/dL >=50 HDLC RATIO (test code = 1613694636) 2.5 <=4.5 TRIG (test code = 5275477066) 63 mg/dL 30-170 LDL CHOL (test code = 59153-8) 92 mg/dL <=160 VLDL (test code = 3830797739) 13 mg/dL 5-60 Lab Interpretation (test code = Normal 74063-3) [facility] HEMOGLOBIN (A1C)2022-10-18 23:12:37 Test Item Value Reference Range Interpretation Comments HGB A1C (test code = 4.9 % 4.0-5.7 4548-4) JACEY (test code = JACEY) Reference RangesNormal: <5.7%Prediabetes: 5.7 - 6.4%Diabetes: > 6.5% Lab Interpretation (test Normal code = 88811-7) [facility] panel, serum 2021-08-31 00:00:00 Test Item Value Reference Range Interpretation Comments Interpretation and review of laboratory note results (test code = 16538-0) Report (test code = 72907-5) . [facility] HEAD/BRAIN W/O [id number] 22:50:00[facility] 1970 Sex: F Name: RANJITH CURRIE [facility] : 1970 Age/S: 50 / F [address] [facility] Unit #: [id number] Loc: [place] [address] Phys: Mark Rodney MD Acct: [id number] Dis Date: Status: REG ER PHONE #: [phone] Exam Date: 06/08/20212219 FAX #: [phone] Reason: fall EXAMS: CPT CODE: [id number] CT HEAD/BRAIN W/O CONT 21343 EXAM: - CT HEAD/BRAIN W/O CONT Location code:C3 HI STORY: 50 years -old Female with fall TECHNIQUE: [...] and occipital lobe compatible with remote right 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 Remote lacunar infarctions are noted [...] attenuation involving the periventricular and subcortical white mattercompatible with mild microvascular chronic ischemic changes. The density in the larger dural sinusesis grossly normal. Bones: There is no evidence of acute displaced calvarial fracture. Sinuses: The visualized portions of the paranasal sinuses demonstrate no significant opacification.The mastoid aircells are clear. Orbits/Soft Tissues: The visualized orbits show no significant abnormalities. The visualized soft tissues are unremarkable. IMPRESSION: PAGE 1 Signed Report (CONTINUED) Name: RANJITH CURRIE [facility] : 1970 Age/S: 50 / F [address] [facility] Unit #: [id number] Loc: [place] [address] Phys: Mark Rodney MD Acct: [id number] Dis Date: Status: REG ER PHONE #: [phone] Exam Date: 06/08/20212219 FAX #: [phone] Reason: fall EXAMS: CPT CODE: [id number] CT HEAD/BRAIN W/O CONT 39068 (Continued) 1. Resolution of previously seen posterior fossa hemorrhage. Noacute hemorrhage or other acute intracranial abnormality identified. 2. Interval development of remote right 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 at 2250 Reported and signed by: Godfrey LunaDAYTON [facility]: Mark Rodney MD Technologist:Jodi Dumont RT(R) CTDI: DLP: Trnscb Date/Time: 06/08/2021(2249) [email or web address] Orig Print D/T: S: 06/08/2021 (6236) PAGE 2 Signed Report- CT C-SPINE W/O [id number] 22:47:00 [facility] M[facility] [facility] ([facility])Name: RANJITH CURRIE : 1970 Sex: F Name: RANJITH CURRIE [facility] : 1970 Age/S: 50 / F [address] [facility] Unit #: [id number] Loc: [place] [address] Phys: Mark Rodney MD Acct: [id number] Dis Date: Status: REG ER PHONE #: [phone] Exam Date: 06/08/20212229 FAX #: [phone] Reason: fall EXAMS: CPT CODE: [id number] CT C-SPINE W/O CONTRAST 01376 LOCATION: Q15 HISTORY: 50-year-old female who suff ered a fall and complains of neck pain. COMMENT: Noncontrast axial CT imaging of this patient's cervical spine was obtained from the skull base to the upper thoracic spine. Soft tissue and bone windowimages were submitted in the axial plane. Coronal [...] CT examination. There is mild multilevel degenerative discdisease demonstrated along with multilevel uncovertebral joint arthropathy in the cervical spine as outlined above. at 2246 Reported and signed by: Godfrey Rendon M.D. PAGE 1 Signed Report (CONTINUED) Name: RANJITH CURRIE [facility] : 1970 Age/S: 50 / F [address] [facility] [id number] Loc: [place] [address] Phys: Mark Rodney MD Acct: [id number] Dis Date: Status: REG ER PHONE #: [phone] Exam Date: 06/08/20212229 FAX #: [phone] Reason: fall EXAMS: CPT CODE: [id number] CT C-SPINE W/O CONTRAST 25797 (Continued) CC: Mark Rodney MD Technologist:Jodi Dumont RT(R) CTDI: DLP: Trnscb Date/Time: 06/08/2021 (2246) [email or web address] Orig Print D/T: S: 06/08/2021 (2249) PAGE 2 Signed ReportPROTHROMBIN [id number] 11:33:00 Test Item Value Reference Range Interpretation [...] treatment (2.0-3.0)Venous thrombosis treatmentVenous thrombosis prophylaxis (hi risk surgery)Prevent ion of systemic emboli sm from: Acute myocardial infa rction Valvular heart disease Atrial fibrillation Mechanical pros thetic heart valves (2.5-3.5) IS PATIENT ON ANTICOAGULANTS? NTHROMBOPLASTIN TIME [id number] 11:33:00 Test Item Value Reference Range Interpretation Comments THROMBOPLASTIN TIME PARTIAL 33.7 seconds 23.0-37.0 N (test code = PTT) IS PATIENT ON ANTICOAGULANTS? NCOVID 19 INHOUSE [id number] 11:20:00 Test Item Value Reference Range Interpretation Comments COVID 19 INHOUSE AG (test code = NEGATIVE NEGATIVE [id number]) - CT HEAD/BRAIN W/[id number] 11:16:00 [facility] 1970 Sex: F Name: RANJITH CURRIE [facility] : 1970 Age/S: 50 / F [address] [facility] Unit #: [id number] Loc: [place] [address] Phys: Adam Mistry MD Acct: [id number] Dis Date: Status: REG ER PHONE #: [phone] Exam Date: 12/03/2020 1050 FAX #: [phone] Reason: HEMORRHAGE, AMS EXAMS: CPT CODE: [id number] CT HEAD/BRAIN W/CONT 42357 HISTORY: Hemorrhage and confusion. COMPARISON: CT scan from same day. CT brain without contrast: 100 mL of Isovue- 370. Automated exposure control. Location: TH. Hemorrhage again identified within the left vermis and left cerebellum. Rest of the 1.6 cm. Extensive vasogenic edema surrounding the hemorrhage. No abnormal enhancement is noted to suggest a mass however I would recommend correlation with postcontrast MRI scan for confirmation. Mass effect with mild displacement of the 4th ventricle anteriorly and towards the right. Quadrigeminal plate cistern is also compressed on the left side. No other areas of abnormal enhancement either. No meningeal enhancement. Lennon-white matter differentiation is preserved. Scattered bilateral old subcortical infarcts. No transtentorial, uncal or subfalcine herniation [...] Date/Time: 12/03/2020 (1116) t.[email or web address].[email or web address] Orig Print D/T: S: 12/03/2020 (1119) PAGE 1 Signed ReportBASIC METABOLIC [id number] 11:11:00 Test Item Value Reference Range Interpretation [...] Modifi ed MDRD (test code = GFR) formula. ron kidney disease is defined as eith er kidney damageor GFR <60 mL/min/1.73 m2 for >3 months. [Automated mess age] The system [employer] generated this result transmitted ref erence range: [...] 10.0 mg/dL 8.5-10.1 N CA) HEPATIC FUNCTION [id number] 11:11:00 Test Item Value Reference Range Interpretation [...] code = 48 IUnit/L 26-208 N CK) [id number] 11:11:00 Test Item Value Reference Range Interpretation Comments TROPONIN-I (test code = TROPI) 0.041 ng/mL 0-0.045 N [id number] 11:11:00 Test Item Value Reference Range Interpretation Comments ACETAMINOPHEN (test code = ACET) < 0.2 mg/dL 1.0-3.0 L [id number] 11:11:00 Test Item Value Reference Range Interpretation Comments SALICYLATE (test code = JULIENNE) < 3.0 mg/dL 2.8-20.0 N [id number] 11:11:00 Test Item Value Reference Range Interpretation [...] AN ADDITIONAL CHARGE TO THE P ATIENT. [id number] 11:11:00 Test Item Value Reference Range Interpretation Comments MAGNESIUM (test code = MAG) 1.9 mg/dL 1.8-2.4 N [id number] 11:11:00 Test Item Value Reference Range Interpretation Comments AMMONIA (test code = AMM) < 10 umol/L 1132 L - XR CHEST 1 [id number] 11:11:00 [facility] ([facility])Name: RANJITH CURRIE : 1970 Sex: F FAX: Adam Lopez [phone] [place]: B St: REG Name: RANJITH CURRIE [facility] : 1970 Age/S: 50/F [address] [facility] Unit #: [id number] Loc: [place] [address] Phys: Adam Mistry MD Acct: [id number] Dis Date: Status: REG ER PHONE #: [phone] Exam Date: 12/03/2020 1103FAX #: [phone] Reason: Altered Mental Status EXAMS: CPT CODE: [id number] XR CHEST 1 V 14810 HISTORY: Confusion. COMPARISON: None available. Location: TH. No acute infiltrates, effusion or congestion is noted. Mild cardiomegaly. IMPRESSION: No acute infiltrates, effusion or congestion. at 1111 Reported and signed by: Nazario Jones M.D. CC: Adam Mistry MD Technologist: FERN ARIAS RT; Carolyn Payne(R) Trnscrd Date/Time/By: 12/03/2020 (1111) : By: [email or web address] Orig Print D/T: S: 12/03/2020 (1114) PAGE 1 Signed ReportUOFL [facility]ALTH [facility] W/AUTO [id number] 10:51:00 Test Item Value Reference Range Interpretation [...] NO = MDIFF) - CT HEAD/BRAIN W/O [id number] 10:31:00 [facility] ([facility])Name: RANJITH CURRIE : 1970 Sex: F Name: RANJITH CURRIE [facility] : 1970 Age/S: 50 / F [address] [facility] Unit #: [id number] Loc: [place] [address] Phys: Adam Mistry MD Acct: [id number] Dis Date: Status: REG ER PHONE #: [phone] Exam Date: 12/03/2020 1025 FAX #: [phone] Reason: Altered Mental Status EXAMS: CPT CODE: [id number] CT HEAD/BRAIN W/O CONT 37044 HISTORY: Confusion and hypertensi ve crisis. COMPARISON: None available. Location: TH. CT [...] Paranasal sinuses are clear. Unfused posterior arch ofC1 vertebral body. IMPRESSION: Acute hemorrhage within the left vermis and cerebellum measuring up to 1.6 cm with severe vasogenic edema and mass effect on the ipsilateral quadrigeminal plate cistern and the left 4th ventricle. This may represent underlying mass with hemorrhage. Less likely hypertensive bleed. Correlate with postcontrast CT or MRI scanning for further evaluation. These findings were d iscussed with Dr. Mistry at 10:29 AM. FOR INTERNAL CODING PURPOSES ONLY RESULT CODE: CVR at 1031 Reported and signed by: Nazario Jones M.D. CC: Adam Mistry MD Technologist:La Bell RT(R),CT; CTDI: DLP: Trnscb Date/Time: 12/03/2020 (1031) t.SDR.[email or web address] Orig Print D/T: S: 12/03/2020 (1034) PAGE 1 Signed ReportCBC W/AUTO [id number] 17:41:00 Test Item Value Reference Range Interpretation [...] SCAN NEEDED (test code = MDIFF) DIFFERENTIAL [id number] 17:41:00 Test Item Value Reference Range Interpretation Comments STAIN ACCEPTABILITY (test STAIN ACCEPTABLE code = STN ACCEPTABLE) HYPOCHROMIA (test code = 1+ HYPO) PLATELET ESTIMATE (test code ADEQUATE = PLTEST) PLATELET MORPHOLOGY (test NORMAL code = PLTMORPH) CBC W/AUTO [id number] 16:03:00 Test Item Value Reference Range Interpretation [...] SCAN NEEDED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 nose no obviou s deformity.MS Neck Neck Atraumatic, Supple, No meningismus, Full range of motion, No adenopathy,No swelling, Non-tender, No midline vertebral tendResp/Chest Respiratory/Chest Atraumatic, Breath sounds NL, Breath sounds = bilat, No respiratory distress, No rales, No rhonchi, No wheezing, No chest tenderness, Nochest wall deformity, No crepitusCardiovascula r Cardiovascular Heart rate NL, Regular rhythm, Heart sounds NL, No gallop, No murmurs, No rubs, Cap refill not delayed, Peripheral circulation NLAbdomen/GI Abdomen/GI Atraumatic, Soft, Non-tender, McBurney's non-tender, No guarding, No rebound, No distentionMS Back Back Atraumatic , Inspection NL, Full range of motion, Painless range of motion, Non-tender, No midline vertebra l tend, No paraspinal tenderness, No CVA tendernessMS Upper Extrem Upper Extremity/MS Atraumatic, Inspection NL, Full range of motion, No swelling, Non-tender, No erythema, No deformity, Neurologic intact, Vascular intactMS Wrist/Hand Wrist/Hand Atraumatic, Inspection NL, Full range of motion, No swelling, No erythema, Non-tender, No deformity, Neurologic intact, Vascular intact, No clubbing/cyanosisMS Lower Extrem Lower Ext/Pelvis/MS Atraumatic, Inspectio n NL, Full range of motion, No swelling, Non-tender, No erythema, No deformity, Neurologi c intact, Vascular intact, No edemaMS Ankle/Foot Ankle/Foot Atraumatic, Inspection NL, Full range of motion, No swelling, No erythema, Non-tender, No deformity, Neurologic intact, Vascular intact , No edemaSkin Skin Atraumatic, Color NL, No rash, Warm, Dry, Intact, Turgor NLNeurologic Neurologi c Oriented X3, Speech NL, No motor deficits, No sensory deficits, CNII - XII intact, Memory NL Additional PELymphatic Lymphatic No gross adenopathy, No cervical adenopathyGenitourinary General Exam deferredRectum Rectum/Perineum Exam deferredPsychiatric Psychiatric Affect NL, Mood NL, Cognitive function NL Interpretation Diagnostics Lab Results InterpretationConsiderations Independ review imaging, Reviewed prior recordsResultsRecent Impressions:CAT SCAN - CT HEAD/BRAIN W/O CONT 06/08 2209 Report Impression - Status: SIGNED Entered: 06/08/20212252 IMPRESSION: 1. Resolution of previously seen posterior fossa hemorrhage. Noacute hemorrhage or other acute intracranial abnormality identified.2. Interval development of remote right 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 There is mild multilevel degenerative discdisease demonstrated along with multilevel uncovertebral jointarthropathy in the cervical spine as outlined above.Impression By: GeorginaRLA2 - Godfrey Rendon M.D. Imaging StatementRadiographic studies reviewed and considered in the medical decision-making. Point of Care TestingPulse Oximetry Pulse Ox % 99 On: Room air Interpretation Interpreted by me, Pulse oximetry normal Time 2216 Re-Evaluation MDM Re-Evaluation/Progress #1Time of Re-Eval 2254Re-Eval Status Improved Fall/Minor Trauma MD [place] NoteThe patient presented with a complaint of a fall or minor trauma. The patient isnow resting comfortably and feels better, is alert and in no distress. The patient has a normal mental status and is neurologically intact. The history, exam, diagnostic testing (if any) and current conditio n do not demonstrate signsof clinically significan t intra-cranial, intra-thoracic, intra-abdominal, or musculoskeletal trauma. The vital signs have been stable. The patient's condition is stable and appropriate for discharge. The patient will pursue further outpatient evaluation with the primary care physician or other designated or consulting physician as indicated in the discharge instructions. Tissue Perfusion ReassessmentPatient tissue perfusion reassessmen t completed. Differential DiagnosisDifferential Diagnosis Abrasion, Abuse, physical, Abuse, sexual, Ankle injury, Asphyxiation, Bowel injury , Burn injury, Burn, chemical, Burn, thermal, Cardiac injury, Closed head injury, Compartment syndrome, Concussion, Contusion, Cornealabrasion , Dislocation, Dislocation, hip, Dislocation, shoulder, Flail chest, Foot injury, Foreign body , Foreign body, eye, Fracture, Fracture(s), Fracture, basilar skull, Fracture, blow out, Fracture, c-spine, Fracture, hip, Fracture, long bone, Fracture, nasal, Gun shot wound, Hand injury, Head injury, Hematoma, Intra-abdominal injury, Intracranial hemorrhage, Laceration, Liver injury, Myocardial contusion, Neck injury, Pelvic injury, Penetrating injury, Pericardial tamponade, Pneumoperitoneum, Pneumothorax, Pulmonary contusion, Renal injury, Respiratory arrest, SCIWORA, Spine injury, Splenic injury, Sprain,Strain, Tracheal injury, Traum brain inj, mild, Traum brain inj, sev, Urethral injury, Urological injury, Vascular injury, Whiplash, Wrist injury Patient Discharge Departure Vital Signs/ConditionVital SignsFirst Documented: Result Date Time Pulse Ox 100 06/08 2152 B/P 163/70 06/08 2152 B/P Mean 101 06/08 2152 O2 Delivery Room air 06/08 2152 Temp 98.6 06/08 3 Pulse 83 06/08 2152 Resp 06/08 Last Documented: Result Date Time Pulse Ox 100 06/08 2152 B/P 163/70 06/08 2152 B/P Mean 101 06/08 2152 O2 Delivery Room air 06/08 2152 Temp 98.6 06/08 2152 Pulse 83 06/08 2152 Resp 06/08 All vital signs available at the time of this entry have been reviewed. Clinical ImpressionClinical ImpressionPrimary Impression: CHI (closed head injury)Secondary Impressions: Fall, Nose abrasion Disposition DecisionDischarg e )( Discharged to Home Yes )( Time 2256 )( Date 06/08/21 COVID-19 Discharge PlanCDC Criteria Met for Testing NoTest Performed No CDC Recom for Isol Retest https://www.cdc.gov/coronavirus/2019-ncov/infect i on-control/control-recommendations.html Criteria Not Met for TestingThe patient did not meet criteria for acute COVID19 testing today in the emergency department. The patient has received COVID19 precautions and home quarantine information. Discharge/Care PlanCounseled Regarding Diagnosis, Imaging studies, Need for follow-up, When to return to EDPatient Instructions ED Abrasions, ED Head Injury (Adult), ED Nasal ContusionAdditional InstructionsMay return for any reason or worsening of condition. ReferralsProvider Group: PRIMARY CARE Follow-Up: 1 Week Departure FormsPC P LISTWORK/SCHOOL EXCUSE VARIABLE Any Restrictions Off work/school 2 days Discharge NoteI have spoken with the patient and/or caregivers. I hav e explained the patient'scondition, diagnoses and treatment plan based on the information availabl e to meat this time. I have answered the patient's and/or caregiver's questions and addressed any concerns. The patient and/or caregivers have as good an understanding of the patient's diagnosis , condition and treatment plan as can beexpected a t this point. The vital signs have been stable. Th e patient's condition is stable and appropriate fo r discharge from the emergency department. The patient will pursue further outpatient evaluatio n with the primary care physician or other designated or consulting physician as outlined i n the discharge instructions. The patient and/or caregivers are agreeable to this planof care and follow-up instructions have been explained in detail. The patient and/or caregivers have received these instructions in written format an d have expressed an understanding of the discharge instructions. The patient and/or caregivers are aware that any significant change in condition o r worsening of symptoms should prompt an immediate return to this or the closest emergency department or a call to 911. Fall/Minor Trauma Dispo NoteThe patient is discharged home with supportive care, a plan for pain control, and follow-up instructions that detail what to expec t over the next 48 hours andwhat symptoms should prompt immediate return to the ED. Follow-up instructions have been explained in detail to th e patient, and the instructions have been provided in written format. The patient is comfortable with the plan of care andhas expressed an understanding of the discharge instructions. The patient and/orcaregivers are aware that any significant change in condition or worsening of symptoms should prompt an immediate return to this or the closest emergency department or a call to 911. Quality MeasuresBP F/U for HTN Pre-existing HTNMinor Blunt Head Trauma CT GCS 15, NO LOC OR AMNESIA, Dangerous mech of injurySmoking Cessation Screened, non user Electronically Signed by Mark Rodney MD n 06/08/21 at 2257RPT #:[id number] OF REPORTEDEmergency department [id number]:12:00V.[id number] a ilable for patient [id number]:58:01 2020-12-03 10:00:00 [id number]:00:00 [facility] ([facility])EMERGENCY PROVIDER REPORTREPORT#:[id number] REPORT STATUS: SignedDATE:12/03/20 TIME: 1000 PATIENT: RANJITH CURRIE UNIT #: [id number]#: [id number] ROOM/BED:AGE: 50 SEX: F PCP PHYS: N o Primary or Family PhysicianSERVICE AUTHOR: Adam Mistry MD * ALL edits or amendments must be made on the electronic/computer document * HPI-Altered Menta l Status GeneralInitial Greet Date/Time 12/03/20 0958 PresentationChief Complaint Decreased responsivenessHx Obtained From Patient, EMSSudde n in Onset? NoOnset Occurred UnknownProgression since Onset Gradually improvingAssociated withDenies: Diarrhea, Fever, Headache. Free Text HPI NotesFree Text HPI NotesPatient is a 50-year-old female presenting to the emergency room via EMS from a house with a chief complaint of altered mental status. I will was called by occupants when patient was found unresponsive in the bathtub. Upon medic arrival patient was with a GCS of 13 but awakened with sternal rub. Patient admitted to smoking methamphetamines and marijuana last night. She denies any other ingestions. Patient was found to be severely hypertensive with a systolicblood pressure in th e 260s. She was given 40 mg in total of labetalol en route with mild improvement. At this time patient states she has not been on her blood pressure medications for a while because she ran out. She denies any headache, chest pain, shortness of breath. Patient this laying on the stretcherwith her eyes closed. Review of Systems ROS StatementsAll systems rev neg except as marked. Focused Review of SystemsConstitutionalDenies: Chills, Fever. RespiratoryDenies: Cough, productive, Shortness of breath. CardiovascularDenies: Chest pain, Palpitations. GIDenies: Abdominal pain, Nausea. NeurologicDenies: Headache. Past Medical History - AdultStated Complaint AMS, HTN CRISISAllergiesCoded Allergies:No Known Allergie s (09/12/19) Home MedicationsDiscontinued ScriptsCARVEDILOL (COREG) 25 MG PO Q12HR CARVEDILOL (COREG) 25 MG PO Q12HR #60 TAB Prov: 09/16/19 DC: 12/03/20 1116 Patient stopped takingISOSORBIDE MONONITRATE SR (IMDUR) 60 MG PO DAILY ISOSORBIDE MONONITRATE SR (IMDUR) 60 MG P O DAILY #60 TAB Prov: 09/16/19 DC: 12/03/20 1116 Patient stopped takinghydrALAZINE (APRESOLINE) 5 0 MG PO Q8HR hydrALAZINE (APRESOLINE) 50 MG PO Q8H R #90 TAB Prov: 09/16/19 DC: 12/03/20 1116 Patient stopped takingDOXYCYCLINE HYCLATE (VIBRAMYCIN) 100 MG PO BID DOXYCYCLINE HYCLATE (VIBRAMYCIN) 100 MG PO BID #10 CAPS Prov: 09/15/19 DC: 12/03/20 1116 Patient stopped taking Past Medica l History:Reports: Hypertension. Past Surgical History:Reports: Cholecystectomy, Tonsillectomy. Additional Surgical Historyovary removalAdditional Family HistorydeniesAlcohol Us e Denies EtOH useDrug Use Marijuana Physical Exam Vital SignsVital SignsFirst Documented: Result Date Time Pulse Ox 97 12/03 0958 B/P 223/124 12/03 0958 B/P Mean 157 12/03 0958 O2 Delivery Room air 12/03 0958 Temp 37.3 12/03 0958 Pulse 7 6 12/03 0958 Resp 14 12/03 0958 Last Documented: Result Date Time Pulse Ox 98 12/03 1123 B/P 170/92 12/03 1123 B/P Mean 118 12/03 1123 O2 Delivery Room air 12/03 1123 Pulse 67 12/03 1123 Resp 14 12/03 1123 Temp 37.3 12/03 0958 Review o f Vital Signs Reviewed Focused PEGeneral/Const General/Const No acute distress, Well appearing Alertness Sleeping but arousable. MS Head Head Atraumatic, NormocephalicEyes Eyes PERRL, EOMI, No nystagmusEars/Nose/Throat Ears/Nose/Throat Airway patent, Mucous membranes moist, Pharynx NLMS Neck Neck Supple, No meningismus, No swellingResp/Chest Respiratory/Chest Breath sounds NL, Breath sounds = bilat, No respiratory distressCardiovascular Cardiovascular Heart rate NL, Regular rhythm, Heart sounds NLAbdomen/GI Abdomen/GI Soft, Non-tenderSkin Ski n Warm, Dry Text/Dict NotesRingworm rash noted to the posterior thigh and left legNeurologic Neurologic Oriented X3, No motor deficits, No sensory deficits, CN II - XII intact Speech Slow . Interpretation Diagnostics Lab Results InterpretationResultsLaboratory Tests 12/03/20 1018:[Embedded Image Not Available]Laboratory Tests: 12/03 12/03 12/03 1018 1018 1018 Chemistry Sodium (136 - 145 mmol/L) 140 Potassiu m (3.5 - 5.1 mmol/L) 3.2 L Chloride (98 - 107 mmol/L) 104.0 Carbon Dioxide (21 - 32 mmol/L) 26.0 Anion Gap (10 - 20) 13.2 BUN (7 - 18 mg/dL) 24 H Creatinine (0.55 - 1.02 mg/dL) 1.00 Glomerular Filtr Rate (>=60 mL/min) 58 BUN/Creatinine Ratio (10 - 20) 24.5 H Glucose (7 4 - 106 mg/dL) 165 H Calcium (8.5 [...] 10 L Total Creatine Kinase (26 - 20 8 IUnit/L) 48 Troponin I (0 - 0.045 ng/mL) 0.041 Total Protein (6.4 - 8.2 gram/dL) 6.9 Albumin (3.4 - 5.0 g/dL) 4.1 Globulin (2.7 - 4.2 gram/dL ) 2.8 Albumin/Globulin Ratio (0.75 - 1.50) 1.5 Hematology WBC (4.5 - 12.5 K/mm3) 14.3 H RBC (3. 7 - 5.2 mill/mm3) 4.80 Hgb (11.5 - 15.5 gram/dL) 14.3 Hct (36.0 - 46.0 %) 44.7 MCV (80 - 98 fL) 93.1 MCH (27.0 - 33.0 picogram) 29.8 MCHC (33.0 - 36.0 gram/dL) 32.0 L RDW (11.6 - 16.2 %) 13.1 RDW Std Deviation (37.0 - 51.0 fL) 44.7 Plt Coun t (150 - 450 K/mm3) 258 MPV (6.7 - 11.0 fL) 10.3 Neut % (Auto) (39.0 - 69.0 %) 90.0 H Lymph % (Auto) (25.0 - 55.0 %) 4.7 L Collin % (Auto) (0.0 - 10.0 %) 4.6 Eos % (Auto) (0.0 - 5.0 %) 0.0 Bas o % (Auto) (0.0 - 1.0 %) 0.2 Neut # (Auto) (1.8 - 7.7 K/mm3) 12.89 H Lymph # (Auto) (1.0 - 5.0 K/mm3) 0.68 L Collin # (Auto) (0 - 0.8 K/mm3) 0.66 Eos # (Auto) (0.0 - 0.5 K/mm3) 0.00 Baso # (Auto ) (0.0 - 0.2 K/mm3) 0.03 Add Manual Diff NO Nucleated RBC % (0 - 0 %) 0.0 Nucleated RBCs # (Man) (0.0 - 0.1 K/mm3) 0.00 Serology SARS-CoV- 2 Ag (Rapid) (NEGATIVE) NEGATIVE Toxicology Salicylates (2.8 - 20.0 mg/dL) < 3.0 Acetaminophen (1.0 - 3.0 mg/dL) < 0.2 L Ethyl Alcohol (0.0 - 3.0 mg/dL) < 3 Recent Impressions:CAT SCAN - CT HEAD/BRAIN W/O CONT 12/03 1015 Report Impression - Status: SIGNED Entered: 12/03/2020 1034 IMPRESSION: Acute hemorrhage within the left vermis and cerebellum measuring up to1.6 cm with severe vasogenic patricia a and mass effect on the ipsilateralquadrigeminal plate cistern and the left 4th ventricle. This mayrepresent underlying mass with hemorrhage. Less likely hypertensivebleed. Correlate with postcontrast CT or MRI scanning for furtherevaluation. These findings were discussed with Dr. Mistry at 10:29 AM. FOR INTERNAL CODING PURPOSES ONLYRESULT CODE: CVRImpression By: Loreta Jones M.D.CAT SCAN - CT HEAD/BRAIN W/CONT 12/03 1040 Report Impressio n - Status: SIGNED Entered: 12/03/2020 1119 IMPRESSION: Hemorrhage noted again measuring 1.6 cm within the left vermis andcerebellum with mas s effect on the 4th ventricle and the quadrigeminalplate cistern. No abnormal enhancement is noted however follow-upwith postcontrast MRI scan scan history recommended. No other areasof abnormal enhancement either.Impression By: Loreta Jones M.D.RADIOLOGY - XR CHEST 1 V 12/03 1100 Repor t Impression - Status: SIGNED Entered: 12/03/2020 1114 IMPRESSION: No acute infiltrates, effusion or congestion.Impression By: Loreta Jones M.D. Lab Imaging StatementLaboratory radiographic studies reviewed and considered in the medical decision-making. Point of Care TestingPulse Oximetry Pulse Ox % 97 On: Room air Interpretation Interpreted by me, Pulse oximetry normal ECG #1 InterpretationText/Dict NoteT wave inversion in the lateral leads.Date 12/03/20Time 1043Interpreted by and reviewed by me, ED physicianNL ECG Interpretation No STEMIRate 56Rhythm BradycardiaConduction/[place] Left axis deviation, QT segment prolonged (497)Atrium and Vent Size Ventricle enlarged - L Re-Evaluation MDM )( Re-Evaluation/Progress #1Text/Dict NoteReceived a call from radiology stating patient has a one-point centimeter hemorrhage in the left cerebellum/vermis. He reports quite a bit of mass-effectand suspects possible mass. Recommends postcontrast CT of the head. Will giv e patient Decadron and Keppra for seizure prophylaxis as well as swelling.Time of Re-Eval 1031)( Re-Eval Status Unchanged Re-Evaluation/Progress #2Text/Dict NotePatient still sitting with eyes closed. She follows commands appropriately. Able to move all extremities freely without any noticeable focal weakness. Cranial nerves II through XII still grossly intact. Patient speech is slow. Pupils are equal and reactive. Patient's blood pressure noted to still be severely elevated in the 220s systolic. Ordered Cardene drip to be started. Time of Eval 1055Re-Eval Status Unchanged Re-Evaluation/Progress #3Text/Dict NoteTransport team is here to transport patient [facility]. Time of Eval 1107 Re-Evaluation/Progress #4+Addl Re-Evaluation/Progress Text/Dict NotePatient on Cardene drip. Blood pressure improved now is 170/82. Patient oriented to self and date. Time of Eval 113 ED CourseMedication(s) OrderedMedication(s) Ordered:Cardiovascular Drug s Sig/Maria Teresa Start time Last Medication Dose Route Stop Time Status Admin Nicardipine HCl 25 MG X1E D STA 12/03 1035 AC 12/03 Sodium Chloride 250 ML I V 12/13 2033 1049 Carvedilol 25 MG X1ED STA 12/03 1004 CAN PO 12/03 1005 Isos[address] A 12/03 1004 CAN Mononitrate PO 12/03 1005 Hydralazine HCl 10 MG X1ED STA 12/03 0958 CAN IV 12/03 0959 Central Nervous System Agents Sig/Maria Teresa Start time Last Medication Dose Route Stop Time Status Admin Levetiracetam 100 ML X1ED STA 12/03 1034 DC 12/03 IV 12/03 1048 1050 Diagnostic Agents Sig/Maria Teresa Start time Last Medication Dose Route Stop Time Status Admin Iopamidol 0 .STK-ME D ONE 12/03 1050 DC 12/03 .ROUTE 1053 Electrolytic, Caloric, And Sam Sig/Maria Teresa Start christina e Last Medication Dose Route Stop Time Status Admi n Sodium Chloride 1,000 ML X1ED STA 12/03 0958 CAN IV 12/03 1057 Eye, Ear, Nose And Throat (Een Sig/Maria Teresa Start time Last Medication Dose Route Stop Time Status Admin Dexamethasone Sodium 4 MG X1ED STA 12/03 1034 DC 12/03 Phosphate IV 12/03 1035 1050 Patient Discharge Departure Vital Signs/ConditionVital SignsFirst Documented: Result Date Time Pulse Ox 97 12/03 0958 B/P 223/124 12/03 0958 B/P Mean 157 12/03 0958 O2 Delivery Room air 12/03 0958 Temp 37.3 12/03 095 8 Pulse 76 12/03 0958 Resp 14 12/03 0958 Last Documented: Result Date Time Pulse Ox 98 12/03 1123 B/P 170/92 12/03 1123 B/P Mean 118 12/03 1123 O2 Delivery Room air 12/03 1123 Pulse 67 12/03 1123 Resp 14 12/03 1123 Temp 37.3 12/03 0958 All vital signs available at the time of this entry have been reviewed. Clinical ImpressionClinical ImpressionPrimary Impression: Hemorrhagic stroke Disposition DecisionTransfer )( Request Time 1035 )( Request Date 12/03/20 Call Returned Time 1035 Spoke with: Attending physician [facility] Transfer Accepted Yes Accepted by:DR. SAUNDERS )( Acceptance Time 1115 )( Acceptance Date 12/03/20 Transfer Reason Higher level of care Patient Status Stabl e w/in capabilities Critical CareTime Spent (minutes): 45Services Performed Patient management by me, Time spent at bedside, Reviewing test results, Reviewing imaging, Discussing patient care, Documentation in record at 1131RPT #:[id number] OF REPORTEDEmergency department mqnzkh8054-61-19H40:00:00V.[id number] a ilable for patient qwtsBXOAQEJCFPFIPL6934-46-90D62:32:08 2019-09-16 18:37:00 PTwkqkrblqj589987363876-28-92P26:37:00 [facility] ([facility])Hospitalist Discharge SummaryREPORT#:[id number] REPORT STATUS : SignedDATE:09/16/19 TIME: 1836 PATIENT: RANJITH CURRIE UNIT #: [id number]#: [id number] ROOM/BED: [facility]-ADOB: [birth year] AGE : 49 SEX: F [facility] AUTHOR: Tahira Aguilar MD * ALL edits or amendments must be made on the electronic/computer document * PCP PCPDischarge to: home General InformationDate of admission:Observation Start Date: 09/12/19Date o f admission: 09/13/19 Discharge date: 09/16/19Discharge diagnosis:Right pyosalpinx/hydrosalpinx: Probable cause of right lower quadrant pain, resolvingAccelerated hypertension: ImprovingAKI: ResolvedHyperglycemia: Likely reactive, A1c 5.2Substance abuse: With marijuana. CounselingHospital course:49yo female with PMH o f HTN, off meds X 2months presented with elevated BP and RLQ pain. CT abd/pelvis showed cystic changes in the pelvis posterior to uterus may represent a hydrosalpinx or ovarian cyst. She wa s started antihypertensives and adjusted accordingly.steerer was consulted, was started on antibiotics. Pelvic/ transvaginal ultrastound showed comples thick-walled tubular cystic mass measuring 8.9 X 4 cmin the right adnexa concerning for hydrocele or pyosalpinxOnce improved, stable and cleared, she was discharged home. Strict follow up instructions and ER precautions were given. Verbalized understanding Time spent: 31 minutes Pt. condition on discharge: improved, stable Med Rec Med RecDischarge meds:Stop taking the following medications:cloNIDine (CATAPRES) 0.2 MG TAB 0.2 MILLIGRAM ORAL TWICE DAILY. Start taking the following new medications:ISOSORBIDE MONONITRATE SR (IMDUR) 30 MG TAB.SR.24H 60 MILLIGRAM ORAL DAILY. Qty = 60 No Refills CARVEDILOL (COREG) 25 MG TAB 25 MILLIGRAM ORAL EVERY 12 HOURS. Qty = 6 0 No Refills hydrALAZINE (APRESOLINE) 50 MG TAB 50 MILLIGRAM ORAL EVERY 8 HOURS. Qty = 90 No Refill s DOXYCYCLINE HYCLATE (VIBRAMYCIN) 100 MG CAP 100 MILLIGRAM ORAL TWICE DAILY. 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 Follow up timeframe: 1-2 weeks Objective GeneralVS/I O:Vital Signs: Date Time Temp Pulse Resp B/P B/P Pulse O2 O2 Flow FiO2 Mean Ox Delivery Rate 08/21 1538 98.4 77 18 132/64 86.6 94 [...] Total Balance Number Voids 3 2 Physical ExamGeneral appearance: alert, awake, oriented, no acute distress, conversational, mental status normal, no respiratory distressHead/Eyes: atraumatic, EOMI, normocephalicNeck: full range of motionCardiovascular: normal heart sounds, regular rate rhythm, no murmurRespiratory: aerating well, clear to auscultation, symmetric expansion, no distressAbdomen: non-tender, jasen l bowel sounds, soft, no distention, no guarding, no hernial, no reboundExtremities: moves all, normal range of motion, no clubbing, no cyanosis , no edemaMusculoskeletal: normal inspection, painless range of motion, no CVA tendernessSkin: dry, normal temperaturePsychiatry: normal affect , normal judgment/insight, normal mood Electronically Signed by Tahira Aguilar MD 09/18/19 at 1127 RPT #:[id number] OF REPORTDSDischarge poabwod9068-90-16K87:37:00V.[id number] v ailable for patient nlacNFZYWOSRHEBVZT2476-07-86B13:27:30 2019-09-15 13:31:00 [id number]:31:00 [facility] ([facility]ORE RECEIVING CLERK Progress NoteREPORT#:[id number] REPORT STATUS: SignedDATE:09/15/19 TIME: 1331 PATIENT: RANJITH CURRIE UNIT #: [id number]#: [id number] ROOM/BED: [facility]-ADOB: [birth year] AGE : 49 SEX: F ATTEND: Ewelina Gonzalez [facility] AUTHOR: Beata Carrasquillo MD * ALL edits or amendments must be made on the electronic/computer document * SubjectiveChief Complaint:PELVIC PAIN AND ELEVATED BPPatient reports: Patient reports: Yes abdominal pain, Ye s ambulating, Yes pain controlled, Yes pelvic pain , Yestolerating diet, No back pain, No fever, No headache, No nausea, No pelvic pressure, No vaginal bleeding Objective GeneralVS/I O:Last Documented: Result Date Time Pulse Ox 95 09/14 1106 B/P 122/62 09/14 1106 B/P Mean 82.0 09/14 1106 O2 Delivery Room air 09/14 1106 Temp 98.1 09/14 1106 Pulse 82 09/14 1106 Resp 18 09/14 110 6 Vital SignsDate Temp Pulse Resp B/P B/P Mean Pulse Ox OpU759/-09/14 98.1-99.0 82-102 17-18 122-186/62-92 82.0-121.4 95-99 Patient Weight Weight (lb): Weight (oz): Weight (kg): 68.182 Current MedicationsMedications:Active Meds + DC' d Last 24 HrsIsosorbide Mononitrate 120 MG DAILY P O Carvedilol 25 MG Q12HR PO Potassium Chloride [...] HCl 4 MG Q6H PRN PRN IV Physica l ExamGeneral Appearance: alert, awake, no acute distress, conversantHEENT: normocephalicCardiovascular: normal heart sounds , normal S1/V1Lardxmgxqti: no distressAbdomen: normal bowel sounds, non-tender, soft, no guarding, no reboundExtremities: no calf tnederness, no edemaNeuro/AVIONICS SAFETY INSPECTOR: alert, oriented x 3, normal gait, normal speechPsychiatry: normal affect, normal judgment/insight, normal mood ResultsFindings/Data:Laboratory Tests 09/14 053 7 Chemistry Sodium (136 - 145 mmol/L) 138 Potassiu m (3.5 - 5.1 mmol/L) 3.0 L Chloride (98 - 107 mmol/L) 105.0 Carbon Dioxide (21 - 32 mmol/L) 25.0 Anion Gap (10 - 20) 11.0 BUN (7 - 18 mg/dL ) 15 Creatinine (0.55 - 1.02 mg/dL) 0.70 Glomerula r Filtr Rate (>=60 mL/min) > 60 BUN/Creatinine Ratio (10 - 20) 21.7 H Glucose (74 - 106 mg/dL) 105 Calcium (8.5 - 10.1 mg/dL) 8.6 Phosphorus (2.5 - 4.9 mg/dL) 2.5 Magnesium (1.8 - 2.4 mg/dL ) 2.0 Laboratory Tests 09/14 0537 Hematology WBC [...] (Auto) (25.0 - 55.0 %) 13.2 L Collin % (Auto) (0.0 - 10.0 %) 10.4 H Eos % (Auto) (0.0 - 5.0 %) 3.5 Baso % (Auto) (0.0 - 1.0 %) 0.5 Neut # (Auto) (1.8 - 7. 7 K/mm3) 8.42 H Lymph # (Auto) (1.0 - 5.0 K/mm3) 1.55 Collin # (Auto) (0 - 0.8 K/mm3) 1.22 H Eos # (Auto) (0.0 - 0.5 K/mm3) 0.41 Baso # (Auto) (0. 0 - 0.2 K/mm3) 0.06 Add Manual Diff NO Nucleated RBC % (0 - 0 %) 0.0 Nucleated RBCs # (Man) (0.0 - 0.1 K/mm3) 0.00 Diagnosis, Assessment PlanProblem List/A P: 1. Right pyosalpinx Free Text A P:HD # 4 49 yr old perimenopausal female admitted for management of hypertensive crisis by Medicine Service and OB Hospitalist consulted for RLQ pain and findings of right pyosalpinx/hydrosalpinx with acute RLQ pain. Patient continues to improve clinically receivin g cefoxitin/doxycycline IV. Her abdominal exam is non-tender. WBC is decreasing to normal range. Patient has a hx of endometriosis, s/p LSO 21 yr s ago.Enlarged right ovaryHer last pap smear 5 years ago. Patient's chronic HTN control has improved. Plan: discussed with patient that she will need further outpatient gynecologicalmanagement. I gave her a list of clinics to contact for follow-up in 1-2 weeks. I also recommended that she apply for a Gold Card to access services at [facility] and [facility]. I recommend that she continue on antibiotics outpatient. I sent a prescription for doxycyclin e 100 mg BID # 20 to her pharmacy. OTC Tylenol or Ibuprofen shouldbe adequate for pain management. OB Hospitalist Service is signing off.Thank you for the Consultation. Code status: full codePlan discussed with: patient at 1348 RPT #:[id number] OF REPORTPRProgress Daeh7378-10-65W24:31:00V.[id number] donna able for patient nxkgMZZZUGODHMPXHY4431-90-32M38:48:27 2019-09-15 10:09:00 [id number]:09:00 [facility] ([facility])Hospitalist Progress NoteREPORT#:[id number] REPORT STATUS: SignedDATE:09/15/19 TIME: 1009 PATIENT: RANJITH CURRIE UNIT #: [id number]#: [id number] ROOM/BED: [facility]-ADOB: [birth year] AGE : 49 SEX: F ATTEND: Ewelina Gonzalez [facility] AUTHOR: Ewelina Gonzalez MD * ALL edits or amendments must be made on the electronic/computer document * Subjective Free Text Subj NotesFree Subj Notes:feeling better overall. still some pain across the mid and lowe r abdomen , no n/v, emanuel diet Review of SystemsGI:Reports: abdominal pain. All systems rev neg: except as marked Objective GeneralVS/I O:Vital Signs: Date Time Temp Pulse Resp B/P B/ P Pulse O2 O2 Flow FiO2 Mean Ox Delivery Rate 08/21 98.6 99 18 150/74 99.2 97 Room [...] Weight (lb): Weight (oz): Weight (kg): 68.182 Medications:Active Meds + DC'd Last 24 HrsIsosorbide Mononitrate 120 MG DAILY PO Carvedilol 25 [...] Q8HR PO Enoxaparin Sodium 40 MG DAILY SUB Q Acetaminophen 500 MG Q6H PRN PRN PO Acetaminophen/Codeine Phosphate 1 UDTAB Q6H PRN PRN PO Ondansetron HCl 4 MG Q6H PRN PRN IV Physical ExamGeneral appearance: alert, awake, n o acute distressHead/Eyes: atraumatic, clear cornea, normal conjunctiva/sclera, normocephalic , PERRLENT: moist mucosal membranes, normal pharynx, normal sinusNeck: full range of motion, non-tender, normal thyroid, supple/no meningismus, no bruit/NL carotids, no JVD, no masses or swellingCardiovascular: normal capillary refill, normal heart sounds, regular rate rhythm, no murmurRespiratory: aerating well , clear to auscultation, symmetric expansion, no distressAbdomen: normal bowel sounds, soft, no distention, no guarding, no hernial, no rebound, ttp across lower abdomen Extremities: moves all, normal capillary refill, normal range of motion, no edemaMusculoskeletal: normal inspectionSkin: dry, intactPsychiatry: normal affect, normal judgment/insight, normal mood, not homicidal, no t suicidal, no hallucinations ResultsFindings/Data:Laboratory Tests 09/14 536 Chemistry Sodium (136 - 145 mmol/L) 138 Potassiu m (3.5 - 5.1 mmol/L) 3.0 L Chloride (98 - 107 mmol/L) 105.0 Carbon Dioxide (21 - 32 mmol/L) 25.0 Anion Gap (10 - 20) 11.0 BUN (7 - 18 mg/dL) 15 Creatinine (0.55 - 1.02 mg/dL) 0.70 Glomerula r Filtr Rate (>=60 mL/min) > 60 BUN/Creatinine [...] (27.0 - 33.0 picogram) 25.1 L MCHC (33. 0 - 36.0 gram/dL) 30.7 L RDW (11.6 - 16.2 %) 19.1 H RDW Std Deviation (37.0 - 51.0 fL) 56.8 H Plt Count (150 - 450 K/mm3) 298 MPV (6.7 - 11.0 fL) 10.4 Neut % (Auto) (39.0 - 69.0 %) 72.0 H Lymph % (Auto) (25.0 - 55.0 %) 13.2 L Collin % (Auto) (0.0 - 10.0 %) 10.4 H Eos % (Auto) (0.0 - 5.0 %) 3.5 Baso % (Auto) (0.0 - 1.0 %) 0.5 Neut # (Auto) (1.8 - 7.7 K/mm3) 8.42 H Lymph # (Auto) (1.0 - 5.0 K/mm3) 1.55 Collin # (Auto) (0 - 0.8 K/mm3) 1.22 H Eos # (Auto) (0.0 - 0.5 K/mm3) 0.41 Baso # (Auto) (0.0 - 0.2 K/mm3) 0.06 Add Manual Diff NO Nucleated RBC % (0 - 0 %) 0.0 Nucleated RBCs # (Man) (0.0 - 0.1 K/mm3) 0.00 Diagnosis, Assessment Plan Free Text DxA P NotesFree text DxA P notes:49 y/o woman with h/o HTN off her meds x 2 months presents with c/o elevated blood pressures and right lower quadrant pain. Right pyosalpinx / hydrosalpinx , RLQ pain -CT suspicious for hydrosalpinx or ovarian cysts, appendix not identified-U/S - complex 8.9x4cm mass in right adnexa suggestive of hydrocele or pyosalpinx-STORE RECEIVING CLERK consulted, abx started for PID -- doxycycline and cefoxitin-mild new leukocytosis and 100.0 temp today, hemodynamically stable , pain stable, tolerating diet- test neg , LFTs wnls, lipase not elevated-UA with white blood cells and bacteria, however contaminated many epithelial cells ; repeat clean-catch UA ordered -morphine prn for pain , zofran prn for nausea Uncontrolled, untreated HTN-BPs 200s systolic on admission, off her meds (including clonidine for 2 months)-given hydralazine 30 mg iv total in ED. -Started lisinopril on admission , however developed KENNETH , stop lisinopril-started hydralazine and Imdur , titrate up and add coreg -- titrate up to hydralazine 100 q8h, coreg 25 bid, imdur 90 daily-Monitor blood pressures and continue to titrate KENNETH-Cr 0.8 --> 1.4 --> 0.9 today -Likely due to hypertensive episode-UA contaminated, repeat UA pending -Stopped ketorolac and lisinopril-Trial of fluid bolus-Avoid nephrotoxic agents Hyperglycemia -A1 c 5.2 DVT ppx-SCDs + lovenox sc Substance abuse-MJ use, counselled on cessation Dispo : pending stable BPs and STORE RECEIVING CLERK clearance . likely dc home tomorrow at 5948 RPT #:[id number] OF REPORTPRProgress Karp8510-09-72G06:09:00V.[id number] l able for patient gaatLLHHNJKVOFXCPV0824-72-03O64:18:33 2019-09-14 10:30:00 [id number]:30:00 [facility] ([facility])Hospitalist Progress NoteREPORT#:[id number] REPORT STATUS: SignedDATE:09/14/19 TIME: 1030 PATIENT: RANJITH UCRRIE UNIT #: [id number]#: [id number] ROOM/BED: [facility]-ADOB: [birth year] AGE : 49 SEX: F ATTEND: Ewelina Gonzalez [facility] AUTHOR: Ewelina Gonzalez MD * ALL edits or amendments must be made on the electronic/computer document * Subjective Free Text Subj NotesFree Subj Notes:feeling about the same , abdominal pain is diffuse, toleration t , no n/v Review of SystemsGI:Reports: abdominal pain. All systems rev neg: except as marked Objective GeneralVS/I O:Vital Signs: Date Time Temp Pulse Resp B/P B/P Pulse O2 O2 Flow FiO2 Mean Ox Delivery Rate 09/13 2014 99.0 102 17 160/72 101.3 99 Room air 09/13 1055 98.6 97 18 155/70 98.4 97 Room air 09/13 0843 102 18 150/73 98.4 96 Room air 09/13 0418 99.1 96 18 195/96 128.7 98 Room air 09/13 0135 100.0 107 18 162/84 110.2 96 Patient Weight Weight (lb): Weight (oz) : Weight (kg): 68.182 Medications:Active Meds + DC'd Last 24 HrsIsosorbide Mononitrate 90 MG DAILY PO Carvedilol 6.25 [...] IV (DC) Sterile Water 20 ML Physical ExamGeneral appearance: alert, awake, n o acute distressHead/Eyes: atraumatic, clear cornea, normal conjunctiva/sclera, normocephalic , PERRLENT: moist mucosal membranes, normal pharynx, normal sinusNeck: full range of motion, non-tender, normal thyroid, supple/no meningismus, no bruit/NL carotids, no JVD, no masses or swellingCardiovascular: normal capillary refill, normal heart sounds, regular rate rhythm, no murmurRespiratory: aerating well , clear to auscultation, symmetric expansion, no distressAbdomen: normal bowel sounds, soft, no distention, no guarding, no hernial, no rebound, ttp right lower quadrant and diffusely Extremities: moves all, normal capillary refill, normal range of motion, no edemaMusculoskeletal: normal inspectionSkin: dry, intactPsychiatry: normal affect, normal judgment/insight, normal mood, not homicidal, not suicidal, no hallucinations ResultsFindings/Data:Laboratory Tests 09/13 352 Chemistry Sodium (136 - [...] (Auto) (25.0 - 55.0 %) 10.6 L Collin % (Auto) (0.0 - 10.0 %) 10.6 H Eos % (Auto) (0.0 - 5.0 %) 1.5 Baso % (Auto) (0.0 - 1.0 %) 0.3 Neut # (Auto) (1.8 - 7.7 K/mm3) 10.03 H Lymph # (Auto) (1.0 - 5.0 K/mm3) 1.39 Collin # (Auto) (0 - 0.8 K/mm3) 1.39 H Eos # (Auto) (0.0 - 0.5 K/mm3) 0.19 Baso # (Auto) (0.0 - 0.2 K/mm3) 0.04 Nucleated RBC % (0 - 0 %) 0.0 Nucleated RBC s # (Man) (0.0 - 0.1 K/mm3) 0.00 Diagnosis, Assessment Plan Free Text DxA P NotesFree text DxA P notes:49 y/o woman with h/o HTN off her meds x 2 months presents with c/o elevated blood pressures and right lower quadrant pain. Right pyosalpinx / hydrosalpinx , RLQ pain -CT suspicious for hydrosalpinx or ovarian cysts, appendix not identified-U/S - complex 8.9x4cm mass in right adnexa suggestive of hydrocele or pyosalpinx-STORE RECEIVING CLERK consulted, abx started for PID -- doxycycline and cefoxitin-mild new leukocytosis and 100.0 temp today, hemodynamically stable , pain stable, tolerating diet- test neg , LFTs wnls, lipase not elevated-UA with white blood cells and bacteria, however contaminated many epithelial cells ; repeat clean-catch UA ordered -morphine prn for pain , zofran prn for nausea Uncontrolled, untreated HTN-BPs 200s systolic on admission, off her meds (including clonidine for 2 months)-given hydralazine 30 mg iv total in ED. -Started lisinopril on admission , however KENNETH today, stop lisinopril-starte hydralazine and Imdur , titrate up and add coreg today -Monitor blood pressures and continue to titrate KENNETH-Cr 0.8 --> 1.4 --> 0.9 today -Likely due to hypertensive episode-UA contaminated, repeat UA pending -Stopped ketorolac and lisinopril-Trial of fluid bolus-Avoid nephrotoxi c agents Hyperglycemia -A1c 5.2 DVT ppx-SCDs + lovenox sc Substance abuse-MJ use, counselled on cessation at [address] [facility] #:[id number] OF REPORTPRProgress Ordm5436-63-98D22:30:00V.[id number] l able for patient ibeiYDVHPHYWKDNBXE0617-31-77P51:51:27 2019-09-14 09:11:00 [id number]:11:00 [facility] ([facility])OB-STORE RECEIVING CLERK Progress NoteREPORT#:[id number] REPORT STATUS: SignedDATE:09/14/19 TIME: 910 PATIENT: RANJITH CURRIE UNIT #: [id number]#: [id number] ROOM/BED: [facility]-ADOB: [birth year] AGE : 49 SEX: F ATTEND: Ewelina Gonzalez [facility] AUTHOR: Christie Arreaga MD * ALL edits or amendments must be made on the electronic/computer document * SubjectiveChief Complaint:PELVIC PAIN AND ELEVATED BPPatient reports: Patient reports: Yes abdominal pain (BETTER. FROM 10 TO 5 TODAY), Yes ambulating, Ye s pelvic pain (BETTER), Yes tolerating diet, No complaints, No blurry vision, No fever, No headache, No nausea, No vaginal bleedingNursing reports: Nursing reports: Yes abdominal pain (BETTER), Yes ambulating, Yes flatus, Yes pain controlled,Yes pelvic pain (BETTER), Yes tolerating diet, Yes voiding, Yes vomiting, No complaints, No blurry vision, No chills, No fever, No nausea, No vaginal bleeding Objective GeneralVS/I O:Last Documented: Result Date Time Pulse Ox 96 09/13 0843 B/P 150/73 09/13 0843 B/P Mean 98.4 09/13 0843 O2 Delivery Room air 09/13 0843 Pulse 102 09/13 0843 Resp 18 09/13 0843 Temp 99.1 09/13 0418 Vital SignsDate Temp Pulse Resp B/P B/P Mean Pulse Ox CnH345/24-09/13 98.4-100.0 96-107 17-18 150-195/67-9 96.1-128.7 96-98 9 Patient Weight Weight (lb): Weight (oz): Weight (kg): 68.182 Nutrition assessment:The linda a set between the solid lines has been imported from the dietitian's assessment. Any exceptions have been noted under Provider comments. _ BMI Calculated: 26.6 Nutrition related diagnosis: Nutrition diagnosis details: Nutrition problem: Nutrition etiology: Nutrition signs and symptoms: Nutrition prescription: Dietitian name: Assessment completed: _ Provider comments on imported dietitian assessment: Current MedicationsMedications:Active Meds + DC'd Last 2 4 HrsHydralazine HCl 100 MG Q8HR PO Hydralazine HC l 75 MG Q8HR PO (DC) Isosorbide Mononitrate 60 MG DAILY PO Sodium Chloride 1,000 ML BOLUS ONCE ONE IV (DC) Enoxaparin Sodium 40 MG DAILY SUBQ Lisinopril 10 MG DAILY PO (DC) Acetaminophen 500 MG Q6H PRN PRN PO Acetaminophen/Codeine Phosphat e 1 UDTAB Q6H PRN PRN PO Ketorolac Tromethamine 30 MG Q6H PRN PRN IV (DC) Doxycycline Monohydrate 100 MG Q12HR PO Ondansetron HCl 4 MG Q6H PRN PRN IV Cefoxitin Sodium 2,000 MG Q6HR IV Sterile Water 20 ML Physical ExamHEENT: ANICTERIC, PINK PALPEBRAERespiratory: no distressAbdomen: tenderness (RIGHT PELVIC-SORE PER PX), normal bowel sounds, soft, no guarding, no reboundExtremities: no calf tnederness, no edemaNeuro/AVIONICS SAFETY INSPECTOR: alert, oriented x 3, normal gait , normal speechPsychiatry: normal affect, normal judgment/insight, normal mood ResultsFindings/Data:Laboratory Tests 09/13 352 Chemistry Sodium (136 - 145 mmol/L) 136 Potassiu m (3.5 - 5.1 mmol/L) 3.2 L Chloride (98 - 107 mmol/L) 106.0 Carbon Dioxide (21 - 32 mmol/L) 23.0 Anion Gap (10 - 20) 10.2 BUN (7 - 18 mg/dL) 17 Creatinine (0.55 - 1.02 mg/dL) 0.90 Glomerula r Filtr Rate (>=60 mL/min) > 60 BUN/Creatinine [...] (Auto) (25.0 - 55.0 %) 10.6 L Collin % (Auto) (0.0 - 10.0 %) 10.6 H Eos % (Auto) (0.0 - 5.0 %) 1.5 Baso % (Auto) (0.0 - 1.0 %) 0.3 Neut # (Auto) (1.8 - 7.7 K/mm3) 10.03 H Lymph # (Auto) (1.0 - 5.0 K/mm3) 1.39 Collin # (Auto) (0 - 0.8 K/mm3) 1.39 H Eos # (Auto) (0.0 - 0.5 K/mm3) 0.19 Baso # (Auto) (0.0 - 0.2 K/mm3) 0.04 Nucleated RBC % (0 - 0 %) 0.0 Nucleated RBCs # (Man) (0.0 - 0.1 K/mm3) 0.00 Results: labs reviewed, vital signs stable, cath. personally reviewed, US personally reviewed Diagnosis, Assessment PlanFree Text A P:49 YR [id number] WITH ACUTE RLQ PAIN RIGHT PYOSALPINX / HYDROSALPINX- CLINICALLY BETTER. PATIENT REPORTS NOT NEEDING PAIN MEDICATION OVERNIGHT. WILL CONTINUE ANTIBIOTICS. WATCH OUT FOR WORSENING PAIN OR FEVER. WILL NEED BLOOD CULTURE IF WITH FEVER. NEED FOR SURGERY VS INTERVENTIONAL RADIOLOGY CONSULT NOT TOTALLY RULED OUT AT THIS TIME.ELEVATED WBC-WILL FOLLOW PATIENT REPORTS FEELING BETTER.UNCONTROLLED HYPERTENSION ON HYDRALAZINE AND SEEMS TO BE RESPONDING BETTER. at 0929 RPT #:[id number] OF REPORTPRProgress [id number]:11:00V.[id number] l able for patient [id number]:29:34 2019-09-13 10:42:00 [id number]:42:00 [facility] ([facility])Hospitalist Progress NoteREPORT#:[id number] REPORT STATUS: SignedDATE:09/13/19 TIME: 1042 PATIENT: RANJITH CURRIE UNIT #: [id number]#: [id number] ROOM/BED: [facility]-ADOB: [birth year] AGE : 49 SEX: F ATTEND: Ewelina Gonzalez [facility] AUTHOR: Ewelina Gonzalez MD * ALL edits or amendments must be made on the electronic/computer document * Subjective Free Text Subj NotesFree Subj Notes:Right lower quadrant abdominal pain and generalized abdomina l tenderness, no nausea vomiting, tolerating regular diet Review of SystemsGI:Reports: abdominal pain. All systems rev neg: except as marked Objective GeneralVS/I O:Vital Signs: Date Time Temp Pulse Resp B/P B/P Pulse O2 O2 Flow FiO2 Mean Ox Delivery Rate 09/12 1549 98.4 98 18 154/67 96.1 98 Room air 09/12 1151 98.8 102 17 179/99 125.7 98 Room air 09/12 0746 98.2 100 18 176/91 119.1 99 Room air 09/12 0317 98.8 83 18 157/82 0.0 97 09/11 2339 97.9 83 18 162/87 112 9 7 09/11 2004 98.4 78 18 154/83 0.0 96 Patient Weight Weight (lb): Weight (oz): Weight (kg): 68.182 Medications:Active Meds + DC'd Last 24 HrsHydralazine HCl 75 MG Q8HR PO Isosorbide Mononitrate 60 MG DAILY PO Sodium Chloride 1,000 ML BOLUS ONCE ONE IV (DC) Enoxaparin Sodium 40 M G DAILY SUBQ Lisinopril 10 MG DAILY PO [...] 2,000 MG Q6HR IV Sterile Water 20 MLLisinopril 5 MG DAILY PO (DC) Hydrocodone Bitart/Acetaminophen 1 TAB Q4H PRN PRN PO (DC) Morphine Sulfate 4 MG Q4H AL N PRN IV (DC) Ondansetron HCl 4 MG Q6H PRN PRN IV (DC) Sodium Chloride 1,000 ML .Q10H IV (DC) Physical ExamGeneral appearance: alert, awake, n o acute distressHead/Eyes: atraumatic, clear cornea, normal conjunctiva/sclera, normocephalic , PERRLENT: moist mucosal membranes, normal pharynx, normal sinusNeck: full range of motion, non-tender, normal thyroid, supple/no meningismus, no bruit/NL carotids, no JVD, no masses or swellingCardiovascular: normal capillary refill, normal heart sounds, regular rate rhythm, no murmurRespiratory: aerating well , clear to auscultation, symmetric expansion, no distressAbdomen: normal bowel sounds, soft, no distention, no guarding, no hernial, no rebound, ttp right lower quadrant Extremities: moves all, normal capillary refill, normal range of motion, no edemaMusculoskeletal: normal inspectionSkin: dry, intactPsychiatry: normal affect, normal judgment/insight, normal mood, not homicidal, no t suicidal, no hallucinations ResultsFindings/Data:Laboratory Tests 09/12 05/ 4 0549 0522 Chemistry Sodium (136 - 145 mmol/L) 139 Potassium (3.5 - 5.1 mmol/L) 3.7 Chloride (9 8 - 107 mmol/L) 107.0 Carbon Dioxide (21 - 32 mmol/L) 22.0 Anion Gap (10 - 20) 13.7 BUN (7 - 1 8 mg/dL) 15 Creatinine (0.55 - 1.02 mg/dL) 1.40 H Glomerular Filtr Rate (>=60 mL/min) 40 BUN/Creatinine Ratio (10 - 20) 10.6 Glucose (74 - 106 mg/dL) 99 Hemoglobin A1c (% HbA1) 5.2 Leticia m Average Glucose (MG/DL) 103 Calcium (8.5 - 10.1 mg/dL) 8.6 Phosphorus (2.5 - 4.9 mg/dL) 2.8 Magnesium (1.8 - 2.4 mg/dL) 2.2 Laboratory Tests 09/12 0549 Hematology WBC (4.5 - 12.5 K/mm3) 12. 5 RBC (3.7 - 5.2 mill/mm3) 5.10 Hgb (11.5 - 15.5 gram/dL) 12.5 Hct (36.0 - 46.0 %) 42.4 MCV (80 - 98 fL) 83.1 MCH (27.0 - 33.0 picogram) 24.5 L MCHC (33.0 - 36.0 gram/dL) 29.5 L RDW (11.6 - 16.2 %) 19.7 H RDW Std Deviation (37.0 - 51.0 fL ) 57.4 H Plt Count (150 - 450 K/mm3) 303 MPV (6.7 - 11.0 fL) 10.0 Neut % (Auto) (39.0 - 69.0 %) 76. 7 H Lymph % (Auto) (25.0 - 55.0 %) 10.9 L Collin % (Auto) (0.0 - 10.0 %) 9.1 Eos % (Auto) (0.0 - 5.0 %) 2.7 Baso % (Auto) (0.0 - 1.0 %) 0.3 Neut # (Auto) (1.8 - 7.7 K/mm3) 9.55 H Lymph # (Auto) (1.0 - 5.0 K/mm3) 1.36 Collin # (Auto) (0 - 0.8 K/mm3) 1.13 H Eos # (Auto) (0.0 - 0.5 K/mm3) 0.3 3 Baso # (Auto) (0.0 - 0.2 K/mm3) 0.04 Add Manual Diff NO, ONLY SCAN NEEDED Nucleated RBC % (0 - 0 %) 0.0 Nucleated RBCs # (Man) (0.0 - 0.1 K/mm3) 0.00 Platelet Estimate ADEQUATE Plt Morphology Comment NORMAL Hypochromasia 1+ Laboratory Tests 09/12 0515 Urines Urine Color (YELLOW) YELLOW Urine Appearance (CLEAR) CLEAR Urine pH (5.0 - 8.0) 6.0 Ur Specific Dairy (1.001 - 1.035) 1.043 Urine Protein (NEGATIVE mg/dL) 30 (1+) H Urine Glucose (UA) (NEGATIVE mg/dL) 150 (1+) H Urine Ketones (NEGATIVE mg/dL) 20 (1+) H Urine Blood (NEGATIVE mg/dL) Negative Urine Nitrite (NEGATIVE) NEGATIVE Urine Bilirubin (NEGATIVE mg/dL) NEGATIVE Urine Urobilinogen (NEGATIVE mg/dL) Normal Ur Leukocyte Esterase (NEGATIVE Aryan/uL) NEGATIVE Urine RBC (0 - 5 #/HPF) 0-2 Urine WBC (0 - 5 per HPF) 6-10 H Ur Epithelial Cells (FEW per HPF) MANY Urine Bacteria (NONE #/HPF) FEW H Hyaline Casts (0 - 5 #/LPF) 6-10 H Urine Mucus (FEW #/LPF) FEW Diagnosis, Assessmen t Plan Free Text DxA P NotesFree text DxA P notes:49 y/o woman with h/o HTN off her meds x 2 months presents with c/o elevated blood pressure s and right lower quadrant pain. Right pyosalpinx / hydrosalpinx , RLQ pain -CT suspicious for hydrosalpinx or ovarian cysts, appendix not identified-U/S - complex 8.9x4cm mass in right adnexa suggestive of hydrocele or pyosalpinx-STORE RECEIVING CLERK consulted, abx started for PID -- doxycycline an d cefoxitin-no leukocytosis, afebrile, hemodynamically stable - test neg , LFT s wnls, lipase not elevated-UA with white blood cells and bacteria, however contaminated many epithelial cells ; will get a repeat clean-catch UA-morphine prn for pain , zofran prn for nausea Uncontrolled, untreated HTN-BPs 200s systolic on admission, off her meds (including clonidine for 2 months)-given hydralazine 30 mg iv total in ED . -Started lisinopril on admission, however KENNETH today, stop lisinopril-start hydralazine and Imdur-Monitor blood pressures and continue to titrate KENNETH-Cr 0.8 --> 1.4 today -Likely due to hypertensive episode-UA contaminated, will repea t UA-Stop ketorolac and lisinopril-Trial of fluid bolus-Avoid nephrotoxic agents Hyperglycemia -A1 c 5.2 DVT ppx-SCDs + lovenox sc Substance abuse-MJ use, counselled on cessation at 1815 RPT #:[id number] OF REPORTPRProgres s [id number]:42:00V.[id number] l able for patient bxvzZAMXXEDGTIVNEZ2590-22-26M74:15:59 2019-09-12 20:34:00 [id number]:34:00 [facility] ([facility])Hospitalist History PhysicalREPORT#:[id number] REPORT STATUS: SignedDATE:09/12/19 TIME: 2033 PATIENT: RANJITH CURRIE UNIT #: [id number]#: [id number] ROOM/BED: [facility]-ADOB: [birth year] AGE : 49 SEX: F ATTEND: Ewelina Gonzalez [facility] AUTHOR: Ewelina Gonzalez MD * ALL edits or amendments must be made on the electronic/computer document * History of Presen t Illness HPIInformant/historian: patient Free Víctor t HPI NotesFree Text HPI Notes:49 y/o woman with h/o HTN off her meds x 2 months presents with c/ o elevated blood pressures and right lower quadran t pain. Pain started last night , sharp, constant, 10/10, nonradiation, no relieving factors, worse with movement. deniesany fevers chills, nausea, vomiting, diarrhea, constipation. patient also has been running high BPs , ran out of her meds at home 2 mon ago, says takes 3 different BP meds, including clonidine. denies any cp, sob, palpitations, dizziness. HistoryPast medical history:Reports: Hypertension. Past surgical history:Reports: Cholecystectomy, Tonsillectomy. Additional surgical history:ovary removalAdditional family history:deniesAlcohol use: Denies EtOH useDrug use: MarijuanaSmoking status for patients 13 years old or older: Never Smoker Medication/Allergy-Vaccine HxHome Medications:cloNIDine (CATAPRES) 0.2 MG PO BID Allergies:Coded Allergies:No Known Allergies (09/12/19) Review of SystemsGI:Reports: abdomina l pain. All systems rev neg: except as marked Objective GeneralVS/I O:Vital Signs: Date Time Temp Pulse Resp B/P B/P Pulse O2 O2 Flow FiO2 Mean Ox Delivery Rate 09/11 2004 98.4 78 18 154/83 0.0 96 09/11 1458 97.7 88 20 164/88 113.3 98 09/11 1241 98.0 94 16 165/74 104 98 09/11 091 9 98.2 98 18 169/77 107 98 09/11 [...] 0700 09/10 1900 Intake Total Output Total Balanc e Patient 68.182 kg Weight Weight Stated/Reported Measurement Method Patient Weight Weight (lb): Weight (oz): Weight (kg): 68.182 Medications:Active Meds + DC'd Last 24 HrsDoxycycline Monohydrate 100 MG Q12HR PO Cefoxitin Sodium 2,000 MG Q6HR IV Sterile Water 20 MLLisinopril 5 MG DAILY PO Hydralazine HCl 10 MG Q2H PRN PRN IV (DC) Hydrocodone Bitart/Acetaminophen 1 TAB Q4H PRN PRN PO (DC) Morphine Sulfate 4 MG Q4H PRN PRN IV (DC) Ondansetron HCl 4 MG Q6H PRN PRN IV (DC) Sodium Chloride 1,000 ML .Q10H IV (DC) Cefoxitin Sodium 0 .STK-MED ONE IV (DC) Sodium Chloride 20 ML .STK-MED ONE IV (DC) Cefoxitin Sodium 1,000 MG X1ED STA IV (DC) Sodium Chloride 10 MLMorphine Sulfate 4 MG X1ED STA IV (DC) Hydralazine HCl 10 MG X1ED STA IV (DC) Iopamidol 0 .STK-MED ONE .ROUTE (DC) Labetalol HCl 10 MG X1ED STA IV (DC) Morphine Sulfate 4 MG X1ED STA IV (DC) Ondansetron HCl 4 MG X1ED PRN PRN IV (DC) Hydralazine HCl 20 MG X1ED STA IV (DC) Sodium Chloride 1,000 ML X1ED STA IV (DC) Physical ExamGeneral appearance: alert, awake, no respiratory distress, in distress due to painHead/Eyes: atraumatic, clear cornea, normal conjunctiva/sclera, normocephalic, PERRLENT: moist mucosal membranes, normal pharynx, normal sinusNeck: full range of motion, non-tender, normal thyroid, supple/no meningismus, no bruit/NL carotids, no JVD, no masses or swellingCardiovascular: normal capillary refill, normal heart sounds, regular rate rhythm, no murmurRespiratory: aerating well, clear to auscultation, symmetric expansion, no distressAbdomen: normal bowel sounds, soft, no distention, no hernial, no rebound, ttp right lower quadrant Extremities: moves all, normal capillary refill, normal range of motion, no edemaMusculoskeletal: normal inspectionSkin: dry , intactPsychiatry: normal affect, normal judgment/insight, normal mood, not homicidal, no t suicidal, no hallucinations ResultsFindings/Data:Laboratory Tests 09/11 0405 Chemistry Sodium (136 - 145 mmol/L) 136 Potassiu m (3.5 - 5.1 mmol/L) 3.1 L Chloride (98 - 107 mmol/L) 101.0 Carbon Dioxide (21 - 32 mmol/L) 27.0 Anion Gap (10 - 20) 11.1 BUN (7 - 18 mg/dL) 11 Creatinine (0.55 - 1.02 mg/dL) 0.80 Glomerula r Filtr Rate (>=60 mL/min) > 60 BUN/Creatinine Ratio (10 - 20) 13.8 Glucose (74 - 106 mg/dL) 14 9 H Calcium (8.5 - 10.1 mg/dL) 8.8 Total Bilirubin (0.0 - 1.0 mg/dL) 0.80 Direct Bilirubin (0.0 - 0.20 mg/dL) 0.15 AST (15 - 37 IUnit/L) 21 ALT (1 2 - 78 IUnit/L) 20 Total Alk Phosphatase (45 - 11 7 IUnit/L) 56 Troponin I (0 - 0.045 ng/mL) <0.015 Total Protein (6.4 - 8.2 gram/dL) 8.9 H Albumin (3.4 - 5.0 g/dL) 4.2 Globulin (2.7 - 4.2 gram/dL ) 4.7 H Albumin/Globulin Ratio (0.75 - 1.50) 0.9 Lipase (73.0 - 393.0 U/L) 40 L Serum , Qual (NEGATIVE) NEGATIVE Laboratory Tests 09/11 0405 Hematology WBC (4.5 - 12.5 K/mm3) 10.2 [...] MPV (6.7 - 11.0 fL) 9.9 Radiology data:Recent Impressions:CAT SCAN - CT ABD PELVIS W WO CONT 09/11 0506 Report Impression - Status: SIGNED Entered: 09/12/2019 0543 IMPRESSION: Cystic changes in pelvis posterior to the uterus may represent ahydrosalpinx or ovarian cysts. Small uterine fibroid. Small left renal cyst. The appendix is not identified.Impression By: Mehdi - Candelario Charlton MDULTRASOUND - US TRANSVAGINAL NON OB 09/11 0609 Report Impression - Status: SIGNED Entered: 09/12/2019 0719 IMPRESSION: Complex thick-walled tubular cystic mass (8.9 x 4 cm) inthe right adnexa suggestive of hydrocele or pyosalpinx. Dr. Medley was informed of the findings by telephone at 7:25 AM FOR INTERNAL CODING PURPOSES ONLYRESULT CODE: CVRImpression By: Mohsen Escalante M.D.ULTRASOUND - US PELVIS COMPLETE 09/11 608 Report Impression - Status: SIGNED Entered: 09/12/2019732 IMPRESSION: Complex thick-walled tubular cystic mass (8.9 x 4 cm) inthe right adnexa suggestive of hydrocele or pyosalpinx. Dr. Medley was informed o f the findings by telephone at 7:25 AM FOR INTERNAL CODING PURPOSES ONLYRESULT CODE: CVRImpression By: Mohsen Escalante M.D.ULTRASOUND - DUP AB/PEL/SC COMP 09/11 608 Report Impression - Status: SIGNED Entered: 09/12/2019732 IMPRESSION: Complex thick-walled tubular cystic mass (8.9 x 4 cm) inthe right adnexa suggestive of hydrocele or pyosalpinx. Dr. Medley was informed o f the findings by telephone at 7:25 AM FOR INTERNAL CODING PURPOSES ONLYRESULT CODE: CVRImpression By: Mohsen Escalante M.D. Results: labs reviewed, vital signs stable Diagnosis, Assessment Plan Free Text DxA P NotesFree text DxA P notes:49 y/o woman with h/o HTN off her meds x 2 months presents with c/o elevated blood pressures and right lower quadrant pain. 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 -start lisinopril and titrate Hypokalemia -K 3.1 , replace -likely due to no po intake Hyperglycemi a -no h/o known DM, check A1c DVT ppx-SCDs + lovenox sc Substance abuse-MJ use, counselled on cessation at 2055 RPT #:[id number] OF REPORTHPHistory and physical [id number]:34:00V.[id number] 9 AVAvailable for patient rwpmHFAHCYSPGMFAEM5382-63-57Q12:55:34 2019-09-12 09:08:00 [id number]:08:00 [facility] ([facility])RIVET DRIVER Consultation NoteREPORT#:[id number] REPORT STATUS : SignedDATE:09/12/19 TIME: 907 PATIENT: RANJITH CURRIE UNIT #: [id number]#: [id number] [address] [birth year] AGE: 49 SEX: F ATTEND: Ewelina Gonzalez [facility] AUTHOR: Yue Otero MD * ALL edits or amendments must be made on the electronic/computer document * History of Presen t Illness HPIRequesting clinician: ER DOCTORReason for consult:RIGHT SIDE PYOSALPINX Chief complaint:Pt complaints of right sided lower quadrant pain - started last night . HPI:Patient states that the RLQ pain started yesterday evening and got progressivelyworse its about 8/10no aggravating or relieving factorspt states that she has never had this pain beforeher last period was 2 months ago - up until then her periods were regular no dysmenorrheano hx of painful sexual intercoursemildly nauseous ; no vomitingno urinary tract or other GI complaintsn o fever last pap done several years ago patient doesnt [id number] X 2- LAST CHILD 20 YRS AGO HX OF LAPARATOMY DONE AND HAD HER LEFT SIDE OVARY AND TUBE REMOVED FOR ENDOMETRIOSIS - AT AG E 20 History Past HistoryPast medical history: hypertensionPast OB history: : 2 Living children: 2Past STORE RECEIVING CLERK history:No abnormal pap-smear, No previous cervical surgery, No previous STD, No fibroids, No previous uterine surgery, No otherPast surgical history: LAPARATOMY AND REMOVAL OF LEFT OVARY AND TUBE FO R ENDOMETRIOSIS Past social history: does not smoke, no alcohol use, no drug abuseAllergies:Coded Allergies:No Known Allergie s (09/12/19) Review of SystemsGI:Reports: abdomina l pain, anorexia, nausea. Denies: constipation, diarrhea, dysphagia, GERD, hematemesis, hematochezia, hiatal hernia, melena, rectal pain , vomiting, other. All systems rev neg: except as marked Objective Physical ExamVS/I O:Last Documented: Result Date Time Pulse Ox 99 09/11 0811 B/P 193/89 09/11 0811 B/P Mean 123 09/11 0811 Temp 98.0 09/11 0811 Pulse 102 09/11 0811 Resp 18 09/11 0811 O2 Delivery Room air 09/11 0514 Vital Signs Date Temp Pulse Resp B/P B/P Mean Pulse Ox FiO2 09/11 97.4-98.0 74-102 16-18 188-277/84-143 118-187 97-100 24 hour I O ending at 0700: 09/11 0700 09/10 1900 Intake Total Output Total Balance Patient 150 lb Weight Weigh t Stated/Reported Measurement Method Patient Weigh t Weight (lb): Weight (oz): Weight (kg): 68.182 General appearance: sleeping comfortably, alert, awake, orientedHEENT: normal dentition, normal ear left, normal ear right, normal nose, normal pharynx, normal fundi, normocephalic, PERRLABreast: asymmetrical (DEFERRED )Cardiovascular: regular rate and rhythmRespiratory: clear to auscultation, no distress, no tendernessAbdomen: soft, no distention, no guarding, no mass/organomegaly, n o rebound, TENDERNESS ON DEEP PALPATION IN THE RLQ Extremities: full range of motion, moves all, no calf tnederness, no edemaNeuro/AVIONICS SAFETY INSPECTOR: alert, oriented x 3, normal gaitVagina: normalCervix: normalUterus: normal, NOT TENDER Adnexal: Right - Tender (MILD RIGHT ADNEXAL TENDERNESS ) Diagnosis, Assessment Plan Diagnosis, Assessment PlanAssessment/Plan:49 YR [id number] WITH ACUTE RLQ PAIN RIGHT PYOSALPINX / HYDROSALPINXNO INCREASED WBC COUNT OR FEVERPT ADMITTED BECAUSE OF UNCONTROLLED HYPERTENSION AND INTENSE PAIN WILL START PATIENT ON ANTIBIOTICS FOR PELVIC INFLAMMATORY DISEASE HUEY FOR CONSULTING US ON THIS PATIENT . at 1319 RPT #:[id number] OF REPORTRANgiuhqykzgrj4099-62-14Y39:08:00V.PDOC 2 [id number] for patient kxvaHGCZSPGAIABFDV2795-71-14Q69:20:01 2019-09-12 03:55:00 [id number]:55:00 [facility] ([facility])EMERGENCY PROVIDER REPORTREPORT#:[id number] REPORT STATUS: SignedDATE:09/12/19 TIME: 354 PATIENT: RANJITH CURRIE UNIT #: [id number]#: [id number] [address] SEX: F PC P PHYS: No Primary or Family PhysicianSERVICE AUTHOR: Adam Mistry MD * ALL edit s or amendments must be made on the electronic/computer document * HPI-Abd Pain F 40 and Over GeneralInitial Greet Date/Time 09/12/19 035 PresentationChief Complaint Abdominal painH x Obtained From Patient, EMSSudden in Onset? YesProgression since Onset ConstantLocation RLQQuality PainfulRadiationDoes not radiate. Associated withReports: Nausea. Denies: Back pain, Chest pain, Constipation, Diarrhea, Dysuria, Fever, Shortness of breath. Free Text HPI NotesFree Text HPI NotesPatient is a 49-year-old female with past medical history of hypertension presented with chief complaint of right lower quadrant abdominal pain onset lastnight. Patient states pain is been constant since onset. She reports associated nausea but denies vomiting, diarrhea, constipation, hematuria. She states initially it was difficult to urinate but she has been able to urinate. Patient noted to be hypertensive upon EMS arrival. Patient states she has not had her medication for 3 months. She further denies any recent fever, chest pain, productive cough, dizziness, headache or shortness of breath. Patient denies any recent exposure to persons positive for COVID-19 or travel. Patient was given 100 mcg of fentanyl en route to ED with improvement in pain. Risk-Abd Pain F 40 and Over)( Abdominal Aortic Aneurysm Risk factors reviewed Review of Systems Focused Review of SystemsConstitutionalDenies: Chills, Fever. RespiratoryDenies: Cough, productive, Shortness of breath. CardiovascularDenies: Chest pain, Palpitations. FemaleDenies: Dysuria, Flank pain, Hematuria. Additional Review of SystemsNeurologicDenies: Dizziness, Headache. Past Medical History - AdultStated Complaint ABD PAINAllergiesCoded Allergies:No Known Allergies (09/12/19) Home MedicationsReported MedicationscloNIDine (CATAPRES) 0.2 MG PO BID Past Medical History:Reports: Hypertension. Alcohol Use Denies EtOH useDrug Use MarijuanaSmoking status for patients 13 years ol d or older: Current every day smoker Physical Exam Vital SignsVital SignsFirst Documented: Result Date Time Pulse Ox 97 09/11 0346 B/P 256/143 09/11 0346 B/P Mean 180 09/11 0346 O2 Delivery Room air 09/11 0346 Temp 36.3 09/11 0346 Pulse 7 4 09/11 0346 Resp 18 09/11 0346 Last Documented: Result Date Time Pulse Ox 99 09/11 0811 B/P 193/89 09/11 0811 B/P Mean 123 09/11 0811 Temp 36.7 09/11 0811 Pulse 102 09/11 0811 Resp 18 09/11 0811 O2 Delivery Room air 09/11 0514 Revie w of Vital Signs Reviewed Focused PEGeneral/Const General/Const Awake, AlertMS Head Head Atraumatic, NormocephalicEyes Eyes PERRL, EOMI, No scleral icterusEars/Nose/Throat Ears/Nose/Throat Airway patent, Mucous membranes moistResp/Chest Respiratory/Chest Breath sounds NL, Breath sounds = bilat, No respiratory distressCardiovascular Cardiovascular Heart rate NL, Regular rhythm, Heart sounds NLAbdomen/GI Abdomen/GI Soft, Non-tender, No guarding, No rebound, BS normoactive, No distentionMS Back Back Full range of motion, Painless range of motionSkin Skin No rash, Warm, DryGenitourinary General Manager Media Relations present Female Genitourinary Atraumatic, External genitalia NL, No bleeding, No dischargeNeurologi c Neurologic Oriented X3, Speech NL, No motor deficits, No sensory deficits, CNII - XII intact Interpretation Diagnostics Lab Results InterpretationResultsLaboratory Tests 09/12/19404:[Embedded Image Not Available]Laboratory Tests: 09/11 404 Chemistry Sodium (136 - [...] mg/dL) 149 H Calcium (8.5 - 10.1 mg/dL ) 8.8 Total Bilirubin (0.0 - 1.0 mg/dL) 0.80 Direc t Bilirubin (0.0 - 0.20 mg/dL) 0.15 AST [...] %) 18.4 H Plt Count (150 - 45 0 K/mm3) 340 MPV (6.7 - 11.0 fL) 9.9 Recent Impressions:CAT SCAN - CT ABD PELVIS W WO CONT 09/11 0506 Report Impression - Status: SIGNED Entered: 09/12/2019 0543 IMPRESSION: Cystic changes in pelvis posterior to the uterus may represent ahydrosalpinx or ovarian cysts. Small uterine fibroid. Small left renal cyst. The appendix is not identified.Impression By: GeorginaMKMCandelario Denson MDULTRASOUND - US TRANSVAGINAL NON OB 09/11 608 Report Impression - Status: SIGNED Entered: 09/12/2019732 IMPRESSION: Complex thick-walled tubular cystic mass (8.9 x 4 cm) inthe right adnexa suggestive of hydrocele or pyosalpinx. Dr. Medley was informed of the findings by telephone at 7:25 AM FOR INTERNAL CODING PURPOSES ONLYRESULT CODE: CVRImpression By: Mohsen Escalante M.D.ULTRASOUND - US PELVIS COMPLETE 09/11 608 Report Impression - Status: SIGNED Entered: 09/12/2019732 IMPRESSION: Complex thick-walled tubular cystic mass (8.9 x 4 cm) inthe right adnexa suggestive of hydrocele or pyosalpinx. Dr. Medley was informed o f the findings by telephone at 7:25 AM FOR INTERNAL CODING PURPOSES ONLYRESULT CODE: CVRImpression By: Mohsen Escalante M.D.ULTRASOUND - DUP AB/PEL/SC COMP 09/11 06 Report Impression - Status: SIGNED Entered: 09/12/2019 0733 IMPRESSION: Complex thick-walled tubular cystic mass (8.9 x 4 cm) inthe right adnexa suggestive of hydrocele or pyosalpinx. Dr. Medley was informed o f the findings by telephone at 7:25 AM FOR INTERNAL CODING PURPOSES ONLYRESULT CODE: CVRImpression By: Mohsen Escalante M.D. Lab Imaging StatementLaboratory radiographic studies reviewe d and considered in the medical decision-making. Point of Care TestingPulse Oximetry Pulse Ox % 9 7 On: Room air Interpretation Interpreted by me, Pulse oximetry normal ECG #1 InterpretationDate 09/12/19Time 0404Interpreted by and reviewed by me, ED physicianNL ECG Interpretation Normal sinus rhythm, No acute ischemic changes, No STEMIConduction/[place] QT segment prolonged, LAFBAtrium and Vent Size Ventricle enlarged - L Re-Evaluation MDM )( Re-Evaluation/Progress #1Text/Dict NotePatient appears more comfortable . States she still has pain in the abdomen. Blood pressure initially improved after hydralazine an d labetalol were given andnow has spiked back up again to the 200s. Will repeat hydralazine. I discussedresults and ultrasound showing possible hydrosalpinx versus pyosalpinx and patient does report she has had some abnormal vaginal discharge recently. Will do pelvic exam at this time.Time of Re-Eval 0735)( Re-Eval Status Improved Re-Evaluation/Progress #2Text/Dict NoteNo bleeding or discharge on exam. Discussed with OB. Recommended to start atbx for possible pyosalpinx vs.TOA.Time of Eval 0800 ED CourseMedication(s) OrderedMedication(s) Ordered:Anti-Infective Agents Sig/Maria Teresa Start time Last Medication Dose Route Stop Time Status Admi n Cefoxitin Sodium 1,000 MG X1ED STA 05/23 0758 DC 09/11 Sodium Chloride 10 ML IV 09/11 0800 0809 Cardiovascular Drugs Sig/Maria Teresa Start time Last Medication Dose Route Stop Time Status Admin Hydralazine HCl 10 MG Q2H PRN PRN 09/11 0815 DC IV 09/11 2006 Hydralazine HCl 10 MG X1ED STA 09/11 0731 DC 09/11 IV 09/11 0732 0740 Labetalo l HCl 10 MG X1ED STA 09/11 0436 DC 09/11 IV 09/11 0437 0440 Hydralazine HCl 20 MG X1ED STA 09/11 0359 DC 09/11 IV 09/11 0400 0408 Central Nervous System Agents Sig/Maria Teresa Start time Last Medicatio n Dose Route Stop Time Status Admin Hydrocodone Bitart/ 1 TAB Q4H PRN PRN 09/11 0815 AC 09/11 Acetaminophen PO 09/11 2006 1813 Morphine Sulfat e 4 MG Q4H PRN PRN 09/11 0815 AC IV 09/11 2007 Morphine Sulfate 4 MG X1ED STA 09/11 0751 DC 09/11 IV 09/11 0752 0809 Morphine Sulfate 4 MG X1ED STA 09/11 0436 DC 09/11 IV 09/11 0437 0440 Diagnostic Agents Sig/Maria Teresa Start time Last Medication Dose Route Stop Time Status Admin Iopamidol 0 .STK-MED ONE 09/11 0504 DC 09/11 .ROUTE 0512 Electrolytic, Caloric, And Sam Sig/Maria Teresa Start time Last Medication Dose Route Stop Time Status Admin Sodium Chloride 1,000 ML .Q10H 09/11 0815 AC 09/11 IV 09/11 2006 1801 Sodium Chloride 20 ML .STK-MED ONE 09/11 0804 DC IV Sodium Chloride 1,000 ML X1ED STA 09/11 0351 DC 09/11 IV 09/11 0450 0403 Gastrointestinal Drugs Sig/Maria Teresa Start time Last Medication Dose Route Stop Time Status Admin Ondansetron HCl 4 M G Q6H PRN PRN 09/11 0815 AC IV 09/11 2006 Ondansetron HCl 4 MG X1ED PRN PRN 09/11 0400 DC 09/11 IV 0810 Additional Hx/Info Source Prior records reviewed (none) ConsultationConsultation Referral/Consult Name Yue Otero MD [employer] Called [employer] Requested Call Time [phone] Requested Call Date 09/12/19 Call Returned Call returned Call Returned Time 0758 Call Returned Date 09/12/19 [employer] Will see patient, Agree s with eval, Agrees with plan, requests Cefoxitin and Flagyl Patient Discharge Departure Vital Signs/ConditionVital SignsFirst Documented: Result Date Time Pulse Ox 97 [...] signs available at the time of this entry have been reviewed. Clinical ImpressionClinical ImpressionPrimary Impression: Hypertensive urgencySecondary Impressions: Hydrosalpinx Disposition DecisionAdmit Admit Physician Name Ewelina Gonzalez MD Admit Physician Hospitalist Request Time 0801 Request Date 09/12/19 )( Admission Accepts Yes )( Accepted Time 08 )( Accepted Date 09/12/19 Charles l Information will see patient, agrees with eval, agrees with plan Discharge/Care PlanCounseled Regarding Diagnosis, Lab results, Imaging studies, Need for admission Critical CareTime Spent (minutes): 35Services Performed Patient management by me, Time spent at bedside, Reviewing test results, Reviewing imaging, Discussing patient care, Documentation in record Quality MeasuresBP F/U for HTN Received immediat e BP Tx at 2001RPT #:[id number] OF REPORTEDEmergency department [id number] a ilable for patient [id number]
[2023-03-20 09:38] LABS: Absolute Lymphocytes (CBC) 1.2 K/uL (0.7-4.9); Hematocrit 38.1 % (36.0-45.0); Lymphocytes % 23.3 % (15.3-44.8); MCV 95.6 fL (80-100); MPV 8.3 fL (7.6-11.3); Platelets 253 thou/uL (152-406); RBC Red Blood Cell Count 3.99 M/uL (3.86-4.86)
[2023-03-20 09:51] LABS: Albumin 3.4 g/dL (3.4-5.0); Bilirubin Total 0.5 mg/dL (0.2-1.0)
--- NOTE | 2023-03-20 10:43 | EDPHYS ---
Physician Documentation [facility] Name: Ewelina Hines Age: 52 yrs Sex: Female : 1970 Arrival Date: 03/20/2023 Time: 09:11 Bed 13 Private MD: ED Physician Torres Gallardo HPI: 03/20 10:37 This 52 yrs old Female presents to ER via Unassigned with complaints of nausea, ms3 vomiting, diarrhea. 10:37 82-year-old female with past medical history stroke presents to the emergency ms3 department for nausea, vomiting, diarrhea that began on Saturday. Patient states her symptoms began after receiving a flu shot. Patient denies pain at this time. Patient denies any fevers or chills. Historical: - Allergies: 11:12 No Known Allergies; ko1 - PMHx: 11:12 Bipolar disorder; Cerebrovascular accident; Hypertensive disorder; ko1 - PSHx: 11:12 Cholecystectomy; ko1 - Immunization history:: Adult Immunizations up to date. - Social history:: Smoking status: Patient denies any tobacco usage or history of. ROS: 10:37 Constitutional: Negative for fever, and chills. Neck: Negative for injury, pain, and ms3 swelling, Cardiovascular: Negative for chest pain, and palpitations. Respiratory: Negative for shortness of breath, cough, wheezing, and pleuritic chest pain, 10:37 MS/Extremity: Negative for injury and deformity, Skin: Negative for injury, rash, and discoloration, Neuro: Negative for headache, weakness, numbness, tingling. 10:37 Abdomen/GI: Positive for nausea, vomiting, and diarrhea, Negative for abdominal pain, 10:37 All other systems are negative, Exam: 10:37 Constitutional: This is a well developed, well nourished patient who is awake, alert, ms3 and in no acute distress. Head/Face: Normocephalic, atraumatic. Chest/axilla: Normal chest wall appearance and motion. Nontender with no deformity. Cardiovascular: Regular rate and rhythm with a normal S1 and S2. No gallops, murmurs, or rubs. Normal PMI, no JVD. No pulse deficits. Respiratory: Lungs have equal breath sounds bilaterally, clear to auscultation and percussion. No rales, rhonchi or wheezes noted. No increased work of breathing, no retractions or nasal flaring. Abdomen/GI: Soft, non-tender, with normal bowel sounds. No distension or tympany. No guarding or rebound. No evidence of tenderness throughout. Skin: Warm, dry with normal turgor. Normal color with no rashes, no lesions, and no evidence of cellulitis. Vital Signs: 11:10 BP 179 / 92; Pulse 70; Resp 18; Temp 97; Pulse Ox 99% on R/A; ko1 11:27 BP 156 / 89; Pulse 68; Resp 16; Pulse Ox 99% ; ko1 14:20 BP 134 / 68; Pulse 72; Resp 16; Pulse Ox 100% ; ko1 MDM: 09:40 Patient medically screened. ms3 10:37 Differential diagnosis: Nonspecific abd pain, viral gastroenteritis, gastroenteritis. ms3 Data reviewed: vital signs, nurses notes, lab test result(s), and as a result, I will discharge patient. I considered the following discharge prescriptions or medication management in the emergency department Medications were administered in the Emergency Department. See MAR. Historians other than the Patient: EMS: [place]. Counseling: I had a detailed discussion with the patient and/or guardian regarding the historical points, exam findings, and any diagnostic results supporting the discharge/admit diagnosis, lab results, the need for outpatient follow up, to return to the emergency department if symptoms worsen or persist or if there are any questions or concerns that arise at home. Response to treatment: the patient's symptoms have markedly improved after treatment, Patient received Zofran 4mg via EMS, and as a result, I will discharge patient. Special discussion: Based on the patient's Hx, exam, and Dx evaluation, there is no indication for emergent surgery or inpatient Tx. It is understood by the patient/guardian that if the Sx's persist or worsen they need to return immediately for re-evaluation. ED course: Discussed labs with patient and 40 mEq calcium chloride given. Patient to follow-up with primary care physician in 2 to 3 days. Patient understands agrees with plan. All questions were answered. Return precautions discussed include worsening symptoms, or any other concerns. On reevaluation patient symptoms improved, alert and oriented x4, no apparent distress, nontoxic-appearing. Patient given prescription for Zofran. 03/20 09:16 Order name: CBC with Diff; Complete Time: 10:32 ms3 03/20 09:16 Order name: CMP; Complete Time: 10:32 ms3 03/20 09:16 Order name: Lipase; Complete Time: 10:32 ms3 03/20 09:16 Order name: IV Saline Lock; Complete Time: 09:27 ms3 03/20 09:16 Order name: Labs collected and sent; Complete Time: : ms3 Administered Medications: 10:38 Drug: Potassium Chloride PO 40 mEq PO once Route: PO; ko1 Disposition Summary: 03/20/23 10:43 Discharge Ordered Notes: Location: Home ms3 Condition: Stable ms3 Diagnosis - Nausea with vomiting, unspecified ms3 - Diarrhea, unspecified ms3 - Hypokalemia ms3 Followup: ms3 - With: Octavio Grace DO - When: 2 - 3 days - Reason: Recheck today's complaints Discharge Instructions: - Discharge Summary Sheet ms3 - Diarrhea, Adult ms3 - Nausea and Vomiting, Adult ms3 Forms: - Medication Reconciliation Form ms3 - Thank You Letter ms3 - Antibiotic Education ms3 - Prescription Opioid Use ms3 - Patient Portal Instructions ms3 - Leadership Thank You Letter ms3 Prescriptions: - ondansetron 4 mg Oral Tablet,disintegrating - take 1 tablet ORAL route every 8 hours; 15 tablet; Refills: 0, Product ms3 Selection Permitted Signatures: Dispatcher [employer] Torres Hernandez DO DO ms3 Brenda Goodwin, RN RN ko1
[2023-03-20] MEDS ORDERED: POTASSIUM CL SA 10 MEQ TAB PO ONE (10:51)
--- NOTE | 2023-03-20 14:32 | ER ---
Nurse's Notes [facility] Name: Ewelina Hines Age: 52 yrs Sex: Female : 1970 Arrival Date: 03/20/2023 Time: 09:11 Bed 13 Private MD: Diagnosis: Nausea with vomiting, unspecified;Diarrhea, unspecified;Hypokalemia Presentation: 03/20 11:10 Chief complaint: EMS states: called for nausea, vomiting and diarrhea for a week after ko1 receiving the flu shot. Coronavirus screen: At this time, the client does not indicate any symptoms associated with coronavirus-19. Ebola Screen: No symptoms or risks identified at this time. Initial Sepsis Screen: Does the patient meet any 2 criteria? No. Patient's initial sepsis screen is negative. Does the patient have a suspected source of infection? No. Patient's initial sepsis screen is negative. Risk Assessment: Do you want to hurt yourself or someone else? Patient reports no desire to harm self or others. Onset of symptoms is unknown. Care prior to arrival: IV initiated. 20 GA, in the right antecubital area. 11:10 Method Of Arrival: EMS: [facility] ko1 11:10 Acuity: KASSI 3 ko1 Triage Assessment: 09:20 General: Appears in no apparent distress. uncomfortable, Behavior is calm, cooperative. ko1 Pain: Complains of pain in abdomen. Historical: - Allergies: 11:12 No Known Allergies; ko1 - PMHx: 11:12 Bipolar disorder; Cerebrovascular accident; Hypertensive disorder; ko1 - PSHx: 11:12 Cholecystectomy; ko1 - Immunization history:: Adult Immunizations up to date. - Social history:: Smoking status: Patient denies any tobacco usage or history of. Screenin:20 [facility] ED Fall Risk Assessment (Adult) History of falling in the last 3 months, ko1 including since admission No falls in past 3 months (0 pts) Confusion or Disorientation No (0 pts) Intoxicated or Sedated No (0 pts) Impaired Gait Yes (1 pt) Mobility Assist Device Used Yes (1 pt) Altered Elimination Yes (1 pt) Score/Fall Risk Level 3 or more points = High Risk Oriented to surroundings, Maintained a safe environment, Educated pt \T\ family on fall prevention, incl call for assistance when getting out of bed, Assessed \T\ reinforced patient's understanding of fall precautions, Provided non-skid footwear, Hourly rounding (assess needs \T\ fall precautionary measures) done, Used ambulatory aids as needed (educated on \T\ assisted with), Used gait belt as appropriate Implemented a Fall Risk Plan of Care, Remained w/in arm's length of patient and in sight while toileting, Offered frequent toileting (1:1 observation), Remained with patient while ambulating. Abuse screen: Denies threats or abuse. Denies injuries from another. Nutritional screening: No deficits noted. Tuberculosis screening: No symptoms or risk factors identified. Assessment: 09:20 Neuro: Reports weakness previous stroke. Cardiovascular: No deficits noted. ko1 Respiratory: No deficits noted. GI: Reports lower abdominal pain, diarrhea, nausea, vomiting. : Reports incontinence. EENT: No deficits noted. Reports. Derm: No deficits noted. Musculoskeletal: No deficits noted. 11:27 Reassessment: patient is discharged, her manager social work from [facility] will be ko1 here about 1300 to get her, there is no one else who can pick her up. Vital Signs: 11:10 BP 179 / 92; Pulse 70; Resp 18; Temp 97; Pulse Ox 99% on R/A; ko1 11:27 BP 156 / 89; Pulse 68; Resp 16; Pulse Ox 99% ; ko1 14:20 BP 134 / 68; Pulse 72; Resp 16; Pulse Ox 100% ; ko1 ED Course: 09:16 Patient arrived in ED. ms3 09:16 Torres Gallardo DO is Attending Physician. ms3 09:20 No provider procedures requiring assistance completed. ko1 09:20 Arm band placed on right wrist. Patient placed in an exam room, on a stretcher, on ko1 pulse oximetry, Patient notified of wait time. 09:20 Patient has correct armband on for positive identification. Bed in low position. Call ko1 light in reach. Side rails up X2. Provided Education on: NA. Pulse ox on. NIBP on. Door closed. Noise minimized. Lights dimmed. Warm blanket given. 09:27 CBC with Diff Sent. ds4 09:27 CMP Sent. ds4 09:27 Lipase Sent. ds4 09:33 Brenda Goodwin, HARDEEP is Primary Nurse. ko1 10:42 Octavio Grace DO is Referral Physician. ms3 11:12 Triage completed. ko1 12:00 IV discontinued, intact, bleeding controlled, No redness/swelling at site. Pressure ko1 dressing applied. Administered Medications: 10:38 Drug: Potassium Chloride PO 40 mEq PO once Route: PO; ko1 Medication: 09:20 VIS not applicable for this client. ko1 Outcome: 10:43 Discharge ordered by MD. ms3 14:19 Discharged to home via wheelchair, ko1 14:19 Condition: improved 14:19 Discharge instructions given to patient, Instructed on discharge instructions, follow up and referral plans. medication usage, Demonstrated understanding of instructions, follow-up care, medications, Prescriptions given X 1, 14:31 Patient left the ED. ko1 Signatures: Koko Clarke ds4 Torres Gallardo DO DO ms3 Brenda Goodwin, RN RN ko1 Corrections: (The following items were deleted from the chart) 14:20 12:00 Discharged to home via wheelchair, ko1 ko1 14:20 12:00 Condition: improved ko1 ko1 14:20 12:00 Discharge instructions given to patient, Instructed on discharge instructions, ko1 follow up and referral plans. medication usage, Demonstrated understanding of instructions, follow-up care, medications, Prescriptions given X 1, ko1
[2023-03-20 14:36] VITALS: TEMP 97
[2023-03-20 14:39] VITALS: BP 134/68; O2SAT 100
== END 2023-03-20 14:31 | disposition home or self-care (01) ==
LOC: ER 09:11
DX: E87.6 Hypokalemia (principal); R19.7 Diarrhea, unspecified; I10 Essential (primary) hypertension
CPT/HCPCS: 36415; 80053; 83690; 85025; 99284